=== PATIENT | female | born 1975 | race Caucasian/White ===

== ENCOUNTER 2023-05-29 11:28 | Outpatient (CLI) | payer OTHER, SELFPAY ==
--- NOTE | ~2023-05-29 | MMUS_ITS ---
EXAMINATION: MM diagnostic jany BI w ananya, US breast LT limited HISTORY: Pain and lower-outer quadrant of left breast TECHNIQUE: ML, MLO and CC 3-D tomosynthesis images of both breasts were performed and synthetic 2-D i mages were generated. CAD analysis was submitted and interpreted. High resolution lower outer quadran t left breast ultrasound was performed. COMPARISON: None BREAST PARENCHYMAL COMPOSITION: There are scattered areas of fibroglandular density. FINDINGS: MAMMOGRAPHIC FINDINGS: No suspicious mass or architectural distortion, malignant calcification, skin thickening or retractio n is detected. ULTRASOUND: No suspicious mass or shadowing, cyst or other significant sonographic abnormality is detected in the lower inner quadrant of left breast. IMPRESSION: 1. No mammographic or sonographic evidence of malignancy 2. Routine annual mammographic screening is recommended. BI-RADS Category 1: Negative Reviewed, dictated and finalized at location A. IMPRESSION: 1. No mammographic or sonographic evidence of malignancy 2. Routine annual mammographic screening is recommended. BI-RADS Category 1: Negative
== END 2023-05-29 11:29 | disposition home or self-care (01) ==
LOC: ANHIMG 11:31
PROVIDERS: PCP Nurse Practitioner; Visit Provider Nurse Practitioner
DX: N64.4 Mastodynia (principal)
CPT/HCPCS: 76642; 77062; 77066; G0279

== ENCOUNTER 2023-08-22 11:23 | Emergency (ER) | payer OTHER, SELFPAY ==
--- NOTE | ~2023-08-22 | XR_ITS ---
Clinical Indication: Cough PA and lateral views of the chest: Comparison: None Findings: The lungs are clear, without evidence of focal consolidation or pleural effusion. Cardiome diastinal silhouette is within normal limits. Bones and soft tissues are unremarkable, aside from cer vical fixation hardware. Impression: Clear lungs. Reviewed, dictated and finalized at location . Impression: Clear lungs.
[2023-08-22 11:30] VITALS: BP 117/72; PULSE 95; RESP 16; TEMP 36.3; O2SAT 97
--- NOTE | 2023-08-22 12:06 | ED.GENADULT ---
HPI - General Adult General Chief complaint: Dental/Oral Stated complaint: infection in gum Time Seen by Provider: 08/22/23 11:56 Source: patient and RN notes reviewed Mode of arrival: ambulatory Limitations: no limitations History of Present Illness HPI narrative: Patient presents today with a 2 week history of cough, nasal congestion, sinus pressure, rhinorrhea, postnasal drainage. She is also reporting a 4 week history of pain to the left upper gumline. She had several teeth removed approximately 1 month ago and has been having pain to this area ever since. She has been on 1 week of amoxicillin following her dental procedure as well as 2 weeks of Augmentin prescribed by an urgent care and then by her PCP for her cold symptoms. Her last dose of Augmentin was approximately 5 days ago. She has also been taking Robitussin and Tylenol without much relief. Denies shortness of breath or fever. History of asthma for which she uses an albuterol inhaler, which does occasionally help with her symptoms. Related Data Home Medications Medication Instructions Recorded Confirmed albuterol sulfate 90 mcg/actuation 2 puff inhalation PRN 08/22/23 08/22/23 aerosol inhaler dulaglutide 0.75 mg/0.5 mL 0.75 mg subcut WEEKLY 08/22/23 08/22/23 subcutaneous pen injector (Trulicity) famotidine 20 mg tablet 20 mg PO DAILY 08/22/23 08/22/23 linaclotide 145 mcg capsule 145 mcg PO DAILY 08/22/23 08/22/23 (Linzess) loratadine 10 mg tablet 10 mg PO DAILY 08/22/23 08/22/23 metformin 500 mg tablet,extended 1,000 mg PO BID 08/22/23 08/22/23 release 24 hr progesterone micronized 100 mg 100 mg PO DAILY 08/22/23 08/22/23 capsule rosuvastatin 5 mg tablet 5 mg PO DAILY 08/22/23 08/22/23 sumatriptan succinate 100 mg tablet 100 mg PO DAILY 08/22/23 08/22/23 Allergies Allergy/AdvReac Type Severity Reaction Status Date / Time azithromycin Allergy Severe Swelling Verified 08/22/23 12:09 adhesive Allergy Unknown Verified 08/22/23 11:48 ibuprofen Allergy Unknown Verified 08/22/23 11:48 latex Allergy Unknown Verified 08/22/23 11:48 silver sulfadiazine Allergy Unknown Verified 08/22/23 11:48 [From Emre] Review of Systems Review of Systems: CONSTITUTIONAL: Denies body aches, fever, chills, or sweats. EYES: Denies visual changes, redness, or discharge. ENT: Denies sore throat, or otalgia.+ rhinorrhea, congestion, postnasal drip, gum pain CARDIOVASCULAR: Denies chest pain, palpitations, or edema. RESPIRATORY: Denies dyspnea.+ cough, wheezing GASTROINTESTINAL: Denies abdominal pain, nausea, vomiting, or diarrhea. GENITOURINARY: Denies dysuria or hematuria. SKIN: Denies rash, itching, or wounds. MUSCULOSKELETAL: Denies back pain, joint pain, or myalgia. NEUROLOGIC: Denies headache, numbness, tingling, or weakness. PSYCH: Denies depression or anxiety. [facility] Past Medical History Medical History (Updated 08/22/23 @ 12:51 by Meghna Terrell, THOMAS, ) Asthma Family History Family History Father Hypertension Mother Asthma Heart disease Thyroid disorder Sibling Depression Thyroid disorder Grandparent Asthma Thyroid disorder Heart disease Other Depression Social History Social History Smoking status: Current every day smoker Tobacco type: cigarettes Alcohol intake: never Substance use: never Substance use type: marijuana Do You Feel Safe in your Home?: Yes Lack of Transportation: No Lack of Food: Never True Current Housing: I Have Housing Concerned About Future Housing: No Difficulty Paying for Meds: No Currently Unemployed: No Education: High School Diploma/GED Difficulty w/ Childcare or Family Care: No Comments At time of signature, I have reviewed and agree with nursing past medical, surgical, social and family history unless otherwise noted. Please
== END 2023-08-22 12:53 | disposition home or self-care (01) ==
PROVIDERS: Emergency Provider Nurse Practitioner
DX: J45.901 Unspecified asthma with (acute) exacerbation (principal); J06.9 Acute upper respiratory infection, unspecified; F17.210 Nicotine dependence, cigarettes, uncomplicated
CPT/HCPCS: 71046; 99213; G0463

== ENCOUNTER 2023-11-01 21:43 | Emergency (ER) | payer OTHER, SELFPAY ==
--- NOTE | ~2023-11-01 | XR_ITS ---
EXAM: XR foot RT min 3V DATE: 11/01/2023 22:14 HISTORY: right foot pain/swelling/redness . COMPARISON: None available. FINDINGS: Normal mineralization. No fracture or dislocation. No lytic or blastic lesion. Joint space s are maintained. Mild Achilles enthesopathy. Apparent fourth and fifth interphalangeal joint fusions . No erosion or periosteal change. Soft tissues within normal limits. IMPRESSION: No acute osseous finding in the right foot. Reviewed, dictated and finalized at location K.
[2023-11-01 22:00] VITALS: BP 136/69; PULSE 82; RESP 16; TEMP 36.5; O2SAT 100
--- NOTE | 2023-11-01 23:02 | ED.EXTPRO ---
HPI - Extremity Problem General Chief complaint: Extremity Problem,Nontraumatic Stated complaint: right foot is swollen, no injury Time Seen by Provider: 11/01/23 22:52 History of Present Illness HPI Narrative: 48-year-old female with a past medical history significant for diabetes, asthma. She presents to the emergency room today with sudden onset right foot pain and swelling. Pain is limited to the ankle joint and the hallux on the right foot. She states she woke up with a warm tender sensation in the right foot in these areas and limited mobility of the joint. No bug bites or injuries overlying it. Did not sustain any kind of injury or trauma to her knowledge. Denies any systemic features such as fever, chills, headache, nauseous, vomiting, chest pain or shortness of breath. No history of gout, no medication changes or recent injuries, illnesses. Related Data Home Medications Medication Instructions Recorded Confirmed albuterol sulfate 90 mcg/actuation 2 puff inhalation PRN 08/22/23 08/22/23 aerosol inhaler dulaglutide 0.75 mg/0.5 mL 0.75 mg subcut WEEKLY 08/22/23 08/22/23 subcutaneous pen injector (Trulicity) famotidine 20 mg tablet 20 mg PO DAILY 08/22/23 08/22/23 linaclotide 145 mcg capsule 145 mcg PO DAILY 08/22/23 08/22/23 (Linzess) loratadine 10 mg tablet 10 mg PO DAILY 08/22/23 08/22/23 metformin 500 mg tablet,extended 1,000 mg PO BID 08/22/23 08/22/23 release 24 hr progesterone micronized 100 mg 100 mg PO DAILY 08/22/23 08/22/23 capsule rosuvastatin 5 mg tablet 5 mg PO DAILY 08/22/23 08/22/23 sumatriptan succinate 100 mg tablet 100 mg PO DAILY 08/22/23 08/22/23 Allergies Allergy/AdvReac Type Severity Reaction Status Date / Time azithromycin Allergy Severe Swelling Verified 08/22/23 12:09 adhesive Allergy Unknown Verified 08/22/23 11:48 ibuprofen Allergy Unknown Verified 08/22/23 11:48 latex Allergy Unknown Verified 08/22/23 11:48 silver sulfadiazine Allergy Unknown Verified 08/22/23 11:48 [From Emre] Review of Systems Review of Systems: As [facility] Past Medical History Medical History Asthma Family History Family History Father Hypertension Mother Asthma Heart disease Thyroid disorder Sibling Depression Thyroid disorder Grandparent Asthma Thyroid disorder Heart disease Other Depression Social History Social History Smoking status: Current every day smoker Tobacco type: cigarettes Alcohol intake: never Substance use: never Substance use type: marijuana Do You Feel Safe in your Home?: Yes Lack of Transportation: No Lack of Food: Never True Current Housing: I Have Housing Concerned About Future Housing: No Difficulty Paying for Meds: No Currently Unemployed: No Education: High School Diploma/GED Difficulty w/ Childcare or Family Care: No Exam Narrative: GENERAL: [Well-appearing, well-nourished, and in no acute distress.] HEAD: [Normocephalic, atraumatic.] EYES: [PERRLA and EOMI.] ENT: Nares clear, no rhinorrhea or epistaxis. Mucous membranes moist. NECK: Supple. CHEST: [Clear to auscultation. No respiratory distress.] HEART: [Regular rate and rhythm]. No murmur heard. [Normal peripheral pulses.] ABDOMEN: [Soft, nondistended], [nontender], [No rigidity or guarding] EXTREMITIES: Around the right hallux there is a area of warmth and erythema with significant tenderness to palpation and tenderness will ability of the joint. No raised edges or rashawn a shins that would raise suspicion for cellulitis. No induration or fluctuance on palpation. No plantar surface involvement, no ankle space involvement. Able to plantar and dorsiflex. Contralateral foot without redness or warmth or any similar findings. No other florencio
[2023-11-01] MEDS: HYDROcodone/acetaminophen (*CRX) 5-325 MG TABLET 1 TAB PO (23:06)
[2023-11-01 23:30] LABS: Basophils Absolute Auto 0.1 K/mm3 (0.0-0.1); Basophils Percent Auto 0.5 % (0.2-1.2); Eosinophils Percent Auto 0.1 % (0-4.4); Hematocrit 38.4 % (37.0-47.0); Hemoglobin 12.8 g/dL (12.0-15.0); Immature Granulocyte Absolute 0.04 K/mm3 (0.00-0.031); Immature Granulocyte Percent A 0.4 % (0-0.5); Lymphocytes Absolute Auto 2.64 K/mm3 (0.9-3.2); Lymphocytes Percent Auto 25.4 % (18.3-44.2); Mean Corpuscular HGB Conc 33.3 g/dl (32-36); Mean Platelet Volume 11.5 fl (7.4-10.4); Monocytes Absolute Auto 0.7 K/mm3 (0.1-0.6); Monocytes Percent Auto 6.4 % (2.6-8.5); Neutrophils Percent Auto 67.2 % (45.5-73.1); Platelet Count Result 212 k/mm3 (150-375); Red Blood Count 3.88 M/mm3 (4.2-5.4); Red Cell Distribution Width 13.6 % (11.5-14.5); White Blood Count 10.4 K/mm3 (4.5-10.0)
[2023-11-01 23:55] LABS: Erythrocyte Sedimentation Rate 51 mm/hr (0-20)
[2023-11-02 00:40] LABS: Anion Gap 10 mmol/L (4-12); Blood Urea Nitrogen 8 mg/dL (7-17); CRP 0.8 mg/dL (<1.0); Calcium 9.4 mg/dL (8.4-10.2); Carbon Dioxide 20 mmol/L (22-30); Chloride 106 mmol/L (98-107); Estimated CRCL calculation 83 ml/min; Estimated Glomerular Filt Rate > 60; Glucose 100 mg/dL (65-110); Potassium 3.9 mmol/L (3.4-5.0); Sodium 136 mmol/L (137-145); Uric Acid 4.9 mg/dL (2.5-7.5)
[2023-11-02] MEDS: predniSONE 20 MG TABLET 60 MG PO (00:55)
[2023-11-02] MEDS: KETOROLAC 30 MG/ML VIAL (*BKC) IM (00:57)
== END 2023-11-02 01:04 | disposition home or self-care (01) ==
PROVIDERS: Emergency Provider Student in an Organized Health Care Education/Training Program
DX: M13.871 Other specified arthritis, right ankle and foot (principal); J45.909 Unspecified asthma, uncomplicated; E11.9 Type 2 diabetes mellitus without complications; F17.210 Nicotine dependence, cigarettes, uncomplicated; Z79.85 Long-term (current) use of injectable non-insulin antidiabetic drugs; Z79.84 Long term (current) use of oral hypoglycemic drugs; Z79.899 Other long term (current) drug therapy
CPT/HCPCS: 36415; 73630; 80048; 84550; 85025; 85652; 86140; 96372; 99283; A9270; J1885; J7512

== ENCOUNTER 2024-02-02 16:28 | Emergency (ER) | payer OTHER, SELFPAY ==
[2024-02-02 16:33] VITALS: BP 128/71; PULSE 96; RESP 16; TEMP 36.7; O2SAT 100
--- NOTE | 2024-02-02 17:10 | ED.RECABL ---
HPI - Recheck/Abnormal Lab/Rx General Chief Complaint: Recheck/Abnormal Lab/Rx Stated Complaint: facial swelling post surgery Time Seen by Provider: 02/02/24 17:00 Source: patient Mode of arrival: ambulatory Limitations: no limitations History of Present Illness HPI narrative: This is a 48-year-old female who presents to the ED for chief complaint of left-sided facial pain and swelling after oral surgery yesterday. Patient reports that they call the oral surgeon who told them to come to the ER for an antibiotic. Patient states that she did not receive any prescription for pain medications following surgery. She was previously on amoxicillin for some sort of upper respiratory infection. Denies fevers, chills, nausea, vomiting. Related Data Home Medications ?Medication ?Instructions ?Recorded ?Confirmed ?Last Taken ?Type albuterol sulfate 90 mcg/actuation 2 puff inhalation PRN 08/22/23 08/22/23 Unknown History aerosol inhaler dulaglutide 0.75 mg/0.5 mL 0.75 mg subcut WEEKLY 08/22/23 08/22/23 Unknown History subcutaneous pen injector (Trulicity) famotidine 20 mg tablet 20 mg PO DAILY 08/22/23 08/22/23 Unknown History linaclotide 145 mcg capsule 145 mcg PO DAILY 08/22/23 08/22/23 Unknown History (Linzess) loratadine 10 mg tablet 10 mg PO DAILY 08/22/23 08/22/23 Unknown History metformin 500 mg tablet,extended 1,000 mg PO BID 08/22/23 08/22/23 Unknown History release 24 hr progesterone micronized 100 mg 100 mg PO DAILY 08/22/23 08/22/23 Unknown History capsule rosuvastatin 5 mg tablet 5 mg PO DAILY 08/22/23 08/22/23 Unknown History sumatriptan succinate 100 mg tablet 100 mg PO DAILY 08/22/23 08/22/23 Unknown History Allergies Allergy/AdvReac Type Severity Reaction Status Date / Time azithromycin Allergy Severe Swelling Verified 02/02/24 16:37 adhesive Allergy Unknown Verified 02/02/24 16:37 ibuprofen Allergy Unknown Verified 02/02/24 16:37 latex Allergy Unknown Verified 02/02/24 16:37 silver sulfadiazine (From Allergy Unknown Verified 02/02/24 16:37 Silvadene) Review of Systems Review of Systems: All systems as dictated in HPI [facility] Past Medical History Medical History Asthma Family History Family History Father Hypertension Mother Asthma Heart disease Thyroid disorder Sibling Depression Thyroid disorder Grandparent Asthma Thyroid disorder Heart disease Other Depression Social History Social History Smoking status: Current every day smoker Tobacco type: cigarettes Alcohol intake: never Substance use: never Substance use type: marijuana Do You Feel Safe in your Home?: Yes Lack of Transportation: No Lack of Food: Never True Current Housing: I Have Housing Concerned About Future Housing: No Difficulty Paying for Meds: No Currently Unemployed: No Education: High School Diploma/GED Difficulty w/ Childcare or Family Care: No Exam Narrative: GENERAL: Well-appearing, well-nourished, and in no acute distress. HEAD: Normocephalic, atraumatic. EYES: PERRLA and EOMI. ENT: Sutures in place to the left upper gums. Minimal surrounding erythema or swelling. No discrete focal obvious fluctuance. Nares clear, no rhinorrhea or epistaxis. Mucous membranes moist. Oropharynx without tonsillar hypertrophy exudate or other lesions. NECK: Supple. No adenopathy or masses. CHEST: No respiratory distress. Clear to auscultation. No wheezes rales or rhonchi HEART: Regular rate and rhythm. No murmur heard. Normal peripheral pulses. ABDOMEN: Soft, nontender, nondistended, normal active bowel sounds. MSK: Normal range of motion. No edema. SKIN: Warm, dry, no rash. NEURO: Alert and oriented x4. No focal deficits. PSYCH: Normal mood and affect. Course Vital Signs Vital signs: Vital Signs Temperature 98.0 F 02/02/24 16:33 Pulse Rate 96 02/02/24 16:33 Respiratory Rate 16 02/02/24 16:33 Blood Pressure 128/71 02/02/24 16:33 Pulse Oximetry 100 02/02/24 16:33 Oxygen Delivery Room Air 02/02/24 16:33 Temperature 98.0 F 02/02/24 16:33 Pulse Rate 96 02/02/24 16:33 Respiratory Rate 16 02/02/24 16:33 Blood Pressure 128/71 02/02/24 16:33 Pulse Oximetry 100 02/02/24 16:33 Oxygen Delivery Room Air 02/02/24 16:33 MDM - Recheck/Abnormal Lab/Rx MDM Narrative Medical decision making narrative: 48-year-old female presenting to the ED for postoperative pain from oral surgery that occurred yesterday. Vitals are normal. Exam remarkable for the above. The sutures are in place and there does not appear to be any significant infection on exam. Lab work is unremarkable. Patient was given pain medications here with good relief. It appears that her surgery team did not prescribe any pain medications for her postop phase. Short course of [place] given for postoperative pain. Pt will be discharged in stable condition. Return precautions given and supportive measures discussed. Pt is understanding and agreeable with plan for discharge and follow-up with PCP. Patient called the ER later stating that the pharmacy was wrong. I double-checked with at initial pharmacy where the [place] was prescribed and she had not yet fill this prescription. Canceled the [place] prescription and recent to her new desired pharmacy. Lab Data 02/02/24 17:54 02/02/24 17:54 Labs: Lab Results 02/02/24 Range/Units 17:54 WBC 8.2 (4.5-10.0) K/mm3 RBC 4.28 (4.2-5.4) M/mm3 Hgb 13.9 (12.0-15.0) g/dL Hct 40.6 (37.0-47.0) % MCV 94.9 (80-100) fl MCH 32.5 (26-34) pg MCHC 34.2 (32-36) g/dl RDW 12.8 (11.5-14.5) % Plt Count 271 (150-375) k/mm3 MPV 10.9 H (7.4-10.4) fl Immature Gran % (Auto) 0.2 (0-0.5) % Neut % (Auto) 83.3 H (45.5-73.1) % Lymph % (Auto) 11.6 L (18.3-44.2) % [place] % (Auto) 4.3 (2.6-8.5) % Eos % (Auto) 0.0 (0-4.4) % Baso % (Auto) 0.6 (0.2-1.2) % Lymph # (Auto) 0.95 (0.9-3.2) K/mm3 [place] # (Auto) 0.4 (0.1-0.6) K/mm3 Eos # (Auto) 0.0 (0-0.3) K/mm3 Baso # (Auto) 0.1 (0.0-0.1) K/mm3 Abs Immat Gran (auto) 0.02 (0.00-0.031) K/mm3 Absolute Neuts (auto) 6.8 H (1.3-6.7) K/mm3 Absolute Nucleated RBC 0.000 (0.0-0.012) K/mm3 Nucleated RBC % 0.0 (0.0-0.2) % Sodium 135 L (137-145) mmol/L Potassium 3.6 (3.4-5.0) mmol/L Chloride 101 (98-107) mmol/L Carbon Dioxide 29 (22-30) mmol/L Anion Gap 5 (4-12) mmol/L BUN 4 L (7-17) mg/dL Creatinine 0.60 L (0.7-1.0) mg/dL Estim Creat Clear Calc 83 ml/min Estimated GFR > 60 (59 - ) Glucose 100 (65-110) mg/dL Calcium 9.2 (8.4-10.2) mg/dL Discharge Plan Discharge Clinical Impression: Post-op pain Patient Disposition: Home, Self-Care Condition: Stable Instructions: Antibiotic Form Additional Instructions: Your exam and workup today are reassuring. Do not feel that this is an infection. If your oral surgeon would like it to be on antibiotics, please take clindamycin as prescribed, otherwise keep following up as directed by oral surgeon. If you have any new or worsening symptoms please return to the ER for further evaluation. Patient Language: Hungarian Prescriptions: New hydrocodone-acetaminophen 5-325 mg tablet 1 tablet PO Q8H PRN (Reason: pain) Qty: 14 0RF clindamycin HCl 300 mg capsule 300 mg PO Q8H Qty: 15 0RF No Action sumatriptan succinate 100 mg tablet 100 mg PO DAILY famotidine 20 mg tablet 20 mg PO DAILY albuterol sulfate 90 mcg/actuation HFA aerosol inhaler 2 puff INHALATION PRN metformin 500 mg tablet extended release 24 hr 1,000 mg PO BID loratadine 10 mg tablet 10 mg PO DAILY progesterone micronized 100 mg capsule 100 mg PO DAILY rosuvastatin 5 mg tablet 5 mg PO DAILY Linzess 145 mcg capsule 145 mcg PO DAILY Trulicity 0.75 mg/0.5 mL pen injector 0.75 mg SUBCUT WEEKLY prednisone 50 mg tablet 50 mg PO DAILY 5 Days Qty: 5 0RF methylprednisolone [Medrol (Jason)] 4 mg tablets,dose pack See Rx Instructions .ROUTE .COMPLEX Qty: 21 0RF Rx Instructions: orally per package directions acetaminophen [Tylenol Extra Strength] 500 mg tablet 1,000 mg PO TID PRN (Reason: pain) Qty: 30 0RF Follow-up/Referrals: UNKNOWN,DOCTOR [Primary Care Provider] - Time of Disposition: 18:23
[2024-02-02] MEDS: KETOROLAC 15 MG/ML VIAL (*BKC) IV PUSH (17:49)
[2024-02-02] MEDS: MORPHINE SULFATE (*CRX) 4 MG/ML INJ IV PUSH (17:50)
[2024-02-02 18:02] LABS: Basophils Absolute Auto 0.1 K/mm3 (0.0-0.1); Basophils Percent Auto 0.6 % (0.2-1.2); Hematocrit 40.6 % (37.0-47.0); Hemoglobin 13.9 g/dL (12.0-15.0); Immature Granulocyte Absolute 0.02 K/mm3 (0.00-0.031); Immature Granulocyte Percent A 0.2 % (0-0.5); Lymphocytes Absolute Auto 0.95 K/mm3 (0.9-3.2); Lymphocytes Percent Auto 11.6 % (18.3-44.2); Mean Corpuscular HGB Conc 34.2 g/dl (32-36); Mean Corpuscular Hemoglobin 32.5 pg (26-34); Mean Corpuscular Volume 94.9 fl (80-100); Mean Platelet Volume 10.9 fl (7.4-10.4); Monocytes Absolute Auto 0.4 K/mm3 (0.1-0.6); Monocytes Percent Auto 4.3 % (2.6-8.5); Neutrophils Absolute Auto 6.8 K/mm3 (1.3-6.7); Neutrophils Percent Auto 83.3 % (45.5-73.1); Platelet Count Result 271 k/mm3 (150-375); Red Blood Count 4.28 M/mm3 (4.2-5.4); Red Cell Distribution Width 12.8 % (11.5-14.5); White Blood Count 8.2 K/mm3 (4.5-10.0)
[2024-02-02 18:10] LABS: Anion Gap 5 mmol/L (4-12); Blood Urea Nitrogen 4 mg/dL (7-17); Calcium 9.2 mg/dL (8.4-10.2); Carbon Dioxide 29 mmol/L (22-30); Chloride 101 mmol/L (98-107); Estimated CRCL calculation 83 ml/min; Estimated Glomerular Filt Rate > 60; Glucose 100 mg/dL (65-110); Potassium 3.6 mmol/L (3.4-5.0); Sodium 135 mmol/L (137-145)
== END 2024-02-02 18:31 | disposition home or self-care (01) ==
PROVIDERS: Emergency Provider Physician Assistant
DX: G89.18 Other acute postprocedural pain (principal); J45.909 Unspecified asthma, uncomplicated; F17.210 Nicotine dependence, cigarettes, uncomplicated; Z79.85 Long-term (current) use of injectable non-insulin antidiabetic drugs; Z79.899 Other long term (current) drug therapy; Z79.84 Long term (current) use of oral hypoglycemic drugs
CPT/HCPCS: 36415; 80048; 85025; 96374; 96375; 99284; J1885; J2270

== ENCOUNTER 2024-06-04 13:33 | Emergency (ER) | payer OTHER, SELFPAY ==
--- NOTE | 2024-06-04 13:34 | ED_ITS ---
HPI - URI/Sore Throat General Chief Complaint: Upper Respiratory Infection Stated Complaint: Cough/Chest Congestion/Mouth Pain Time Seen by Provider: 06/04/24 13:34 Source: patient Mode of arrival: ambulatory Limitations: no limitations History of Present Illness HPI Narrative: Tayler is a 49-year-old female patient presenting to the clinic today with complaints of nonproductive cough, losing her voice, nasal congestion, chest congestion, and upper gum pain/swelling x3 days. She reports no known fever, chills, body aches. Denies any chest pain but does report having some shortness of breath. She does take albuterol inhaler and Symbicort. Related Data Home Medications ?Medication ?Instructions ?Recorded ?Confirmed ?Last Taken ?Type albuterol sulfate 90 mcg/actuation 2 puff inhalation PRN 08/22/23 04/15/24 Unknown History aerosol inhaler famotidine 20 mg tablet 20 mg PO DAILY 08/22/23 04/15/24 Unknown History loratadine 10 mg tablet 10 mg PO DAILY 08/22/23 04/15/24 Unknown History metformin 500 mg tablet,extended 1,000 mg PO BID 08/22/23 04/15/24 Unknown History release 24 hr rosuvastatin 5 mg tablet 5 mg PO DAILY 08/22/23 04/15/24 Unknown History sumatriptan succinate 100 mg tablet 100 mg PO DAILY 08/22/23 04/15/24 Unknown History budesonide-formoterol HFA 160 inhalation 06/04/24 Unknown History mcg-4.5 mcg/actuation aerosol inhaler (Symbicort) Allergies Allergy/AdvReac Type Severity Reaction Status Date / Time azithromycin Allergy Severe Swelling Verified 06/04/24 13:45 adhesive Allergy Unknown Verified 06/04/24 13:45 ibuprofen Allergy Unknown Verified 06/04/24 13:45 latex Allergy Unknown Verified 06/04/24 13:45 silver sulfadiazine (From Allergy Unknown Verified 06/04/24 13:45 Silvadene) Review of Systems Review of Systems: Pertinent positives per HPI. Patient denies any fever, chills, rash, headache, visual changes, dizziness, shortness of breath, chest pain, palpitations, nausea, vomiting, diarrhea, constipation, abdominal pain, or any urinary issues. PMFSH Past Medical History Medical History Cholecystectomy planned Neuropathic arthritis High cholesterol Diabetes Asthma Surgical History Surgical History H/O tubal ligation History of hip surgery Previous back surgery H/O neck surgery Family History Family History Father Hypertension Mother Asthma Heart disease Thyroid disorder Sibling Depression Thyroid disorder Grandparent Asthma Thyroid disorder Heart disease Other Depression Social History Social History Smoking status: Current every day smoker Tobacco type: cigarettes Alcohol intake: never Substance use: current Substance use type: marijuana Do You Feel Safe in your Home?: Yes Lack of Transportation: No Lack of Food: Never True Current Housing: I Have Housing Concerned About Future Housing: No Difficulty Paying for Meds: No Currently Unemployed: No Education: High School Diploma/GED Difficulty w/ Childcare or Family Care: No Comments At the time of my signature, I reviewed and agree with the nursing past medical, surgical, social, and family history. There is no relevant family history pertinent to the patient complaint. Exam Narrative: General: Well-developed, well nourished, in no apparent distress Head: Normocephalic, atraumatic Eyes: Pupils equally round and reactive to light bilaterally, EOM intact, sclera and conjunctive clear, no discharge, lids normal Ears: TMs intact and congested, ear canals clear, no drainage, grossly hearing normal. Nose: Nares patent, clear nasal discharge, no inflammation, no sinus tenderness. Mouth: Oral pharynx without lesions or masses, good dentition, MMM. Postnasal drip Neck: Supple, trachea midline, no enlargement of anterior or posterior cervical nodes, no thyroid masses or goiter palpable. Cardio: Regular rate and rhythm, s1 and s2 normal, no murmur appreciated. Resp: Clear to auscultation bilaterally, no rhonchi, rales, wheezing or rubs Course Course Emergency Course: Portions of this record may have been created with voice recognition software. Level of Care: Express Care Visit Vital Signs Vital signs: Vital Signs Temperature 36.3 C L 06/04/24 13:45 Pulse Rate 93 06/04/24 13:45 Respiratory Rate 16 06/04/24 13:45 Blood Pressure 124/65 06/04/24 13:45 Pulse Oximetry 100 06/04/24 13:45 Oxygen Delivery Room Air 06/04/24 13:45 Temperature 36.3 C L 06/04/24 13:45 Pulse Rate 93 06/04/24 13:45 Respiratory Rate 16 06/04/24 13:45 Blood Pressure 124/65 06/04/24 13:45 Pulse Oximetry 100 06/04/24 13:45 Oxygen Delivery Room Air 06/04/24 13:45 Vital signs reviewed MDM - URI/Sore Throat MDM Narrative Medical decision making narrative: At the time of visit patient is resting comfortably on the exam table. Patient appears to be nontoxic. Plan: I suspect patient has URI. Prescription for prednisone was sent to the pharmacy. Patient adamant about getting antibiotic as she states that steroids make her more sick and that she will be back to get an antibiotic. Explained to the patient I do not see any sign of a bacterial infection as her lungs are clear his she has a nonproductive cough, she denies any fever, and no sign of bacterial infection on exam. She voiced understanding. Supportive measures were discussed with the patient and they voiced understanding discharge instructions and agrees to treatment plan. Return precautions reviewed Differential Diagnosis Differential diagnosis: Likely upper respiratory infection, otitis media, sinusitis, viral infection, bronchitis, influenza, pharyngitis and other (COVID) Discharge Plan Discharge Clinical Impression: Upper respiratory infection Qualifiers: URI type: unspecified URI Qualified Code(s): J06.9 - Acute upper respiratory infection, unspecified Patient Disposition: Home Condition: Stable Instructions: Antibiotic Form, Cold Symptoms (ED) Additional Instructions: Take prescription medications only as prescribed-prednisone No sign of bacterial infection in the clinic today. Increase fluids and stay well hydrated Tylenol/motrin for pain/fever Flonase and OTC antihistamines as directed Vicks vapor rub to open sinuses Sinus rinses for congestion Cepacol spray, cough drops, throat lozenges, warm tea with honey/lemon, gargle salt water to soothe throat BRAT diet for diarrhea Clear liquids x 24 hours then advance as tolerated for nausea/vomiting Go to the ED if you develop a worsening in your condition- high fever not controlled by Tylenol or Motrin, dehydration, weakness, lethargy, shortness of breath, or chest pain. Follow up with your PCP in 3-5 days if symptoms persist. Patient Language: [place] Prescriptions: New prednisone 20 mg tablet 40 mg PO DAILY 5 Days Qty: 10 0RF No Action sumatriptan succinate 100 mg tablet 100 mg PO DAILY famotidine 20 mg tablet 20 mg PO DAILY albuterol sulfate 90 mcg/actuation HFA aerosol inhaler 2 puff INHALATION PRN metformin 500 mg tablet extended release 24 hr 1,000 mg PO BID loratadine 10 mg tablet 10 mg PO DAILY rosuvastatin 5 mg tablet 5 mg PO DAILY budesonide-formoterol [Symbicort] 160-4.5 mcg/actuation HFA aerosol inhaler INHALATION Linzess 72 mcg capsule 72 mcg PO DAILY Qty: 30 3RF omeprazole 40 mg capsule,delayed release(DR/EC) 40 mg PO DAILY Qty: 30 3RF acetaminophen [Tylenol Extra Strength] 500 mg tablet 1,000 mg PO TID PRN (Reason: pain) Qty: 30 0RF Follow-up/Referrals: Harley,Marianne Kearney APRN [Primary Care Provider] - Time of Disposition: 13:52 Quality NIHSS Nursing Documentation ED NIHSS nursing documentation: reviewed/agree
[2024-06-04 13:45] VITALS: BP 124/65; PULSE 93; RESP 16; TEMP 36.3; O2SAT 100
--- OUTSIDE RECORDS SUMMARY | 2024-06-04 14:26 | XMS_ITS | Continuity of Care Document ---
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 [address] [place], [place], [id number] . tel:[phone] Referring Provider: Aishwarya Ortiz, [address], [place], [address]. tel:[phone] OFFICE/OUTPA TIENT VISIT NEW [facility], [address], [place], [address], [place] tel:[phone] [facility] Right shoulder pain, unspecified chronicityBursiti s of right shoulderRadiculop athy of arm Apr- 0 Destini Gaviria. [address], [place], [place], [id number] . tel: [phone] Referring Provider: Aishwarya Ortiz, [address], [place], [address]. tel:[phone] [facility], [address], [place], [address], [place] tel:[phone] [facility] O Kristina Injury of right shoulder, initial encounterFall in home, initial encounter ^Unspecified place in unspecified non-institutional (private) residence as the place of occurrence of the external causeContusion of right shoulder, initial encounter 9 Surendra Hernandez. [address], [place], [id number] . tel:[phone] Family History Family Member Type Diagnosis Age At Onset Mother Problem Heart disease Problem (finding) Family history of chronic obstructive lung disease Problem (finding) Family history of Liver disease Payers Payer name Insurance type Covered green party ID Livan torres(s) [facility] Medicaid [id number] Social History Type Description Quantity Date Captured [...]
--- OUTSIDE RECORDS SUMMARY | 2024-06-04 14:26 | XMS_ITS | Clinical Summary ---
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 the rectum. The polyp was sessile. The polyp was removed with a cold biopsy forceps. Resection and retrieval were complete. A 6 mm polyp was found in the sigmoid colon. The polyp was sessile. The polyp was removed with a cold snare. Resection and retrieval were complete. A 12 mm polyp was found in the recto-sigmoid colon. The polyp was pedunculated. The polyp was removed with a hot snare. Resection and retrieval were complete. External and internal hemorrhoids were found during retroflexion. The hemorrhoids were medium-sized. The exam was otherwise without abnormality on direct and retroflexion views. The terminal ileum appeared normal. _ Impression: - One 3 mm polyp in the rectum, removed with a cold biopsy forceps. Resected and retrieved. - One 6 mm polyp in the sigmoid colon, removed with a cold snare. Resected and retrieved. - One 12 mm polyp at the recto-sigmoid colon, removed with a hot snare. Resected and retrieved. - External and internal hemorrhoids. - The examination was otherwise normal on direct and retroflexion views. - The examined portion of the ileum was normal. Recommendation: - Await pathology results. - Repeat colonoscopy in 3 years for surveillance. Procedure Code(s): --- Professional --- 58202, Colonoscopy, flexible; with removal of tumor(s), polyp(s), or other lesion(s) by snare technique 36009, 59, Colonoscopy, flexible; with biopsy, single or multiple --- Technical --- 31779, Colonoscopy, flexible; with removal of tumor(s), polyp(s), or other lesion(s) by snare technique 43084, 59, Colonoscopy, flexible; with biopsy, single or multiple Diagnosis Code(s): --- Professional --- Z12.11, Encounter for screening for malignant neoplasm of colon K62.1, Rectal polyp K63.5, Polyp of colon K64.8, Other hemorrhoids --- Technical --- Z12.11, Encounter for screening for malignant neoplasm of colon K62.1, Rectal polyp K63.5, Polyp of colon K64.8, Other hemorrhoids CPT copyright 2019 [employer]. All rights reserved. The codes documented in this report are preliminary and upon certified coder review may be revised to meet current compliance requirements. __ Inez Izaguirre MD 12/16/2021 2:44:57 PM Number of Addenda: 0 Note Initiated On: 12/16/2021 1:18 PM [facility] 12/16/2021 1:18 PM ASSISTANT MERCHANDISER Inez Izaguirre MD GI PROCEDURE ORDERABLES Edite d Result - Final Performing Organization Address City/State/[facility] Co de Phone Number [facility] [place] [address] * MAMMO BILAT SCREENING (04/28/2020 12:18 PM CDT) Anatomical Region Laterality Modality Breast Bilateral Mammography 04/29/2020 12:3 6 PM CDT Impressions 04/29/2020 12:38 PM CDT 1. Stable bilateral benign changes. 2. No mammographic evidence of malignancy. BI-RADS Category (2): Benign finding(s). RECOMMENDATION: Return for mammograms in one year or sooner if clinically indicated. *Reading Radiologist: Frances Montes on 04/29/2020 at 12:38 PM Narrative 04/29/2020 12:38 PM CDT BILATERAL DIGITAL SCREENING MAMMOGRAPHY HISTORY: Screening mammogram. No personal or family history of breast cancer. TECHNIQUE: Bilateral digital mammography was obtained in the craniocaudal and mediolateral oblique projections. 3D tomosynthesis performed. Image interpretation was assisted with CAD analysis. COMPARISON: Mammography 02/25/2019 FINDINGS: Breast composition: Scattered fibroglandular densities Stable bilateral benign changes are present, with no suspicious interval change. No worrisome mass, suspicious microcalcifications, or other abnormality seen. Aishwarya Ortiz DO MAMMO ORDERABLES Final Result * PAP IG LB CT+GC+TV+ HPV HR DNA (12/04/2018 2:32 PM CDT) Diagnosis [facility] INSURANCE BILL Comment:NEGATIVE FOR INTRAEP ITHELIAL LESION OR MALIGNANCY. Specimen Adequacy [facility] INSURANCE BILL Comment:Satisfactory for oumou luation. No endocervical component is identified. Clinician Provided ICD10 [facility] INSURANCE BILL Comment: Z01.419 N92.1 Z12.39 Z11.3 N93.8 Performed by [facility] INSURANCE BILL Comment:Elle Harley, Cytot echnologist (ASCP) Comment . [facility] INSURANCE BILL Note [facility] INSURANCE BILL Comment: The Pap smear is a screening test designed to aid in the detection of premalignant and malignant conditions of the uterine cervix. It is not a diagnostic procedure and should not be used as the sole means of detecting cervical cancer. Both false-positive and false-negative reports do occur. . IGLBP CPT Code Automation [facility] INSURANCE BILL Comment: This liquid based ThinPrep(R) pap test was screened with the use of an image guided system. Human papillomavirus High Risk Negative Negative [facility] INSURANCE BILL Comment: This high-risk HPV test detects thirteen high-risk types (16/18/31/33/35/39/45/51/52/56/58/59/68) without differentiation. . Chlamydia trachomatis ALBERTO Negative Negative [facility] INSURANCE BILL GC ALBERTO Negative Negative [facility] INSURANCE BILL Trichomonas vaginalis by ALBERTO Negative Negative [facility] INSURANCE BILL Pathology/Cytolog y PART OF UTERINE CERVIX / Unknown 12/04/2018 2:32 PM CDT 12/04/2018 Narrative [facility] INSURANCE BILL - 12/10/2018 12:36 PM ASSISTANT MERCHANDISER Source.............Cervix LMP / Prev Treat...None No. of containers..01 ThinPrep Vial Resulting Agency Comment Lab Testing performed at: [facility] [place] [id number] Jeanine Rush MD LAB - PATHOLOGY/CYTOLOGY KATHLEEN REA Final Result [facility] INSURANCE BILL [address] [place] [address] from Last 3 Months or Most Recently Relevant to Health Maintenance Insurance [facility] MEDICAID - [id number] * Guarantor: TAYLER WASHINGTON Account Type Relation to Patient Date of Phone Billing Address Personal/Family 1975 [address] [place] [address] Advance Directives * Full Code (Latest Code Status on File) Date Activated Date Inactivated Comments 03/21/2019 11:06 PM 03/25/2019 3:20 PM * Full Code Date Activated Date Inactivated Comments 03/21/2019 10:14 PM 03/21/2019 11:05 PM * Full Code Date Activated Date Inactivated Comments 05/29/2018 7:31 PM 06/01/2018 1:48 PM * Full Code Date Activated Date Inactivated Comments 01/25/2016 8:45 PM 01/28/2016 4:27 PM * Full Code Date Activated Date Inactivated Comments 07/16/2013 9:34 PM 07/19/2013 2:21 PM Care Teams Recruiting Team Lead Relationship Specialty Start Date End Date Quita Lares MD [address] [place] [address] PCP - General Internal Medicine 02/07/23 Marianne Souza, WIRELINE OPERATOR-CLIENT CARE SPECIALIST [address] [place] [address]. [address] [place] [id number] PCP - Attributed-Agrawal Medicaid STL 01/05/23 Bharath Martinez DO Orthopedic Surgery 06/07/16 [place] [id number] [facility] [address] [place], [place] [id number] Physical Medicine and Rehabilitation 10/16/19
--- OUTSIDE RECORDS SUMMARY | 2024-06-04 14:26 | XMS_ITS ---
Author Organization [facility] Address [address] [place] [address] Care Team Providers Care Purchasing Supervisor Name Role Phone Rocío Ross Primary Care Provider Luis Armando Mclean [phone] Encounters Encounter Location Date Provider Diagnosis [facility] [address] [place] [address] 01/17/2023 Luis Armando Mclean Plan Of Treatment No Information Progress Notes * Tayler PETERSENDOB:1975 (49 yo F)Acc No.[id number]:01/17/2023 Dental Problem Focus Patient: Tayler LESTER Provider: Leydi MCLEAN DDS :1975 A ge:47 Y S ex:Female Date:01/17/2023 Address:[address] [place], [place] [id number] Pcp:Rocío Ross Subjective: * Chief Complaints: * * Medical History: Objective: Assessment: Plan: * Treatment: * * Electronic signature of Segundo Mclean DDS on 06/04/2024 at 02:25 PM CDT Sign off status: Pending Visit Status: N /S (No-Show) * Provider: Leydi MCLEAN DDS Date: 1 03/20/2022 Generated for Elissa hodges/Rossy/Calixtoitting on: 0 06/04/2024 02:25 PM CDT
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
--- OUTSIDE RECORDS SUMMARY | 2024-06-04 14:26 | XMS_ITS | Patient Health Record ---
Author Organization [facility] Address [address] [place] [address] Care Team Providers Care Weatherization Crew Leader Name Role Phone Altaf Rossl Primary Care Provider Reason For Referral No Information Plan Of Treatment No Information Insurance Providers Payer Name Payer Address Payer Phone Subscriber Number Group Number Insured Name Patient Relationship to Insured Coverage Start Date Coverage End Date [address] [id number] Tayler [place] Self - patient is the insured [facility] [address] [place] [address] [id number] Tayler [place] Self - patient is the insured
--- OUTSIDE RECORDS SUMMARY | 2024-06-04 14:26 | XMS_ITS | Clinical Summary ---
Author Organization [facility] Address [address] [place] [address] Phone Care Team Providers Care Channeler Outsole Name Role Phone Unavailable Primary Care Provider Unavailabl e Encounters Date Type Department Care Team Description 03/20/2024 [facility] [address] [place] [address] Provider, None Referral from Last 3 Months Social History Tobacco Use Types Packs/Day Years Used Date Smoking Tobacco: Never Assessed Comments Unknown Sex and Gender Information Value Date Recorded Sex Assigned at Not on file Legal Sex Female 10:34 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
--- OUTSIDE RECORDS SUMMARY | 2024-06-04 14:26 | XMS_ITS | Referral Summary ---
Author Organization [facility] [address] Address [address] [place] [address] Care Team Providers Care Bridge Ironworker Helper Name Role Phone Marianne Souza NP Primary Care Provider [phone]- [phone] Allergies Active Allergy Reactions Criticality Noted Date Comments Adhesive Itching,Rash Medium 07/02/2013 Patient states she cannot use Tegaderm either Patient states she cannot use Tegaderm either Patient states she cannot use Tegaderm either Adhesive Tape-Silicones Rash Medium 09/20/2015 Ibuprofen Other (See comments),Stomach upset High 07/19/2014 Bleeding ulcers. Ulcers Ulcers Ulcers Latex Itching,Rash Medium 07/02/2013 Methylprednisolone Anaphylaxis,Other (See comments) High 02/21/2019 Tongue swelled up Tongue swelled up with high doses. Can have low doses Tongue swelled up Tongue swelled up Tongue swelled up Silver Sulfadiazine Rash,Other (See comments) High 09/20/2015 Sulfa (Sulfonamide Antibiotics) Hives,Urticaria Medium 01/15/2018 Medications albuterol HFA (PROVENTIL HFA,VENTOLIN HFA) 90 mcg/actuation inhaler Inhale 2 puffs every 4 hours 7 Active fluticasone (FLONASE) 50 mcg/actuation nasal spray 2 sprays Active ipratropium-albut jacoby (COMBIVENT RESPIMAT) 20-100 mcg/actuation inhalerIndication s:Chronic Obstructive Pulmonary Disease with Bronchospasms Inhale 1 puff 7 Active loratadine (CLARITIN) 10 mg tablet Take 1 tablet (10 mg total) by mouth Active omeprazole (PriLOSEC) 20 mg capsule Take 1 capsule (20 mg total) by mouth Active SUMAtriptan (IMITREX) 50 mg tabletIndications :Migraine Take 1 tablet (50 mg total) by mouth every 2 hours as needed 7 Active lidocaine (LIDODERM) 5 % Place 1 patch on the skin daily Remove & discard patch within 12 hours or as directed by MD. 30 patch 3 Active blood glucose diagnostic (glucose blood) strip 1 each by Not Applicable route 2 (two) times a day 4 Active calcium pantothenate 200 mg tablet Take 200 mg by mouth daily Active lancets misc 1 each by Not Applicable route 2 (two) times a day 4 Active amitriptyline (ELAVIL) 25 mg tablet Take 1 tablet (25 mg total) by mouth 1 Active benzonatate (TESSALON) 100 mg capsule Take 1 capsule (100 mg total) by mouth 3 (three) times a day Active budesonide-formot Jacoby (SYMBICORT) 160-4.5 mcg/actuation inhaler Inhale 2 puffs 0 Active cholecalciferol (VITAMIN D-3) 50,000 unit capsule Take 1 capsule (50,000 Units total) by mouth once a week 0 Active cyclobenzaprine (FLEXERIL) 5 mg tablet Take 1 tablet (5 mg total) by mouth 3 (three) times a day as needed 4 Active famotidine (PEPCID) 20 mg tablet Take 1 tablet (20 mg total) by mouth nightly at bedtime. Active metFORMIN (GLUCOPHAGE) 500 mg tablet Take 1 tablet (500 mg total) by mouth 2 (two) times a day with meals Active Active Problems Problem Noted Date Diagnosed Date Chronic neck pain 01/07/2023 Chronic pain syndrome 01/07/2023 Hyperthyroidism 01/07/2023 Irritable bowel syndrome with constipation 01/07 Otalgia of left ear 01/07/2023 Bursitis of shoulder 07/13/2021 Cannabis dependence 07/13/2021 Nerve root disorder 07/13/2021 Hot flashes due to menopause 02/01/2021 Hyperlipidemia 02/01/2021 Type 2 diabetes mellitus without complication Pain in joint of right shoulder 01/24/2019 Migraine without aura and wi thout status migrainosus, not intractable 06/17/2018 Moderate episode of recurrent major depressive d isorder 06/17/2018 Moderate persistent asthma without complication 06/17/2018 Polyp of colon 06/17/2018 Primary osteoarthritis involving multiple joints 06/17/2018 Vitamin B12 deficiency 06/17/2018 Sprain of right ankle 06/22/2017 Acute right ankle pain 06/22/2017 Chronic obstructive lung disease 12/02/2016 H/O migraine 12/01/2016 Spinal stenosis of cervical region 12/01/2016 Allergic rhinitis 06/01/2016 Rupture of left biceps tendon 06/01/2016 Bipolar disorder, current episode mixed, moderat e 02/14/2016 Tobacco use 02/14/2016 Duodenal ulcer disease 01/27/2016 Overview (05/28/2023): Overview: Dr. Pemberton 01/2016 Overview: Overview: Dr. Pemberton 01/2016 Dr. Pemberton 01/2016 Overview: Dr. Pemberton 01/2016 Overview: Dr. Pemberton 01/2016 Overview: Overview: Dr. Pemberton 01/2016 Dr. Pemberton 01/2016 Overview: Dr. Pemberton 01/2016 Overview: Dr. Pemberton 01/2016 Overview: Overview: Dr. Raygoza/GARTH 01/2016 Dr. Raygoza/GARTH 01/2016 Overview: Dr. Raygoza/GARTH 01/2016 Anxiety state 11/29/2015 Abnormal brain MRI 09/20/2015 Bipolar 1 disorder, depressed 09/20/2015 Chronic erosive gastritis 09/20/2015 Major depressive disorder 09/20/2015 GERD (gastroesophageal reflux disease) 6 Lymphadenopathy 09/20/2015 Migraine 09/20/2015 NSAID induced gastritis 09/20/2015 Urinary hesitancy 09/20/2015 ASCUS with positive high risk HPV 07/23/2013 ASCUS with positive high risk HPV cervical 07/23 Ovarian cyst, complex 12/09/2012 Endometriosis of pelvis 09/06/2012 Arthralgia of hip 08/04/2008 Social History Tobacco Use Types Packs/Day Years Used Date Smoking Tobacco: Every Day Smokeless Tobacco: Never Alcohol Use Standard Drinks/Week Comments No 0 (1 standard drink = 0.6 oz pur e alcohol) Personal Safety Answer Date Recorded Have you ever been in or are you currently in a harmful physical or emotional relationship or is someone making you feel afraid or unsafe? 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 Gender Identity Not on file Sexual Orientation Not on file Last Filed Vital Signs Vital Sign Reading Time Taken Comments Blood Pressure 132/68 01/25/2024 7:27 PM PLASTER MIXER Pulse 77 01/25/2024 7:27 PM PLASTER MIXER Temperature 38 C (100.4 F) 01/25/2024 7:27 PM PLASTER MIXER Respiratory Rate 19 01/25/2024 7:27 PM PLASTER MIXER Oxygen Saturation 98% 01/25/2024 7:27 PM PLASTER MIXER Inhaled Oxygen Concentration - - Weight 66.2 kg (146 lb) 01/25/2024 7:27 PM PLASTER MIXER Height 162.6 cm (5' 4 ) 01/25/2024 7:27 PM PLASTER MIXER Body Mass Index 25.06 01/25/2024 7:27 PM PLASTER MIXER Plan of Treatment Not on file Medical Devices Implanted Type Area Professor Of Astronomy Device Identifier Shelf Expiration Date Model / Serial / Lot Rods Lumbar-Sacra l Spine Insurance [facility] Care Teams Bridge Ironworker Helper Relationship Specialty Start Date End Date Marianne Souza NP [address] [address] PCP - General Family Practice 05/28/23
--- OUTSIDE RECORDS SUMMARY | 2024-06-04 14:26 | XMS_ITS ---
Author Name Auto Generated, Auto Generated Organization [facility] Address [address] [place] [address] Phone [phone] Functional Status No Results Mental Status No Results Allergies and Intolerances No Known Allergies Problems Active Concerns * MDD (major depressive disorder)* Code: 596755808 * Start Date: SunMar 11 07:00:00 EST 2020 * End Date: * Text: * Moderate tetrahydrocannabinol (THC) dependence* Code: [id number] * Start Date: * End Date: * Text: Reason for Referral Past Medical History
--- OUTSIDE RECORDS SUMMARY | 2024-06-04 14:26 | XMS_ITS | Clinical Summary ---
Author Organization [facility] [address] Address [address] [place] [address] Care Team Providers Care Waiter/Waitress First Class Name Role Phone Marianne Souza NP Primary Care Provider +1- [phone] Allergies Active Allergy Reactions Criticality Noted Date [...] Overview: Dr. Pemberton 01/2016 Overview: Overview: Dr. Raygoza/GI 01/2016 Dr. Raygoza/GARTH 01/2016 Overview: Dr. Raygoza/GI 01/2016 Anxiety state 11/29/2015 Abnormal brain MRI [...] of pelvis 09/06/2012 Arthralgia of hip 08/04/2008 Surgical History Surgery Date Site/Laterality Comments OTHER SURGICAL HISTORY backsurgery NECK SURGERY neck surgery WRIST SURGERY wrist surgery CHOLECYSTECTOMY Medical History Medical History Date Comments Asthma Asthma Acid reflux Migraine COPD (chronic obstructive pulmonary disease) (HC C) Family History Medical History Relation Name Comments No Known Problems Brother No Known Problems Cousin No Known Problems Daughter No Known Problems Father No Known Problems Maternal Grandfather No Known Problems Maternal Grandmother No Known Problems Mother Allergies Other 1 Family history of Allergies; Diabetes type II Other 2 Family hist ory of Diabetes -Type II; Hypertension Other 3 Family history of Hypertension; Arthritis Other 4 Family history of arthritis; Asthma Other 5 Family history of Asthma; Blood Clot Other 6 Family history of blood clots; Depression Other 7 Family history of Depression; Heart attack Other 8 Family history of heart attack; Liver disease Other 9 Family history of Liver disease; No Known Problems Paternal Grandfather No Known Problems Paternal Grandmother No Known Problems Sister No Known Problems Son Diabetes Neg Hx Heart failure Neg Hx Hyperlipidemia Neg Hx Migraines Neg Hx Osteoarthritis Neg Hx Rashes / Skin problems Neg Hx Rheum arthritis Neg Hx Seizures Neg Hx Stroke Neg Hx Thyroid disease Neg Hx Relation Name Status Comments Brother Cousin Daughter Father Maternal Grandfather Maternal Grandmother Mother Other 1 Other 2 Other 3 Other 4 Other 5 Other 6 Other 7 Other 8 Other 9 Paternal Grandfather Paternal Grandmother Sister Son Social History Tobacco Use Types Packs/Day Years [...] on file Legal Sex Female 5:05 PM COAL HAULER OPERATOR Gender Identity Not on file Sexual Orientation Not on file Obstetrics History Last Filed Vital Signs Vital Sign Reading Time Taken Comments Blood Pressure 132/68 01/25/2024 7:27 PM COAL HAULER OPERATOR Pulse 77 01/25/2024 7:27 PM COAL HAULER OPERATOR Temperature 38 C (100.4 F) 01/25/2024 7:27 PM COAL HAULER OPERATOR Respiratory Rate 19 01/25/2024 7:27 PM COAL HAULER OPERATOR Oxygen Saturation 98% 01/25/2024 7:27 PM COAL HAULER OPERATOR Inhaled Oxygen Concentration - - Weight 66.2 kg (146 lb) 01/25/2024 7:27 PM COAL HAULER OPERATOR Height 162.6 cm (5' 4 ) 01/25/2024 7:27 PM COAL HAULER OPERATOR Body Mass Index 25.06 01/25/2024 7:27 PM COAL HAULER OPERATOR Plan of Treatment Health Maintenance Due Date Last Done Comments Albumin Creatinine Ratio, Urine 1974 Cervical Cancer Screening 1974 Colon Cancer Screening-Colonoscopy 1974 Depression Screening 1974 Hepatitis C Screening 1974 eGFR 1974 Dilated Eye Exam 1974 Foot Exam 1974 Hepatitis B Screening 02/28/1992 Regular Well Visit/Exam 18-64 02/28/1992 Pneumococcal vaccine <65 (2 of 2 - PCV) 11/08/2013 11/08/2012 Breast Cancer Screening-Mammogram 04/28/2021 021 Hemoglobin A1C 08/31/2023 03/02/2023, 08/03/2021, 02/01/2021, Additional history exists Zoster Vaccine (1 of 2) 02/28/2024 Lipid Panel 03/02/2024 03/02/2023 Influenza Vaccine (Season Ended) 2024 11/09/19 13 DTaP/Tdap/Td Vaccine (2 - Td or Tdap) 06/11/2026 06/11/2016 Medical Devices Implanted Type Area Foreman Shipping Department Device Identifier Shelf Expiration Date Model / Serial / Lot Rods Lumbar-Sacra l Spine [facility] Care Teams Waiter/Waitress First Class Relationship Specialty Start Date End Date Marianne Souza NP [address] [address] PCP - General Family Practice 05/28/23
--- OUTSIDE RECORDS SUMMARY | 2024-06-04 14:26 | XMS_ITS | Data Portability ---
[facility] Address [address] [place] [address] Care Team Providers Care Cfo Controller Name Role Phone BLANK CHATMAN Primary Care Provider [phone] Assessment No assessment recorded. Plan of Treatment Reminders Order Date Submit Date Provider Last Modified By Organization Details Last Modified Time Details Appointments None recorded. Lab None recorded. Referral audiologis t referral 2024 025 FABRICIOAnuel Dempsey Ma [facility], [address] [place] [address] Deangelo Kirk, [place], [address], 5 11:37:21 Procedures None recorded. Surgeries None recorded. Imaging None recorded. Medication Orders cefdinir 300 mg capsule 2024 025 [facility] #[id number], [address] [place], [address], 12:47:08 Patient TargetsNo targets recorded. Patient InstructionsNo instructions recorded. Reason for Referral Retrieval Specialist Referral for Sen sorineural hearing loss of bilateral ears Referring Physician: David Brooke, Otolaryngology, Encounter Date: 05/19/2024 Results Created Date Observation Date Name Description Value Unit Range Abnormal Flag Note LastModifiedBy Organization Detail LastModifiedTime 05/14/19 25 US, head + neck, soft tissu e No observ ation record ed. [email or web address] Not Available 10/2024 08:18:54 05/14/19 25 05/07/2024 US, head + neck, soft tissu e No observ ation record ed. [email or web address] [address], [place], [address], 05/14/2024 08:18:59 Result Notes None recorded. Procedures Surgical History Date Name Laterality Status Provider Name and Address Organization Details Recorded Time 02/05/19 20 procedure on back completed JANICE [place] [facility] 05/13/2024 12:26:19 02/05/19 19 procedure on wrist completed Elsa Clarke RMLeydi [place] - [facility] 05/13/2024 12:27:22 02/05/19 17 Cholecystectomy completed Elsa Clarke RMLeydi [place] [facility] 05/13/2024 12:26:33 procedure on knee completed Elsa Clarke RMA [place] [facility] 05/13/2024 12:25:51 Imaging Results Imaging Date Name Status LastModified by Organiz ation Details LastModified Time 05/13/2024 US, head + neck, soft tissue active Information not available 05/14/2024 08:18:54 05/07/2024 US, head + neck, soft tissue completed [email or web address] [facility] [address], [place], [address], 05/14/2024 08:18:59 Procedure Notes None recorded. Medical Equipment None Reported. Allergies Allergen ID Allergen Name Allergen Category Reaction Reaction Severity Criticality Documentation Date Start Date Code Code System Note Provider Name and Address Organization Details Recorded Time 218608 adhesive environme nt,medica tion rash Not available Not available 05/13/2024 05625 UNK JANICE Castro null, [place] [facility] 12:19:07 710680 Silvadene medicatio n rash Not available Not available 05/13/2024 65165 6 RxNorm JANICE [place] [facility] 12:19:37 536886 adhesive tape environme nt,medica tion Not available Not available Not available 05/13/2024 60750 UNK blist ers ROZ CastroA [place] [facility] 12:20:11 371403 ibuprofen medicatio n Not available Not available Not available 05/13/2024 5640 RxNorm stoma ch ulcer s JANICE [place] [facility] 12:20:22 578239 latex environme nt,medica tion hives Not available Not available 05/13/2024 43996 91 RxNorm JANICE Castro phyllis, [place] - [facility] 12:45:36 Medications Name Sig Start Date Stop Date Status Note LastModified by Organization Details LastModified Time cyclobenzap rine 10 mg tablet TAKE 1 TABLET BY MOUTH THREE TIMES A DAY NEEDED 05/13 completed Not Available Not Available Not Available nicotine 14 mg/24 hr daily transdermal patch APPLY 1 PATCH TO SKIN ONCE DAILY 05/13 completed Not Available Not Available Not Available clindamycin HCl 300 mg capsule TAKE 1 CAPSULE EVERY 8 HOURS 05/13 completed Not Available Not Available Not Available albuterol sulfate 2.5 mg/3 mL (0.083 %) solution for nebulizatio n PLEASE SEE ATTACHED FOR DETAILED DIRECTION S active Not Available Not Available No t Available cetirizine 10 mg tablet TAKE 1 TABLET BY MOUTH EVERY DAY active Not Available Not Available No t Available benzonatate 200 mg capsule TAKE 1 CAP BY MOUTH EVERY 8 HOURS NEEDED FOR COUGH 05/13 completed Not Available Not Available Not Available sumatriptan 100 mg tablet TAKE 1 (ONE) TABLET BY MOUTH ONCE DAILY NEEDED FOR MIGRAINE active Not Available Not Available No t Available hydrocodone 5 mg-acetamin ophen 325 mg tablet TAKE 1 TABLET BY MOUTH EVERY 8 HOURS NEEDED FOR PAIN 05/13 completed Not Available Not Available Not Available ondansetron HCl 4 mg tablet TAKE 1 TABLET BY MOUTH EVERY 6 HOURS NEEDED FOR NAUSEA OR VOMITING 05/13 completed Not Available Not Available Not Available prednisone 20 mg tablet TAKE 2 TABLETS BY MOUTH ONCE DAILY FOR 5 DAYS 05/13 completed Not Available Not Available Not Available omeprazole 40 mg capsule,del ayed release TAKE 1 CAPSULE BY MOUTH EVERY DAY active Not Available Not Available No t Available tramadol 50 mg tablet TAKE 1 TABLET (50 MG) BY MOUTH EVERY 6 (SIX) HOURS NEEDED. INDICATIO NS: ACUTE PAIN < 3 DAY SUPPLY 05/13 completed Not Available Not Available Not Available amoxicillin 500 mg tablet TAKE 1 TABLET BY MOUTH TWICE A DAY FOR 7 DAYS 05/13 completed Not Available Not Available Not Available amoxicillin 875 mg tablet TAKE 1 TABLET BY MOUTH TWICE DAILY 05/13 completed Not Available Not Available Not Available famotidine 20 mg tablet TAKE 1 TABLET BY MOUTH EVERYDAY AT BEDTIME 05/13 completed Not Available Not Available Not Available benzonatate 100 mg capsule TAKE 1 CAPSULE BY MOUTH THREE TIMES A DAY 2024 active Not Available Not Available Not Avai lable pantoprazol e 40 mg tablet,gemma yed release TAKE 1 TABLET BY MOUTH EVERY DAY active Not Available Not Available No t Available prednisone 50 mg tablet TAKE 1 TABLET BY MOUTH EVERY DAY FOR 5 DAYS 05/13 completed Not Available Not Available Not Available lidocaine 5 % topical patch APPLY 1 PATCH TO SKIN ONCE DAILY active Not Available Not Available No t Available methimazole 5 mg tablet TAKE 1 (ONE) TABLET BY MOUTH EVERY 2 DAYS active Not Available Not Available No t Available montelukast 10 mg tablet TAKE 1 TABLET BY MOUTH EVERY DAY active Not Available Not Available No t Available mometasone 0.1 % topical ointment APPLY TO AFFECTED AREA EVERY DAY 05/13 completed Not Available Not Available Not Available azelastine 137 mcg (0.1 %) nasal spray USE 1 SPRAY IN EACH NOSTRIL TWICE DAILY. REPLACES DYMISTA active Not Available Not Available No t Available methylpredn isolone 4 mg tablets in a dose pack TAKE BY MOUTH DIRECTED 05/13 completed Not Available Not Available Not Available albuterol sulfate HFA 90 mcg/actuati on aerosol inhaler INHALE 2 PUFFS BY MOUTH EVERY 4 HOURS NEEDED FOR SHORTNESS OF BREATH , FOR WHEEZE , OR FOR COUGH active Not Available Not Available No t Available hydrocortis one 2.5 % topical ointment APPLY TOPICALLY TO THE AFFECTED AREA TWICE DAILY 05/13 completed Not Available Not Available Not Available cefdinir 300 mg capsule TAKE 1 CAPSULE BY MOUTH EVERY 12 HOURS active Not Available Not Available No t Available fluticasone propionate 50 mcg/actuati on nasal spray,suspe nsion SPRAY 2 SPRAYS INTO EACH NOSTRIL ONCE DAILY active Not Available Not Available No t Available metformin ER 500 mg tablet,exte nded release 24 hr TAKE 2 TABLETS BY MOUTH TWICE DAILY BEFORE BREAKFAST AND SUPPER active Not Available Not Available No t Available doxycycline hyclate 100 mg tablet TAKE 1 TABLET BY MOUTH TWICE A DAY FOR 10 DAYS 05/13 completed Not Available Not Available Not Available loratadine 10 mg tablet TAKE 1 TABLET BY MOUTH EVERY DAY 05/13 completed Not Available Not Available Not Available progesteron e micronized 100 mg capsule TAKE 1 CAPSULE BY MOUTH EVERY DAY AT BEDTIME 05/13 completed Not Available Not Available Not Available amoxicillin 875 mg-potassiu m clavulanate 125 mg tablet TAKE 1 TABLET BY MOUTH TWICE A DAY 05/13 completed Not Available Not Available Not Available oxycodone 5 mg tablet TAKE 1 TABLET EVERY 6 HOURS NEEDED FOR PAIN 05/13 completed Not Available Not Available Not Available cyclobenzap rine 5 mg tablet TAKE 1 TABLET BY MOUTH THREE TIMES A DAY NEEDED OR 2 TABLETS BEFORE BED. DAILY MAX 3 TABLETS 05/13 completed Not Available Not Available Not Available rosuvastati n 5 mg tablet TAKE 1 TABLET BY MOUTH EVERY DAY active Not Available Not Available No t Available duloxetine 30 mg capsule,del ayed release TAKE 1 CAPSULE BY MOUTH EVERY DAY 05/13 completed Not Available Not Available Not Available chlorhexidi ne gluconate 0.12 % mouthwash PLEASE SEE ATTACHED FOR DETAILED DIRECTION S active Not Available Not Available No t Available calcium 600 mg (as carbonate)- vitamin D3 10 mcg (400 unit) tablet TAKE 1 TABLET BY MOUTH ONCE DAILY 05/13 completed Not Available Not Available Not Available Symbicort 160 mcg-4.5 mcg/actuati on HFA aerosol inhaler INHALE 2 PUFFS BY MOUTH TWICE A DAY active Not Available Not Available No t Available Linzess 145 mcg capsule TAKE 1 CAPSULE BY MOUTH DAILY ON EMPTY STOMACH AT LEAST 30 MINUTES PRIOR TO FIRST MEAL OF THE DAY 05/13 completed Not Available Not Available Not Available Victoza 2-Jason 0.6 mg/0.1 mL (18 mg/3 mL) subcutaneou s pen injector ADMINISTE R 0.6 MG UNDER THE SKIN DAILY FOR 7 DAYS. INCREASE TO 1.2 MG DAILY 05/13 completed Not Available Not Available Not Available Trulicity 0.75 mg/0.5 mL subcutaneou s pen injector INJECT 0.75 MG (ONE SYRINGE) SUBCUTANE OUSLY EVERY 7 DAYS active Not Available Not Available No t Available Vitals Date Recorded Body weight Respiratory rate Body temperature Body mass index (BMI) Body height Heart rate Systolic blood pressure Diastolic blood pressure Provider Name and Address Organization Details Last Updated DateTime 34095.3 g 16 /min 97.8 [degF] 24.5 kg/m2 163.2 cm 66 /min 110 mm[Hg] 72 mm[Hg] JANICE Castro [facility] 12:30:08 Date Recorded Body height Body mass index (BMI) Body weight Heart rate Respiratory rate Pain severity - 0-10 verbal numeric rating [Score] - Reported Body temperature Systolic blood pressure Diastolic blood pressure Provider Name and Address Organization Details Last Updated DateTime 163.2 cm 24.4 kg/m2 50351.7 1 g 80 /min 18 /min 5 97.2 [degF] 126 mm[Hg] 66 mm[Hg] Flor wright MA [facility] 10:42:13 Social History Question Answer Notes LastModified by Organizat ion Details LastModified Time Tobacco Smoking Status Current Every Day [facility] 05/13/2024 12:24:52 What Is Your Level Of Alcohol Consumption? None Quit 2014 Information not available 05/13/2024 Are You Blind Or Do You Have Difficulty Seeing? No Information not available 05/13/2024 What Is Your Level Of Caffeine Consumption? Moderate Information not available 05/13/2024 In The 14 Days Before Symptom Onset, Have You Had Close Contact With A Laboratory-con firmed COVID-19 While That Case Was Ill? No Information not available 05/13/2024 In The 14 Days Before Symptom Onset, Have You Had Close Contact With A Person Who Is Under Investigation For COVID-19 While That Person Was Ill? No Information not available 05/13/2024 Have You Been To An Area Known To Be High Risk For COVID-19? No Information not available 05/13/2024 Are You Currently Employed? No Information not available 05/13/2024 Are You Deaf Or Do You Have Serious Difficulty Hearing? No Information not available 05/13/2024 What Type Of Diet Are You Following? REGULAR Information not available 05/13/2024 What Was The Date Of Your Most Recent Tobacco Screening? 05/19/2024 Information not available 05/19/2024 Do You Have Any Pets? Yes Information not available 05/13/2024 At What Age Did You Start Smoking Tobacco? 12 Information not available 05/13/2024 How Much Tobacco Do You Smoke? 1 PPW Information not available 05/13/2024 Do You Use Any Illicit Or Recreational Drugs? Yes Marijuanna Information not available 05/13/2024 Has Tobacco Cessation Counseling Been Provided? Yes Information not available 05/13/2024 On What Date Was Tobacco Cessation Counseling Provided? 05/19/2024 Information not available 05/19/2024 What Type Of Noise Exposure Are You Exposed To? NoExposureToExcess iveNoise Information not available 05/13/2024 Do You Or Have You Ever Used Any Other Forms Of Tobacco Or Nicotine? No Information not available 05/13/2024 Sex: Female Functional Status Question Answer Note LastModified by Organization D etails LastModified Time What is your exercise level? None Information not available 05/13/2024 Mental Status None recorded. Family History Nothing Reported. Medical History Condition Response Allergies/Hayfever N Heart Problems Y Heart Conditions N Emphysema N Thyroid Problems Y Developmental Delay N Glaucoma N Anemia N Anesthesia Complications N Heart Attack (DE) N Anxiety Disorder Y Diabetes Y Bleeding Disorder N Hearing Loss N Tuberculosis N Acid Reflux (GERD) Y Cancer N Stroke N Asthma Y Allergies Y Sleep Disorder N GERD/Reflux Y Heart Disease N Fibromyalgia N Speech Delay N Kidney Disease N Gynecological HistoryNo gynecological history recorded. Obstetrics History GPAL:G 0 P 0 0 0 0 Past Encounters Encounter ID Performer Location Encounter Start Date Encounter Closed Date Diagnosis/Indication Diagnosis SNOMED-CT Code Diagnosis ICD10 Code Diagnosis Note [id number] MD Elenita Talamantes (Adult Med) [address] [place] [address] 05/13/2024 12:10:21 05/14/2024 10:34:33 Neck swelling 530214382 R22.1 return next week [id number] David Brooke MD [facility] [address] [place] [address] 05/19/2024 10:31:19 05/19/2024 12:23:20 Sensorineural hearing loss of bilateral ears 619404043 H90.3 follow-up after audiogram Health Concerns Section Related Observation LastModified by Organization Detai ls LastModified Time None Recorded Concern Status LastModified by Organization Details LastModified Time None Recorded Advance Directives Directive None Recorded Payers Encounter Date Sequence Insurance Name Policy Number Policy Dean Covered Member ID Dean Member ID Guarantor Name 05/13/2024 1 [facility] (MEDICAID HM) [id number] Tayler Washington [id number] Tayler Washington 05/19/2024 1 [facility] (MEDICAID HMO) [id number] Tayler Washington [id number] Tayler Washington Notes Date Note Type Note Provider Name and Address Organization Details Recorded Time 05/13/2024 text/html Pt complaining o f pain behind her right ear and into her neck for the last two weeks. She has not had any therapy. She is a smoker. She had a Ultrasound but the report is pending David Brooke MD Attn: Accounting,[address] [facility], [place], [address], [facility] 05/13/2024 12:47:34 05/19/2024 text/html patient was complaining of severe discomfort in her neck and a question of an abscess. I had a chance to review her ultrasounds and it was pretty insignificant. She had a small nodule but nothing that indicated a significant infection. She feels much better today. She does complain about recurrent ear infections as well as ringing in her ears. David Brooke MD [address] [place], [address], [place] [facility] 05/19/2024 10:56:14 OBGyn Episode No OBEpisode recorded.
--- OUTSIDE RECORDS SUMMARY | 2024-06-04 14:26 | XMS_ITS ---
Author Name Auto Generated, Auto Generated Organization [facility] Address [address] [place] [address] Phone [phone] Functional Status No Results Mental Status No Results Allergies and Intolerances No Known Allergies Problems Active Concerns * MDD (major depressive disorder)* Code: 429193848 * Start Date: SunMar 11 07:00:00 EST 2020 * End Date: * Text: * Moderate tetrahydrocannabinol (THC) dependence* Code: 03542196 * Start Date: * End Date: * Text: Reason for Referral Past Medical History
--- OUTSIDE RECORDS SUMMARY | 2024-06-04 14:27 | XMS_ITS ---
Author Name Auto Generated, Auto Generated Organization [facility] Address [address] [place] [address] Phone [phone] Functional Status No Results Mental Status No Results Allergies and Intolerances No Known Allergies Problems Active Concerns * MDD (major depressive disorder)* Code: 598028983 * Start Date: SunMar 11 07:00:00 EST 2020 * End Date: * Text: * Moderate tetrahydrocannabinol (THC) dependence* Code: 14732952 * Start Date: * End Date: * Text: Reason for Referral Past Medical History
--- OUTSIDE RECORDS SUMMARY | 2024-06-04 14:27 | XMS_ITS | Continuity of Care Document ---
Author Organization [facility] Address [address] [place] [address] Phone Care Team Providers Care Project Geophysicist Name Role Phone Saud Vasquez MD Unavailable [...] OFFICE/OUTPA TIENT VISIT [facility], [address] [facility] [address], [place], [address], [place] tel:[phone] [facility] Right shoulder blade and arm pain/swell ing/numbne ss (chief complaint) Body mass index (BMI) 27.0-27.9, adultRight arm painStatus post cervical spinal fusionDJD (degenerative joint disease), cervical Apr-2 0-202 0 Pedro Villavicencio. [address] [place], [place], [address] . tel:[phone] Referring Provider: Aishwarya Ortiz, [address], [place], [address]. tel:[phone] OFFICE/OUTPA TIENT VISIT NEW [facility], [address], [place], [address], [place] tel:[phone] [facility] Right shoulder pain, unspecified chronicityBursiti s of right shoulderRadiculop athy of arm Apr- 0 Destini Gaviria. [address], [place], [place], [address] . tel: [phone] Referring Provider: Aishwarya Ortiz, [address], [place], [address]. tel:[phone] [facility], [address], [place], [address], [place] tel:[phone] [facility] O Kristina Injury of right shoulder, initial encounterFall in home, initial encounter ^Unspecified place in unspecified non-institutional (private) residence as the place of occurrence of the external causeContusion of right shoulder, initial encounter 9 Surendra Hernandez. [address] [place], [place], [address] . tel:[phone] Family History Family Member Type Diagnosis Age At Onset Mother Problem Heart disease Problem (finding) Family history of chronic obstructive lung disease Problem (finding) Family history of Liver disease Payers Payer name Insurance type Covered constitution party ID Livan torres(s) Health system Medicaid [id number] Social History Type Description Quantity Date Captured [...]
--- OUTSIDE RECORDS SUMMARY | 2024-06-04 14:27 | XMS_ITS ---
Author Name Auto Generated, Auto Generated Organization [facility] Address [address] [place] [address] Phone [phone] Functional Status No Results Mental Status No Results Allergies and Intolerances No Known Allergies Problems Active Concerns * MDD (major depressive disorder)* Code: 856222345 * Start Date: SunMar 11 07:00:00 EST 2020 * End Date: * Text: * Moderate tetrahydrocannabinol (THC) dependence* Code: 98979398 * Start Date: * End Date: * Text: Reason for Referral Past Medical History
--- OUTSIDE RECORDS SUMMARY | 2024-06-04 14:27 | XMS_ITS | Encounter Summary ---
Author Organization [facility] Address [address] [place] [address] Care Team Providers Care Core Checker Name Role Phone Bharath Martinez DO Unavailable [phone] Jose Luis Ortiza Primary Care Provider [phone] Prasanth Perea MD Unavailable [phone] Quita Lares MD Primary Care Provider Marianne Souza PHLEBOTOMY SUPERVISOR-LARD REFINER Unavailable [phone] Encounter Details Date Type Department Care Team (Late st Contact Info) Description 01/31/2016 Transitional Care [facility] [address] [place] [address] Caroline Cagle RN Social History Tobacco Use Types Packs/Day Years Used Date Smoking Tobacco: Every Day Cigarettes 0.3 20 Started: 06/10/1991; Last attempted to quit: 06/10/2011 Comments:trying Alcohol Use Standard Drinks/Week Comments No 0 (1 standard drink = 0.6 oz pur e alcohol) Comments No Sex and Gender Information Value Date Recorded Sex Assigned at Not on file Legal Sex Female 9:43 AM CDT Gender Identity Not on file Sexual Orientation Not on file documented as of this encounter Functional Status * Is person deaf or have serious hearing difficulty? Answer Date of Assessment Author No 01/28/2016 1:16 PM Jenifer John RN * Is person blind or have serious difficulty seeing? Answer Date of Assessment Author No 01/28/2016 1:16 PM PUBLIC POLICY COORDINATOR Merchant, Jenifer M, RN * Does person have serious difficulty walking/climbing stairs? Answer Date of Assessment Author No 01/28/2016 1:16 PM PUBLIC POLICY COORDINATOR Jenifer Merchant RN * Does person have difficulty dressing/bathing? Answer Date of Assessment Author No 01/28/2016 1:16 PM PUBLIC POLICY COORDINATOR Jenifer Mrechant RN * Does person have difficulty doing errands alone? Answer Date of Assessment Author No 01/28/2016 1:16 PM PUBLIC POLICY COORDINATOR Jenifer Merchant, DELANEY documented as of this encounter Mental Status * Does person have difficulty concentrating/remembering/making decisions? Answer Entry Date Author No 01/28/2016 1:16 PM PUBLIC POLICY COORDINATOR Jenifer Merchant RN documented in this encounter Miscellaneous Notes * Telephone Encounter - Caroline Cagle RN - 02/01/2016 2:16 PM CST Spoke with Radha Scar from [facility] and gave High Risk handoff, she was unable to reachMs. Washington. Ms. Washington was in the ER today with rectal bleeding, Dr. Raygoza aware was discharge fromthe ER to home. Radha will see Ms. Washington tomorrow. Disease management tried calling Mr. Washington forfollow up but there was no answer, message left. [facility] will wait for medication reconciliation before signing off. IC POLICY COORDINATOR documented in this encounter Plan of Treatment Upcoming Encounters Date Type Department Care Team (Late st Contact Info) Description 07/08/2024 1:00 PM CDT Office Visit [facility] - Family Medicine [address] [place] [phone] Marianne Souza, PHLEBOTOMY SUPERVISOR-LARD REFINER [address] [place] [address] documented as of this encounter Visit Diagnoses Not on filedocumented in this encounter Additional Health Concerns Infection Onset Date Last Indicated Resolved Time COVID-19 Under Investigation 03/14/2022 03/14/2022 03/14/2022 3:34 PM PUBLIC POLICY COORDINATOR documented as of this encounter Care Teams Core Checker Relationship Specialty Start Date End Date Aishwarya Ortiz DO [address] [facility] [address] [place] [phone] PCP - General Family Medicine 06/17/18 02/06/23 Quita Lares MD [address] [place], [place] [id number] PCP - General Internal Medicine 02/07/23 Marianne Souza, PHLEBOTOMY SUPERVISOR-LARD REFINER [address] [place] [address] PCP - [facility] Medicaid ST 01/05/23 Bharath Martinez DO Orthopedic Surgery 06/07/16 [place] [address] [address] [place] [address] Physical Medicine and Rehabilitation 10/16/19 documented as of this encounter
--- OUTSIDE RECORDS SUMMARY | 2024-06-04 14:27 | XMS_ITS | Clinical Summary ---
Author Organization [facility] Address [address] [place] [address] Care Team Providers Care Financial Reserve Clerk Name Role Phone Blank Souza NP Primary Care Provider [phone] Allergies Active Allergy Reactions Criticality Noted Date Comments Ibuprofen GI Upset High 07/19/2014 Ulcers Latex Itching 07/02/2013 Methylprednisolone Other (see comment) 02/21/19 Tongue swelled up Silver Sulfadiazine Other (see comment),Rash High 09/20/2015 Sulfa Antibiotics Hives Medium 01/15/2018 Tape Itching 07/02/2013 Patient states she cannot use Tegaderm either Medications albuterol (PROVENTIL) (2.5 MG/3ML) 0.083% nebulizer solution Inhale 3 mLs (2.5 mg total) into the lungs every 6 (six) hours as needed. 4 Active albuterol sulfate HFA 108 (90 Base) MCG/ACT inhaler Inhale 2 puffs into the lungs every 4 (four) hours as needed. 3 Active Azelastine-Flut icasone 137-50 MCG/ACT Suspension 2 sprays by Nasal route daily. 3 Active cyclobenzaprine (FLEXERIL) 5 MG tablet Take 1 tablet (5 mg total) by mouth 3 (three) times daily as needed. 4 Active famotidine (PEPCID) 20 MG tablet Take 1 tablet (20 mg total) by mouth nightly at bedtime. at bedtime. Active linaCLOtide (LINZESS) 145 MCG capsule Take 1 capsule (145 mcg total) by mouth daily. 3 Active loratadine (CLARITIN) 10 MG tablet Take 1 tablet (10 mg total) by mouth daily. Active metFORMIN (GLUCOPHAGE) 500 MG tablet Take 1 tablet (500 mg total) by mouth 2 (two) times daily. 3 Active methIMAzole (TAPAZOLE) 5 MG tablet Take 1 tablet (5 mg total) by mouth daily. 4 Active montelukast (SINGULAIR) 10 MG tablet Take 1 tablet (10 mg total) by mouth daily. 3 Active rosuvastatin (CRESTOR) 5 MG tablet Take 1 tablet (5 mg total) by mouth daily. 3 Active SUMAtriptan (IMITREX) 100 MG tablet Take 1 tablet (100 mg total) by mouth daily as needed. 3 Active budesonide-form oterol (SYMBICORT) 160-4.5 MCG/ACT inhaler Inhale 2 puffs twice a day by inhalation route. Active lidocaine (LIDODERM) 5 % Place 1 patch onto the skin daily. 3 Active fluticasone propionate (FLONASE) 50 MCG/ACT nasal spray 2 sprays. Active witch marvin-glycerin Pads pad Apply to affected area as needed for Dry Skin 4 Active calcium carb-cholecalci ferol (CALTRATE+D) 600-10 MG-MCG Tab tablet Take 1 tablet by mouth daily. 4 Active azelastine (ASTELIN) 0.1 % nasal spray 1 spray by Nasal route 2 (two) times daily. 4 Active chlorhexidine (PERIDEX) 0.12 % solution SWISH WITH 15ML AND SPIT TWICE DAILY FOR 1 WEEK Active nicotine (NICODERM CQ) 14 MG/24HR APPLY 1 PATCH TO SKIN ONCE DAILY Active dulaglutide (TRULICITY) 0.75 MG/0.5ML injection Inject 0.75 mg into the skin once a week. 4 Active pantoprazole EC (PROTONIX) 40 MG tablet Take 1 tablet (40 mg total) by mouth daily. Active traMADol (ULTRAM) 50 MG tabletIndicatio ns:Acute Pain < 3 Day Supply Take 1 tablet (50 mg total) by mouth every 6 (six) hours as needed. Indications: Acute Pain < 3 Day Supply 10 tablet 5 Active Active Problems Problem Noted Date Diagnosed Date Pain in joint of right shoulder 01/31/2023 Chronic pain syndrome 01/07/2023 Hyperthyroidism 01/07/2023 Irritable bowel syndrome with constipation 01/07 Migraine 01/07/2023 Muscle strain of right scapular region 2 Bursitis of shoulder 07/13/2021 Cannabis dependence ([facility]) 07/13/2021 Status post cervical spinal fusion 07/13/2021 Hot flashes due to menopause 02/01/2021 Hyperlipidemia 02/01/2021 Type 2 diabetes mellitus wit hout complication ([facility]) 04/05/2020 Migraine without aura and wi thout status migrainosus, not intractable 06/17/2018 Moderate persistent asthma without complication ([facility]) 06/17/2018 Polyp of colon 06/17/2018 Primary osteoarthritis involving multiple joints 06/17/2018 Spinal stenosis of cervical region 12/22/2016 Chronic obstructive lung disease ([facility]/ [facility]) 12/02/2016 H/O migraine 12/01/2016 Allergic rhinitis 06/01/2016 Rupture of left biceps tendon 06/01/2016 Bipolar disorder, current ep isode mixed, moderate ([facility]) 02/14/2016 Smoker 02/14/2016 Tobacco use 02/14/2016 Duodenal ulcer disease 01/27/2016 Overview (04/17/2023): Overview: Dr. Raygoza/GARTH 01/2016 Overview: Overview: Dr. Raygoza/GARTH 01/2016 Dr. Raygoza/GARTH 01/2016 Overview: Dr. Raygoza/GARTH 01/2016 Anxiety state 11/29/2015 Abnormal brain MRI 09/20/2015 Chronic erosive gastritis 09/20/2015 Depression with anxiety 09/20/2015 GERD (gastroesophageal reflux disease) 6 Bipolar 1 disorder, depressed ([facility]) 09/20/2015 Abnormal Pap smear of cervix 07/23/2013 ASCUS with positive high risk HPV cervical 07/23 Arthralgia of hip 08/04/2008 Heart murmur Encounters Date Type Department Care Team Description 05/07/2024 3:09 PM CDT - 05/07/2024 11:59 PM CDT Hospital Encounter [facility] [address] [place] [address] Blank Souza NP Discharge Disposition: Home or Self Care (Routine Discharge) 05/07/2024 Travel from Last 3 Months Immunizations Immunization Administration Dates Next Due Influenza (Generic) 11/08/2012 Pneumococcal (Pneumovax 23) 11/08/2012 Tdap (Generic) 06/11/2016 Family History Medical History Relation Comments Asthma Father Diabetes Father Vision loss Father Arthritis Mother And her parents Asthma Mother Early Mother Open Heart Paternal Grandfather Stent Cardiac Paternal Grandfather Stroke Paternal Grandfather Asthma Sister Miscarriages / Stillbirths Sister Relation Status Comments Father Alive Mother (Age 58) Paternal Grandfather (Age 82) Paternal Grandmother Sister Social History Tobacco Use Types Packs/Day Years Used Date Smoking Tobacco: Some Days Cigarettes 0.3 15 Passive Smoke Exposure: Current Smokeless Tobacco: Never Tobacco Cessation:Ready to Q uit: Not Asked; Counseling Given: Not Answered Comments:Down from 3 ppd to 3-4 cigarettes daily 12/20/23 Alcohol Use Standard Drinks/Week Comments Not Currently 0 (1 standard drink = 0.6 oz pur e alcohol) PHQ-2 Answer Date Recorded Patient Health Questionnaire-2 Score 0 06/07/2023 Comments No Sex and Gender Information Value Date Recorded Sex Assigned at Female 05/02/2024 2:25 PM CDT Legal Sex Female 10:05 AM GREIGE GOODS MARKER Gender Identity Not on file Sexual Orientation Not on file Last Filed Vital Signs Vital Sign Reading Time Taken Comments Blood Pressure 109/81 02/06/2024 9:39 AM GREIGE GOODS MARKER Pulse 90 02/06/2024 9:39 AM GREIGE GOODS MARKER Temperature 36.3 C (97.4 F) 02/06/2024 9:39 AM GREIGE GOODS MARKER Respiratory Rate 18 02/06/2024 9:39 AM GREIGE GOODS MARKER Oxygen Saturation 100% 02/06/2024 9:39 AM GREIGE GOODS MARKER Inhaled Oxygen Concentration - - Weight 64.4 kg (141 lb 15.6 oz) 02/06/2024 9:39 AM GREIGE GOODS MARKER Height 162.6 cm (5' 4 ) 02/06/2024 9:39 AM GREIGE GOODS MARKER Body Mass Index 24.37 02/06/2024 9:39 AM GREIGE GOODS MARKER Plan of Treatment Upcoming Encounters Date Type Department Care Team (Late st Contact Info) Description 11/04/2024 7:40 AM CDT Office Visit [facility] [address] [place] [address] Rashaad Basurto DO [address] [place] [address] Health Maintenance Due Date Last Done Comments Colorectal Cancer Screening Colonoscopy (10 Years) 1974 Kidney Health Evaluation 1974 Annual Physical 1977 Hepatitis B Vaccines (1 of 3 - 19+ 3-dose series) 1993 Pneumococcal Vaccine: 50+ Years (2 of 2 - PCV) 11/08/2013 11/08/2012 Mammogram Screening 04/28/2022 04/28/2020, 0 COVID-19 Vaccine ( - season) 2023 Cervical Cancer Screening Pap with HPV Testing (Age 30 to 64) Every 5 Years 12/05/2023 12/04/2018 PHQ-2 (Physician Grulla) 02/06/2024 06/07/2023 Zoster Vaccines (1 of 2) 02/28/2024 Lipid Panel 03/02/2024 03/02/2023 Hemoglobin A1C 08/13/2024 02/14/2024, 02/06, 03/02/2023, Additional history exists Diabetes: Retinopathy Eye Exam 04/17/2025 04/18/2023 DTaP, Tdap and Td Vaccines (2 - Td or Tdap) 06/11/2026 06/11/2016 Cervical Cancer Screening Pap Smear (Age 30 to 64) Every 3 Years 06/20/2026 06/21/2023, 12/04/2018 Cervical Cancer Screening with HPV 06/20/2026 Hepatitis C Completed 03/02/2023 Meningococcal B Vaccine Aged Out No l onger eligible based on patient's age to complete this topic Meningococcal Vaccine Aged Out No felicita aaron eligible based on patient's age to complete this topic RSV Immunizations Under 20 Months Aged Out No longer eligible based on patient's age to complete this topic Procedures Procedure Name Priority Date/Time Associated Diagnosis Comments US SOFT TISS HEAD OR NECK Routine 05/07/2024 3:33 PM CDT Neck nodule HEMOGLOBIN, GLYCOSYLATED Routine 03/02/2023 from Last 3 Months or Most Recently Relevant to Health Maintenance Results * US SOFT TISS HEAD OR NECK (05/07/2024 3:33 PM CDT) Anatomical Region Laterality Modality Head, Neck Ultrasound 05/08/2024 7:38 AM CDT Impressions 05/08/2024 7:50 AM CDT IMPRESSION: Subtle 7 x 9.8 x 2.1 mm hypoechoic area corresponding to the patient's reported region of pain. Nonspecific ultrasound appearance but no aggressive features. Correlate with clinical exam. Palpable abnormality should be managed on a clinical basis including decision as to whether to biopsy, acquire additional imaging such as CT or MRI, or acquire surveillance follow-up imaging. Ordered By: BLANK SOUZA Interpreted By: Jesus Obrien, 05/08/2024 7:38 AM Narrative 05/08/2024 7:50 AM CDT [facility] [address], [place] [address] IMAGING STUDIES: US SOFT TISS HEAD OR NECK DATE: 05/07/2024 3:12 PM HISTORY: NECK NODULE 49-year-old female. Right posterior neck pain and lump. History of multiple tooth extraction in January 2024 with resulting mild, nose, and right posterior neck pain and swelling. Patient has just completed antibiotic therapy with improvement of symptoms but not fully feeling better. Neck lump is more of a painful to touch area at this time. Surgical history includes anterior fusion at C6-7 level. COMPARISON: CT cervical spine myelogram 07/17/2023. DISCUSSION: Targeted ultrasound performed in the patient's reported area of prior nodule/mass and current pain. Grayscale and color Doppler imaging performed. Subtle 7 mm transverse by 9.8 mm craniocaudal by 2.1 mm AP dimension hypoechoic area. Centrally, approximately 1.6 x 3 x 0.6 mm hypoechoic area. It is not hypervascular on color Doppler imaging. In does not have typical color Doppler signal of a lymph node. No sonographically apparent soft tissue distortion or superficial skin thickening. Could potentially be an area of mild edema with trace central fluid. Procedure Note Jesus Obrien MD - 05/08/[address] [address] IMAGING STUDIES: US SOFT TISS HEAD OR NECKDATE: 05/07/2024 3:12 PM HISTORY: NECK NODULE 49-year-old female. Right posterior neck painand lump. History of multiple tooth extraction in January 2024 withresulting mild, nose, and right posterior neck pain and swelling. Patienthas just completed antibiotic therapy with improvement of symptoms but notfully feeling better. Neck lump is more of a painful to touch area at thistime. Surgical history includes anterior fusion at C6-7 level. COMPARISON: CT cervical spine myelogram 07/17/2023. DISCUSSION: Targeted ultrasound performed in the patient's reported area of priornodule/mass and current pain. Grayscale and color Doppler imagingperformed. Subtle 7 mm transverse by 9.8 mm craniocaudal by 2.1 mm AP dimensionhypoechoic area. Centrally, approximately 1.6 x 3 x 0.6 mm hypoechoicarea. It is not hypervascular on color Doppler imaging. In does not havetypical color Doppler signal of a lymph node. No sonographically apparentsoft tissue distortion or superficial skin thickening. Could potentiallybe an area of mild edema with trace central fluid. IMPRESSION: Subtle 7 x 9.8 x 2.1 mm hypoechoic area corresponding to the patient'sreported region of pain. Nonspecific ultrasound appearance but noaggressive features. Correlate with clinical exam. Palpable abnormalityshould be managed on a clinical basis including decision as to whether tobiopsy, acquire additional imaging such as CT or MRI, or acquiresurveillance follow-up imaging. Ordered By: BLANK SOUZA Interpreted By: Jesus Obrien, 05/08/2024 7:38 AM us Blank Souza SCOW CAPTAIN ULTRASOUND Final Resu lt * HEMOGLOBIN, GLYCOSYLATED (03/02/2023) HGB A1C 6.8 % 03/02/2023 us Default History Genericprovider LABORATORY Final Result from Last 3 Months or Most Recently Relevant to Health Maintenance Insurance [employer] Care Teams Financial Reserve Clerk Relationship Specialty Start Date End Date Blank Souza NP PCP - General Nurse Practitioner Family 02/09/23
== END 2024-06-04 14:01 | disposition home or self-care (01) ==
PROVIDERS: Emergency Provider Nurse Practitioner Family; PCP Nurse Practitioner Family
DX: J06.9 Acute upper respiratory infection, unspecified (principal); F17.210 Nicotine dependence, cigarettes, uncomplicated; E11.610 Type 2 diabetes mellitus with diabetic neuropathic arthropathy; Z79.84 Long term (current) use of oral hypoglycemic drugs; E78.00 Pure hypercholesterolemia, unspecified; J45.909 Unspecified asthma, uncomplicated
CPT/HCPCS: 99213; G0463

== ENCOUNTER 2024-06-11 22:15 | Observation (INO) | payer OTHER, SELFPAY ==
--- NOTE | ~2024-06-11 | XR_ITS ---
CHEST RADIOGRAPH CLINICAL HISTORY: cough persistent . COMPARISON: 08/22/2023 TECHNIQUE: Single portable view of the chest. FINDINGS The cardiomediastinal silhouette is unremarkable. The lungs are clear. Fixation hardware within the cervical spine IMPRESSION: No focal infiltrate or effusion. Reviewed, dictated and finalized at location A.
--- OUTSIDE RECORDS SUMMARY | 2024-06-11 22:17 | XMS_ITS ---
Author Name Auto Generated, Auto Generated Organization [facility] Address [address] [place] [address] Phone [phone] Functional Status No Results Mental Status No Results Allergies and Intolerances No Known Allergies Problems Active Concerns * MDD (major depressive disorder)* Code: 892010362 * Start Date: SunMar 11 07:00:00 EST 2020 * End Date: * Text: * Moderate tetrahydrocannabinol (THC) dependence* Code: 27789905 * Start Date: * End Date: * Text: Reason for Referral Past Medical History
--- OUTSIDE RECORDS SUMMARY | 2024-06-11 22:17 | XMS_ITS | Clinical Summary ---
Author Organization [facility] Address [address] [place] [address] Phone Care Team Providers Care Weigh And Charge Worker Name Role Phone Unavailable Primary Care Provider Unavailabl e Encounters Date Type Department Care Team Description [facility] [address] [place] [address] Provider, None Referral from Last 3 Months Social History Tobacco Use Types Packs/Day Years Used Date Smoking Tobacco: Never Assessed Comments Unknown Sex and Gender Information Value Date Recorded Sex Assigned at Not on file Legal Sex Female 10:34 AM MEDICAL OFFICE MANAGER Gender Identity Not on file Sexual Orientation Not on file Plan of Treatment Not on file
--- OUTSIDE RECORDS SUMMARY | 2024-06-11 22:17 | XMS_ITS | Clinical Summary ---
Author Organization [facility] [place] [address] Address [address] [place] [address] Care Team Providers Care Mobile Battery Technician Name Role Phone Marianne Souza NP Primary Care Provider [phone]- [phone] Allergies Active Allergy Reactions Criticality Noted Date [...] on file Legal Sex Female 5:05 PM STEREOTYPE MOLDER Gender Identity Not on file Sexual Orientation Not on file Obstetrics History Last Filed Vital Signs Vital Sign Reading Time Taken Comments Blood Pressure 132/68 01/25/2024 7:27 PM STEREOTYPE MOLDER Pulse 77 01/25/2024 7:27 PM STEREOTYPE MOLDER Temperature 38 C (100.4 F) 01/25/2024 7:27 PM STEREOTYPE MOLDER Respiratory Rate 19 01/25/2024 7:27 PM STEREOTYPE MOLDER Oxygen Saturation 98% 01/25/2024 7:27 PM STEREOTYPE MOLDER Inhaled Oxygen Concentration - - Weight 66.2 kg (146 lb) 01/25/2024 7:27 PM STEREOTYPE MOLDER Height 162.6 cm (5' 4 ) 01/25/2024 7:27 PM STEREOTYPE MOLDER Body Mass Index 25.06 01/25/2024 7:27 PM STEREOTYPE MOLDER Plan of Treatment Health Maintenance Due Date [...] 06/11/2026 06/11/2016 Medical Devices Implanted Type Area Meat Dresser Device Identifier Shelf Expiration Date Model / Serial / Lot Rods Lumbar-Sacra l Spine Insurance [place] [facility] Care Teams Mobile Battery Technician Relationship Specialty Start Date End Date Marianne Souza NP [address] [address] PCP - General Family Practice 05/28/23
--- OUTSIDE RECORDS SUMMARY | 2024-06-11 22:17 | XMS_ITS | Data Portability ---
[facility] Address [address] [place] [address] Care Team Providers Care Rn Spine Name Role Phone BLANK CHATMAN Primary Care Provider [phone] Assessment No assessment recorded. Plan of Treatment Reminders Order Date Submit Date Provider Last Modified By Organization Details Last Modified Time Details Appointments None recorded. Lab None recorded. Referral audiologis t referral 2024 025 FABRICIOAnuel Dempsey [facility], [address] [place] [address] Deangelo Kirk, [place], [address], 5 11:37:21 Procedures None recorded. Surgeries None recorded. Imaging None recorded. Medication Orders cefdinir [address] [id number], [address] [place], [address], 12:47:08 Patient TargetsNo targets recorded. Patient InstructionsNo instructions recorded. Reason for Referral Acquisition Specialist Referral for Sen sorineural hearing loss [...] tissu e No observ ation record ed. [facility] [address], [place], [address], 05/14/2024 08:18:59 Result Notes None recorded. Procedures [...] head + neck, soft tissue completed jschulterma [facility] [address], [place], [address], 05/14/2024 08:18:59 Procedure Notes None recorded. Medical Equipment None Reported. Allergies Allergen ID Allergen Name Allergen Category Reaction Reaction Severity Criticality Documentation Date Start Date Code Code System Note Provider Name and Address Organization Details Recorded Time 337787 adhesive environme nt,medica tion rash Not available Not available 05/13/2024 95058 UNK JANCIE Castro null, [place] - [facility] 12:19:07 707601 Silvadene medicatio n rash Not available Not available 05/13/2024 14420 6 RxNorm JANICE [place], [place] [facility] 12:19:37 744494 adhesive tape environme nt,medica tion Not available Not available Not available 05/13/2024 01427 UNK blist ers ROZ CastroA null, [place] - [facility] 12:20:11 381127 ibuprofen medicatio n Not available Not available Not available 05/13/2024 5640 RxNorm stoma ch ulcer s JANICE [place], [place] [facility] 12:20:22 937676 latex environme nt,medica tion hives Not available Not available 05/13/2024 97363 91 RxNorm JANICE Castro phyll[place], [place] - [...] and Address Organization Details Last Updated DateTime 84170.3 g 16 /min 97.8 [degF] 24.5 kg/m2 163.2 cm 66 /min 110 mm[Hg] 72 mm[Hg] JANICE Castro [facility] 12:30:08 Date Recorded Body height Body mass index (BMI) Body weight Heart rate Respiratory rate Pain severity - 0-10 verbal numeric rating [Score] - Reported Body temperature Systolic blood pressure Diastolic blood pressure Provider Name and Address Organization Details Last Updated DateTime 163.2 cm 24.4 kg/m2 46570.7 1 g 80 /min 18 /min 5 97.2 [degF] 126 mm[Hg] 66 mm[Hg] Flor rwight MA [facility] 10:42:13 Social History Question Answer Notes LastModified by Organizat ion Details LastModified Time Tobacco Smoking Status Current Every Day [facility] 05/13/20[facility] 12:24:52 What Is Your Level Of [...] Conditions N Emphysema N Thyroid Problems Y Glaucoma N Developmental Delay N Anemia N Anesthesia Complications N Heart Attack (DE) N Diabetes Y Anxiety Disorder Y Bleeding Disorder N Hearing Loss N [...] SNOMED-CT Code Diagnosis ICD10 Code Diagnosis Note [id number] MD Elenita Talamantes (Adult Med) [address] [place] [address] 05/13/2024 12:10:21 05/14/2024 10:34:33 Neck swelling 055639076 R22.1 return next week [id number] David Brooke MD [facility] [address] [place] [address] 05/19/2024 10:31:19 05/19/2024 12:23:20 Sensorineural hearing loss of bilateral ears [id number] H90.3 follow-up after audiogram Health Concerns Section Related Observation LastModified by Organization Detai ls LastModified Time None Recorded Concern Status LastModified by Organization Details LastModified Time None Recorded Advance Directives Directive None Recorded Payers Encounter Date Sequence Insurance Name Policy Number Policy Dean Covered Member ID Dean Member ID Guarantor Name 05/13/2024 1 [facility] (MEDICAID HM) [id number] Tayler Washington [id number] Tayler [place] 05/19/2024 1 [facility] (MEDICAID HMO) [id number] Tayler Washington [id number] Tayler [place] Notes Date Note Type Note Provider Name and Address Organization Details Recorded Time 05/13/2024 text/html Pt complaining o f pain behind her right ear and into her neck for the last two weeks. She has not had any therapy. She is a smoker. She had a Ultrasound but the report is pending David Brooke MD Attn: Accounting,[address] [facility], [place], [address], [facility] 05/13/2024 12:47:34 05/19/2024 text/html patient was [...] ringing in her ears. David Brooke MD [address] [place], [address], [place] 05/19/2024 10:56:14 OBGyn Episode No OBEpisode recorded.
--- OUTSIDE RECORDS SUMMARY | 2024-06-11 22:17 | XMS_ITS | Continuity of Care Document ---
Author Organization [facility] Address [address] [place] [address] Phone Care Team Providers Care Cocoa Roaster Name Role Phone Saud Vasquez MD Unavailable [...] OFFICE/OUTPA TIENT VISIT [facility], [address] [facility] [address], [place], [address], [place] tel:[phone] [facility] Right shoulder blade and arm pain/swell ing/numbne ss (chief complaint) Body mass index (BMI) 27.0-27.9, adultRight arm painStatus post cervical spinal fusionDJD (degenerative joint disease), cervical Apr-2 0-202 0 Pedro Villavicencio. [address] [place], [place], [id number] . tel:[phone] Referring Provider: Aishwarya Ortiz, [address], [place], [address]. tel:[phone] OFFICE/OUTPA TIENT VISIT NEW [facility], [address], [place], [address], [place] tel:[phone] [facility] Right shoulder pain, unspecified chronicityBursiti s of right shoulderRadiculop athy of arm Apr- 0 Destini Gaviria. [address], [place], [place], [id number] . tel: [phone] Referring Provider: Aishwarya Ortiz, [address], [place], [address]. tel:[phone] [facility], [address], [place], [address], [place] tel:[phone] [facility] O Kristina Injury of right shoulder, initial encounterFall in home, initial encounter ^Unspecified place in unspecified non-institutional (private) residence as the place of occurrence of the external causeContusion of right shoulder, initial encounter 9 Surendra Hernandez. [address] [place], [place], [id number] . tel:[phone] Family History Family Member Type Diagnosis Age At Onset Mother Problem Heart disease Problem (finding) Family history of chronic obstructive lung disease Problem (finding) Family history of Liver disease Payers Payer name Insurance type Covered libertarian ID Livan torres(s) [facility] Medicaid [id number] Social History Type Description Quantity Date Captured [...]
--- OUTSIDE RECORDS SUMMARY | 2024-06-11 22:17 | XMS_ITS | Referral Summary ---
Author Organization [facility] [place] [address] Address [address] [place] [address] Care Team Providers Care Billing Supervisor Name Role Phone Marianne Souza NP Primary Care Provider [phone] Allergies Active Allergy Reactions Criticality Noted Date [...] on file Legal Sex Female 5:05 PM MANAGER CATEGORY Gender Identity Not on file Sexual Orientation Not on file Last Filed Vital Signs Vital Sign Reading Time Taken Comments Blood Pressure 132/68 01/25/2024 7:27 PM MANAGER CATEGORY Pulse 77 01/25/2024 7:27 PM MANAGER CATEGORY Temperature 38 C (100.4 F) 01/25/2024 7:27 PM MANAGER CATEGORY Respiratory Rate 19 01/25/2024 7:27 PM MANAGER CATEGORY Oxygen Saturation 98% 01/25/2024 7:27 PM MANAGER CATEGORY Inhaled Oxygen Concentration - - Weight 66.2 kg (146 lb) 01/25/2024 7:27 PM MANAGER CATEGORY Height 162.6 cm (5' 4 ) 01/25/2024 7:27 PM MANAGER CATEGORY Body Mass Index 25.06 01/25/2024 7:27 PM MANAGER CATEGORY Plan of Treatment Not on file Medical Devices Implanted Type Area Reformatory Attendant Device Identifier Shelf Expiration Date Model / Serial / Lot Rods Lumbar-Sacra l Spine Insurance [facility] Care Teams Billing Supervisor Relationship Specialty Start Date End Date Marianne Souza NP [address] [address] PCP - General Family Practice 05/28/23
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
--- OUTSIDE RECORDS SUMMARY | 2024-06-11 22:18 | XMS_ITS | Patient Health Record ---
Author Organization [facility] Address [address] [place] [address] Care Team Providers Care Milking System Installer Name Role Phone Altaf Rossl Primary Care Provider Reason For Referral No Information Plan Of Treatment No Information Insurance Providers Payer Name Payer Address Payer Phone Subscriber Number Group Number Insured Name Patient Relationship to Insured Coverage Start Date Coverage End Date [address] [id number] Tayler [place] Self - patient is the insured [facility] [address] [place] [address] [id number] Tayler [place] Self - patient is the insured
--- OUTSIDE RECORDS SUMMARY | 2024-06-11 22:18 | XMS_ITS ---
Author Organization [facility] Address [address] [place] [address] Care Team Providers Care Explosive Ordnance Handler Name Role Phone Rocío Ross Primary Care Provider [phone] Luis Armando Mclean [phone] Encounters Encounter Location Date Provider Diagnosis [facility] [address] [place] [address] 01/17/2023 Luis Armando Mclean Plan Of Treatment No Information Progress Notes * Tayler PETERSENDOB:1975 (49 yo F)Acc No.[id number]:01/17/2023 Dental Problem Focus Patient: Tayler LESTER Provider: Leydi MCLEAN DDS :1975 A ge:47 Y S ex:Female Date:01/17/2023 Address:[address] [place], [place] [id number] Pcp:Rocío Ross Subjective: * Chief Complaints: * * Medical History: Objective: Assessment: Plan: * Treatment: * * Electronic signature of Segundo Mclean DDS on 06/11/2024 at 10:18 PM CDT Sign off status: Pending Visit Status: N /S (No-Show) * Provider: Leydi MCLEAN DDS Date: 1 03/20/2022 Generated for Elissa hodges/Rossy/Jennifer on: 0 06/11/2024 10:18 PM CDT
--- OUTSIDE RECORDS SUMMARY | 2024-06-11 22:18 | XMS_ITS ---
Author Name Auto Generated, Auto Generated Organization [facility] Address [address] [place] [address] Phone [phone] Functional Status No Results Mental Status No Results Allergies and Intolerances No Known Allergies Problems Active Concerns * MDD (major depressive disorder)* Code: 868330492 * Start Date: SunMar 11 07:00:00 EST 2020 * End Date: * Text: * Moderate tetrahydrocannabinol (THC) dependence* Code: 31890989 * Start Date: * End Date: * Text: Reason for Referral Past Medical History
[2024-06-11 22:19] VITALS: BP 102/51; PULSE 87; RESP 20; TEMP 36.6; O2SAT 100
--- OUTSIDE RECORDS SUMMARY | 2024-06-11 22:19 | XMS_ITS | Encounter Summary ---
Author Organization [facility] Address [address] [place] [address] Care Team Providers Care Brand Marketing Manager Name Role Phone Bharath Martinez DO Unavailable Jose Luis Ortiza Primary Care Provider [phone] Prasanth Perea MD Unavailable [phone] Quita Lares MD Primary Care Provider Marianne Souza STUDIO OPERATIONS ENGINEER IN CHARGE-RADAR SIGNAL PROCESSING ENGINEER Unavailable [phone] Encounter Details Date Type Department Care Team (Late st Contact Info) Description 01/31/2016 Transitional Care [facility] DISEASE [facility]NAGEMENT [address] [place] [address] Caroline Cagle RN Social History Tobacco Use [...] of Assessment Author No 01/28/2016 1:16 PM FRUIT DISTRIBUTOR Merchant, Jenifer M, RN * Does person have serious difficulty walking/climbing stairs? Answer Date of Assessment Author No 01/28/2016 1:16 PM FRUIT DISTRIBUTOR Jenifer Merchant RN * Does person have difficulty dressing/bathing? Answer Date of Assessment Author No 01/28/2016 1:16 PM FRUIT DISTRIBUTOR Jenifer Merchant RN * Does person have difficulty doing errands alone? Answer Date of Assessment Author No 01/28/2016 1:16 PM FRUIT DISTRIBUTOR Jenifer Merchant, DELANEY documented as of this encounter Mental Status * Does person have difficulty concentrating/remembering/making decisions? Answer Entry Date Author No 01/28/2016 1:16 PM FRUIT DISTRIBUTOR Jenifer Merchant RN documented in this encounter [...] but there was no answer, message left. [facility] TCNN will wait for medication reconciliation before signing off. T DISTRIBUTOR documented in this encounter Plan of Treatment Upcoming Encounters Date Type Department Care Team (Late st Contact Info) Description 07/08/2024 1:00 PM CDT Office Visit [facility] - Family Medicine [address] [place] [phone] Marianne Souza, STUDIO OPERATIONS ENGINEER IN CHARGE-RADAR SIGNAL PROCESSING ENGINEER [address] [place] [address] documented as of this encounter Visit Diagnoses Not on filedocumented in this encounter Additional Health Concerns Infection Onset Date Last Indicated Resolved Time COVID-19 Under Investigation 03/14/2022 03/14/2022 03/14/2022 3:34 PM FRUIT DISTRIBUTOR documented as of this encounter Care Teams Brand Marketing Manager Relationship Specialty Start Date End Date Aishwarya Ortiz DO [address] [facility] [address] [place] [phone] PCP - General Family Medicine 06/17/18 02/06/23 Quita Lares MD [address] [place], [place] [phone] PCP - General Internal Medicine 02/07/23 Marianne Souza, STUDIO OPERATIONS ENGINEER IN CHARGE-RADAR SIGNAL PROCESSING ENGINEER [address] [facility] [place] [address] PCP - [facility] ST 01/05/23 Bharath Martinez DO Orthopedic Surgery 06/07/16 [place] [address] [facility] [address] [place] [address] Physical Medicine and Rehabilitation 10/16/19 documented as of this encounter
--- OUTSIDE RECORDS SUMMARY | 2024-06-11 22:19 | XMS_ITS | Clinical Summary ---
Author Organization [facility] Address [address] [place] [address] Care Team Providers Care Division Service Manager Name Role Phone Blank Souza NP Primary Care Provider [phone] Allergies Active Allergy Reactions Criticality Noted Date [...] 2 Bursitis of shoulder 07/13/2021 Cannabis dependence ([facility]) 07/13/2021 Status post cervical spinal fusion 07/13/2021 Hot flashes due to menopause 02/01/2021 Hyperlipidemia 02/01/2021 Type 2 diabetes mellitus wit hout complication ([facility]) 04/05/2020 Migraine without aura and wi thout status migrainosus, not intractable 06/17/2018 Moderate persistent asthma without complication ([facility]) 06/17/2018 Polyp of colon 06/17/2018 Primary osteoarthritis involving multiple joints 06/17/2018 Spinal stenosis of cervical region 12/22/2016 Chronic obstructive lung disease ([facility]) 12/02/2016 H/O migraine 12/01/2016 Allergic rhinitis 06/01/2016 Rupture of left biceps tendon 06/01/2016 Bipolar disorder, current ep isode mixed, moderate ([facility]) 02/14/2016 Smoker 02/14/2016 Tobacco use 02/14/2016 Duodenal ulcer disease 01/27/2016 Overview (04/17/2023): Overview: Dr. Raygoza/[facility] 01/2016 Overview: Overview: Dr. Raygoza/GARTH 01/2016 Dr. Raygoza/GARTH 01/2016 Overview: Dr. Raygoza/[facility] 01/2016 Anxiety state 11/29/2015 Abnormal brain MRI 09/20/2015 Chronic erosive gastritis 09/20/2015 Depression with anxiety 09/20/2015 GERD (gastroesophageal reflux disease) 6 Bipolar 1 disorder, depressed ([facility]) 09/20/2015 Abnormal Pap smear of cervix 07/23/2013 ASCUS with positive high risk HPV cervical 07/23 Arthralgia of hip 08/04/2008 Heart murmur Encounters Date Type Department Care Team Description 05/07/2024 3:09 PM CDT - 05/07/2024 11:59 PM CDT Hospital Encounter [facility] [address] [address] Blank Souza NP Discharge Disposition: Home or [...] PM CDT Legal Sex Female 10:05 AM SUPERVISOR TANK CLEANING Gender Identity Not on file Sexual Orientation Not on file Last Filed Vital Signs Vital Sign Reading Time Taken Comments Blood Pressure 109/81 02/06/2024 9:39 AM SUPERVISOR TANK CLEANING Pulse 90 02/06/2024 9:39 AM SUPERVISOR TANK CLEANING Temperature 36.3 C (97.4 F) 02/06/2024 9:39 AM SUPERVISOR TANK CLEANING Respiratory Rate 18 02/06/2024 9:39 AM SUPERVISOR TANK CLEANING Oxygen Saturation 100% 02/06/2024 9:39 AM SUPERVISOR TANK CLEANING Inhaled Oxygen Concentration - - Weight 64.4 kg (141 lb 15.6 oz) 02/06/2024 9:39 AM SUPERVISOR TANK CLEANING Height 162.6 cm (5' 4 ) 02/06/2024 9:39 AM SUPERVISOR TANK CLEANING Body Mass Index 24.37 02/06/2024 9:39 AM SUPERVISOR TANK CLEANING Plan of Treatment Upcoming Encounters Date Type Department Care Team (Late st Contact Info) Description 11/04/2024 7:40 AM CDT Office Visit [facility] Multispecialty Care - [facility] [address] [place] [address] Rashaad Basurto DO [address] [place] [address] Health Maintenance Due Date Last Done Comments [...] Every 5 Years 12/05/2023 12/04/2018 PHQ-2 (Physician [place]) 02/06/2024 06/07/2023 Zoster Vaccines (1 of 2) [...] 7:38 AM Narrative 05/08/2024 7:[address] [facility] [address] [place], [place] [address] IMAGING STUDIES: US SOFT TISS HEAD OR [...] Procedure Note Jesus Obrien MD - 05/08/[address] [address] IMAGING STUDIES: US SOFT TISS HEAD OR [...] Obrien, 05/08/2024 7:38 AM us Blank Souza STOCK UNLOADER ULTRASOUND Final Resu lt * HEMOGLOBIN, GLYCOSYLATED (03/02/2023) HGB A1C 6.8 % 03/02/2023 us Default History Genericprovider LABORATORY Final Result from Last 3 Months or Most Recently Relevant to Health Maintenance Insurance [employer] Care Teams Division Service Manager Relationship Specialty Start Date End Date Blank Souza NP PCP - General Nurse Practitioner Family 02/09/23
--- OUTSIDE RECORDS SUMMARY | 2024-06-11 22:19 | XMS_ITS | Clinical Summary ---
Author Organization [facility] Address [address] [place] [address] Care Team Providers Care Fur Dresser Name Role Phone Bharath Martinez DO Unavailable [phone] Prasanth Perea MD Unavailable Quita Lares MD Primary Care Provider Marianne Souza APRN-SENIOR RELIABILITY ENGINEER Unavailable [phone] Source Comments [facility],non-owned Affiliates and Associated Physician Practices is amultiple site organization consisting of ambulatory clinics and hospital sitesin [place], [place], [place] and [place]. This disclosure is being madepursuant to the Care Everywhere program and may not contain all information available regarding this patient. Last updated 17.[facility] Allergies Active Allergy Reactions Criticality Noted [...] (Astelin) 0.1 % nasal sprayIndication s:replaces Dymista [place] 1 (one) spray into each nostril 2 [...] as directed 21 tablet 05/03/19 25 Active doxycycline hyclate 100 MG tabletIndicatio ns:Neck nodule [...] disease 01/27/2016 Overview (03/22/2023): Overview: Overview: Dr. Raygoza/GARTH 01/2016 Dr. Raygoza/GARTH 01/2016 Overview: Dr. Raygoza/[facility] 01/2016 Anxiety state 11/29/2015 06/09/2022 GERD (gastroesophageal [...] Department Care Team Description 05/30/2024 Nurse Triage [facility] [address] [facility], [address] [address] Quita Lares MD Neuropathy 05/20/2024 Bulk Orders Only [facility] [address] [facility], [facility] [address] [place] [phone] Quita Lares MD Screening mammogram for breast cancer 05/08/2024 Nurse Triage [facility] [address] [facility], [address] [address] Quita Lares MD Results 05/02/2024 Orders Only [facility] [address] [facility], [address] [address] Umair Adame MD Neck nodule 05/02/2024 Nurse Triage [facility] [address] [address] Quita Lares MD Order (//) 05/02/2024 Refill [facility] [address], [address] [place] [address] Marianne Souza, FOAM CUTTING SUPERVISOR-SENIOR RELIABILITY ENGINEER Refill Request 05/01/2024 1:00 PM CDT Office Visit [facility] [address], [address] [place] [address] Marianne Souza, FOAM CUTTING SUPERVISOR-SENIOR RELIABILITY ENGINEER Neck nodule (Primary Dx); Seasonal allergic rhinitis due to pollen; Allergy to plant; Chronic cough; PND (post-nasal drip); Numbness and tingling 05/01/2024 Orders Only [facility] [address], [address] [place] [address] Marianne Souza, FOAM CUTTING SUPERVISOR-SENIOR RELIABILITY ENGINEER Seasonal allergic rhinitis due to pollen; Allergy to plant 05/01/2024 Travel 04/07/2024 Refill [facility] [address] [address] Quita Lares MD Refill Request 03/19/2024 Nurse Triage [facility] [address] [address] Quita Lares MD Order 03/18/2024 Nurse Triage [facility] [address] [address] Quita Lares MD Update (/) from Last 3 Months Immunizations Immunization Administration [...] Respiratory Rate 24 02/14/2024 12:2 5 PM FIELD SERVICE ENGINEER Oxygen Saturation 98% 05/01/2024 1:05 PM CDT Inhaled Oxygen Concentration - - Weight 64.8 kg (142 lb 12.8 oz) 05/01/2024 1:05 PM CDT Height 162.6 cm (5' 4 ) 05/01/2024 1:05 PM CDT Body Mass Index 24.51 05/01/2024 1:05 PM CDT Plan of Treatment Upcoming Encounters Date Type Department Care Team (Late st Contact Info) Description 07/08/2024 1:00 PM CDT Office Visit [facility] - [facility] [address], [address] [place] [address] Marianne Souza, FOAM CUTTING SUPERVISOR-SENIOR RELIABILITY ENGINEER [address] [place] [address] Health Maintenance Due Date Last Done [...] (1 of 2) 02/28/2024 COVID-19 VACCINE ( season) 2024 Postponed from 10/07/2023 (Patient Refused) [...] COMPREHENSIVE METABOLIC PANEL Routine 02/14/2024 2:11 PM FIELD SERVICE ENGINEER Type 2 diabetes mellitus with hyperglycemia, without long-term current use of insulin HEMOGLOBIN A1C Routine 02/14/2024 2:11 PM FIELD SERVICE ENGINEER Type 2 diabetes mellitus with hyperglycemia, without long-term current use of insulin MICROALB/CREAT RATIO URINE RANDOM PANEL Routine 10/10/2023 2:05 PM CDT Type 2 diabetes mellitus with hyperglycemia, without long-term current use of insulin EYE EXAM 04/18/2023 HEPATITIS C AB W/RFLX TO HCV RNA QN PCR 03/02/2023 11:53 AM FIELD SERVICE ENGINEER HIV-1 HIV-2 ANTIBODY + HIV P24 AG PANEL Routine 03/02/2023 11:53 AM FIELD SERVICE ENGINEER Screen for STD (sexually transmitted disease) ENDOSCOPY, COLON, SCREENING Routine 12/16/2021 1:18 PM FIELD SERVICE ENGINEER MAMMO BILAT SCREENING Routine 04/28/2020 12:18 PM [...] (ABNORMAL) HEMOGLOBIN A1C (HgbA1C) (02/14/2024 2:11 PM FIELD SERVICE ENGINEER) Hemoglobin A1c 6.2(H) <5.7 % of total [...] children. REPORT COMMENT: FASTING:YES Test Performed at: [facility] [address] BILL MOURA MD Blood BLOOD SPECIMEN / Unknown 02/14/2024 2:11 PM FIELD SERVICE ENGINEER 02/14/2024 2:13 PM FIELD SERVICE ENGINEER Marianne Souza APRN-SENIOR RELIABILITY ENGINEER LAB - CHEMISTRY ORDERABL ES Final Result [address] [address] * (ABNORMAL) COMPREHENSIVE METABOLIC PANEL (02/14/2024 2:11 PM FIELD SERVICE ENGINEER) Glucose 130(H) 65 - 99 mg/dL [facility] [...] 29 U/L [facility] Comment: Test Performed at: [facility] [id number] [place] [address] BILL MOURA MD Blood BLOOD SPECIMEN / Unknown 02/14/2024 2:11 PM FIELD SERVICE ENGINEER 02/14/2024 2:13 PM FIELD SERVICE ENGINEER Marianne Souza FOAM CUTTING SUPERVISOR-SENIOR RELIABILITY ENGINEER LAB - CHEMISTRY ORDERABL ES Final Result [facility] [address] [place] [address] * MICROALB/CREAT RATIO URINE RANDOM PANEL (10/10/2023 [...] within a diagnostic category. Test Performed at: [facility] [address] [facility] [place] [address] BILL MOURA MD Urine URINE SPECIMEN OBTAINED BY CLEAN CATCH PROCEDURE / Unknown 10/10/2023 2:05 PM CDT 10/10/2023 2:08 PM CDT Marianne Souza APRN-SENIOR RELIABILITY ENGINEER LAB - URINE CHEMISTRY OR DERABLES Final Result Performing Organization Address City/State/[facility] Co de Phone Number [phone] [address] [place] [address] * EYE EXAM (04/18/2023) Anatomical Region Laterality Modality Other 04/18/2023 Narrative 04/18/2023 Ordered by an unspecified provider. Scanned Document SCANNING ONLY Final Result * HEPATITIS C AB W/RFLX TO HCV RNA QN PCR (03/02/2023 11:53 AM FIELD SERVICE ENGINEER) Hepatitis C Antibody NON-REACTI VE NON-REACT [facility] Comment: HCV antibody was non-reactive. There is no laboratory evidence of HCV infection. In most cases, no further action is required. However, if recent HCV exposure is suspected, a test for HCV RNA (test code 00192) is suggested. For additional information please refer to http://education.Scoutzie.[employer]/faq/UKC68a5 (This link is being provided for informational/ educational purposes only.) Test Performed at: [facility] [place] [address] BILL MOURA MD 03/02/2023 11:5 3 AM FIELD SERVICE ENGINEER 03/02/2023 11:58 AM FIELD SERVICE ENGINEER Marianne Souza APRN-SENIOR RELIABILITY ENGINEER LAB - CHEMISTRY ORDERABL ES Final Result Performing Organization Address [facility] de Phone Number [facility] [address] [place] [phone] * HIV-1 HIV-2 ANTIBODY + HIV P24 AG PANEL (03/02/2023 11:53 AM FIELD SERVICE ENGINEER) HIV Screen 4th Generation w Reflex NON-REACT [...] purpose. For additional information please refer to http://education.PayNearMe/faq/DVM341 (This link is being provided for informational/ educational purposes only.) The performance of this assay has not been clinically validated in patients less than 2 years old. Test Performed at: [facility] [address] [place] [address] BILL MOURA MD Blood BLOOD SPECIMEN / Unknown 03/02/2023 11:53 AM FIELD SERVICE ENGINEER 03/02/2023 11:58 AM FIELD SERVICE ENGINEER Marianne Souza APRN-[facility] LAB - CHEMISTRY ORDERABL ES Final Result Performing Organization Address [facility] Co de Phone Number [facility] [address] [place] [address] * ENDOSCOPY, COLON, SCREENING (12/16/2021 1:18 PM FIELD SERVICE ENGINEER) Report Endoscopy POC _ Patient Name: Tayler [...] bowel preparation was evaluated using the BBPS ([place] Bowel Preparation Scale) with scores of: Right [...] for surveillance. Procedure Code(s): --- Professional --- 62082, Colonoscopy, flexible; with removal of tumor(s), polyp(s), or other lesion(s) by snare technique 28906, 59, Colonoscopy, flexible; with biopsy, single or multiple --- Technical --- 21161, Colonoscopy, flexible; with removal of tumor(s), polyp(s), or other lesion(s) by snare technique 92821, 59, Colonoscopy, flexible; with biopsy, single or multiple Diagnosis Code(s): --- Professional --- Z12.11, Encounter for screening for malignant neoplasm of colon K62.1, Rectal polyp K63.5, Polyp of colon K64.8, Other hemorrhoids --- Technical --- Z12.11, Encounter for screening for malignant neoplasm of colon K62.1, Rectal polyp K63.5, Polyp of colon K64.8, Other hemorrhoids CPT copyright 2019 [employer]. All rights reserved. The codes documented in this report are preliminary and upon rehabilitation counsellor review may be revised to meet current compliance requirements. __ Inez Izaguirre MD 12/16/2021 2:44:57 PM Number of Addenda: 0 Note Initiated On: 12/16/2021 1:18 PM [facility] ENDOSCOPY 12/16/2021 1:18 PM FIELD SERVICE ENGINEER Inez Izaguirre MD GI PROCEDURE ORDERABLES Edite d Result - Final [facility] [place] [address] * MAMMO BILAT SCREENING (04/28/2020 12:18 PM [...] mass, suspicious microcalcifications, or other abnormality seen. us Aishwarya Diana DO MAMMO ORDERABLES Final Result * PAP [...] [facility] INSURANCE BILL - 12/10/2018 12:36 PM FIELD SERVICE ENGINEER Source.............Cervix LMP / Prev Treat...None No. of containers..01 ThinPrep Vial Resulting Agency Comment Lab Testing performed at: [facility] [id number] Jeanine Rush MD LAB - PATHOLOGY/CYTOLOGY KATHLEEN REA Final Result [facility] INSURANCE BILL [address] [place] [address] from Last 3 Months or Most Recently Relevant to Health Maintenance Insurance [facility] MEDICAID [id number] Advance Directives * Full Code (Latest Code [...] 9:34 PM 07/19/2013 2:21 PM Care Teams Fur Dresser Relationship Specialty Start Date End Date Quita Lares MD [address] [place] [address] PCP - General Internal Medicine 02/07/23 Marianne Souza, FOAM CUTTING SUPERVISOR-SENIOR RELIABILITY ENGINEER [address] [facility] [place] [phone] PCP - Attributed-Agrawal Medicaid [place] 01/05/23 Bharath Martinez DO Orthopedic Surgery 06/07/16 [place] [address] [facility] [place] [address] Physical Medicine and Rehabilitation 10/16/19
--- OUTSIDE RECORDS SUMMARY | 2024-06-11 23:44 | XMS_ITS | Clinical Summary ---
Author Organization [facility] Address [address] [place] [address] Phone Care Team Providers Care Layout Worker Name Role Phone Unavailable Primary Care Provider Unavailabl e Encounters Date Type Department Care Team Description [facility] [address] [place] [address] Provider, None Referral from Last 3 Months Social History Tobacco Use Types Packs/Day Years Used Date Smoking Tobacco: Never Assessed Comments Unknown Sex and Gender Information Value Date Recorded Sex Assigned at Not on file Legal Sex Female 10:34 AM DIRECTOR OF HEALTHCARE SYSTEMS Gender Identity Not on file Sexual Orientation Not on file Plan of Treatment Not on file
--- OUTSIDE RECORDS SUMMARY | 2024-06-11 23:44 | XMS_ITS | Clinical Summary ---
Author Organization [facility] Address [address] [place] [address] Care Team Providers Care Communication Skills Instructor Name Role Phone Blank Souza NP Primary Care Provider [phone] Allergies Active Allergy Reactions Criticality Noted Date [...] 2 Bursitis of shoulder 07/13/2021 Cannabis dependence ([facility]) 07/13/2021 Status post cervical spinal fusion 07/13/2021 Hot flashes due to menopause 02/01/2021 Hyperlipidemia 02/01/2021 Type 2 diabetes mellitus wit hout complication ([facility]) 04/05/2020 Migraine without aura and wi thout status migrainosus, not intractable 06/17/2018 Moderate persistent asthma without complication ([facility]) 06/17/2018 Polyp of colon 06/17/2018 Primary osteoarthritis involving multiple joints 06/17/2018 Spinal stenosis of cervical region 12/22/2016 Chronic obstructive lung disease ([facility]) 12/02/2016 H/O migraine 12/01/2016 Allergic rhinitis 06/01/2016 Rupture of left biceps tendon 06/01/2016 Bipolar disorder, current ep isode mixed, moderate ([facility]) 02/14/2016 Smoker 02/14/2016 Tobacco use 02/14/2016 Duodenal ulcer disease 01/27/2016 Overview (04/17/2023): Overview: Dr. Raygoza/[facility] 01/2016 Overview: Overview: Dr. Raygoza/[facility]TH 01/2016 Dr. Raygoza/[facility]TH 01/2016 Overview: Dr. Raygoza/[facility] 01/2016 Anxiety state 11/29/2015 Abnormal brain MRI 09/20/2015 Chronic erosive gastritis 09/20/2015 Depression with anxiety 09/20/2015 GERD (gastroesophageal reflux disease) 6 Bipolar 1 disorder, depressed ([facility]) 09/20/2015 Abnormal Pap smear of cervix 07/23/2013 ASCUS with positive high risk HPV cervical 07/23 Arthralgia of hip 08/04/2008 Heart murmur Encounters Date Type Department Care Team Description 05/07/2024 3:09 PM CDT - 05/07/2024 11:59 PM CDT Hospital Encounter [place] [facility] [place] [address] [place] [address] Blank Souza NP Discharge Disposition: Home or [...] PM CDT Legal Sex Female 10:05 AM NECKTIES PAINTER Gender Identity Not on file Sexual Orientation Not on file Last Filed Vital Signs Vital Sign Reading Time Taken Comments Blood Pressure 109/81 02/06/2024 9:39 AM NECKTIES PAINTER Pulse 90 02/06/2024 9:39 AM NECKTIES PAINTER Temperature 36.3 C (97.4 F) 02/06/2024 9:39 AM NECKTIES PAINTER Respiratory Rate 18 02/06/2024 9:39 AM NECKTIES PAINTER Oxygen Saturation 100% 02/06/2024 9:39 AM NECKTIES PAINTER Inhaled Oxygen Concentration - - Weight 64.4 kg (141 lb 15.6 oz) 02/06/2024 9:39 AM NECKTIES PAINTER Height 162.6 cm (5' 4 ) 02/06/2024 9:39 AM NECKTIES PAINTER Body Mass Index 24.37 02/06/2024 9:39 AM NECKTIES PAINTER Plan of Treatment Upcoming Encounters Date Type Department Care Team (Late st Contact Info) Description 11/04/2024 7:40 AM CDT Office Visit [facility] - [facility] [address] [place] [address] Rashaad Basurto DO [address] [place] [address] Health Maintenance Due Date Last Done Comments [...] Every 5 Years 12/05/2023 12/04/2018 PHQ-2 (Physician [place]) 02/06/2024 06/07/2023 Zoster Vaccines (1 of 2) [...] AM Narrative 05/08/2024 7:[address] [facility] [address] [place], [place] [address] IMAGING STUDIES: US SOFT TISS HEAD OR [...] Procedure Note Jesus Obrien MD - 05/08/[address] [address] IMAGING STUDIES: US SOFT TISS HEAD OR [...] Obrien, 05/08/2024 7:38 AM us Blank Souza SPA MANAGER ULTRASOUND Final Resu lt * HEMOGLOBIN, GLYCOSYLATED (03/02/2023) HGB A1C 6.8 % 03/02/2023 us Default History Genericprovider LABORATORY Final Result from Last 3 Months or Most Recently Relevant to Health Maintenance Insurance [employer] Care Teams Communication Skills Instructor Relationship Specialty Start Date End Date Blank Souza NP PCP - General Nurse Practitioner Family 02/09/23
--- OUTSIDE RECORDS SUMMARY | 2024-06-11 23:44 | XMS_ITS | Clinical Summary ---
Author Organization [facility] Address [address] [place] [address] Care Team Providers Care Personnel Counselor Name Role Phone Bharath Martinez DO Unavailable [phone] Prasanth Perea MD Unavailable [phone] Quita Lares MD Primary Care Provider Marianne Souza APRN-STAFF NURSE MIDWIFE Unavailable [phone] Source Comments [facility],non-owned Affiliates and Associated Physician Practices is amultiple site organization consisting of ambulatory clinics and hospital sitesin [place], [place], [place] and [place]. This disclosure is being madepursuant to the Care Everywhere program and may not contain all information available regarding this patient. Last updated 17.[facility] Allergies Active Allergy Reactions Criticality Noted [...] (Astelin) 0.1 % nasal sprayIndication s:replaces Dymista [place] 1 (one) spray into each nostril 2 [...] Department Care Team Description 05/30/2024 Nurse Triage [facility] Family [facility] [address] [facility], [address] [address] Quita Lares MD Neuropathy 05/20/2024 Bulk Orders Only [facility] Family Medicine [address] [facility], [facility] [address] [place] [phone] Quita Lares MD Screening mammogram for breast cancer 05/08/2024 Nurse Triage [facility] [address] [facility], [address] [address] Quita Lares MD Results 05/02/2024 Orders Only [facility] [address] [facility], [address] [address] Umair Adame MD Neck nodule 05/02/2024 Nurse Triage [facility] [address] [address] Quita Lares MD Order (//) 05/02/2024 Refill [facility] [address], [address] [place] [address] Marianne Souza, READING COACH-STAFF NURSE MIDWIFE Refill Request 05/01/2024 1:00 PM CDT Office Visit [facility] [address], [address] [place] [address] Marianne Souza, READING COACH-STAFF NURSE MIDWIFE Neck nodule (Primary Dx); Seasonal allergic rhinitis due to pollen; Allergy to plant; Chronic cough; PND (post-nasal drip); Numbness and tingling 05/01/2024 Orders Only [facility] [address], [address] [place] [address] Marianne Souza, READING COACH-STAFF NURSE MIDWIFE Seasonal allergic rhinitis due to pollen; Allergy to plant 05/01/2024 Travel 04/07/2024 Refill [facility] [address] [address] Quita Lares MD Refill Request 03/19/2024 Nurse Triage [facility] [address] [address] Quita Lares MD Order 03/18/2024 Nurse Triage [facility] [address] [address] Quita Lares MD Update (/) from Last [...] Respiratory Rate 24 02/14/2024 12:2 5 PM STEEL PICKLER Oxygen Saturation 98% 05/01/2024 1:05 PM CDT [...] Medicine [address], [address] [place] [address] Marianne Suoza, READING COACH-STAFF NURSE MIDWIFE [address] [place] [address] Health Maintenance Due Date Last Done [...] COMPREHENSIVE METABOLIC PANEL Routine 02/14/2024 2:11 PM STEEL PICKLER Type 2 diabetes mellitus with hyperglycemia, without long-term current use of insulin HEMOGLOBIN A1C Routine 02/14/2024 2:11 PM STEEL PICKLER Type 2 diabetes mellitus with hyperglycemia, without long-term current use of insulin MICROALB/CREAT RATIO URINE RANDOM PANEL Routine 10/10/2023 2:05 PM CDT Type 2 diabetes mellitus with hyperglycemia, without long-term current use of insulin EYE EXAM 04/18/2023 HEPATITIS C AB W/RFLX TO HCV RNA QN PCR 03/02/2023 11:53 AM STE[employer] PICKLER HIV-1 HIV-2 ANTIBODY + HIV P24 AG PANEL Routine 03/02/2023 11:53 AM STEEL PICKLER Screen for STD (sexually transmitted disease) ENDOSCOPY, COLON, SCREENING Routine 12/16/2021 1:18 PM STE[employer] PICKLER MAMMO BILAT SCREENING Routine 04/28/2020 12:18 PM [...] (ABNORMAL) HEMOGLOBIN A1C (HgbA1C) (02/14/2024 2:11 PM STEEL PICKLER) Hemoglobin A1c 6.2(H) <5.7 % of total [...] children. REPORT COMMENT: FASTING:YES Test Performed at: [employer] [address] BILL MOURA MD Blood BLOOD SPECIMEN / Unknown 02/14/2024 2:11 PM STEEL PICKLER 02/14/2024 2:13 PM STE[employer] PICK[employer]ER Marianne Souza APRN-STAFF NURSE MIDWIFE LAB - CHEMISTRY ORDERABL ES Final Result [address] [address] * (ABNORMAL) COMPREHENSIVE METABOLIC PANEL (02/14/2024 2:11 PM STEEL PICKLER) Glucose 130(H) 65 - 99 mg/dL [facility] [...] 29 U/L [facility] Comment: Test Performed at: [facility] [id number] [place] [address] BILL MOURA MD Blood BLOOD SPECIMEN / Unknown 02/14/2024 2:11 PM STEEL PICKLER 02/14/2024 2:13 PM STE[employer] PICK[employer] Marianne Souza READING COACH-STAFF NURSE MIDWIFE LAB - CHEMISTRY ORDERABL ES Final Result [facility] [address] [place] [address] * MICROALB/CREAT RATIO URINE RANDOM PANEL (10/10/2023 [...] within a diagnostic category. Test Performed at: [employer] [address] [place] [address] BILL MOURA MD Urine URINE SPECIMEN OBTAINED BY CLEAN CATCH PROCEDURE / Unknown 10/10/2023 2:05 PM CDT 10/10/2023 2:08 PM CDT Marianne Souza APRN-STAFF NURSE MIDWIFE LAB - URINE CHEMISTRY OR DERABLES Final Result Performing Organization Address City/State/[facility] Co de Phone Number [employer] [address] [place] [address] * EYE EXAM (04/18/2023) Anatomical Region Laterality Modality Other 04/18/2023 Narrative 04/18/2023 Ordered by an unspecified provider. Scanned Document SCANNING ONLY Final Result * HEPATITIS C AB W/RFLX TO HCV RNA QN PCR (03/02/2023 11:53 AM STE[employer] PICKLER) Hepatitis C Antibody NON-REACTI VE NON-REACT Z[facility]IDA [facility] Comment: HCV antibody was non-reactive. There is no laboratory evidence of HCV infection. In most cases, no further action is required. However, if recent HCV exposure is suspected, a test for HCV RNA (test code 59689) is suggested. For additional information please refer to http://education.barter.li.[employer]/faq/DLY66r4 (This link is being provided for informational/ educational purposes only.) Test Performed at: [employer] [facility] [place] [address] BILL MOURA MD 03/02/2023 11:5 3 AM [employer] [facility] 03/02/2023 11:58 AM [employer] Marianne Souza APRN-STAFF NURSE MIDWIFE LAB - CHEMISTRY ORDERABL ES Final Result Performing Organization Address [facility] de Phone Number [facility] [address] [place] [phone] * HIV-1 HIV-2 ANTIBODY + HIV P24 AG PANEL (03/02/2023 11:53 AM STE[employer] P[employer]) HIV Screen 4th Generation w Reflex NON-REACT [...] purpose. For additional information please refer to http://education.[employer]/faq/DBG960 (This link is being provided for informational/ educational purposes only.) The performance of this assay has not been clinically validated in patients less than 2 years old. Test Performed at: [employer] [facility] [address] [place] [address] BILL MOURA MD Blood BLOOD SPECIMEN / Unknown 03/02/2023 11:53 AM [employer] 03/02/2023 11:58 AM [employer] Marianne Souza APRN-[facility] LAB - CHEMISTRY ORDERABL ES Final Result Performing Organization Address [facility] Co de Phone Number [facility] [address] [place] [address] * ENDOSCOPY, COLON, SCREENING (12/16/2021 1:18 PM STE[employer] P[employer]) Report Endoscopy POC _ Patient Name: Tayler [...] bowel preparation was evaluated using the BBPS ([place] Bowel Preparation Scale) with scores of: Right [...] for surveillance. Procedure Code(s): --- Professional --- 30664, Colonoscopy, flexible; with removal of tumor(s), polyp(s), or other lesion(s) by snare technique 76797, 59, Colonoscopy, flexible; with biopsy, single or multiple --- Technical --- 40494, Colonoscopy, flexible; with removal of tumor(s), polyp(s), or other lesion(s) by snare technique 91029, 59, Colonoscopy, flexible; with biopsy, single or multiple Diagnosis Code(s): --- Professional --- Z12.11, Encounter for screening for malignant neoplasm of colon K62.1, Rectal polyp K63.5, Polyp of colon K64.8, Other hemorrhoids --- Technical --- Z12.11, Encounter for screening for malignant neoplasm of colon K62.1, Rectal polyp K63.5, Polyp of colon K64.8, Other hemorrhoids CPT copyright 2019 [employer]. All rights reserved. The codes documented in this report are preliminary and upon flyer builder review may be revised to meet current compliance requirements. __ Inez Izaguirre MD 12/16/2021 2:44:57 PM Number of Addenda: 0 Note Initiated On: 12/16/2021 1:18 PM [facility] 12/16/2021 1:18 PM [employer] [facility] Inez Izaguirre MD GI PROCEDURE ORDERABLES Edite d Result - Final [facility] [place] [address] * MAMMO BILAT SCREENING (04/28/2020 12:18 PM [...] [facility] INSURANCE BILL - 12/10/2018 12:36 PM STE[employer] P[employer] Source.............Cervix LMP / Prev Treat...None No. of containers..01 ThinPrep Vial Resulting Agency Comment Lab Testing performed at: [employer] [id number] Jeanine Rush MD LAB - PATHOLOGY/CYTOLOGY KATHLEEN REA Final Result [facility] INSURANCE BILL [address] [place] [address] from Last 3 Months or Most Recently Relevant to Health Maintenance Insurance [facility] [place]ICA[place] Advance Directives * Full [...] 9:34 PM 07/19/2013 2:21 PM Care Teams Personnel Counselor Relationship Specialty Start Date End Date Quita Lares MD [address] [place] [address] PCP - General Internal Medicine 02/07/23 Marianne Souza, READING COACH-STAFF NURSE MIDWIFE [address] [facility] [place] [phone] PCP - Attributed-Agrawal Medicaid [place] 01/05/23 Bharath Martinez DO Orthopedic Surgery 06/07/16 [place] [address] [facility] [address] [place] [address] Physical Medicine and Rehabilitation 10/16/19
--- OUTSIDE RECORDS SUMMARY | 2024-06-11 23:44 | XMS_ITS ---
Author Name Auto Generated, Auto Generated Organization [facility] Address [address] [place] [address] Phone [phone] Functional Status No Results Mental Status No Results Allergies and Intolerances No Known Allergies Problems Active Concerns * MDD (major depressive disorder)* Code: 069862828 * Start Date: SunMar 11 07:00:00 EST 2020 * End Date: * Text: * Moderate tetrahydrocannabinol (THC) dependence* Code: [id number] * Start Date: * End Date: * Text: Reason for Referral Past Medical History
--- OUTSIDE RECORDS SUMMARY | 2024-06-11 23:44 | XMS_ITS | Referral Summary ---
Author Organization [facility] [address] Address [address] [place] [address] Care Team Providers Care Steam Hoist Operator Name Role Phone Marianne Souza NP Primary Care Provider [phone] Allergies Active Allergy Reactions Criticality Noted Date [...] on file Legal Sex Female 5:05 PM REWEAVER Gender Identity Not on file Sexual Orientation Not on file Last Filed Vital Signs Vital Sign Reading Time Taken Comments Blood Pressure 132/68 01/25/2024 7:27 PM REWEAVER Pulse 77 01/25/2024 7:27 PM REWEAVER Temperature 38 C (100.4 F) 01/25/2024 7:27 PM REWEAVER Respiratory Rate 19 01/25/2024 7:27 PM REWEAVER Oxygen Saturation 98% 01/25/2024 7:27 PM REWEAVER Inhaled Oxygen Concentration - - Weight 66.2 kg (146 lb) 01/25/2024 7:27 PM REWEAVER Height 162.6 cm (5' 4 ) 01/25/2024 7:27 PM REWEAVER Body Mass Index 25.06 01/25/2024 7:27 PM REWEAVER Plan of Treatment Not on file Medical Devices Implanted Type Area Sas Architect Device Identifier Shelf Expiration Date Model / Serial / Lot Rods Lumbar-Sacra l Spine Insurance [facility] Care Teams Steam Hoist Operator Relationship Specialty Start Date End Date Marianne Souza NP [address] [address] PCP - General Family Practice 05/28/23
--- OUTSIDE RECORDS SUMMARY | 2024-06-11 23:44 | XMS_ITS | Clinical Summary ---
Author Organization [facility] [address] Address [address] [place] [address] Care Team Providers Care Forest Technician Name Role Phone Marianne Souza NP Primary Care Provider [phone] Allergies Active Allergy Reactions Criticality Noted Date [...] on file Legal Sex Female 5:05 PM LITHOGRAPHIC PLATE MAKER Gender Identity Not on file Sexual Orientation Not on file Obstetrics History Last Filed Vital Signs Vital Sign Reading Time Taken Comments Blood Pressure 132/68 01/25/2024 7:27 PM LITHOGRAPHIC PLATE MAKER Pulse 77 01/25/2024 7:27 PM LITHOGRAPHIC PLATE MAKER Temperature 38 C (100.4 F) 01/25/2024 7:27 PM LITHOGRAPHIC PLATE MAKER Respiratory Rate 19 01/25/2024 7:27 PM LITHOGRAPHIC PLATE MAKER Oxygen Saturation 98% 01/25/2024 7:27 PM LITHOGRAPHIC PLATE MAKER Inhaled Oxygen Concentration - - Weight 66.2 kg (146 lb) 01/25/2024 7:27 PM LITHOGRAPHIC PLATE MAKER Height 162.6 cm (5' 4 ) 01/25/2024 7:27 PM LITHOGRAPHIC PLATE MAKER Body Mass Index 25.06 01/25/2024 7:27 PM LITHOGRAPHIC PLATE MAKER Plan of Treatment Health Maintenance Due Date [...] 06/11/2026 06/11/2016 Medical Devices Implanted Type Area Armed Security Guard Device Identifier Shelf Expiration Date Model / Serial / Lot Rods Lumbar-Sacra l Spine Insurance [facility] Care Teams Forest Technician Relationship Specialty Start Date End Date Marianne Souza NP [address] [address] PCP - General Family Practice 05/28/23
--- OUTSIDE RECORDS SUMMARY | 2024-06-11 23:44 | XMS_ITS ---
Author Name Auto Generated, Auto Generated Organization [facility] Address [address] [place] [address] Phone [phone] Functional Status No Results Mental Status No Results Allergies and Intolerances No Known Allergies Problems Active Concerns * MDD (major depressive disorder)* Code: 894962470 * Start Date: SunMar 11 07:00:00 EST 2020 * End Date: * Text: * Moderate tetrahydrocannabinol (THC) dependence* Code: 40887283 * Start Date: * End Date: * Text: Reason for Referral Past Medical History
--- OUTSIDE RECORDS SUMMARY | 2024-06-11 23:44 | XMS_ITS | Continuity of Care Document ---
Author Organization [facility] Address [address] [place] [address] Phone Care Team Providers Care Manufactured Buildings Repairer Name Role Phone Saud Vasquez MD Unavailable [...] OFFICE/OUTPA TIENT VISIT NEW [facility], [address] [facility] [address], [place], [address], [place] tel:[phone] [facility] Right shoulder blade and arm pain/swell ing/numbne ss (chief complaint) Body mass index (BMI) 27.0-27.9, adultRight arm painStatus post cervical spinal fusionDJD (degenerative joint disease), cervical Apr-2 0-202 0 Pedro Villavicencio. [address] [place], [id number] . tel:[phone] Referring Provider: Aishwarya Ortiz, [address], [place], [address]. tel:[phone] OFFICE/OUTPA TIENT VISIT NEW [facility], [address], [place], [address], [place] tel:[phone] [facility] Right shoulder pain, unspecified chronicityBursiti s of right shoulderRadiculop athy of arm Apr- 0 Destini Gaviria. [address], [place], [place], [id number] . tel: [phone] Referring Provider: Aishwarya Ortiz, [address], [place], [address]. tel:[phone] [facility], [address], [place], [address], [place] tel:[phone] [facility] O Kristina Injury of right shoulder, initial encounterFall in home, initial encounter ^Unspecified place in unspecified non-institutional (private) residence as the place of occurrence of the external causeContusion of right shoulder, initial encounter 9 Surendra Hernandez. [address] [place], [place], [address] . tel:[phone] Family History Family Member Type Diagnosis Age At Onset Mother Problem Heart disease Problem (finding) Family history of chronic obstructive lung disease Problem (finding) Family history of Liver disease Payers Payer name Insurance type Covered green party ID Livan torres(s) [facility] Medicaid [id number] Social History Type Description Quantity Date Captured [...]
--- OUTSIDE RECORDS SUMMARY | 2024-06-11 23:44 | XMS_ITS | Encounter Summary ---
Author Organization [facility] Address [address] [place] [address] Care Team Providers Care Retort Furnace Operator Name Role Phone Bharath Martinez DO Unavailable [phone] Luis Ortiza Primary Care Provider [phone] Prasanth Perea MD Unavailable [phone] Quita Lares MD Primary Care Provider Marianne Souza EXECUTIVE MEETING MANAGER-FREELANCE RECRUITER Unavailable [phone] Encounter Details Date Type Department Care Team (Late st Contact Info) Description 01/31/2016 Transitional Care [facility] DISEASE MANAGEMENT [address] [place] [address] Caroline Cagle RN Social History Tobacco Use [...] of Assessment Author No 01/28/2016 1:16 PM COMPUTER FORWARDING SYSTEM MARKUP CLERK Merchant, Jenifer M, RN * Does person have serious difficulty walking/climbing stairs? Answer Date of Assessment Author No 01/28/2016 1:16 PM COMPUTER FORWARDING SYSTEM MARKUP CLERK Jenifer Merchant RN * Does person have difficulty dressing/bathing? Answer Date of Assessment Author No 01/28/2016 1:16 PM COMPUTER FORWARDING SYSTEM MARKUP CLERK Jenifer Merchant RN * Does person have difficulty doing errands alone? Answer Date of Assessment Author No 01/28/2016 1:16 PM COMPUTER FORWARDING SYSTEM MARKUP CLERK Jenifer Merchant, DELANEY documented as of this encounter Mental Status * Does person have difficulty concentrating/remembering/making decisions? Answer Entry Date Author No 01/28/2016 1:16 PM COMPUTER FORWARDING SYSTEM MARKUP CLERK Jenifer Merchant RN documented in this encounter [...] but there was no answer, message left. [facility] TCNN will wait for medication reconciliation before signing off. UTER FORWARDING SYSTEM MARKUP CLERK documented in this encounter Plan of Treatment Upcoming Encounters Date Type Department Care Team (Late st Contact Info) Description 07/08/2024 1:00 PM CDT Office Visit [facility] - Family Medicine [address] [place] [phone] Marianne Souza, EXECUTIVE MEETING MANAGER-FREELANCE RECRUITER [address] [place] [address] documented as of this encounter Visit Diagnoses Not on filedocumented in this encounter Additional Health Concerns Infection Onset Date Last Indicated Resolved Time COVID-19 Under Investigation 03/14/2022 03/14/2022 03/14/2022 3:34 PM COMPUTER FORWARDING SYSTEM MARKUP CLERK documented as of this encounter Care Teams Retort Furnace Operator Relationship Specialty Start Date End Date Aishwarya Ortiz DO [address] [facility] [address] [place] [phone] PCP - General Family Medicine 06/17/18 02/06/23 Quita Lares MD [address] [place], [place] [id number] PCP - General Internal Medicine 02/07/23 Marianne Souza, EXECUTIVE MEETING MANAGER-FREELANCE RECRUITER [address] [facility]. [address] [place] [address] PCP - [facility]-Agrawal Medicaid ST 01/05/23 Bharath Martinez DO Orthopedic Surgery 06/07/16 [place] [address] [address] [place] [address] Physical Medicine and Rehabilitation 10/16/19 documented as of this encounter
[2024-06-11] MEDS: ALBUTEROL SULFATE NEB 2.5 MG/3 ML INH 10 MG INHALATION (23:46)
[2024-06-11 23:50] VITALS: PULSE 87; RESP 20
[2024-06-12] VITALS (18 sets, daily range): BP systolic 100–120; BP diastolic 60–76; PULSE 64–87; RESP 16–20; TEMP 35.9–36.4; O2SAT 97–100; BMI 24.4
--- NOTE | 2024-06-12 00:02 | ED_ITS ---
HPI - URI/Sore Throat General Chief Complaint: Upper Respiratory Infection Stated Complaint: Cough, chest tightness-poss black mold exposure Time Seen by Provider: 06/11/24 23:31 History of Present Illness HPI Narrative: Patient with history of asthma went to urgent care a week ago for her cough, asked for antibiotics every few steroids, and since then has been still having worsening cough and shortness of breath. Has been using her albuterol inhaler at home. She has had to be admitted in the past for this and is feeling like she may have to be today Related Data Home Medications ?Medication ?Instructions ?Recorded ?Confirmed ?Last Taken ?Type albuterol sulfate 90 mcg/actuation 2 puff inhalation PRN 08/22/23 04/15/24 Unknown History aerosol inhaler famotidine 20 mg tablet 20 mg PO DAILY 08/22/23 04/15/24 Unknown History loratadine 10 mg tablet 10 mg PO DAILY 08/22/23 04/15/24 Unknown History metformin 500 mg tablet,extended 1,000 mg PO BID 08/22/23 04/15/24 Unknown History release 24 hr rosuvastatin 5 mg tablet 5 mg PO DAILY 08/22/23 04/15/24 Unknown History sumatriptan succinate 100 mg tablet 100 mg PO DAILY 08/22/23 04/15/24 Unknown History budesonide-formoterol HFA 160 inhalation 06/04/24 Unknown History mcg-4.5 mcg/actuation aerosol inhaler (Symbicort) Allergies Allergy/AdvReac Type Severity Reaction Status Date / Time azithromycin Allergy Severe Swelling Verified 06/04/24 13:45 adhesive Allergy Unknown Verified 06/04/24 13:45 ibuprofen Allergy Unknown Verified 06/04/24 13:45 latex Allergy Unknown Verified 06/04/24 13:45 silver sulfadiazine (From Allergy Unknown Verified 06/04/24 13:45 Silvadene) Review of Systems 2 Review of Systems: All systems reviewed & are unremarkable except as noted in HPI and below PMFSH Past Medical History Medical History Cholecystectomy planned Neuropathic arthritis High cholesterol Diabetes Asthma Surgical History Surgical History H/O tubal ligation History of hip surgery Previous back surgery H/O neck surgery Family History Family History Father Hypertension Mother Asthma Heart disease Thyroid disorder Sibling Depression Thyroid disorder Grandparent Asthma Thyroid disorder Heart disease Other Depression Social History Social History Smoking status: Current every day smoker Tobacco type: cigarettes Alcohol intake: never Substance use: current Substance use type: marijuana Do You Feel Safe in your Home?: Yes Lack of Transportation: No Lack of Food: Never True Current Housing: I Have Housing Concerned About Future Housing: No Difficulty Paying for Meds: No Currently Unemployed: No Education: High School Diploma/GED Difficulty w/ Childcare or Family Care: No Exam 2 Narrative: EXAMINATION OF ORGAN SYSTEMS/BODY AREAS: Constitutional: Vital signs per nursing GENERAL: Labored respirations and audible wheezing HEAD: Normal with no signs of head trauma. EYES: EOMI, conjunctiva normal ENT: Hearing grossly intact LUNGS: Nonlabored breathing. HEART: Loud, audible wheezing ABD: [Soft], [nontender to palpation] EXT: Normal range of motion SKIN: [No rashes or lesions.] NEURO: [Alert and oriented x 3. No gross focal sensory or strength deficits.] PSYCH: Normal affect Course Vital Signs Vital signs: Vital Signs Temperature 97.9 F 06/11/24 22:19 Pulse Rate 87 06/11/24 22:19 Respiratory Rate 20 06/11/24 22:19 Blood Pressure 102/51 L 06/11/24 22:19 Pulse Oximetry 100 06/11/24 22:19 Oxygen Delivery Room Air 06/11/24 22:19 Temperature 97.9 F 06/11/24 22:19 Pulse Rate 84 06/12/24 00:18 Respiratory Rate 17 06/12/24 00:18 Blood Pressure 116/76 06/12/24 00:18 Pulse Oximetry 100 06/12/24 00:18 Oxygen Delivery Room Air 06/12/24 00:18 MDM - URI/Sore Throat MDM Narrative Medical decision making narrative: 1) Differential diagnosis: Asthma/COPD exacerbation, pneumonia 2) Comorbidities: Asthma, diabetes, GERD 3) External notes reviewed: prior notes including urgent care visit 1 week ago 4) History sources independently obtained from: Son at bedside 5) Discussion of management with: Hospitalist 6) Independent interpretation of: Chest x-ray on my independent interpretation lungs appear clear without obvious consolidation or pneumothorax 7) Diagnostic tests or therapies considered but not ordered: Do not feel CT indicated as patient very obviously wheezing on exam without DVT symptoms 8) Social determinants of health: 9) Shared decision making: Patient presenting with increasing difficulty breathing with wheezing over the last week, she does have some respiratory distress and wheezing quite loudly, breathing treatments started and Solu-Medrol given on re-evaluation she does feel slightly better but still wheezing and would like to be admitted and I feel this is quite reasonable. Labs obtained does show low potassium of 2.9 which is repleted. Case discussed with hospitalist for admission. Lab Data 06/12/24 00:04 06/12/24 00:04 Labs: Lab Results 06/11/24 06/12/24 Range/Units 23:47 00:04 WBC 8.5 (4.5-10.0) K/mm3 RBC 4.07 L (4.2-5.4) M/mm3 Hgb 13.0 (12.0-15.0) g/dL Hct 38.1 (37.0-47.0) % MCV 93.6 (80-100) fl MCH 31.9 (26-34) pg MCHC 34.1 (32-36) g/dl RDW 12.1 (11.5-14.5) % Plt Count 218 (150-375) k/mm3 MPV 10.7 H (7.4-10.4) fl Immature Gran % (Auto) 0.1 (0-0.5) % Neut % (Auto) 47.6 (45.5-73.1) % Lymph % (Auto) 45.5 H (18.3-44.2) % Williams % (Auto) 6.0 (2.6-8.5) % Eos % (Auto) 0.2 (0-4.4) % Baso % (Auto) 0.6 (0.2-1.2) % Lymph # (Auto) 3.86 H (0.9-3.2) K/mm3 Williams # (Auto) 0.5 (0.1-0.6) K/mm3 Eos # (Auto) 0.0 (0-0.3) K/mm3 Baso # (Auto) 0.1 (0.0-0.1) K/mm3 Abs Immat Gran (auto) 0.01 (0.00-0.031) K/mm3 Absolute Neuts (auto) 4.0 (1.3-6.7) K/mm3 Absolute Nucleated RBC 0.000 (0.0-0.012) K/mm3 Nucleated RBC % 0.0 (0.0-0.2) % Sodium 136 L (137-145) mmol/L Potassium 2.9 L (3.4-5.0) mmol/L Chloride 99 (98-107) mmol/L Carbon Dioxide 26 (22-30) mmol/L Anion Gap 11 (4-12) mmol/L BUN < 2 L (7-17) mg/dL Creatinine 0.65 L (0.7-1.0) mg/dL Estim Creat Clear Calc 77 ml/min Estimated GFR > 60 (59 - ) Glucose 107 (65-110) mg/dL Calcium 8.7 (8.4-10.2) mg/dL Influenza A (RT-PCR) Negative (Negative) Influenza B (RT-PCR) Negative (Negative) RSV (RT-PCR) Negative (Negative) SARS-CoV-2 RNA (RT-PCR) Negative (Negative) Discharge Plan Discharge Clinical Impression: Asthma exacerbation Patient Disposition: Still a Patient Condition: Stable Patient Language: Kosovan Prescriptions: No Action sumatriptan succinate 100 mg tablet 100 mg PO DAILY famotidine 20 mg tablet 20 mg PO DAILY albuterol sulfate 90 mcg/actuation HFA aerosol inhaler 2 puff INHALATION PRN metformin 500 mg tablet extended release 24 hr 1,000 mg PO BID loratadine 10 mg tablet 10 mg PO DAILY rosuvastatin 5 mg tablet 5 mg PO DAILY budesonide-formoterol [Symbicort] 160-4.5 mcg/actuation HFA aerosol inhaler INHALATION prednisone 20 mg tablet 40 mg PO DAILY 5 Days Qty: 10 0RF Linzess 72 mcg capsule 72 mcg PO DAILY Qty: 30 3RF omeprazole 40 mg capsule,delayed release(DR/EC) 40 mg PO DAILY Qty: 30 3RF acetaminophen [Tylenol Extra Strength] 500 mg tablet 1,000 mg PO TID PRN (Reason: pain) Qty: 30 0RF Follow-up/Referrals: Harley,Mariannerichmond Kearney APRN [Primary Care Provider] -
[2024-06-12] MEDS: MAGNESIUM SULF 2 GM/WATER 50ML 2 GM/50 ML BAG IVPB (00:03)
[2024-06-12] MEDS: methylPREDNISolone SOD SUCC 125 MG VIAL IV PUSH (00:03)
[2024-06-12 00:18] LABS: Anion Gap 11 mmol/L (4-12); Calcium 8.7 mg/dL (8.4-10.2); Carbon Dioxide 26 mmol/L (22-30); Chloride 99 mmol/L (98-107); Estimated CRCL calculation 77 ml/min; Estimated Glomerular Filt Rate > 60; Glucose 107 mg/dL (65-110); Potassium 2.9 mmol/L (3.4-5.0); Sodium 136 mmol/L (137-145)
[2024-06-12 00:20] LABS: Basophils Absolute Auto 0.1 K/mm3 (0.0-0.1); Basophils Percent Auto 0.6 % (0.2-1.2); Eosinophils Percent Auto 0.2 % (0-4.4); Hematocrit 38.1 % (37.0-47.0); Immature Granulocyte Absolute 0.01 K/mm3 (0.00-0.031); Immature Granulocyte Percent A 0.1 % (0-0.5); Lymphocytes Absolute Auto 3.86 K/mm3 (0.9-3.2); Lymphocytes Percent Auto 45.5 % (18.3-44.2); Mean Corpuscular HGB Conc 34.1 g/dl (32-36); Mean Corpuscular Hemoglobin 31.9 pg (26-34); Mean Corpuscular Volume 93.6 fl (80-100); Mean Platelet Volume 10.7 fl (7.4-10.4); Monocytes Absolute Auto 0.5 K/mm3 (0.1-0.6); Neutrophils Percent Auto 47.6 % (45.5-73.1); Platelet Count Result 218 k/mm3 (150-375); Red Blood Count 4.07 M/mm3 (4.2-5.4); Red Cell Distribution Width 12.1 % (11.5-14.5); White Blood Count 8.5 K/mm3 (4.5-10.0)
[2024-06-12 00:22] LABS: Blood Urea Nitrogen < 2 mg/dL (7-17)
[2024-06-12 00:29] LABS: Influenza A QL RT-PCR Negative (Negative); Influenza B QL RT-PCR Negative (Negative); RSV RNA, RT-PCR Negative (Negative); SARS-CoV-2 RNA PCR Negative (Negative)
[2024-06-12] MEDS: POTASSIUM CHLORIDE 20 MEQ PACKET (FOR LIQUID) 40 MEQ PO (00:36)
--- NOTE | 2024-06-12 00:38 | PC.NURSE ---
Mag Sulf infused at this time. Per EDP Dr. Hooker medication OK to infuse over 30 mins.
[2024-06-12] MEDS: POTASSIUM CHLORIDE INJ 40 MEQ in SODIUM CHLORIDE 0.9% IV 500 ML 130 MEQ IVPB (01:53)
[2024-06-12 03:15] LABS: Glucose Point of Care 173 mg/dl (65-105)
[2024-06-12] MEDS: POTASSIUM CHLORIDE 20 MEQ ER TABLET 40 MEQ PO ×2 (03:15→11:40)
[2024-06-12] MEDS: methylPREDNISolone SOD SUCC 125 MG VIAL 40 MG IV PUSH ×2 (05:41→11:29)
[2024-06-12 07:59] LABS: Glucose Point of Care 216 mg/dl (65-105)
--- NOTE | 2024-06-12 08:43 | P.HP_ITS ---
H&P: HPI History of Present Illness Date/Time: 06/12/24 08:43 Chief Complaint: Upper respiratory infection Narrative: 49-year-old female with past medical-surgical history of endometriosis, history of duodenal ulcer, bipolar disorder, cholecystectomy, tubal ligation, COPD, GERD, spinal stenosis, history of colon polyps, anxiety, migraines, depression, asthma, diabetes, HLD, cannabis dependence, IBS with constipation and hyperthyroidism visited ER due to cough and shortness of breath. Pertinent ED labs: WBC 8.5, hemoglobin 13, hematocrit 38.1, platelet 218, sodium 136, potassium 2.9, BUN less than 2, creatinine 0.6, GFR greater than 60 Influenza RSV COVID negative Chest x-ray shows no focal infiltrate or effusion Patient is admitted in the setting possible COPD/asthma exacerbation superimposed with bacterial infection. Patient is currently on room air. As per patient she quit smoking 6 months ago. She smokes 1 ppd. Review of Systems Review of Systems: All systems reviewed & are unremarkable except as noted in HPI and below PMFSH Past Medical History Medical History Cholecystectomy planned Neuropathic arthritis High cholesterol Diabetes Asthma Surgical History Surgical History H/O tubal ligation History of hip surgery Previous back surgery H/O neck surgery Family History Family History Father Hypertension Mother Asthma Heart disease Thyroid disorder Sibling Depression Thyroid disorder Grandparent Asthma Thyroid disorder Heart disease Other Depression Social History Social History Smoking packs per day: 2 Smoking cigarettes per day: 40.0 Smoking status: Former smoker Tobacco type: cigarettes Second hand tobacco smoke exposure: Yes Smoking end date: 01/06/24 Alcohol intake: never Substance use: current Substance use type: marijuana Do You Feel Safe in your Home?: Yes Lack of Transportation: No Lack of Food: Never True Current Housing: I Have Housing Concerned About Future Housing: No Difficulty Paying Gas/Electric Bills: No Difficulty Paying for Meds: No Currently Unemployed: No Education: High School Diploma/GED Difficulty w/ Childcare or Family Care: No Spiritual care concerns: No Meds Home Medications and Allergies Home Medications ?Medication ?Instructions ?Recorded ?Confirmed ?Type albuterol sulfate 90 mcg/actuation 2 puff inhalation PRN 08/22/23 06/12/24 History aerosol inhaler metformin 500 mg tablet,extended 1,000 mg PO BID 08/22/23 06/12/24 History release 24 hr rosuvastatin 5 mg tablet 5 mg PO DAILY 08/22/23 06/12/24 History sumatriptan succinate 100 mg tablet 100 mg PO DAILY PRN migraine 08/22/23 06/12/24 History headache acetaminophen 500 mg tablet 1,000 mg (2 x 500 mg) PO TID PRN 11/02/23 06/12/24 Rx (Tylenol Extra Strength) pain #30 tabs omeprazole 40 mg capsule,delayed 40 mg PO DAILY #30 caps 04/15/24 06/12/24 Rx release budesonide-formoterol HFA 160 1 puff inhalation DAILY 06/04/24 06/12/24 History mcg-4.5 mcg/actuation aerosol inhaler (Symbicort) calcium 600 mg (as 1 tablet PO DAILY 06/12/24 06/12/24 History carbonate)-vitamin D3 10 mcg (400 unit) tablet cetirizine 10 mg tablet 10 mg PO DAILY 06/12/24 06/12/24 History cyclobenzaprine 10 mg tablet 10 mg PO Q8H PRN muscle spasm 06/12/24 06/12/24 History fluticasone propionate 50 2 spray intranasal DAILY 06/12/24 06/12/24 History mcg/actuation nasal spray,suspension Allergies Allergy/AdvReac Type Severity Reaction Status Date / Time azithromycin Allergy Severe Swelling Verified 06/04/24 13:45 adhesive Allergy Unknown Verified 06/04/24 13:45 ibuprofen Allergy Unknown Verified 06/04/24 13:45 latex Allergy Unknown Verified 06/04/24 13:45 silver sulfadiazine (From Allergy Unknown Verified 06/04/24 13:45 Silvadene) Vital Signs Vital Signs - 24 hr 06/11/24 22:19 06/11/24 23:50 06/12/24 00:18 Temperature 97.9 F Pulse Rate 87 87 Respiratory Rate 20 20 Blood Pressure 102/51 L Pulse Oximetry 100 100 Oxygen Delivery Room Air Room Air 06/12/24 00:18 06/12/24 02:22 06/12/24 02:51 Temperature Pulse Rate 84 87 74 Respiratory Rate 17 20 16 Blood Pressure 116/76 110/76 Pulse Oximetry 100 97 Oxygen Delivery 06/12/24 03:14 06/12/24 04:00 06/12/24 04:00 Temperature 97.5 F L Pulse Rate 76 65 Respiratory Rate 20 Blood Pressure 107/69 Pulse Oximetry 97 Oxygen Delivery Room Air 06/12/24 05:46 Temperature 97.3 F L Pulse Rate 78 Respiratory Rate 20 Blood Pressure 100/61 Pulse Oximetry 98 Oxygen Delivery Exam Narrative: EXAMINATION OF ORGAN SYSTEMS/BODY AREAS: Constitutional: Vital signs per nursing GENERAL: Labored respirations and audible wheezing HEAD: Normal with no signs of head trauma. EYES: EOMI, conjunctiva normal ENT: Hearing grossly intact LUNGS: Nonlabored breathing. HEART: Loud, audible wheezing ABD: [Soft], [nontender to palpation] EXT: Normal range of motion SKIN: [No rashes or lesions.] NEURO: [Alert and oriented x 3. No gross focal sensory or strength deficits.] PSYCH: Normal affect H&P: Results Labs Labs: Short CBC 06/12/24 Range/Units 00:04 WBC 8.5 (4.5-10.0) K/mm3 Hgb 13.0 (12.0-15.0) g/dL Hct 38.1 (37.0-47.0) % Plt Count 218 (150-375) k/mm3 [facility] 06/12/24 00:04 Sodium 136 L Potassium 2.9 L Chloride 99 Carbon Dioxide 26 BUN < 2 L Creatinine 0.65 L Glucose 107 Calcium 8.7 Assessment and Plan Assessment and plan (1) GERD (gastroesophageal reflux disease): Qualifiers: Esophagitis presence: esophagitis presence not specified Qualified Code(s): K21.9 - Gastro-esophageal reflux disease without esophagitis Code(s): K21.9 - Gastro-esophageal reflux disease without esophagitis Status: Acute Assessment and Plan: Continue home med (2) Nausea: Code(s): R11.0 - Nausea Status: Acute Assessment and Plan: Zofran Cannabis dependence (3) Colon polyps: Qualifiers: Colon location: unspecified part of colon Inflammatory colon polyp complication status: unspecified Code(s): K63.5 - Polyp of colon Status: Acute Assessment and Plan: Chronic Follows with Dr. Negron (4) PNA (pneumonia): Code(s): J18.9 - Pneumonia, unspecified organism Status: Acute Assessment and Plan: Started on levofloxacin Edgar Steven COVID RSV negative Monitor vitals Blood culture pending Quality VTE Prophylaxis VTE prophylaxis: pharmacologic ordered Hospitalist [facility] Advance Care Plan I have confirmed that the patient's Advanced Care Plan is present, code status is documented, or surrogate decision maker is listed in patient medical record.: Yes Medication Reconciliation I have utilized all available resources to obtain, update and review the patients current medications (includes all prescriptions, OTC, herbals, cannabis, and nutritional supplements).: Yes
--- NOTE | 2024-06-12 09:44 | ECG_ITS ---
Test Date: 2024-06-12 10:03:47 Measurements Intervals [place] Rate: 68 P: 53 NM: 159 QRS: 44 QRSD: 92 T: 45 QT: 406 QTc: 433 Interpretive Statements SINUS RHYTHM NONSPECIFIC ST & T-WAVE ABNORMALITY No previous ECG available for comparison Electronically Signed On 06-12-2024 10:13:43 CDT by Edwardo Carl M.D.
[2024-06-12] MEDS: IPRATROPIUM 0.5 MG/ALBUTEROL SULFATE 2.5 MG AMPUL.NEB 3 ML INHALATION ×3 (10:18→22:42)
[2024-06-12] MEDS: FLUTICASONE/SALMETEROL 115-21 MCG INHALER 1 PUFF 2 PUFF INHALATION ×2 (10:19→22:42)
[2024-06-12] MEDS: CALCIUM/VITAMIN D 500 MG/5 MCG (200 I.U.) TABLET PO (11:28)
[2024-06-12] MEDS: LORATADINE 10 MG TABLET PO (11:28)
[2024-06-12] MEDS: ROSUVASTATIN 5 MG TABLET PO (11:28)
[2024-06-12] MEDS: levoFLOXacin 750 MG TABLET PO (11:29)
[2024-06-12] MEDS: PANTOPRAZOLE 40 MG TABLET PO ×2 (11:29→16:44)
[2024-06-12] MEDS: SUMAtriptan SUCCINATE 25 MG TABLET 100 MG PO (11:40)
[2024-06-12 11:46] LABS: Glucose Point of Care 220 mg/dl (65-105)
[2024-06-12] MEDS: BENZONATATE 100 MG CAPSULE 200 MG PO ×2 (13:00→16:44)
[2024-06-12 13:51] LABS: Potassium 3.9 mmol/L (3.4-5.0)
[2024-06-12 16:31] LABS: Glucose Point of Care 380 mg/dl (65-105)
[2024-06-12] MEDS: INSULIN ASPART (*BKC) 100 UNITS/ML 10 UNITS SUB-Q (16:42)
[2024-06-12] MEDS: SODIUM CHLORIDE 0.9% IV 1,000 ML 75 ML IV CONT (16:52)
[2024-06-12 18:37] LABS: Glucose Point of Care 407 mg/dl (65-105)
[2024-06-12 20:13] LABS: Glucose Point of Care 348 mg/dl (65-105)
--- NOTE | 2024-06-12 20:40 | PC.NURSE ---
Discussed with Pt. the use of Lantus and NovoLog instead of Metformin while in the hospital. Also discussed with Pt. diabetic diet, drinking water instead of sugary drinks (like soda & juice). We did discuss that dietary had sent up apple juice with her supper & that she is saving that for later. Discussed that apple juice sent from dietary would be included in her carb/calorie count for diabetic diet. Pt. voiced understanding of teaching.
[2024-06-12] MEDS: INSULIN GLARGINE (*BKC) 100 UNITS/ML 10 UNITS SUB-Q (20:46)
[2024-06-13] VITALS (7 sets, daily range): BP systolic 100; BP diastolic 55; PULSE 56–88; RESP 14–20; TEMP 36.2; O2SAT 98–99
--- NOTE | 2024-06-13 04:19 | PCRCNOTE ---
Window of time for administration has passed. See next scheduled administration.
[2024-06-13 06:15] LABS: Hematocrit 33.3 % (37.0-47.0); Hemoglobin 10.8 g/dL (12.0-15.0); Mean Corpuscular HGB Conc 32.4 g/dl (32-36); Mean Corpuscular Volume 98.8 fl (80-100); Mean Platelet Volume 10.7 fl (7.4-10.4); Platelet Count Result 197 k/mm3 (150-375); Red Blood Count 3.37 M/mm3 (4.2-5.4); Red Cell Distribution Width 12.9 % (11.5-14.5); White Blood Count 12.6 K/mm3 (4.5-10.0)
[2024-06-13 06:29] LABS: Alanine Aminotransferase 14 U/L (6-35); Albumin Level 3.2 g/dL (3.5-5.1); Alkaline Phosphatase 88 U/L (38-126); Anion Gap 4 mmol/L (4-12); Aspartate Amino Transferase 15 U/L (14-36); Bilirubin,Total 0.3 mg/dL (0.2-1.3); Blood Urea Nitrogen 5 mg/dL (7-17); Calcium 8.6 mg/dL (8.4-10.2); Carbon Dioxide 28 mmol/L (22-30); Chloride 108 mmol/L (98-107); Estimated CRCL calculation 91 ml/min; Estimated Glomerular Filt Rate > 60; Glucose 152 mg/dL (65-110); Potassium 4.2 mmol/L (3.4-5.0); Sodium 140 mmol/L (137-145)
[2024-06-13] MEDS: SODIUM CHLORIDE 0.9% IV 1,000 ML 75 ML IV CONT (06:52)
[2024-06-13 07:58] LABS: Glucose Point of Care 149 mg/dl (65-105)
[2024-06-13 08:08] LABS: Hemoglobin A1C 6.2 % (<5.7)
[2024-06-13] MEDS: ROSUVASTATIN 5 MG TABLET PO (09:08)
[2024-06-13] MEDS: PANTOPRAZOLE 40 MG TABLET PO (09:08)
[2024-06-13] MEDS: levoFLOXacin 750 MG TABLET PO (09:09)
[2024-06-13] MEDS: FLUTICASONE PROPIONATE 0.05% NA SPR 16 GM BTL (*BKC) 2 SPRAY NASAL (09:09)
[2024-06-13] MEDS: LORATADINE 10 MG TABLET PO (09:09)
[2024-06-13] MEDS: BENZONATATE 100 MG CAPSULE 200 MG PO (09:09)
[2024-06-13] MEDS: ENOXAPARIN 40 MG/0.4 ML SYRINGE SUB-Q (09:10)
[2024-06-13] MEDS: IPRATROPIUM 0.5 MG/ALBUTEROL SULFATE 2.5 MG AMPUL.NEB 3 ML INHALATION (09:15)
[2024-06-13] MEDS: FLUTICASONE/SALMETEROL 115-21 MCG INHALER 1 PUFF 2 PUFF INHALATION (09:19)
[2024-06-13 11:27] LABS: Glucose Point of Care 309 mg/dl (65-105)
[2024-06-13] MEDS: CALCIUM/VITAMIN D 500 MG/5 MCG (200 I.U.) TABLET PO (12:50)
[2024-06-13] MEDS: INSULIN ASPART (*BKC) 100 UNITS/ML SUB-Q (12:50)
--- NOTE | 2024-06-13 12:53 | P.DS_ITS ---
DS: Admitting Diagnosis Discharge Date 06/13/2024 Admitting Diagnosis SOB DS: Discharge Diagnosis Discharge Diagnosis (1) GERD (gastroesophageal reflux disease): Qualifiers: Esophagitis presence: esophagitis presence not specified Qualified Code(s): K21.9 - Gastro-esophageal reflux disease without esophagitis Code(s): K21.9 - Gastro-esophageal reflux disease without esophagitis Status: Acute Assessment and Plan: Continue home med (2) Nausea: Code(s): R11.0 - Nausea Status: Acute Assessment and Plan: Zofran Cannabis dependence (3) Colon polyps: Qualifiers: Colon location: unspecified part of colon Inflammatory colon polyp complication status: unspecified Code(s): K63.5 - Polyp of colon Status: Acute Assessment and Plan: Chronic Follows with Dr. Negron (4) PNA (pneumonia): Code(s): J18.9 - Pneumonia, unspecified organism Status: Acute Assessment and Plan: Started on levofloxacin Tessalon Perles COVID RSV negative Monitor vitals Blood culture pending DS: Summary Hospital Course Hospital Course: 49-year-old female with past medical-surgical history of endometriosis, history of duodenal ulcer, bipolar disorder, cholecystectomy, tubal ligation, COPD, GERD, spinal stenosis, history of colon polyps, anxiety, migraines, depression, asthma, diabetes, HLD, cannabis dependence, IBS with constipation and hyperthyroidism visited ER due to cough and shortness of breath. Pertinent ED labs: WBC 8.5, hemoglobin 13, hematocrit 38.1, platelet 218, sodium 136, potassium 2.9, BUN less than 2, creatinine 0.6, GFR greater than 60 Influenza RSV COVID negative Chest x-ray shows no focal infiltrate or effusion Patient is admitted in the setting possible COPD/asthma exacerbation superimposed with bacterial infection. Patient is currently on room air. As per patient she quit smoking 6 months ago. She smokes 1 ppd. Patient constantly drinks a sugary snacks and food. Discontinued steroid due to high blood sugar. Patient will be discharged with levofloxacin 750 mg p.o. q.d. for 7 days. Unable to discharge with the prednisone due to high blood sugar. Patient is saturating well on room air. On the day of discharge, the patient was seen and examined. Vital signs were stable. Advised on smoking cessation. Physical exam were stable and labs were reviewed at length. Discharge instructions, medications, and follow-up appointments were discussed with the patient at length and all day questions were answered. ER warnings were given. Status at Discharge Cognitive/behavioral status at discharge: Stable Time Spent with Patient Time attestation: Total time spent providing and/or coordinating discharge services: 45 minutes Exam Narrative: EXAMINATION OF ORGAN SYSTEMS/BODY AREAS: Constitutional: Vital signs per nursing GENERAL: Labored respirations and audible wheezing HEAD: Normal with no signs of head trauma. EYES: EOMI, conjunctiva normal ENT: Hearing grossly intact LUNGS: Nonlabored breathing. HEART: Loud, audible wheezing ABD: [Soft], [nontender to palpation] EXT: Normal range of motion SKIN: [No rashes or lesions.] NEURO: [Alert and oriented x 3. No gross focal sensory or strength deficits.] PSYCH: Normal affect DS: Data Data Completed and Pending Labs on day of discharge: Labs from last 24 hours 06/13/24 06/13/24 06/13/24 11:19 07:46 05:53 WBC 12.6 H RBC 3.37 L Hgb 10.8 L Hct 33.3 L MCV 98.8 D MCH 32.0 MCHC 32.4 RDW 12.9 Plt Count 197 MPV 10.7 H Sodium 140 Potassium 4.2 Chloride 108 H Carbon Dioxide 28 Anion Gap 4 BUN 5 L Creatinine 0.54 L Estim Creat Clear Calc 91 Estimated GFR > 60 Glucose 152 H POC Capillary Glucose 309 H 149 H Hemoglobin A1c Calcium 8.6 Total Bilirubin 0.3 AST 15 ALT 14 Alkaline Phosphatase 88 Total Protein 6.0 L Albumin 3.2 L 06/13/24 06/12/24 06/12/24 05:51 19:52 18:34 WBC RBC Hgb Hct MCV MCH MCHC RDW Plt Count MPV Sodium Potassium Chloride Carbon Dioxide Anion Gap BUN Creatinine Estim Creat Clear Calc Estimated GFR Glucose POC Capillary Glucose 348 H 407 H Hemoglobin A1c 6.2 H Calcium Total Bilirubin AST ALT Alkaline Phosphatase Total Protein Albumin 06/12/24 06/12/24 16:27 13:39 WBC RBC Hgb Hct MCV MCH MCHC RDW Plt Count MPV Sodium Potassium 3.9 Chloride Carbon Dioxide Anion Gap BUN Creatinine Estim Creat Clear Calc Estimated GFR Glucose POC Capillary Glucose 380 H Hemoglobin A1c Calcium Total Bilirubin AST ALT Alkaline Phosphatase Total Protein Albumin Imaging Radiologist's impression: ITS Impressions Chest X-Ray 06/11/24 23:45 IMPRESSION: No focal infiltrate or effusion. Discharge Plan Discharge Attending physician on discharge: Dirk Arguello Discharging Clinician: Dirk Arguello Anticipated Discharge Date/Time: 06/13/24 13:01 Patient Disposition: Home Activity: as tolerated Diet: diabetic Discharge Instructions: Please complete your antibiotic. Need to follow strict diabetic diet Needs smoking cessation. Check blood pressure 1 to 2 times a day. Record and bring into your doctor for review. Call your doctor if your blood pressure is greater than 180/110 or less than 90/45. Walk with cane or other assist device. Take precautions to avoid falls. Rise slowly from a lying or sitting position. Pause before standing or walking. Contact your doctor or call 911 and come to the Emergency Room if you have any type of trauma, lightheadedness with standing or other worrisome symptoms. Avoid NSAIDs (ibuprofen, naproxen, Aleve). Tylenol is safe to take. 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 Please call for appointment. Thank you for using [facility] for your health care needs. Patient Instructions: Antibiotic Form Patient Language: Lithuanian Stand Alone Forms: General Discharge Information Follow-up/Referrals: Harley,Marianne Kearney APRN [Primary Care Provider] - Discharge Medications: New benzonatate 100 mg Capsule 200 mg PO TID Qty: 30 0RF levofloxacin 750 mg tablet 750 mg PO DAILY Qty: 7 0RF Rx Instructions: Please complete the course for 7 days Continued sumatriptan succinate 100 mg tablet 100 mg PO DAILY PRN (Reason: migraine headache) albuterol sulfate 90 mcg/actuation HFA aerosol inhaler 2 puff INHALATION PRN metformin 500 mg tablet extended release 24 hr 1,000 mg PO BID rosuvastatin 5 mg tablet 5 mg PO DAILY budesonide-formoterol [Symbicort] 160-4.5 mcg/actuation HFA aerosol inhaler 1 puff INHALATION DAILY omeprazole 40 mg capsule,delayed release(DR/EC) 40 mg PO DAILY Qty: 30 3RF cetirizine 10 mg tablet 10 mg PO DAILY cyclobenzaprine 10 mg tablet 10 mg PO Q8H PRN (Reason: muscle spasm) fluticasone propionate 50 mcg/actuation spray,suspension 2 spray INTRANASAL DAILY calcium carbonate-vitamin D3 600 mg-10 mcg (400 unit) tablet 1 tablet PO DAILY acetaminophen [Tylenol Extra Strength] 500 mg tablet 1,000 mg PO TID PRN (Reason: pain) Qty: 30 0RF Date of admission: 06/12/24 01:29 Primary Care Provider: HarleyMarianne Admitting Provider: Radha Molina Attending physician on admission: Radha Molina Condition: Stable
== END 2024-06-13 14:10 | disposition home or self-care (01) ==
LOC: ANHED 06-12 01:37 → ANH3MEDSUR 06-12 16:14
PROVIDERS: Admitting Provider Internal Medicine; Emergency Provider Emergency Medicine; PCP Nurse Practitioner Family; Visit Provider General Practice
DX: J18.9 Pneumonia, unspecified organism (principal); J44.0 Chronic obstructive pulmonary disease with (acute) lower respiratory infection; K21.9 Gastro-esophageal reflux disease without esophagitis; R11.0 Nausea; F12.20 Cannabis dependence, uncomplicated; F17.210 Nicotine dependence, cigarettes, uncomplicated; E11.610 Type 2 diabetes mellitus with diabetic neuropathic arthropathy; E78.00 Pure hypercholesterolemia, unspecified; K58.1 Irritable bowel syndrome with constipation; K63.5 Polyp of colon; E05.90 Thyrotoxicosis, unspecified without thyrotoxic crisis or storm; F31.9 Bipolar disorder, unspecified; Z20.822 Contact with and (suspected) exposure to COVID-19; Z79.51 Long term (current) use of inhaled steroids; Z79.84 Long term (current) use of oral hypoglycemic drugs; Z79.899 Other long term (current) drug therapy
CPT/HCPCS: 36415; 71045; 80048; 80053; 82948; 83036; 84132; 85025; 85027; 87040; 87637; 93005; 94640; 96360; 96361; 96365; 96366; 96375; 96376; 99285; A9270; G0378; G0379; J1650; J1815; J2919; J3475; J3480; J7030; J7040

== ENCOUNTER 2024-07-10 18:51 | Emergency (ER) | payer OTHER, SELFPAY ==
--- OUTSIDE RECORDS SUMMARY | 2024-07-10 18:54 | XMS_ITS | Clinical Summary ---
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 Active SUMAtriptan (IMITREX) 100 MG Tablet Take 100 mg by mouth daily as needed for Migraine. 020 Active rosuvastatin (CRESTOR) 5 MG Tablet Take 5 mg by mouth daily. 022 Active omeprazole (PriLOSEC) 40 MG CAPSULE DELAYED RELEASE Take 40 mg by mouth daily. 025 Active methIMAzole (TAPAZOLE) 5 MG Tablet Take 5 mg by mouth daily. 024 Active cyclobenzaprine (FLEXERIL) 5 MG Tablet Take 5 mg by mouth 3 times daily as needed for Muscle spasms. 024 Active benzonatate (TESSALON) 100 MG Capsule Take 100 mg by mouth 3 times daily. 025 Active cetirizine (ZyrTEC) 10 MG Tablet Take 10 mg by mouth daily. 025 Active linaclotide (Linzess) 145 MCG Capsule Take 145 mcg by mouth every morning (before breakfast). 023 Active montelukast (SINGULAIR) 10 MG Tablet Take 10 mg by mouth daily. 022 Active amitriptyline (ELAVIL) 25 MG Tablet Take 25 mg by mouth. Active albuterol 108 (90 Base) MCG/ACT Aerosol SolutionIndicat ions:Asthma,Chr onic Obstructive Pulmonary Disease take 1-2 Puffs by inhalation every 4 hours as needed for Wheezing. Indications: Asthma, Chronic Obstructive Lung Disease Active famotidine (Zantac [address]) 20 MG Tablet Take 20 mg by mouth 2 times daily. Active albuterol (PROVENTIL, VENTOLIN) (2.5 MG/3ML) 0.083% Nebulizer SolnIndications :COPD exacerbation (HCC) 3 mL by Nebulization route every 6 hours as needed for Wheezing or Shortness of Breath. 360 mL Active nicotine (NICODERM CQ) 7 MG/24HR PATCH 24 HR 1 Patch by Transdermal route daily. 30 Patch Active roflumilast (DALIRESP) 500 MCG Tablet Take 1 Tablet by mouth daily. 30 Tablet 3 Active tiotropium (SPIRIVA RESPIMAT) 2.5 MCG/ACT Aerosol Solution take 2 Puffs by inhalation daily for 30 days. 5 g 3 2024 Active azithromycin (ZITHROMAX) 500 MG TabletIndicatio ns:Respiratory Tract Infection Take 1 Tablet by mouth Every Sunday, Sunday, Sunday for 90 days. Indications: Infection of the Respiratory Tract 36 Tablet 025 2024 Active budesonide-form oterol fumarate (Symbicort) 160-4.5 MCG/ACT AerosolIndicati ons:Asthma,Heart Doctor jamee Obstructive Pulmonary Disease take 2 Puffs by inhalation 2 times daily. Indications: Asthma, Chronic Obstructive Lung Disease 11 g 3 Active albuterol (PROVENTIL, VENTOLIN) (2.5 MG/3ML) 0.083% Nebulizer Soln 3 mL by Nebulization route every 6 hours as needed for Wheezing or Shortness of Breath for up to 30 days. 60 mL 025 2024 Active predniSONE (DELTASONE) 50 MG Tablet Take 1 Tablet by mouth daily. 5 Tablet Active ondansetron (ZOFRAN-ODT) 4 MG TABLET DISPERSIBLE Take 1 Tablet by mouth every 8 hours as needed for Nausea - 1st line. 20 Tablet 025 Active levoFLOXacin (LEVAQUIN) 750 MG Tablet Take 750 mg by mouth daily. 2024 Discontinued(M ed List Clean Up) budesonide-form oterol fumarate (Symbicort) 160-4.5 MCG/ACT AerosolIndicati ons:Asthma,Heart Doctor jamee Obstructive Pulmonary Disease take 2 Puffs by inhalation 2 times daily. Indications: Asthma, Chronic Obstructive Lung Disease 2024 Discontinued predniSONE (DELTASONE) 20 MG Tablet Take 20 mg by mouth daily. 2024 Discontinued(D ose adjustment) predniSONE (DELTASONE) 10 MG Tablet Take 3 Tablets by mouth daily for 2 days, THEN 2 Tablets daily for 2 days, THEN 1 Tablet daily for 2 days. 12 Tablet 025 2024 Active Problems Problem Noted Date Diagnosed Date Sepsis 06/21/2024 Hypokalemia 06/21/2024 Type 2 diabetes mellitus 06/21/2024 COPD (chronic obstructive pulmonary disease) Asthma 06/21/2024 GERD (gastroesophageal reflux disease) Anxiety 06/21/2024 Bipolar disorder 06/21/2024 COPD exacerbation 06/20/2024 Encounters Date Type Department Care Team Description 06/26/2024 3:46 PM CDT - 06/26/2024 6:25 PM CDT Emergency [facility] Emergency [address] [place] [address] Yordan Jackson, Cough Discharge Disposition: Discharged to home or Selfcare 06/26/2024 Travel 06/20/2024 4:54 PM CDT - 06/23/2024 2:23 PM CDT Hospital Encounter [facility] Med Surg [address] [place] [address] Esteban Rivera MD Dianati, Behfar, MD Sepsis ([facility]) Discharge Disposition: Discharged to home or Selfcare 06/20/2024 Travel from Last 3 Months Social History Tobacco Use Types Packs/Day Years Used Date Smoking Tobacco: Former Cigarettes Q uit: 12/23/2023 Smokeless Tobacco: Never Tobacco Cessation:Counseling Given: Not Answered Alcohol Use Standard Drinks/Week Comments Never 0 (1 standard drink = 0.6 oz pur e alcohol) [facility] Utilities Answer Date Recorded In the past 12 months has th e electric, gas, oil, or water company threatened to shut off services in your home? No 06/21/2024 Hunger Vital Sign Answer Date Recorded Within the past 12 months, y ou worried that your food would run out before you got the money to buy more. Never true 06/22/19 25 Within the past 12 months, t he food you bought just didn't last and you didn't have money to get more. Never true 06/21/2024 PRAPARE - Transportation Answer Date Re corded In the past 12 months, has l ack of transportation kept you from medical appointments or from getting medications? No 06/05 In the past 12 months, has l ack of transportation kept you from meetings, work, or from getting things needed for daily living? No 06/21/2024 Housing Stability Vital Sign Answer Daljit e Recorded In the last 12 months, was t here a time when you were not able to pay the mortgage or rent on time? No 06/21/2024 In the past 12 months, how m any times have you moved where you were living? 0 06/21/2024 At any time in the past 12 m [facility], were you homeless or living in a detention (including now)? 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 Gender Identity Not on file Sexual Orientation Not on file Last Filed Vital Signs Vital Sign Reading Time Taken Comments Blood Pressure 139/72 06/26/2024 6:00 PM CDT Pulse 74 06/26/2024 6:00 PM CDT Temperature 36.6 C (97.8 F) 06/26/2024 3:51 PM CDT Respiratory Rate 18 06/26/2024 5:30 PM CDT Oxygen Saturation 98% 06/26/2024 6:00 PM CDT Inhaled Oxygen Concentration - - Weight 60.3 kg (133 lb) 06/26/2024 3:51 PM CDT Height 160 cm (5' 3) 06/26/2024 3:51 PM CDT Body Mass Index 23.56 06/26/2024 3:51 PM CDT Plan of Treatment Upcoming Encounters Date Type Department Care Team (Late st Contact Info) Description 07/21/2024 1:45 PM CDT Office Visit [facility] - Pulmonology & [facility] Medicine [facility] [address] [place] [id number] Dustin Jaramillo MD [address] [place] [address] Health Maintenance Due Date Last Done Comments Diabetes: Eye Exam 1974 Diabetes: Foot Exam 1974 Hepatitis C Virus (HCV) Screening 1974 Hepatitis B Immunization (1 of 3 - 19+ 3-dose series) 1993 Pap Smear 1995 Cervical Cancer Screening (CCS) 02/28/2004 HPV/Cotest 02/28/2004 Pneumococcal Immunization (5 0+ years) (2 of 2 - PCV) 11/08/2013 11/08/2012 Colonoscopy 2019 Colorectal Cancer Screening 2019 Mammogram 04/28/2021 04/28/2020, 02/25/2019 SARS-COV-2 Immunization ( - 2023- season) 2023 Cologuard 02/28/2024 Immunochemical Fecal Occult Blood 02/28/2024 Zoster Immunization (1 of 2) 02/28/2024 Influenza Immunization (Seas on Ended) 2024 11/08/2012 Diabetes: Hemoglobin A1c 12/22/2024 025, 02/14/2024, 03/02/2023 Diabetes: Nephropathy Screening 06/20/2025 06/20/2024 Respiratory Syncytial Virus (RSV) Immunization (Adult) (1 - 1-dose 75+ series) 2049 TdaP Immunization Completed 06/11/2016 Human Papillomavirus (HPV) Immunization Aged Out No longer eligible b ased on patient's age to complete this topic Meningococcal Immunization (ACWY) Aged Out No longer eligible b ased on patient's age to complete this topic Rotavirus Immunization Aged Out No lo nger eligible based on patient's age to complete this topic Procedures Procedure Name Priority Date/Time Associated Diagnosis Comments POCT GLUCOSE STAT 06/26/2024 5:34 PM CDT XR CHEST 2 VIEWS STAT 06/26/2024 5:13 PM CDT AEROSOL NEBULIZER-INITIAL STAT 06/26/2024 4:46 PM CDT GROUP A STREP BY PCR STAT 06/26/2024 4:41 PM CDT RSV,SARS-COV-2,INFLUEN ZA A&B BY PCR STAT 06/26/2024 4:40 PM CDT POCT GLUCOSE Routine 06/23/2024 11:30 AM CDT POCT GLUCOSE Routine 06/23/2024 8:09 AM CDT CBC WITH AUTO DIFFERENTIAL Routine 06/23/2024 5:05 AM CDT MAGNESIUM (MG) Routine 06/23/2024 5:05 AM CDT COMPLETE BLOOD COUNT (CBC) WITH DIFF Routine 06/23/2024 5:05 AM CDT BASIC METABOLIC PANEL W/ CALCIUM TOTAL Routine 06/23/2024 5:05 AM CDT RHYTHM STRIP 06/23/2024 12:00 AM CDT RHYTHM STRIP 06/23/2024 12:00 AM CDT POCT GLUCOSE Routine 06/22/2024 7:42 PM CDT POCT GLUCOSE Routine 06/22/2024 4:16 PM CDT POCT GLUCOSE Routine 06/22/2024 11:17 AM CDT POCT GLUCOSE Routine 06/22/2024 7:17 AM CDT CBC WITH AUTO DIFFERENTIAL Routine 06/22/2024 4:38 AM CDT COMPLETE BLOOD COUNT (CBC) WITH DIFF Routine 06/22/2024 4:38 AM CDT BASIC METABOLIC PANEL W/ CALCIUM TOTAL Routine 06/22/2024 4:38 AM CDT RHYTHM STRIP 06/22/2024 12:00 AM CDT RHYTHM STRIP 06/22/2024 12:00 AM CDT RHYTHM STRIP 06/22/2024 12:00 AM CDT STREPTOCOCCUS PNEUMONIAE ANTIGEN, URINE STAT 06/21/2024 10:15 PM CDT UR LEGIONELLA ANTIGEN STAT 06/21/2024 10:15 PM CDT CULTURE, RESPIRATORY, LOWER STAT 06/21/2024 10:15 PM CDT SMEAR, GRAM STAIN STAT 06/21/2024 10: 15 PM CDT POCT GLUCOSE Routine 06/21/2024 7:21 PM CDT POCT GLUCOSE Routine 06/21/2024 4:14 PM CDT INCENTIVE SPIROMETRY RT-INITIAL Routine 06/21/2024 3:07 PM CDT POCT GLUCOSE Routine 06/21/2024 11:02 AM CDT POCT GLUCOSE Routine 06/21/2024 8:06 AM CDT BASIC METABOLIC PANEL W/ CALCIUM TOTAL STAT 06/21/2024 6:50 AM CDT PROCALCITONIN STAT 06/21/2024 6:48 AM CDT HEMOGLOBIN A1C W/ ESTIMATED GLUCOSE STAT 06/21/2024 6:48 AM CDT MANUAL DIFFERENTIAL STAT 06/21/2024 6 :47 AM CDT CBC WITH AUTO DIFFERENTIAL STAT 06/21/2024 6:47 AM CDT COMPLETE BLOOD COUNT (CBC) WITH DIFF STAT 06/21/2024 6:47 AM CDT MDI TREATMENT RT-INITIAL Routine 06/21/2024 4:18 AM CDT MRSA NASAL PCR STAT 06/21/2024 1:05 AM CDT MRSA NASAL BY PCR STAT 06/21/2024 1:0 5 AM CDT AEROSOL NEBULIZER-INITIAL Routine 06/21/2024 12:55 AM CDT RHYTHM STRIP 06/21/2024 12:00 AM CDT RHYTHM STRIP 06/21/2024 12:00 AM CDT POCT GLUCOSE Routine 06/20/2024 11:[address] ANGIO CHEST W/WO CONTRAST WITH PP (POST PROCESSING) STAT 06/20/2024 11:25 PM CDT POCT GLUCOSE STAT 06/20/2024 10:12 PM CDT URINALYSIS REFLEX IF INDICATED BY ABNORMAL RESULTS STAT 06/20/2024 9:39 PM CDT CONTINUOUS AEROSOL TREATMENT-INITIAL STAT 06/20/2024 7:39 PM CDT CRITICAL CARE Routine 06/20/2024 6:06 PM CDT CBC WITH AUTO DIFFERENTIAL STAT 06/20/2024 5:46 PM CDT LACTIC ACID (LACTATE) STAT 06/20/2024 5:46 PM CDT CMP (COMPREHENSIVE METABOLIC PANEL) STAT 06/20/2024 5:46 PM CDT COMPLETE BLOOD COUNT (CBC) WITH DIFF STAT 06/20/2024 5:46 PM CDT SARS-COV-2 BY MOLECULAR STAT 06/20/2024 5:46 PM CDT CULTURE, BLOOD STAT 06/20/2024 5:46 PM CDT CULTURE, BLOOD STAT 06/20/2024 5:46 PM CDT XR CHEST SINGLE VIEW PORTABLE STAT 06/20/2024 5:25 PM CDT EKG 12 LEAD STAT 06/20/2024 5:17 PM CDT EKG SCAN 06/20/2024 12:00 AM CDT from Last 3 Months Results * (ABNORMAL) POCT Glucose (06/26/2024 5:34 PM CDT) Only the most recent of13 resultswithin the time period is included. [facility] GLUCOSE,BEDSID E POCT 167(H) 70 - 99 mg/dL 06/26/2024 5:42 PM CDT [facility] Comment:Patient RN Performed Blood 06/26/2024 5:34 PM CDT 06/26/2024 5:42 PM CDT us None Provider POINT OF CARE TESTING Final Resu lt [facility] [address] [place] [address] * XR CHEST 2 VIEWS (06/26/2024 5:13 PM CDT) Anatomical Region Laterality Modality Chest N/A Digital Radiogra phy 06/26/2024 6:30 PM CDT Impressions 06/26/2024 6:32 PM CDT IMPRESSION: No acute cardiopulmonary abnormality. Narrative 06/26/2024 6:32 PM CDT EXAM DESCRIPTION: XR CHEST 2 VIEWS REASON FOR STUDY: difficulty swallowing, cough, sore throat x 2 days. pt states exposure to mold in her apartment TECHNIQUE: 2 radiographic view(s) of the chest. COMPARISON: Chest radiograph 06/20/2024 FINDINGS: LUNGS: Small left basilar atelectasis. No focal opacity, pleural effusion, or pneumothorax. HEART/MEDIASTINUM: Cardiac silhouette normal in size. Mediastinal and hilar contours appear normal. LINES/TUBES: None. BONES: No acute osseous abnormality. THIS IS AN ELECTRONICALLY VERIFIED FINAL REPORT 06/26/2024 6:30 PM - Electronically signed by Leeanne Maddox M.D. FT: FT Report ID: [id number] Reading Location: [id number] Procedure Note Leeanne Moran MD - 06/26/2024 EXAM DESCRIPTION: XR CHEST 2 VIEWS REASON FOR STUDY: difficulty swallowing, cough, sore throat x 2 days. pt states exposure to mold in her apartment TECHNIQUE: 2 radiographic view(s) of the chest. COMPARISON: Chest radiograph 06/20/2024 FINDINGS: LUNGS: Small left basilar atelectasis. No focal opacity, pleural effusion, or pneumothorax. HEART/MEDIASTINUM: Cardiac silhouette normal in size. Mediastinal and hilar contours appear normal. LINES/TUBES: None. BONES: No acute osseous abnormality. THIS IS AN ELECTRONICALLY VERIFIED FINAL REPORT 06/26/2024 6:30 PM - Electronically signed by Leeanne Maddox M.D. FT: FT Report ID: [id number] Reading Location: [id number] IMPRESSION: No acute cardiopulmonary abnormality. us Yordan Jackson DO IMG DIAGNOSTIC ORDERABL ES Final Result * GROUP A STREP BY PCR (06/26/2024 4:41 PM CDT) GROUP A STREP BY PCR NOT DETECTED NOT DETECTED 06/26/2024 5:40 PM CDT [facility] Swab STRUCTURE OF ANTERIOR PORTION OF NECK / Unknown Non-Phlebotomy Collection / Unknown 06/26/2024 4:41 PM CDT 06/26/2024 5:03 PM CDT Yordan Jackson DO MICROBIOLOGY - GENERAL ORDERABLES Final Result Performing Organization Address City/[facility]/ZIP Co de Phone Number [facility] [address] [place] [address] * RSV,SARS-COV-2,INFLUENZA A&B BY PCR (06/26/2024 4:40 PM CDT) FLU A Negative Negative, Error 06/26/2024 5:51 PM CDT [facility] FLU B Negative Negative 06/26/2024 5:51 PM CDT [facility] RESP SYNC VIRUS Negative Negative 5:51 PM CDT [facility] SARSCOV2 NOT DETECTED (Reference Range for this test is Not Detected) 06/26/2024 5:51 PM CDT [facility] Comment:This test was perfor med by a Reverse Promotions Officer PCR Method. Swab NASOPHARYNGEAL STRUCTURE / Unknown Non-Phlebotomy Collection / Unknown 06/26/2024 4:40 PM CDT 06/26/2024 5:03 PM CDT Yordan Jackson DO MICROBIOLOGY - GENERAL ORDERABLES Final Result Performing Organization Address [facility] Co de Phone Number [facility] [address] [place] [address] * (ABNORMAL) CBC with Auto Differential (06/23/2024 5:05 AM CDT) Only the most recent of4 resultswithin the time period is included. WBC 9.69 4.00 - 12.00 10(3)/mcL 06/23/2024 5:43 AM CDT [facility] RBC 3.19(L) 3.80 - 5.30 10(6)/mcL 06/23/2024 5:43 AM CDT [facility] HEMOGLOBIN (HGB) 10.4(L) 12.0 - 15.8 g/dL 06/23/2024 5:43 AM CDT [facility] HEMATOCRIT (HCT) 31.5(L) 36.0 - 47.0 % 06/23/2024 5:43 AM CDT [facility] MCV 98.7(H) 82.0 - 96.0 fL 06/23/2024 5:43 AM CDT [facility] MCH 32.6 26.0 - 34.0 pg 06/23/2024 5:43 AM CDT [facility] MCHC 33.0 31.0 - 36.0 g/dL 06/23/2024 5:43 AM CDT [facility] PLATELET COUNT 175 140 - 440 10(3)/mcL 06/23/2024 5:43 AM CDT [facility] RDW 13.2 11.8 - 15.5 % 06/23/2024 5:43 AM CDT [facility] MPV 11.5 9.7 - 12.4 fL 06/23/2024 5:43 AM CDT [facility] NEUTROPHILS 66.8 47.0 - 73.0 % 06/23/2024 5:43 AM CDT [facility] LYMPHOCYTES 27.1 18.0 - 42.0 % 06/23/2024 5:43 AM CDT [facility] MONOCYTES 5.9 4.0 - 12.0 % 06/23/2024 5:43 AM CDT [facility] EOSINOPHILS 0.1 0.0 - 5.0 % 06/23/2024 5:43 AM CDT [facility] BASOPHILS 0.1 0.0 - 1.0 % 06/23/2024 5:43 AM CDT [facility] ABSOLUTE NEUTROPHILS 6.47 1.60 - 7.70 10(3)/mcL 06/23/2024 5:43 AM CDT [facility] ABSOLUTE LYMPHOCYTES 2.63 1.30 - 3.20 10(3)/mcL 06/23/2024 5:43 AM CDT [facility] ABSOLUTE MONOCYTES 0.57 0.20 - 1.00 10(3)/mcL 06/23/2024 5:43 AM CDT [facility] ABSOLUTE EOSINOPHIL 0.01 0.00 - 0.40 10(3)/mcL 06/23/2024 5:43 AM CDT [facility] ABSOLUTE BASOPHILS 0.01 0.00 - 0.10 10(3)/mcL 06/23/2024 5:43 AM CDT [facility] NRBC PER 100 WBC 0 06/24/19 5:43 AM CDT [facility] Blood Venipuncture / Unknown 06/23/2024 5:05 AM CDT 06/23/2024 5:35 AM CDT Evy Du FACILITIES MAINTENANCE SUPERVISOR, RETAIL STORE MANAGER HEMATOLOGY ORDERABLES Fin al Result Performing Organization Address [facility]/ZIP Co de Phone Number [facility] [address] [place] [address] * MAGNESIUM (MG) (06/23/2024 5:05 AM CDT) MAGNESIUM 2.4 1.6 - 2.6 mg/dL 06/23/2024 10:12 AM CDT [facility] Blood Venipuncture / Unknown 06/23/2024 5:05 AM CDT 06/23/2024 5:37 AM CDT Michael Rahman MD CHEMISTRY ORDERABLES Final Res ult Performing Organization Address City/[facility]/ZIP Co de Phone Number [facility] [address] [place] [address] * (ABNORMAL) BMP with Ca, Total (06/23/2024 5:05 AM CDT) Only the most recent of3 resultswithin the time period is included. SODIUM 142 136 - 145 mmol/L 06/23/2024 6:18 AM CDT [facility] POTASSIUM 3.2(L) 3.5 - 5.1 mmol/L 06/23/2024 6:18 AM CDT [facility] CHLORIDE 110(H) 98 - 107 mmol/L 06/23/2024 6:18 AM CDT [facility] CO2, VENOUS 26 22 - 30 mmol/L 06/23/2024 6:18 AM CDT [facility] ANION GAP 9.2 <18.0 mmol/L 06/23/2024 6:18 AM CDT [facility] GLUCOSE 74 70 - 99 mg/dL 06/23/2024 6:18 AM CDT [facility] BUN 5(L) 10 - 20 mg/dL 06/23/2024 6:18 AM CDT [facility] CREATININE, BLOOD 0.58(L) 0.60 - 1.00 mg/dL 06/23/2024 6:18 AM CDT [facility] BUN/CREATININE RATIO 9(L) 12 - 20 ratio 06/23/2024 6:18 AM CDT [facility] CALCIUM 8.0(L) 8.7 - 10.5 mg/dL 06/23/2024 6:18 AM CDT [facility] GFR, ESTIMATED >60 >=60 06/23/2024 6:18 AM CDT [facility] Comment: Creatinine Clearance is the preferred criteria for selecting drug dose adjustments in renally impaired patients. The GFR is provided as additional pertinent clinical information. GFR is reported in mL/min/1.73 sq m. Calculation based on the Chronic Kidney Disease Epidemiology Collaboration (CKD- EPI) equation refit without adjustment for race. GFR, EST. >60 >=60 025 6:18 AM CDT [facility] GFR, EST. NONAFRICAN >60 >=60 06/23/2024 6:18 AM CDT [facility] Blood Venipuncture / Unknown 06/23/2024 5:05 AM CDT 06/23/2024 5:37 AM CDT us Evy Du FACILITIES MAINTENANCE SUPERVISOR, RETAIL STORE MANAGER CHEMISTRY ORDERABLES Jillian l Result [facility] [address] [place] [address] * RHYTHM STRIP (06/23/2024 12:00 AM CDT) Only the most recent of7 resultswithin the time period is included. 06/23/2024 us Provider Scan IMG ECG ORDERABLES Final Result RESULTING AGENCY * Streptococcus Pneumoniae Antigen, Urine (06/21/2024 10:15 PM CDT) STREP PNEUMO ANTIGEN Negative Negative 06/22/2024 2:51 PM CDT [facility] Comment:Negative result sugg ests no current or recent pneumococcal infection. Infection due to S. pneumoniae cannot be ruled out since the antigen present in the sample may be below the detection limit of the test. Other URINE SPECIMEN / Unknown Non-Phlebotomy Collection / Unknown 06/21/2024 10:15 PM CDT 06/21/2024 10:39 PM CDT Candice Vazquez FACILITIES MAINTENANCE SUPERVISOR, RETAIL STORE MANAGER URINE ORDERABLES Jillian l Result Performing Organization Address City/[facility] Co de Phone Number [facility] [address] [place] [address], * Ur Legionella Antigen (06/21/2024 10:15 PM CDT) LEGIONELLA URINE AG Negative Negative 06/22/2024 2:51 PM CDT [facility] Comment:Presumptive Negative for Legionella Pneumophila Serogroup 1 Antigen in urine, suggesting no recent or current infection. Infection due to Legionella cannot be ruled out since other serogroups and species may cause disease. Antigen may not be present in urine in early infection, and the level of antigen present in the urine may be below the detection limit of the test. Other Non-Phlebotomy Collection / Unknown 06/21/2024 10:15 PM CDT 06/21/2024 10:39 PM CDT Candice Vazquez APRN, CNP URINE ORDERABLES Jillian l Result Performing Organization Address City/[facility]/ZIP Co de Phone Number [facility] [address] [place] [address], [place] * Gram Stain-Sputum (06/21/2024 10:15 PM CDT) GRAM STAIN Few Squamous Epithelial cells per low power field 06/22/2024 3:26 PM CDT [facility] GRAM STAIN No Segmented Neutrophils seen 06/22/2024 3:26 PM CDT [facility] GRAM STAIN Rare Gram Positive Cocci in pairs and clusters 06/22/2024 3:26 PM CDT [facility] GRAM STAIN Rare Gram Negative Bacilli 06/22/2024 3:26 PM CDT [facility] GRAM STAIN Rare Gram Positive Bacilli 06/22/2024 3:26 PM CDT [facility] Other SPUTUM SPECIMEN / Unknown Non-Phlebotomy Collection / Unknown 06/21/2024 10:15 PM CDT 06/21/2024 10:58 PM CDT Candice Vazquez APRN, CNP MICROBIOLOGY - GENERA L ORDERABLES Final Result Performing Organization Address [facility] Co de Phone Number [facility] [address] [place] [address], [place] * Culture, Respiratory, Lower-Sputum (06/21/2024 10:15 PM CDT) CULTURE RESULTS Few Probable Usual Jenna 06/23/2024 6:28 PM CDT [facility] Culture SPUTUM SPECIMEN / Unknown Non-Phlebotomy Collection / Unknown 06/21/2024 10:15 PM CDT 06/21/2024 10:39 PM CDT Candice Vazquez APRN, CNP MICROBIOLOGY - GENERA L ORDERABLES Final Result [facility] [address] [place] [address], * Procalcitonin (06/21/2024 6:48 AM CDT) PROCALCITONIN 0.14 <=0.25 ng/mL 06/21/2024 8:01 AM CDT [facility] Blood Venipuncture / Unknown 06/21/2024 6:48 AM CDT 06/21/2024 6:48 AM CDT Narrative [facility] - 06/21/2024 8:01 AM CDT If the differential diagnosis is systemic bacterial infection, sepsis, or septic shock use these guidelines: <=0.25 ng/mL: Low risk for systemic bacterial infection, sepsis, or septic shock. Localized bacterial infection possible: Suggest re-testing in 24 hours >=0.50 ng/mL: Systemic bacterial infection, sepsis, or septic shock are possible: suggest re-testing in approximately 24 hours. If the differential diagnosis is suspected lower respiratory tract infection (LRTI) or there is confirmed LRTI: < 0.1 ng/mL: Suggests absence of bacterial infection. Antibiotic therapy strongly discouraged. 0.1-0.25 ng/mL: Suggests bacterial infection is unlikely. Antibiotic therapy discouraged. 0.26-0.5 ng/mL: Suggests possible bacterial infection. Antibiotic therapy encouraged. > 0.5 ng/mL: Suggests bacterial infection. Antibiotic therapy strongly encouraged Candice Vazquez FACILITIES MAINTENANCE SUPERVISOR, RETAIL STORE MANAGER IMMUNOLOGY ORDERABLES Final Result [facility] [place] [address] * (ABNORMAL) Hemoglobin A1C (if indicated) (06/21/2024 6:48 AM CDT) HGB-A1C 6.4(H) 4.0 - 6.0 % 06/21/2024 7:16 AM CDT [facility] Est Average Glucose 137.0 mg/dL 06/21/2024 7:16 AM CDT [facility] Blood Venipuncture / Unknown 06/21/2024 6:48 AM CDT 06/21/2024 6:48 AM CDT Narrative [facility] - 06/21/2024 7:16 AM CDT HEMOGLOBIN A1C: DIABETIC PATIENTS: WELL-CONTROLLED: 6.2 - 7.0 INTERMEDIATE WELL-CONTROLLED: 7.0 - 9.0 POORLY-CONTROLLED: >9.0 Specimens containing greater than 5% of Hemoglobin F may result in lower than expected % HbA1C results. us Candice Vazquez FACILITIES MAINTENANCE SUPERVISOR, MELANI CHEMISTRY ORDERABLES Final Result [facility] [place] [address] * (ABNORMAL) Manual Differential (06/21/2024 6:47 AM CDT) NEUTROPHILS % 89.0(H) 47.0 - 73.0 % 06/21/2024 7:31 AM CDT [facility] LYMPHOCYTES % 10.0(L) 18.0 - 42.0 % 06/21/2024 7:31 AM CDT [facility] MONOCYTES % 1.0(L) 4.0 - 12.0 % 06/21/2024 7:31 AM CDT [facility] NEUTROPHILS ABSOLUTE 4.28 1.60 - 7.70 10(3)/mcL 06/21/2024 7:31 AM CDT [facility] LYMPHOCYTES ABSOLUTE 0.48(L) 1.30 - 3.20 10(3)/mcL 06/21/2024 7:31 AM CDT [facility] MONOCYTES ABSOLUTE 0.05(L) 0.20 - 1.00 10(3)/mcL 06/21/2024 7:31 AM CDT [facility] WBC MORPH STATUS Normal 06/22/19 7:31 AM CDT [facility] RBC MORPH STATUS Normal 06/22/19 7:31 AM CDT [facility] PLATELET STATUS Normal 7:31 AM CDT [facility] Blood Venipuncture / Unknown 06/21/2024 6:47 AM CDT 06/21/2024 6:47 AM CDT Candice Vazquez APRN, MELANI HEMATOLOGY ORDERABLES Final Result Performing Organization Address City/[facility]/ZIP Co de Phone Number [facility] [address] [place] [address] * MRSA NASAL PCR (06/21/2024 1:05 AM CDT) MRSA PCR RESULT Negative Negative, Invalid 06/21/2024 2:21 AM CDT [facility] Other NASOPHARYNGEAL SWAB / Unknown Non-Phlebotomy Collection / Unknown 06/21/2024 1:05 AM CDT 06/21/2024 1:10 AM CDT Candice Vazquez APRN, MELANI MICROBIOLOGY - GENERA L ORDERABLES Final Result Performing Organization Address City/[facility] Co de Phone Number [facility] [address] [place] [address] * CT ANGIO CHEST W/WO CONTRAST WITH PP (POST PROCESSING) (06/20/2024 11:25 PM CDT) Anatomical Region Laterality Modality vascular N/A Computed Tomogra phy 06/21/2024 12:5 3 AM CDT Impressions 06/21/2024 12:56 AM CDT IMPRESSION: No evidence of pulmonary embolism. Mild biapical pulmonary parenchymal scarring and tiny subpleural blebs. Minimal dependent atelectasis in the left lower lobe and right middle lobe. Diffuse hepatic steatosis. Sequelae of cholecystectomy. Preliminary interpretation was provided to the emergency department 00:39 hours on June 21, 2024. Narrative 06/21/2024 12:56 AM CDT EXAM DESCRIPTION: CT ANGIO CHEST W/WO CONTRAST WITH PP (POST PROCESSING) REASON FOR STUDY: c/o SOB, wheezing and fever x 1 week. Vomiting and diarrhea x 2 days. HX: Former smoker, Asthma TECHNIQUE: CT angiogram of the chest performed with intravenous contrast using helical scanning technique with dynamic intravenous contrast injection. Reconstructed coronal and sagittal MPR images reviewed. All images stored on PACS. 3D MIP images rendered on scanning unit and reviewed at time of interpretation. Automated exposure control was used as a dose optimization technique for this examination. CONTRAST TYPE/DOSE: 100mL of IOPAMIDOL 76 % IV SOLN injected via Intravenous COMPARISON: Chest x-ray of June 20, 2024. REFERENCE: Per ACR white paper recommendations, unless otherwise specified no follow-up imaging is recommended for incidental renal and adrenal lesions per consensus recommendations based on imaging criteria. Further lab evaluation could be pursued based on clinical findings. FINDINGS: NECK BASE: Unremarkable. HARDWARE/LINES/TUBES: None. LYMPH NODES: No axillary, mediastinal or hilar lymphadenopathy is seen by CT size criteria. MEDIASTINUM/DUSTIN: No masses seen. The aorta and great vessels appear normal. There is no significant coronary artery calcification. The contrast bolus is adequate . There are no significant factors limiting evaluation. The pulmonary arteries are well evaluated to the subsegmental level. There are no filling defects seen in the pulmonary arteries on the axial or coronal images to suggest pulmonary embolism. There is no evidence of left intraventricular septal bowing. There is no significant reflux of contrast into the IVC. Heart size is normal. There is no significant pericardial effusion. PLEURA: No effusion. No pneumothorax. LUNGS: There is mild biapical pulmonary parenchymal scarring and tiny subpleural blebs. There is minimal dependent atelectasis in the left lower lobe and right middle lobe. The central airways are normal. CHEST WALL/BREAST: Unremarkable. MUSCULOSKELETAL: There is diffuse degenerative change of the thoracic spine. There is no acute abnormality. UPPER ABDOMEN: There is diffuse hepatic steatosis. There are sequelae of cholecystectomy. The remaining visualized upper abdominal structures are unremarkable. OTHER: No other significant abnormality. THIS IS AN ELECTRONICALLY VERIFIED FINAL REPORT 06/21/2024 12:53 AM - Electronically signed by Radah Tavares M.D. SN: Report ID: [id number] Reading Location: [id number] Procedure Note Radha Tavares MD - 06/21/2024 EXAM DESCRIPTION: CT ANGIO CHEST W/WO CONTRAST WITH PP (POST PROCESSING) REASON FOR STUDY: c/o SOB, wheezing and fever x 1 week. Vomiting and diarrhea x 2 days. HX: Former smoker, Asthma TECHNIQUE: CT angiogram of the chest performed with intravenous contrast using helical scanning technique with dynamic intravenous contrast injection. Reconstructed coronal and sagittal MPR images reviewed. All images stored on PACS. 3D MIP images rendered on scanning unit and reviewed at time of interpretation. Automated exposure control was used as a dose optimization technique for this examination. CONTRAST TYPE/DOSE: 100mL of IOPAMIDOL 76 % IV SOLN injected via Intravenous COMPARISON: Chest x-ray of June 20, 2024. REFERENCE: Per ACR white paper recommendations, unless otherwise specified no follow-up imaging is recommended for incidental renal and adrenal lesions per consensus recommendations based on imaging criteria. Further lab evaluation could be pursued based on clinical findings. FINDINGS: NECK BASE: Unremarkable. HARDWARE/LINES/TUBES: None. LYMPH NODES: No axillary, mediastinal or hilar lymphadenopathy is seen by CT size criteria. MEDIASTINUM/DUSTIN: No masses seen. The aorta and great vessels appear normal. There is no significant coronary artery calcification. The contrast bolus is adequate . There are no significant factors limiting evaluation. The pulmonary arteries are well evaluated to the subsegmental level. There are no filling defects seen in the pulmonary arteries on the axial or coronal images to suggest pulmonary embolism. There is no evidence of left intraventricular septal bowing. There is no significant reflux of contrast into the IVC. Heart size is normal. There is no significant pericardial effusion. PLEURA: No effusion. No pneumothorax. LUNGS: There is mild biapical pulmonary parenchymal scarring and tiny subpleural blebs. There is minimal dependent atelectasis in the left lower lobe and right middle lobe. The central airways are normal. CHEST WALL/BREAST: Unremarkable. MUSCULOSKELETAL: There is diffuse degenerative change of the thoracic spine. There is no acute abnormality. UPPER ABDOMEN: There is diffuse hepatic steatosis. There are sequelae of cholecystectomy. The remaining visualized upper abdominal structures are unremarkable. OTHER: No other significant abnormality. THIS IS AN ELECTRONICALLY VERIFIED FINAL REPORT 06/21/2024 12:53 AM - Electronically signed by Radha Tavares M.D. SN: Report ID: [id number] Reading Location: [id number] IMPRESSION: No evidence of pulmonary embolism. Mild biapical pulmonary parenchymal scarring and tiny subpleural blebs. Minimal dependent atelectasis in the left lower lobe and right middle lobe. Diffuse hepatic steatosis. Sequelae of cholecystectomy. Preliminary interpretation was provided to the emergency department 00:39 hours on June 21, 2024. Candice Wali Vazquez FACILITIES MAINTENANCE SUPERVISOR, RETAIL STORE MANAGER IMG CT ORDERABLES Fin al Result * (ABNORMAL) Urinalysis with Reflex (06/20/2024 9:39 PM CDT) Pathologist [facility] SPECIFIC GRAVITY 1.010 1.003 - 1.030 06/20/2024 9:54 PM CDT [facility] URINE PH 6.0 5.0 - 9.0 06/20/2024 9:54 PM CDT [facility] WBC ESTERASE Negative Negative 06/20/2024 9:54 PM CDT [facility] NITRITE Negative Negative 06/20/2024 9:54 PM CDT [facility] PROTEIN, RANDOM URINE 15 mg/dL(A) Negative 06/20/2024 9:54 PM CDT [facility] URINE GLUCOSE, QUAL Negative Negative 06/20/2024 9:54 PM CDT [facility] URINE KETONES 15 mg/dL(A) Negative 06/20/2024 9:54 PM CDT [facility] UROBILINOGEN Normal Normal mg/dL 06/20/2024 9:54 PM CDT [facility] URINE BLOOD Negative Negative lois/ul 06/20/2024 9:54 PM CDT [facility] URINALYSIS COLOR Yellow 06/21/19 25 9:54 PM CDT [facility] URINALYSIS CLARITY Clear 06/20/2024 9:54 PM CDT [facility] Urine URINE SPECIMEN OBTAINED BY CLEAN CATCH PROCEDURE / Unknown Non-Phlebotomy Collection / Unknown 06/20/2024 9:39 PM CDT 06/20/2024 9:47 PM CDT us Ankur Salas MD URINE ORDERABLES Final R esult [facility] [place] [address] * Critical Care (06/20/2024 6:06 PM CDT) Narrative Esteban Rivera MD - 06/20/2024 6:06 PM CDT Esteban Rivera MD 06/20/2024 9:10 PM Critical Care Performed by: Esteban Rivera MD Authorized by: Esteban Rivera MD Critical care provider statement: Critical care time (minutes): 35 Critical care time was exclusive of: Separately billable procedures and treating other patients Critical care was necessary to treat or prevent imminent or life-threatening deterioration of the following conditions: Sepsis (COPD exacerbation) Critical care was time spent personally by me on the following activities: Development of treatment plan with patient or surrogate, evaluation of patient's response to treatment, examination of patient, obtaining history from patient or surrogate, ordering and performing treatments and interventions, ordering and review of laboratory studies, ordering and review of radiographic studies, pulse oximetry, re-evaluation of patient's condition and review of old charts I assumed direction of critical care for this patient from another provider in my specialty: no Care discussed with: admitting provider Esteban Rivera MD PROCEDURE/MINOR SURGICAL ORDERABLES Final Result * SARS-COV-2 BY MOLECULAR (06/20/2024 5:46 PM CDT) SARSCOV2 NOT DETECTED (Referenc e Range for this test is Not Detected) 06/20/2024 6:44 PM CDT [facility] Comment:This test was perfor med by a Reverse Promotions Officer PCR Method. Other NASOPHARYNGEAL STRUCTURE / Unknown Non-Phlebotomy Collection / Unknown 06/20/2024 5:46 PM CDT 06/20/2024 6:04 PM CDT Ankur Salas MD MICROBIOLOGY - GENERAL O RDERABLES Final Result Performing Organization Address City/[facility] Co de Phone Number [facility] [address] [place] [address] * Lactic Acid (Lactate) (06/20/2024 5:46 PM CDT) LACTIC ACID 1.1 0.7 - 2.0 mmol/L 06/20/2024 6:27 PM CDT [facility] Comment: Specimen is hemolyzed. In vitro hemolysis could affect results. Clinical correlation advised. Blood Venipuncture / Unknown 06/20/2024 5:46 PM CDT 06/20/2024 6:04 PM CDT Ankur Salas MD CHEMISTRY ORDERABLES Fin al Result Performing Organization Address [facility] Co de Phone Number [facility] [address] [place] [address] * Blood Culture #2 (06/20/2024 5:46 PM CDT) Only the most recent of2 resultswithin the time period is included. CULTURE RESULTS NO GROWTH WITHIN 5 DAYS, FINAL RESULT 06/25/2024 7:00 PM CDT [facility] Culture BLOOD SPECIMEN / Unknown Venipuncture / Unknown 06/20/2024 5:46 PM CDT 06/20/2024 6:03 PM CDT Ankur Salas MD MICROBIOLOGY - GENERAL O RDERABLES Final Result Performing Organization Address [facility] Co de Phone Number [facility] [address] [place] [address], * (ABNORMAL) CMP (Comprehensive Metabolic Panel) (06/20/2024 5:46 PM CDT) SODIUM 137 136 - 145 mmol/L 06/20/2024 6:24 PM CDT [facility] POTASSIUM 3.4(L) 3.5 - 5.1 mmol/L 06/20/2024 6:24 PM CDT [facility] CHLORIDE 102 98 - 107 mmol/L 06/20/2024 6:24 PM CDT [facility] CO2, VENOUS 23 22 - 30 mmol/L 06/20/2024 6:24 PM CDT [facility] ANION GAP 15.4 <18.0 mmol/L 06/20/2024 6:24 PM CDT [facility] GLUCOSE 129(H) 70 - 99 mg/dL 06/20/2024 6:24 PM CDT [facility] BUN 6(L) 10 - 20 mg/dL 06/20/2024 6:24 PM CDT [facility] CREATININE, BLOOD 0.75 0.60 - 1.00 mg/dL 06/20/2024 6:24 PM CDT [facility] BUN/CREATININE RATIO 8(L) 12 - 20 ratio 06/20/2024 6:24 PM CDT [facility] TOTAL PROTEIN 7.0 6.0 - 8.0 g/dL 06/20/2024 6:24 PM CDT [facility] ALBUMIN 3.8 3.5 - 5.0 g/dL 06/20/2024 6:24 PM CDT [facility] A/G RATIO 1.2 1.0 - 2.2 06/20/2024 6:24 PM CDT [facility] CALCIUM 9.0 8.7 - 10.5 mg/dL 06/20/2024 6:24 PM CDT [facility] T BILI 0.5 0.2 - 1.2 mg/dL 06/20/2024 6:24 PM CDT [facility] SGOT (AST) 25 <43 U/L 06/20/2024 6:24 PM CDT [facility] SGPT (ALT) 12 <56 U/L 06/20/2024 6:24 PM CDT [facility] ALKALINE PHOSPHATASE 105 40 - 150 U/L 06/20/2024 6:24 PM CDT [facility] GFR, ESTIMATED >60 >=60 06/20/2024 6:24 PM CDT [facility] Comment: Creatinine Clearance is the preferred criteria for selecting drug dose adjustments in renally impaired patients. The GFR is provided as additional pertinent clinical information. GFR is reported in mL/min/1.73 sq m. Calculation based on the Chronic Kidney Disease Epidemiology Collaboration (CKD- EPI) equation refit without adjustment for race. GFR, EST. >60 >=60 025 6:24 PM CDT [facility] GFR, EST. NONAFRICAN >60 >=60 06/20/2024 6:24 PM CDT [facility] Blood Venipuncture / Unknown 06/20/2024 5:46 PM CDT 06/20/2024 6:04 PM CDT Ankur Salas MD CHEMISTRY ORDERABLES Fin al Result [facility] [place] [address] * XR CHEST SINGLE VIEW PORTABLE (06/20/2024 5:25 PM CDT) Anatomical Region Laterality Modality Chest N/A Digital Radiogra phy 06/20/2024 6:07 PM CDT Impressions 06/20/2024 6:09 PM CDT IMPRESSION: No acute cardiopulmonary abnormality. Narrative 06/20/2024 6:09 PM CDT EXAM DESCRIPTION: XR CHEST SINGLE VIEW PORTABLE REASON FOR STUDY: sob/wheezing. n/v/d x 3 days TECHNIQUE: 1 radiographic view(s) of the chest. COMPARISON: None FINDINGS: LUNGS: No focal opacity, pleural effusion, or pneumothorax. HEART/MEDIASTINUM: Cardiac silhouette normal in size. Mediastinal and hilar contours appear normal. LINES/TUBES: None. BONES: No acute osseous abnormality. Postoperative changes of prior fusion at the lower cervical spine. THIS IS AN ELECTRONICALLY VERIFIED FINAL REPORT 06/20/2024 6:07 PM - Electronically signed by Donavon Terrell M.D. KT: KT Report ID: [id number] Reading Location: [id number] Procedure Note Donavon Terrell MD - 06/20/2024 EXAM DESCRIPTION: XR CHEST SINGLE VIEW PORTABLE REASON FOR STUDY: sob/wheezing. n/v/d x 3 days TECHNIQUE: 1 radiographic view(s) of the chest. COMPARISON: None FINDINGS: LUNGS: No focal opacity, pleural effusion, or pneumothorax. HEART/MEDIASTINUM: Cardiac silhouette normal in size. Mediastinal and hilar contours appear normal. LINES/TUBES: None. BONES: No acute osseous abnormality. Postoperative changes of prior fusion at the lower cervical spine. THIS IS AN ELECTRONICALLY VERIFIED FINAL REPORT 06/20/2024 6:07 PM - Electronically signed by Donavon Terrell M.D. KT: KT Report ID: [id number] Reading Location: [id number] IMPRESSION: No acute cardiopulmonary abnormality. Ankur Salas MD IMG DIAGNOSTIC ORDERABLE S Final Result * EKG 12 LEAD (06/20/2024 5:17 PM CDT) Ventricular Rate 94 BPM EXTERNAL EKG Atrial Rate 94 BPM EXTERNAL EKG P-R Interval 160 ms EXTERNAL EKG QRS Duration 84 ms EXTERNAL EKG Q-T Duration 362 ms EXTERNAL EKG QTC CALCULATION 452 ms EXTERNAL EKG P [place] 49 degrees EXTERNAL EKG R [place] 28 degrees EXTERNAL EKG T [place] 23 degrees EXTERNAL EKG 06/20/2024 5:17 PM CDT Impressions EXTERNAL EKG - 06/24/2024 10:19 AM CDT Normal sinus rhythm ST & T wave abnormality, consider inferior ischemia Abnormal ECG No previous ECGs available Confirmed by Grace Mir ([id number]) on 06/24/2024 10:19:27 AM Narrative Procedure Note Grace Mir DO - 06/24/2024 IMPRESSION: Normal sinus rhythm ST & T wave abnormality, consider inferior ischemia Abnormal ECG No previous ECGs available Confirmed by Grace Mir ([id number]) on 06/24/2024 10:19:27 AM us Ankur Salas MD IMG ECG ORDERABLES Final Result EXTERNAL EKG * EKG SCAN (06/20/2024 12:00 AM CDT) 06/20/2024 us Provider Scan IMG ECG ORDERABLES Final Result RESULTING AGENCY from Last 3 Months Insurance MEDICAID [place] Advance Directives * Full Code (Latest Code Status on File) Date Activated Date Inactivated Comments 06/20/2024 9:43 PM CPR-Full Treat ment: FULL ARREST: Attempt Resuscitation/CPR wit intubation and mechanical ventilation. PRE-ARREST: Use entire range of life support measures to stabilize the patient. Care Teams Brake Operator Heavy Duty Relationship Specialty Start Date End Date Quita Lares MD [address] [place], [place] [address] PCP - General Internal Medicine 06/22/24
--- OUTSIDE RECORDS SUMMARY | 2024-07-10 18:54 | XMS_ITS | Referral Summary ---
Author Organization [facility] [address] Address [address] [place] [address] Care Team Providers Care Fountain Clerk Name Role Phone Marianne Souza NP Primary Care Provider [phone] Encounters Date Type Department Care Team Description 06/18/2024 2:12 PM CDT - 06/18/2024 3:16 PM CDT Emergency [facility] Emergency Department [address] [place] [address] Discharge Disposition: Left without being seen from Last 3 Months Allergies Active Allergy Reactions Criticality Noted Date [...] within 12 hours or as directed by . 30 patch 3 Active blood glucose diagnostic [...] ulcer disease 01/27/2016 Overview (05/28/2023): Overview: Dr. Raygoza/GARTH 01/2016 Overview: Overview: Dr. Raygoza/GARTH 01/2016 Dr. Pemberton 01/2016 Overview: Dr. Raygoza/GARTH 01/2016 Overview: Dr. Raygoza/GARTH 01/2016 Overview: Overview: Dr. Raygoza/GARTH 01/2016 Dr. Pemberton 01/2016 Overview: Dr. Raygoza/GI 01/2016 Overview: Dr. Raygoza/GI 01/2016 Overview: Overview: Dr. Raygoza/GI 01/2016 Dr. Raygoza/GI 01/2016 Overview: Dr. Raygoza/GARTH 01/2016 Anxiety state [...] making you feel afraid or unsafe? 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 Gender Identity Not on file Sexual Orientation Not on file Last Filed Vital Signs Vital Sign Reading Time Taken Comments Blood Pressure 144/83 06/18/2024 11:49 AM CDT Pulse 79 06/18/2024 11:49 AM CDT Temperature 36.8 C (98.2 F) 06/18/2024 11:49 AM CDT Respiratory Rate 18 06/18/2024 11:49 AM CDT Oxygen Saturation 100% 06/18/2024 11:49 AM CDT Inhaled Oxygen Concentration - - Weight 62.1 kg (137 lb) 06/18/2024 11:49 AM CDT Height 162.6 cm (5' 4) 06/18/2024 11:49 AM CDT Body Mass Index 23.52 06/18/2024 11:49 AM CDT Plan of Treatment Not on file Medical Devices Implanted Type Area Ip Technology Transactions Attorney Device Identifier Shelf Expiration Date Model / Serial / Lot Rods Lumbar-Sacra l Spine Procedures Procedure Name Priority Date/Time Associated Diagnosis Comments INFLUENZA A/B, RSV, AND COVID-19 PCR STAT 06/18/2024 11:50 AM CDT STREPTOCOCCUS GROUP A PCR STAT 06/18/2024 11:50 AM CDT from Last 3 Months Results * Influenza A/B, RSV, and COVID-19 PCR Nasopharyngeal (06/18/2024 11:50 AM CDT) COVID-19 RNA Negative Negative Influenza A RNA Negative Negative [facility] ([place]) Influenza B RNA Negative Negative [facility] ([place]) RSV RNA Negative Negative [facility] ([place]) Comment: Interpretive data: Testing performed by [facility]. This test is performed using the Cvgram.me Xpert Xpress CoV-2/Flu/RSV plus assay. This is a multiplex, real- time reverse transcriptase PCR assay intended for the qualitative detection of nucleic acid from SARS-CoV-2, influenza A, influenza B, and respiratory syncytial virus. This assay has been cleared by the [place] Food and Drug administration. The performance characteristics have been verified by the [facility]. Results must be considered in the clinical context, and a negative result does not rule out infection. Interpretive Data last revised 2023 Nasopharyngeal 06/18/2024 11 :50 AM CDT 06/18/2024 12:04 PM CDT Narrative [facility] ([place]) - 06/18/2024 12:48 PM CDT Is the Patient experiencing symptoms consistent with COVID?->Yes [facility] MICROBIOLOGY - GENERAL ORDE RABLES Final Result [facility] ([place]) 1 [facility] Department [place] [address] * Streptococcus Group A PCR Throat (06/18/2024 11:50 AM CDT) Strep A DNA Not Detected Not Detected Comment: This test is performed using the Cvgram.me Xpert Group A Streptococcal Assay. This is a qualitative, real-time PCR assay that detects Group A Strep using throat specimens from patients suspected of having streptococcal pharyngitis. This assay does not detect other beta-hemolytic streptococci including Group C or Group G. Group C and G have been associated with pharyngitis and, occasionally, acute nephritis but do not cause rheumatic fever. If suspected, order Throat Culture, Routine. This assay has been cleared by the [place] Food and Drug Administration, and its performance characteristics have been verified by the performing laboratory. Throat 06/18/2024 11:5 0 AM CDT 06/18/2024 12:04 PM CDT us [facility] MICROBIOLOGY - GENERAL ORDE RABMEENAKSHI Final Result Performing Organization Address City/State/[facility] Co de Phone Number [facility] ([place]) 1 [facility] Department [place] [address] from Last 3 Months Insurance [place] [employer] [facility] Care Teams Fountain Clerk Relationship Specialty Start Date End Date Marianne Souza NP [address] [place] [phone] PCP - General Family Practice 05/28/23
--- OUTSIDE RECORDS SUMMARY | 2024-07-10 18:54 | XMS_ITS | Encounter Summary ---
Author Organization [facility] Address [address] [place] [address] Care Team Providers Care Airflight Attendants Supervisor Name Role Phone Bharath Martinez DO Unavailable [phone] Prasanth Perae MD Unavailable [phone] Quita Lares MD Primary Care Provider Marianne Souza AUTOMOTIVE TIRE TESTING SUPERVISOR-LICENSED PRACTICAL NURSE Unavailable [phone] Reason for Visit * Reason Onset Date Comments Robot Designer Initial 07/10/2024 Encounter Details Date Type Department Care Team (Late st Contact Info) Description 07/10/2024 Patient Outreach [facility] - Care Coordination [facility] [place] [address] Gisela Bustos, CATARINO Robot Designer Initial Social History Tobacco Use Types Packs/Day Years Used Date Smoking Tobacco: Every Day Cigarettes 0.5 10 Started: 03/09/2010; Last attempted to quit: 03/09/2020 Cigars Smokeless Tobacco: Never Alcohol Use Standard Drinks/Week Comments Not Currently [...] Answer Date Recorded Patient Health Questionnaire-2 Score 3 07/07/2024 Comments No Sex and Gender Information Value Date Recorded Sex Assigned at Not on file Legal Sex Female 9:43 AM CDT Gender Identity Not on file Sexual Orientation Not on file Occupation Industry Job Start Date Job End Date Not on file Not on file Not on file Not on file documented as of this encounter Functional Status * Is person deaf or have serious hearing difficulty? Answer Date of Assessment Author No 04/03/2019 4:08 PM SENIOR SECURITY ENGINEER Waqas Lucas RN * Is person blind or have serious difficulty seeing? Answer Date of Assessment Author No 03/24/2019 7:58 PM SENIOR SECURITY ENGINEER Funmi Thorpe RN * Does person have serious difficulty walking/climbing stairs? Answer Date of Assessment Author No 03/24/2019 7:58 PM Funmi Rebolledo RN * Does person have difficulty dressing/bathing? Answer Date of Assessment Author No 03/24/2019 7:58 PM Funmi Rebolledo RN * Does person have difficulty doing errands alone? Answer Date of Assessment Author No 03/24/2019 7:58 PM Funmi Rebolledo RN documented as of this encounter Mental Status * Does person have difficulty concentrating/remembering/making decisions? Answer Entry Date Author Yes 03/24/2019 7:58 PM Funmi Rebolledo RN documented in this encounter Miscellaneous Notes * Telephone Encounter - Gisela Bustos MSW - 07/10/2024 10:06 AM CDT Outreach /3: SW attempted patient outreach regarding care coordination referral. Left message regarding purpose of contact and request for return call. Gisela Bustos [facility] [phone] documented in this encounter Plan of Treatment Upcoming Encounters Date Type Department Care Team (Late st Contact Info) Description 08/14/2024 1:20 PM CDT Office Visit [facility] - Family Medicine [address] [place] [id number] Marianne Souza, AUTOMOTIVE TIRE TESTING SUPERVISOR-LICENSED PRACTICAL NURSE [address] [place] [address] documented as of this encounter Visit Diagnoses Not on filedocumented in this encounter Care Teams Airflight Attendants Supervisor Relationship Specialty Start Date End Date Quita Lares MD [address] [place] [address] PCP - General Internal Medicine 02/07/23 Marianne Souza, AUTOMOTIVE TIRE TESTING SUPERVISOR-LICENSED PRACTICAL NURSE [address] [place] [address] PCP - Attributed-Agrawal Medicaid STL 01/05/23 Bharath Martinez DO Orthopedic Surgery 06/07/16 [place] [address] [place], [place] [id number] Physical Medicine and Rehabilitation 10/16/19 documented as of this encounter
--- OUTSIDE RECORDS SUMMARY | 2024-07-10 18:54 | XMS_ITS | Encounter Summary ---
Author Organization [facility] Address [address] [place] [address] Care Team Providers Care Bucket Pusher Name Role Phone Bharath Martinez Unavailable [phone] Prasanth Perea MD Unavailable [phone] Quita Lares MD Primary Care Provider Marianne Souza DEBURRER MACHINE-SET AND EXHIBIT DESIGNER Unavailable [phone] Encounter Details Date Type Department Care Team (Late st Contact Info) Description 07/08/2024 Orders Only [facility] Group - Family Medicine [address] [facility] [address] [place] [address] Brenna Boo MD [address] [address] Social History Tobacco Use Types Packs/Day Years [...] of Assessment Author No 04/03/2019 4:08 PM Waqas Paredes RN * Is person blind or have serious difficulty seeing? Answer Date of Assessment Author No 03/24/2019 7:58 PM Funmi Rebolledo RN * Does person have serious difficulty [...] Funmi Rebolledo RN documented in this encounter Plan of Treatment Upcoming Encounters Date Type Department Care Team (Late st Contact Info) Description 08/14/2024 1:20 PM CDT Office Visit [facility] Medical [facility] - Family Medicine [address] [place] [address] Marianne Souza, DEBURRER MACHINE-SET AND EXHIBIT DESIGNER [address] [place] [address] documented as of this encounter Visit Diagnoses Not on filedocumented in this encounter Care Teams Bucket Pusher Relationship Specialty Start Date End Date Quita Lares MD [address] [place], [place] [id number] PCP - General Internal Medicine 02/07/23 Marianne Souza, DEBURRER MACHINE-SET AND EXHIBIT DESIGNER [address] [place] [address]. [address] [place] [address] PCP - Attributed-Agrawal Medicaid STL 01/05/23 Bharath Martinez DO Orthopedic Surgery 06/07/16 [place] [address] [place] [address] Physical Medicine and Rehabilitation 10/16/19 documented as of this encounter
--- OUTSIDE RECORDS SUMMARY | 2024-07-10 18:54 | XMS_ITS | Encounter Summary ---
Author Organization [facility] Address [address] [facility] [address] Care Team Providers Care Literacy Coordinator Name Role Phone Bharath Martinez Unavailable [phone] Praasnth Perea MD Unavailable [phone] Quita Lares MD Primary Care Provider Marianne Souza APRN-[facility] Unavailable [phone] Encounter Details Date Type Department Care Team (Late st Contact Info) Description 06/17/2024 Results Follow-Up [facility] - Family Medicine [address] [address] Quita Lares MD [address] [place] [address] Social History Tobacco Use Types Packs/Day Years [...] Date Recorded Patient Health Questionnaire-2 Score 0 06/16/2024 Comments No Sex and Gender Information Value [...] of Assessment Author No 04/03/2019 4:08 PM MANAGER TRANSITION Waqas Lucas RN * Is person blind or have serious difficulty seeing? Answer Date of Assessment Author No 03/24/2019 7:58 PM MANAGER TRANSITION Funmi Thorpe RN * Does person have [...] Funmi Rebolledo RN documented in this encounter Progress Notes * Quita Lares MD - 06/17/2024 12:18 PM CDT Please review results of laboratory tests in [facility] potassium level 4.0 within normal limits documented in this encounter Plan of Treatment Upcoming Encounters Date Type Department Care Team (Late st Contact Info) Description 08/14/2024 1:20 PM CDT Office Visit [facility] Medical [facility] - Family Medicine [address] [place] [address] Marianne Souza, COOK'S ASSISTANT-MANAGER UNIVERSAL [address] [place] [address] documented as of this encounter Visit Diagnoses Not on filedocumented in this encounter Care Teams Literacy Coordinator Relationship Specialty Start Date End Date Quita Lares MD [address] [facility] [place] [address] PCP - General Internal Medicine 02/07/23 Marianne Souza, COOK'S ASSISTANT-MANAGER UNIVERSAL [address] [facility] [place] [address] PCP - Attributed-Agrawal Medicaid STL 01/05/23 Bharath Martinez DO Orthopedic Surgery 06/07/16 [place] [address] [place] [address] Physical Medicine and Rehabilitation 10/16/19 documented as of this encounter
--- OUTSIDE RECORDS SUMMARY | 2024-07-10 18:54 | XMS_ITS | Encounter Summary ---
Author Organization [facility] Address [address] [facility] [facility] [place] [address] Care Team Providers Care Fund Accounting Manager Name Role Phone Bharath Martinez Unavailable [phone] Prasanth Perea MD Unavailable [phone] Quita Lares MD Primary Care Provider Marianne Souza APRN-[facility] Unavailable [phone] Encounter Details Date Type Department Care Team (Late st Contact Info) Description 07/09/2024 Results Follow-Up 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 Answer Date of Assessment Author No 03/24/2019 7:58 PM DIVERSIFIED CROPS FARMER Funmi Thorpe RN * Does person have [...] documented in this encounter Progress Notes * Elvi Sweeney RN - 07/10/2024 10:48 AM CDT Patient notified. * Quita Lares MD - 07/09/2024 1:21 PM CDT Please notify patient of results of laboratory tests. Please review results of laboratory tests in MyChart(sodium-normal, potassium-normal) documented in this encounter Plan of Treatment Upcoming Encounters Date Type Department Care Team (Late st Contact Info) Description 08/14/2024 1:20 PM CDT Office Visit [facility] - Family Medicine [address] [place] [address] Marianne Souza, AERONAUTICAL DESIGN ENGINEER-EDUCATION ADVISER [address] [facility] [place] [address] documented as of this encounter Visit Diagnoses Not on filedocumented in this encounter Care Teams Fund Accounting Manager Relationship Specialty Start Date End Date Quita Lares MD [address] [facility] [place] [address] PCP - General Internal Medicine 02/07/23 Marianne Souza, AERONAUTICAL DESIGN ENGINEER-EDUCATION ADVISER [address] [facility] [place] [address] PCP - Attributed-Agrawal Medicaid STL 01/05/23 Bharath Martinez DO Orthopedic Surgery 06/07/16 [place] [address] [address] [place] [address] Physical Medicine and Rehabilitation 10/16/19 documented as of this encounter
--- OUTSIDE RECORDS SUMMARY | 2024-07-10 18:54 | XMS_ITS ---
Author Organization [facility] Address [address] [facility] [place] [address] Care Team Providers Care Legal Support Analyst Name Role Phone Bharath Martinez DO Unavailable [phone] Prasanth Perea MD Unavailable [phone] Quita Lares MD Primary Care Provider Marianne Souza APRN-OFFICE SYSTEMS TECHNOLOGY INSTRUCTOR Unavailable [phone] Referral (Social Work) - Vibrance Status:Identified (Enrolling) Start date:07/08/2024 Enrollment reason:Referred by provider Case Team Name Relationship Phone Gisela Bustos JOINERY FACTORY WORKER(Responsible Staff) Social Wo rker [phone] Continued Care and Services Coordination
--- OUTSIDE RECORDS SUMMARY | 2024-07-10 18:54 | XMS_ITS | Clinical Summary ---
Author Organization [facility] [address] Address [address] [place] [address] Care Team Providers Care Real Property Evaluator Name Role Phone Marianne Souza NP Primary Care Provider [phone] Allergies Active Allergy Reactions Criticality Noted Date [...] of pelvis 09/06/2012 Arthralgia of hip 08/04/2008 Encounters Date Type Department Care Team Description 06/18/2024 2:12 PM CDT - 06/18/2024 3:16 PM CDT Emergency [facility] Emergency Department [address] [id number] Discharge Disposition: Left without being seen from Last 3 Months Surgical History Surgery Date Site/Laterality Comments OTHER [...] on file 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 Gender Identity Not on file Sexual Orientation [...] 06/18/2024 11:49 AM CDT Plan of Treatment Health Maintenance Due Date Last Done Comments Albumin Creatinine Ratio, Urine 1974 Cervical Cancer Screening 1974 Colon Cancer Screening-Colonoscopy 1974 Depression Screening 1974 Hepatitis C Screening 1974 eGFR 1974 Dilated Eye Exam 1974 Foot Exam 1974 Hepatitis B Screening 02/28/1992 Regular Well Visit/Exam 18-64 02/28/1992 Pneumococcal vaccine <65 (2 of 2 - PCV) 11/08/2013 11/08/2012 Breast Cancer Screening-Mammogram 04/28/2021 021 Zoster Vaccine (1 of 2) 02/28/2024 Lipid Panel 03/02/2024 03/02/2023 Hemoglobin A1C 08/13/2024 02/14/2024, 02/06, 09/06/2021, Additional history exists Influenza Vaccine (Season Ended) 2024 11/09/19 13 DTaP/Tdap/Td Vaccine (2 - Td or Tdap) 06/11/2026 06/11/2016 Medical Devices Implanted Type Area Supervisor Engine Repair Device Identifier Shelf Expiration Date Model / [...] Influenza A RNA Negative Negative [facility] ([place]) Influenza B RNA Negative Negative [facility] ([place]) RSV RNA Negative Negative [facility] ([facility] Comment: Interpretive data: Testing performed by [facility]. This test is performed using the Axis Three Xpert Xpress CoV-2/Flu/RSV plus assay. This is a multiplex, real- time reverse transcriptase PCR assay intended for the qualitative detection of nucleic acid from SARS-CoV-2, influenza A, influenza B, and respiratory syncytial virus. This assay has been cleared by the [place] Food and Drug administration. The performance characteristics have been verified by the [facility]. Results must be considered in the clinical context, and a negative result does not rule out infection. Interpretive Data last revised 2023 Nasopharyngeal 06/18/2024 11 :50 AM CDT 06/18/2024 12:04 PM CDT Narrative [facility] ([place] - 06/18/2024 12:48 PM CDT Is the Patient experiencing symptoms consistent with COVID?->Yes us [facility]le [facility] MICROBIOLOGY - GENERAL ORDE RABLES Final Result [facility] ([place]) 1 [facility] [place] [address] * Streptococcus Group A PCR Throat (06/18/2024 11:50 AM CDT) Strep A DNA Not Detected Not Detected Comment: This test is performed using the Axis Three Xpert Group A Streptococcal Assay. This is [...] 0 AM CDT 06/18/2024 12:04 PM CDT [facility] MICROBIOLOGY - GENERAL ORDE RABLES Final Result [facility] ([place] 1 [facility] [place] [address] from Last [address] [place] [employer] [facility] Care Teams Real Property Evaluator Relationship Specialty Start Date End Date Marianne Souza NP [address] [place] [phone] PCP - General Family Practice 05/28/23
--- OUTSIDE RECORDS SUMMARY | 2024-07-10 18:54 | XMS_ITS | Continuity of Care Document ---
Author Organization [facility] Address [address] [place] [address] Phone Care Team Providers Care Nurse Researcher Name Role Phone Saud Vasquez MD Unavailable Unavailable Allergies, Adverse Reactions, Alerts Substance Reaction Status Criticality No Known Allergies Active No Inform ation No Known Allergies Active No Inform ation Medications Medication Instructions Dosage Effective Dates (start - stop) Status Comments Medrol (Jason) 4 mg tablets in a dose pack take as directed - Active Neurontin 300 mg capsule take 1 capsule (300MG) po qhs for 3 days then BID from 4th day - Active PROAIR RESPICLICK (unknown strength) Not [...] OFFICE/OUTPA TIENT VISIT [facility], [address] [facility] [address] [address], [place], [address], [place] tel:[phone] [facility] Right shoulder blade and arm pain/swell ing/numbne ss (chief complaint) Body mass index (BMI) 27.0-27.9, adultRight arm painStatus post cervical spinal fusionDJD (degenerative joint disease), cervical Apr-2 0-202 0 Pedro Villavicencio. [address] [place], [place], [id number] . tel:[phone] Referring Provider: Aishwarya Ortiz, [address], [place], [address]. tel:[phone] OFFICE/OUTPA TIENT VISIT NEW [facility], [address], [place], [address], [place] tel:[phone] [facility] Right shoulder pain, unspecified chronicityBursiti s of right shoulderRadiculop athy of arm Apr- 0 Destini Gaviria. [address], [place], [place], [id number] . tel: [phone] Referring Provider: Aishwarya Ortiz, [address], [place], [address]. tel:[phone] [facility], [address], [place], [address], [place] tel:[phone] [facility] O Kristina Injury of right shoulder, initial encounterFall in home, initial encounter ^Unspecified place in unspecified non-institutional (private) residence as the place of occurrence of the external causeContusion of right shoulder, initial encounter 9 Surendra Hernandez. [address] [place], [place], [id number] . tel:[phone] Family History Family Member Type Diagnosis Age At Onset Mother Problem Heart disease Problem (finding) Family history of chronic obstructive lung disease Problem (finding) Family history of Liver disease Payers Payer name Insurance type Covered alliance party ID Livan torres(s) [facility] Medicaid [id number] Social History Type Description Quantity Date Captured [...]
--- OUTSIDE RECORDS SUMMARY | 2024-07-10 18:54 | XMS_ITS | Encounter Summary ---
Author Organization [facility] Address [address] [facility] [place] [address] Care Team Providers Care Automatic Lump Making Machine Tender Name Role Phone Bharath Martinez DO Unavailable [phone] Prasanth Perea MD Unavailable [phone] Quita Lares MD Primary Care Provider Marianne Souza PURIFICATION SUPERVISOR-INTERNET SALES MANAGER Unavailable [phone] Reason for Visit * Reason Onset Date Comments Hives 07/08/2024 Cough 07/08/2024 Encounter Details Date Type Department Care Team (Late st Contact Info) Description 07/08/2024 Telephone [facility] - Family Medicine [address] [place] [phone] Brenna Boo MD [address] [place] [phone] Hives; Cough Social History Tobacco Use Types Packs/Day Years [...] of Assessment Author No 04/03/2019 4:08 PM CASTING ASSISTANT Verónica loera, Waqas Marlow RN * Is person blind or have [...] encounter Miscellaneous Notes * Telephone Encounter - Quita Lares MD - 07/10/2024 5:10 PM CDT Patient needs to be seen by any provider for evaluation and treatment * Telephone Encounter - Elvi Sweeney RN - 07/10/2024 10:47 AM CDT Patient returning call. She states she did not present to UC or ER as she refuses to present to an UC or ER. She states sheis currently out camping and was exposed to poison swapna, stating she is allergic to poison swapna, oak,and sumac. She states she has a rash present at [employer]. Patient states, I feel that my doctor should prescribe my meds for me, versus presenting to UC/ER. * Telephone Encounter - Juan C Queen RN - 07/09/2024 1:23 PM CDT LVM for pt to call office back to provide an update and see which ER/UC she went to last night. * Telephone Encounter - Quita Lares MD - 07/09/2024 1:11 PM CDT Patient to present to emergency room as recommended by physician database administration manager yesterday. 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 Notes the rash is even on face. Also notes increased cough and some SOB. Advised she will need to seek care in the ER or an urgent care. documented in this encounter Plan of Treatment Upcoming Encounters Date Type Department Care Team (Late st Contact Info) Description 08/14/2024 1:20 PM CDT Office Visit [facility] - Family Medicine [address] [place] [address] Marianne Souza, PURIFICATION SUPERVISOR-INTERNET SALES MANAGER [address] [place] [address] documented as of this encounter Visit Diagnoses Not on filedocumented in this encounter Care Teams Automatic Lump Making Machine Tender Relationship Specialty Start Date End Date Quita Lares MD [address] [place] [address] PCP - General Internal Medicine 02/07/23 Marianne Souza, PURIFICATION SUPERVISOR-INTERNET SALES MANAGER [address] [facility] [place] [id number] PCP - Attributed-Agrawal Medicaid [place] 01/05/23 Bharath Martinez DO Orthopedic Surgery 06/07/16 [place] [address] [facility] [address] [place] [address] Physical Medicine and Rehabilitation 10/16/19 documented as of this encounter
--- OUTSIDE RECORDS SUMMARY | 2024-07-10 18:55 | XMS_ITS | Data Portability ---
[facility] Address [address] [place] [address] Care Team Providers Care Raise Miner Name Role Phone BLANK CHATMAN Primary Care Provider [phone] Assessment No assessment recorded. Plan of Treatment Reminders Order Date Submit Date Provider Last Modified By Organization Details Last Modified Time Details Appointments None recorded. Lab None recorded. Referral audiologis t referral 2024 025 [facility]ABRICIOAnuel Dempsey [facility], [address] [place] [address] [address], [place], [address], 11:37:21 Procedures None recorded. Surgeries None recorded. Imaging None recorded. Medication Orders cefdinir 300 mg capsule 2024 025 [id number], [address] [place], [address], 12:47:08 Patient TargetsNo targets recorded. Patient InstructionsNo instructions recorded. 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 [email or web address] Not Available 09:57:45 05/14/19 25 05/07/2024 US, head + neck, soft tissu e No observ ation record ed. [facility] [address], [place], [address], 05/14/2024 08:18:59 Result Notes None recorded. Procedures Surgical History Date Name Laterality Status Provider Name and Address Organization Details Recorded Time 02/05/19 20 procedure on back completed Elsa Clarke, RMA [place] [facility] 05/13/2024 12:26:19 02/05/19 19 procedure on wrist completed Elsa Tricia, RMA [place] [facility] 05/13/2024 12:27:22 02/05/19 17 Cholecystectomy completed Elsa Tricia, RMA [place] [facility] 05/13/2024 12:26:33 procedure on knee completed Elsa Tricia, RMA [place] [facility] 05/13/2024 12:25:51 Imaging Results None recorded. Procedure Notes None recorded. Medical Equipment None Reported. Allergies Allergen ID Allergen Name Allergen Category Reaction Reaction Severity Criticality Documentation Date Start Date Code Code System Note Provider Name and Address Organization Details Recorded Time 781399 adhesive environme nt,medica tion rash Not available Not available 05/13/2024 03761 UNK Elsa Clarke R[place], [place] [facility] 12:19:07 781362 Silvadene medicatio n rash Not available Not available 05/13/2024 87608 6 RxNorm Elsa Clarke, R[place] [facility] 12:19:37 375243 adhesive tape environme nt,medica tion Not available Not available Not available 05/13/2024 92028 UNK blist ers Elsa Clarke, R[place] [facility] 12:20:11 289797 ibuprofen medicatio n Not available Not available Not available 05/13/2024 5640 RxNorm stoma ch ulcer s Elsa Clarke R[place] [facility] 12:20:22 643869 latex environme nt,medica tion hives Not available Not available 05/13/2024 95388 91 RxNorm Elsa Clarke R[place] [facility] 12:45:36 Medications Name Sig Start Date Stop [...] and Address Organization Details Last Updated DateTime 5 54974.3 g 16 /min 97.8 [degF] 24.5 kg/m2 163.2 cm 66 /min 110 mm[Hg] 72 mm[Hg] JANICE Castro [place] [facility] 12:30:08 Date Recorded Body height Body mass index (BMI) Body weight Heart rate Respiratory rate Body temperature Systolic blood pressure Diastolic blood pressure Provider Name and Address Organization Details Last Updated DateTime 163.2 cm 24.4 kg/m2 34848.7 1 g 80 /min 18 /min 97.2 [degF] 126 mm[Hg] 66 mm[Hg] Flor wright [place] [facility] 10:42:13 Social History Question Answer Notes LastModified by Organizat ion Details LastModified Time Tobacco Smoking Status Current Every Day Smoker JANICE Castro, [place] [facility] 05/13/2024 12:24:52 Are You Blind Or Do You Have Difficulty Seeing? No Information not available 05/13/2024 What Is Your Level Of Caffeine Consumption? Moderate Information not available 05/13/2024 In The 14 Days Before Symptom Onset, Have You Had Close Contact With A Laboratory-confir med COVID-19 While That Case Was Ill? No [...] Smoke? 1 PPW Information not available 05/13/2024 Has Tobacco Cessation Counseling Been Provided? Yes Information not available 05/13/2024 On What Date Was Tobacco Cessation Counseling Provided? 05/19/2024 Information not available 05/19/2024 Sex: Female Functional Status Question Answer Note LastModified by Organization Details LastModified Time Do you use any illicit or recreational drugs? Yes carmen Information not available 05/13/2024 Do you or have you ever used any other forms of tobacco or nicotine? No Information not available 05/13/2024 What is your level of alcohol consumption? None quit 2014 Information not available 05/13/2024 Are you currently employed? No Information not available 05/13/2024 What is your exercise level? None Information not available 05/13/2024 What type of noise exposure are you exposed to? noExposureToExcessiveN oise Information not available 05/13/2024 Mental Status None recorded. Family History Nothing Reported. Medical History Condition Response Allergies/Hayfever N Heart Problems Y Heart Conditions N Emphysema N Thyroid Problems Y Developmental Delay N Glaucoma N Anemia N Anesthesia Complications N Heart Attack (MD) N Anxiety Disorder Y Diabetes Y Bleeding [...] SNOMED-CT Code Diagnosis ICD10 Code Diagnosis Note [id number] David Brooke MD [facility] (Adult Med) [address] [place] [address] 05/13/2024 12:10:21 05/14/2024 10:34:33 Neck swelling 848546403 R22.1 return next week [id number] David Brooke MD [facility] [address] [place] [address] 05/19/2024 10:31:19 05/19/2024 12:23:20 Sensorineural hearing loss of bilateral ears 875593231 H90.3 follow-up after audiogram Health Concerns Section Related Observation LastModified by Organization Detai ls LastModified Time None Recorded Concern Status LastModified by Organization Details LastModified Time None Recorded Advance Directives Directive None Recorded Payers Encounter Date Sequence Insurance Name Policy Number Policy Dean Covered Member ID Dean Member ID Guarantor Name 05/13/2024 1 [facility] (MEDICAID HMO) [id number] Tayler Washington [id number] Tayler Washington 05/19/2024 1 [facility] (MEDICAID HMO) [id number] Tayler Washington [id number] Tayler [place] Notes Date Note Type Note Provider Name and Address Organization Details Recorded Time 05/13/2024 text/html Pt complaining o f pain behind her right ear and into her neck for the last two weeks. She has not had any therapy. She is a smoker. She had a Ultrasound but the report is pending David Brooke MD Attn: Accounting[address] [place], [address] 05/13/2024 12:47:34 05/19/2024 text/html patient was [...] ringing in her ears. David Brooke MD [address] [place], [address], [facility] 05/19/2024 10:56:14 OBGyn Episode No OBEpisode recorded.
--- OUTSIDE RECORDS SUMMARY | 2024-07-10 18:55 | XMS_ITS ---
Author Organization [facility] Address [address] [place] [address] Care Team Providers Care Computer Engineering Professor Name Role Phone Rocío Ross Primary Care Provider [phone] Luis Armando Mclean [phone] Encounters Encounter Location Date Provider Diagnosis [facility] [address] [place] [address] 01/17/2023 Luis Armando Mclean Plan Of Treatment No Information Progress Notes * Tayler PETERSENDOB:1975 (49 yo F)Acc No.[id number]:01/17/2023 Dental Problem Focus Patient: Tayler LESTER Provider: Leydi MCLEAN DDS :1975 A ge:47 Y S ex:Female Date:01/17/2023 Address:[address] [place], [place] [address] Pcp:Rocío Ross Subjective: * Chief Complaints: * * Medical History: Objective: Assessment: Plan: * Treatment: * * Electronic signature of Segundo Mclean DDS on 07/10/2024 at 06:54 PM CDT Sign off status: Pending Visit Status: N /S (No-Show) * Provider: Leydi MCLEAN DDS Date: 1 03/20/2022 Generated for Elissa hodges/Rossy/Jennifer on: 0 07/10/2024 06:54 PM CDT
--- OUTSIDE RECORDS SUMMARY | 2024-07-10 18:55 | XMS_ITS | Encounter Summary ---
Author Organization [facility] Address [address] [place] [address] Care Team Providers Care Reinforcing Iron And Rebar Workers Name Role Phone Bharath Martinez DO Unavailable [phone] Jose Luis Ortiza Primary Care Provider [phone] Prasanth Perea MD Unavailable [phone] Quita Lares MD Primary Care Provider Marianne Souza MANIFEST CLERK-PHOTOGRAPHERS' MODEL Unavailable [phone] Encounter Details Date Type Department Care Team (Late st Contact Info) Description 01/31/2016 Transitional Care [facility] [address] [place] [address] Caroline Cagle RN Social History Tobacco Use [...] of Assessment Author No 01/28/2016 1:16 PM GREEN MEAT PACKER Merchant, Jenifer M, RN * Does person have serious difficulty walking/climbing stairs? Answer Date of Assessment Author No 01/28/2016 1:16 PM GREEN MEAT PACKER Jenifer Merchant RN * Does person have difficulty dressing/bathing? Answer Date of Assessment Author No 01/28/2016 1:16 PM GREEN MEAT PACKER Jenifer Merchant RN * Does person have difficulty doing errands alone? Answer Date of Assessment Author No 01/28/2016 1:16 PM GREEN MEAT PACKER Jenifer Merchant, DELANEY documented as of this encounter Mental Status * Does person have difficulty concentrating/remembering/making decisions? Answer Entry Date Author No 01/28/2016 1:16 PM GREEN MEAT PACKER Jenifer Merchant RN documented in this encounter [...] but there was no answer, message left. [facility] will wait for medication reconciliation before signing off. N MEAT PACKER documented in this encounter Plan of Treatment Upcoming Encounters Date Type Department Care Team (Late st Contact Info) Description 08/14/2024 1:20 PM CDT Office Visit [facility] - Family Medicine [address] [place] [address] Marianne Souza, MANIFEST CLERK-PHOTOGRAPHERS' MODEL [address] [place] [address] documented as of this encounter Visit Diagnoses Not on filedocumented in this encounter Additional Health Concerns Infection Onset Date Last Indicated Resolved Time COVID-19 Under Investigation 03/14/2022 03/14/2022 03/14/2022 3:34 PM GREEN MEAT PACKER documented as of this encounter Care Teams Reinforcing Iron And Rebar Workers Relationship Specialty Start Date End Date Aishwarya Ortiz DO [address] [facility] [address] [place] [phone] PCP - General Family Medicine 06/17/18 02/06/23 Quita Lares MD [address] [place], [place] [phone] PCP - General Internal Medicine 02/07/23 Marianne Souza, MANIFEST CLERK-PHOTOGRAPHERS' MODEL [address] [facility] [place] [address] PCP - [facility]-Agrawal Medicaid ST 01/05/23 Bharath Martinez DO Orthopedic Surgery 06/07/16 [place] [address] [facility] [address] [place] [address] Physical Medicine and Rehabilitation 10/16/19 documented as of this encounter
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
--- OUTSIDE RECORDS SUMMARY | 2024-07-10 18:55 | XMS_ITS | Continuity of Care Document ---
Author Organization [facility] Address [address] [place] [address] Phone Care Team Providers Care Metals Analyst Name Role Phone Saud Vasquez MD Unavailable [...] OFFICE/OUTPA TIENT VISIT [facility], [address] [facility] [address], [place], [address], [place] tel:[phone] [facility] Right shoulder blade and arm pain/swell ing/numbne ss (chief complaint) Body mass index (BMI) 27.0-27.9, adultRight arm painStatus post cervical spinal fusionDJD (degenerative joint disease), cervical Apr-2 0-202 0 Pedro Villavicencio. [address] [place], [place], [id number] . tel:[phone] Referring Provider: Aishwarya Ortiz, [address], [place], [address]. tel:[phone] OFFICE/OUTPA TIENT VISIT NEW [facility], [address], [place], [address], [place] tel:[phone] [facility] Right shoulder pain, unspecified chronicityBursiti s of right shoulderRadiculop athy of arm Apr- 0 Destini Gaviria. [address], [place], [place], [id number] . tel: [phone] Referring Provider: Aishwarya Ortiz, [address], [place], [address]. tel:[phone] [facility], [address], [place], [address], [place] tel:[phone] [facility] O Kristina Injury of right shoulder, initial encounterFall in home, initial encounter ^Unspecified place in unspecified non-institutional (private) residence as the place of occurrence of the external causeContusion of right shoulder, initial encounter 9 Surendra Hernandez. [address] [place], [place], [address] . tel:[phone] Family History Family Member Type Diagnosis Age At Onset Mother Problem Heart disease Problem (finding) Family history of chronic obstructive lung disease Problem (finding) Family history of Liver disease Payers Payer name Insurance type Covered green party ID Livan torres(s) [facility] Medicaid [id number] Social History Type Description Quantity Date Captured [...]
--- OUTSIDE RECORDS SUMMARY | 2024-07-10 18:55 | XMS_ITS ---
Author Name Auto Generated, Auto Generated Organization [facility] Address [address] [place] [address] Phone [phone] Functional Status No Results Mental Status No Results Allergies and Intolerances No Known Allergies Problems Active Concerns * MDD (major depressive disorder)* Code: 348030521 * Start Date: SunMar 11 07:00:00 EST 2020 * End Date: * Text: * Moderate tetrahydrocannabinol (THC) dependence* Code: 77753630 * Start Date: * End Date: * Text: Reason for Referral Past Medical History
--- OUTSIDE RECORDS SUMMARY | 2024-07-10 18:55 | XMS_ITS ---
Author Name Auto Generated, Auto Generated Organization [facility] Address [address] [place] [address] Phone [phone] Functional Status No Results Mental Status No Results Allergies and Intolerances No Known Allergies Problems Active Concerns * MDD (major depressive disorder)* Code: 746775878 * Start Date: SunMar 11 07:00:00 EST 2020 * End Date: * Text: * Moderate tetrahydrocannabinol (THC) dependence* Code: 38648317 * Start Date: * End Date: * Text: Reason for Referral Past Medical History
--- OUTSIDE RECORDS SUMMARY | 2024-07-10 18:55 | XMS_ITS | Patient Health Record ---
Author Organization [facility] Address [address] [place] [address] Care Team Providers Care Code Machine Operator Name Role Phone Altaf Rossl Primary Care Provider [phone] Reason For Referral No Information Plan Of Treatment No Information Insurance Providers Payer Name Payer Address Payer Phone Subscriber Number Group Number Insured Name Patient Relationship to Insured Coverage Start Date Coverage End Date [address] [id number] Tayler Washington Self - patient is the insured [facility] [address] [place] [address] [id number] Tayler [place] Self - patient is the insured
--- OUTSIDE RECORDS SUMMARY | 2024-07-10 18:55 | XMS_ITS | Clinical Summary ---
Author Organization [facility] Address [address] [place] [address] Care Team Providers Care Telephone Solicitor Name Role Phone Bharath Martinez DO Unavailable [phone] Prasanth Perea MD Unavailable [phone] Quita Lares MD Primary Care Provider Marianne Souza APRN-CRIME SCENE ANALYST Unavailable [phone] Source Comments [facility],non-owned Affiliates and Associated Physician Practices is amultiple site organization consisting of ambulatory clinics and hospital sitesin [place], [place], [place] and [place]. This disclosure is being madepursuant to the Care Everywhere program and may not contain all information available regarding this patient. Last updated 17.[facility] Allergies Active Allergy Reactions Criticality Noted Date [...] document. Alwaysverify current medications with the patient. nicotine (Nicoderm CQ) 14 MG/24HR patchIndication s:Tobacco use Apply 1 (one) patch to skin once daily 30 patch 1 09/26/19 24 Active dulaglutide (Trulicity) 0.75 MG/0.5ML injectionIndica tions:Hyperglyc emia Inject 0.75 (three-quarters) mg subcutaneously every 7 days 0.5 mL 4 12/03/19 24 Active Additional Information Patient not taking.Reason: Patient adjusted, Reported on 07/07/2024 fluticasone propionate (Flonase) 50 MCG/ACT nasal spray SPRAY 2 SPRAYS INTO EACH NOSTRIL ONCE DAILY REASONS: REPLACES DYMISTA 9.9 g 5 04/09/19 25 Active lidocaine (Lidoderm) 5 % patch Apply 1 (one) patch to skin once daily 30 patch 1 05/02/19 25 Active SUMAtriptan (Imitrex) 100 MG tabletIndicatio ns:Migraine without aura and without status migrainosus, not intractable TAKE 1 (ONE) TABLET BY MOUTH ONCE DAILY NEEDED FOR MIGRAINE 9 tablet 1 05/03/19 25 Active predniSONE (Deltasone) 20 MG tablet Take 2 (two) tablets by mouth once daily 10 tablet 06/17/19 25 Active insulin aspart (NovoLOG FLEXPEN) penIndications: Type 2 diabetes mellitus without complication, 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 (HCC) Inject 4 (four) Units subcutaneously 3 times daily before meals 3 mL 1 06/17/19 25 Active albuterol (Proventil;Vent jacob) (2.5 MG/3ML) 0.083% nebulizer solution Inhale 2.5 (two and one-half) mg by mouth every 4 hours as needed for Shortness of Breath 150 mL 06/17/19 25 Active insulin pen needle (Novofine 31) 31G X 5 MM needleIndicatio ns:Type 2 diabetes mellitus without complication, unspecified whether fci insulin use (HCC) 1 (one) Each by Injection route 3 times daily 100 Each 06/17/19 25 Active amoxicillin-cla vulanate (Augmentin) 875-125 MG tablet Take 1 (one) tablet by mouth once daily 06/20/19 25 Active azithromycin (Zithromax) 500 MG tablet Take 1 (one) tablet by mouth Take 1 Tablet by mouth Every Sunday, Sunday, Sunday for 90 days. Indications: Infection of the Respiratory Tract Instructions: Take 1 Tablet by mouth Every Sunday, Sunday, Sunday for 90 days. Indications: Infection of the Respiratory Tract 06/24/19 25 025 Active nystatin (Mycostatin) 314793 UNIT/ML suspension 06/20/19 25 Active albuterol HFA (ProAir HFA) 108 (90 Base) MCG/ACT inhalerIndicati ons:Chronic bronchitis with wheezing (HCC) Inhale 2 (two) puffs by mouth every 4 hours as needed 8.5 g 2 07/08/19 25 Active tiotropium (Spiriva Respimat) 2.5 MCG/ACT inhalerIndicati ons:Chronic bronchitis with wheezing (HCC) Inhale 2 (two) puffs by mouth once daily 12 g 07/08/19 25 Active Symbicort 160-4.5 MCG/ACT inhalerIndicati ons:Chronic bronchitis with wheezing (HCC) Inhale 2 (two) puffs by mouth 2 times daily 30.6 g 1 07/08/19 25 Active metFORMIN ER 24hr (Glucophage XR) 500 MG tabletIndicatio ns:Type 2 diabetes mellitus with hyperglycemia, without long-term current use of insulin ([facility]) TAKE 2 TABLETS BY MOUTH TWICE DAILY BEFORE BREAKFAST AND SUPPER 360 tablet 07/08/19 25 Active montelukast (Singulair) 10 MG tabletIndicatio ns:PND (post-nasal drip) Take 1 (one) tablet by mouth once daily 90 tablet 07/08/19 25 Active omeprazole (PriLOSEC) 40 MG capsule Take 1 (one) capsule by mouth once daily 90 capsule 1 07/08/19 25 Active benzonatate (Tessalon) 100 MG capsuleIndicati ons:Chronic bronchitis with wheezing (HCC) Take 1 (one) capsule by mouth 3 times daily 180 capsule 07/08/19 25 Active lancetsIndicati ons:Type 2 diabetes mellitus without complication, 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 ([facility]) Use 1 (one) Each 2 times daily 180 Each 07/08/19 25 Active blood glucose test stripIndication s:Type 2 diabetes mellitus without complication, 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 ([facility]) Use 1 (one) strip 2 times daily 180 strip 07/08/19 25 Active cetirizine (ZyrTEC) 10 MG tabletIndicatio ns:PND (post-nasal drip) Take 1 (one) tablet by mouth once daily 90 tablet 4 07/08/19 25 Active ondansetron (Zofran) 4 MG tablet Take 1 (one) tablet by mouth every 6 hours as needed for Nausea/Vomiting 30 tablet 07/08/19 25 Active rosuvastatin (Crestor) 5 MG tablet Take 1 (one) tablet by mouth once daily 90 tablet 1 07/08/19 25 Active roflumilast (Daliresp) 500 MCG tablet Take 1 (one) tablet by mouth once daily 90 tablet 07/08/19 25 Active gabapentin (Neurontin) 100 MG capsuleIndicati ons:Numbness and tingling in right hand Take 1 (one) capsule by mouth at bedtime If no relief of the numbness and tingling within 2 weeks contact the office and increase to 2 tablets at night. 90 capsule 1 07/08/19 25 Active ondansetron (Zofran) 4 MG tablet Take 1 (one) tablet by mouth every 6 hours as needed for Nausea/Vomiting 30 tablet 1 06/21/19 24 025 Discontinu ed(List Clean-Up) azelastine (Astelin) 0.1 % nasal sprayIndication s:replaces Dymista [place] 1 (one) spray into each nostril 2 times daily Reasons: replaces Dymista 30 mL 5 07/17/19 24 025 Discontinu ed(List Clean-Up) rosuvastatin (Crestor) 5 MG tablet Take 1 (one) tablet by mouth once daily 90 tablet 1 09/26/19 24 025 Discontinu ed(Reorder ) Symbicort 160-4.5 MCG/ACT inhalerIndicati ons:Chronic bronchitis with wheezing (HCC) Inhale 2 (two) puffs by mouth 2 times daily 30.6 g 1 02/13/19 25 025 Discontinu ed(Clinica l Decision) benzonatate (Tessalon) 100 MG capsule Take 1 (one) capsule by mouth 3 times daily 180 capsule 02/25/19 25 025 Discontinu ed(Reorder ) metFORMIN ER 24hr (Glucophage XR) 500 MG tabletIndicatio ns:Type 2 diabetes mellitus with hyperglycemia, without long-term current use of insulin (HCC) TAKE 2 TABLETS BY MOUTH TWICE DAILY BEFORE BREAKFAST AND SUPPER 360 tablet 03/05/19 25 025 Discontinu ed(Reorder ) omeprazole (PriLOSEC) 40 MG capsule Take 1 (one) capsule by mouth once daily 04/16/19 25 025 Discontinu ed(Reorder ) cetirizine (ZyrTEC) 10 MG tablet Take 1 (one) tablet by mouth once daily 90 tablet 4 05/02/19 25 025 Discontinu ed(Reorder ) montelukast (Singulair) 10 MG tabletIndicatio ns:Seasonal allergic rhinitis due to pollen,Chronic cough,PND (post-nasal drip) Take 1 (one) tablet by mouth once daily 90 tablet 3 05/02/19 25 025 Discontinu ed(Reorder ) Elastic Bandages & Supports (B & B Carpal Tunnel Brace) MISCIndications :Numbness and tingling Use 1 Each at bedtime Apply carpal tunnel brace at bedtime 1 Each 1 05/02/19 25 025 Discontinu ed(List Clean-Up) methylPREDNISol one (Medrol Dosepak) 4 MG tabletIndicatio ns:Neck nodule Take by mouth as directed 21 tablet 05/03/19 25 025 Discontinu ed(List Clean-Up) montelukast (Singulair) 10 MG tabletIndicatio ns:PND (post-nasal drip) Take 1 (one) tablet by mouth once daily 90 tablet 06/17/19 25 025 Discontinu ed(Reorder ) roflumilast (Daliresp) 500 MCG tablet Take 1 (one) tablet by mouth once daily 06/25/19 25 025 Discontinu ed(Reorder ) tiotropium (Spiriva Respimat) 2.5 MCG/ACT inhaler Inhale 2 (two) puffs by mouth once daily 06/25/19 25 025 Discontinu ed(Clinica l Decision) ondansetron (Zofran) 4 MG tablet Take 1 (one) tablet by mouth every 6 hours as needed for Nausea/Vomiting 30 tablet 07/03/19 25 025 Discontinu ed(Reorder ) Blood Glucose Monitoring Suppl (Blood Glucose Monitor System) w/Device KITIndications: Type 2 diabetes mellitus without complication, 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 Raygoza/GARTH 01/2016 Dr. Raygoza/GARTH 01/2016 Duodenal ulcer disease 01/27/2016 05/15/202310/09 Overview [...] organization. Date Type Department Care Team Description 07/10/2024 Patient Outreach [facility] - Care Coordination [address] [place] [id number] Gisela Bustos MSW Heel Slugger Initial 07/09/2024 Results Follow-Up [facility] [address] [place] [phone] Quita Lares MD 07/08/2024 Orders Only [address], [facility] [address] [place] [address] Brenna Boo MD 07/08/[address], [facility] [address] [place] [address] Brenna Boo MD Hives; Cough 07/08/2024 Patient Outreach [facility] - Care Coordination [address] [place] [id number] Gisela Bustos MSW Heel Slugger Initial 07/07/2024 12:40 PM CDT Office Visit [facility] Medicine [address] [place] [phone] Marianne Souza, DISPATCHER RADIOACTIVE WASTE DISPOSAL-CRIME SCENE ANALYST Hospital discharge follow-up (Primary Dx); Pharyngitis, unspecified etiology; Sepsis with acute respiratory failure, due to unspecified organism, unspecified whether hypoxia or hypercapnia present, unspecified whether septic shock present (HCC); Acute cough; Nausea and vomiting, unspecified vomiting type; Weight loss; Hypokalemia; Housing insecurity; Chronic bronchitis with wheezing (HCC); PND (post-nasal drip); Type 2 diabetes mellitus with hyperglycemia, without long-term current use of insulin (HCC); Type 2 diabetes mellitus without complication, unspecified whether fci insulin use (HCC); Numbness and tingling in right hand 07/07/2024 Travel 07/02/2024 Nurse Triage [facility] [address] [address] Quita Lares MD Nausea 06/26/2024 Nurse Triage [address] [address] Quita Lares MD Update 06/20/[address] [address] Quita Lares MD Medication Issue 06/17/2024 Results Follow-Up [facility] [address] [place] [address] Quita Lares MD 06/17/[address] [address] Quita Lares MD Follow-up 06/16/2024 9:00 AM CDT Office Visit 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 [address] [place] [phone] Marianne Souza, DISPATCHER RADIOACTIVE WASTE DISPOSAL-CRIME SCENE ANALYST Appointment 06/12/2024 Nurse Triage [facility] [address] [facility], [facility] [address] [place] [address] Quita Lares MD Hospitalization 05/30/2024 Nurse Triage [facility] [address] [facility], [facility] [address] [place] [address] Quita Lares MD Neuropathy 05/20/2024 Bulk Orders Only [facility] [address] [place] [phone] Quita aLres MD Screening mammogram for breast cancer 05/08/2024 Nurse Triage [facility] [address] [facility], [facility] [address] [place] [address] Quita Lares MD Results 05/02/2024 Orders Only [facility] [address] [facility], [facility] [address] [place] [address] Umair Adame MD Neck nodule 05/02/2024 Nurse Triage [facility] [address] [facility], [facility] [address] [place] [address] Quita Lares MD Order (//) 05/02/2024 Refill [facility] [address] [place] [phone] Marianne Souza, DISPATCHER RADIOACTIVE WASTE DISPOSAL-CRIME SCENE ANALYST Refill Request 05/01/2024 1:00 PM CDT Office Visit [facility] [address] [place] [phone] Marianne Souza, DISPATCHER RADIOACTIVE WASTE DISPOSAL-CRIME SCENE ANALYST Neck nodule (Primary Dx); Seasonal allergic rhinitis due to pollen; Allergy to plant; Chronic cough; PND (post-nasal drip); Numbness and tingling 05/01/2024 Orders Only [facility] [address], [address] [place] [address] Marianne Souza, DISPATCHER RADIOACTIVE WASTE DISPOSAL-CRIME SCENE ANALYST Seasonal allergic rhinitis due to pollen; Allergy to plant 05/01/2024 Travel from Last 3 Months Immunizations Immunization [...] Tobacco: Never Tobacco Cessation:Ready to Q uit: Yes; Counseling Given: No Alcohol Use Standard Drinks/Week Comments Not Currently [...] Sign Reading Time Taken Comments Blood Pressure 112/68 07/07/2024 12:59 PM CDT Pulse 78 07/07/2024 12:59 PM CDT Temperature 35.9 C (96.7 F) 07/07/2024 12:56 PM CDT Respiratory Rate 16 07/07/2024 12:56 PM CDT Oxygen Saturation 98% 07/07/2024 12:56 PM CDT Inhaled Oxygen Concentration - - Weight 61 kg (134 lb 6.4 oz) 07/07/2024 12:56 PM CDT Height 162.6 cm (5' 4) 06/16/2024 9:15 AM CDT Body Mass Index 23.07 06/16/2024 9:15 AM CDT Plan of Treatment Upcoming Encounters Date Type Department Care Team (Late st Contact Info) Description 08/14/2024 1:20 PM CDT Office Visit [facility] - [facility] [address] [place] [address] Marianne Souza, DISPATCHER RADIOACTIVE WASTE DISPOSAL-CRIME SCENE ANALYST [address] [place] [address] Health Maintenance Due Date Last Done Comments COLOGUARD (AGES 45-75) - COLON CA SCREENING 1974 CT COLONOGRAPHY - COLON CA SCREENING 1974 FIT - COLON CA SCREENING 1974 FLEX SIG - COLON CA SCREENING 1974 HEPATITIS B VACCINE (1 of 3 - 19+ 3-dose series) 1993 PNEUMOCOCCAL VACCINE 50+ (2 of 2 - PCV) 11/08/2013 11/08/2012 MAMMOGRAM 04/28/2021 04/28/2020, 02/25/2019 COVID-19 VACCINE ( - season) 2023 PAP with HPV 12/05/2023 12/04/2018, 07/06, 12/09/2012 DIABETES - URINE PROTEIN SCREENING 02/06/2024 10/10/2023, 04/05/2020 DIABETES-FOOT EXAM WITH MONOFILAMENT 02/08/2024 02/07/2023, 04/05/2020 ZOSTER VACCINE (1 of 2) 02/28/2024 INFLUENZA VACCINE (Season Ended) 2024 11/08/2012 COLONOSCOPY - COLON CA SCREENING 12/16/2024 12/16/2021, 12/16/2021, 09/16/2012 Colorectal Cancer Screening 12/16/2024 DIABETES-HGB A1C 12/22/2024 06/21/2024, 10/2024, 03/02/2023, Additional history exists DIABETES RETINOPATHY SCREENING 04/17/2025 04/18/2023 DIABETES-SERUM CREATININE 06/23/20252024, 06/23/2024, 06/22/2024, Additional history exists DTAP/TDAP/TD VACCINES (2 - Td or Tdap) [...] Procedure Name Priority Date/Time Associated Diagnosis Comments LYTES (NA K CL CO2) BLOOD 07/08/2024 1:37 PM CDT Hypokalemia BASIC METABOLIC PANEL (CALCIUM TOTAL) Routine 06/16/2024 11:20 AM CDT Hypokalemia LAB RESULTS ORDER 06/13/2024 LAB RESULTS ORDER 06/13/2024 CARDIAC EKG ORDER 06/12/2024 LAB RESULTS ORDER 06/12/2024 IMAGING/RADIOLOGY/X RAY RESULTS ORDER 06/11/2024 LAB RESULTS ORDER 06/11/2024 LAB RESULTS ORDER 06/11/2024 IMAGING/RADIOLOGY/X RAY RESULTS ORDER 05/07/2024 HEMOGLOBIN A1C Routine 02/14/2024 2:11 PM LABOR STANDARDS DIRECTOR Type 2 diabetes mellitus with hyperglycemia, without long-term current use of insulin MICROALB/CREAT RATIO URINE RANDOM PANEL Routine 10/10/2023 2:05 PM CDT Type 2 diabetes mellitus with hyperglycemia, without long-term current use of insulin EYE EXAM 04/18/2023 HEPATITIS C AB W/RFLX TO HCV RNA QN PCR 03/02/2023 11:53 AM LABOR STANDARDS DIRECTOR HIV-1 HIV-2 ANTIBODY + HIV P24 AG PANEL Routine 03/02/2023 11:53 AM LABOR STANDARDS DIRECTOR Screen for STD (sexually transmitted disease) ENDOSCOPY, COLON, SCREENING Routine 12/16/2021 1:18 PM LABOR STANDARDS DIRECTOR MAMMO BILAT SCREENING Routine 04/28/2020 12:18 PM CDT Encounter for screening mammogram for malignant neoplasm of breast PAP IG LB CT+GC+TV+ HPV HR DNA Routine 12/04/2018 2:32 PM CDT Screening for venereal disease Well woman exam from Last 3 Months or Most Recently Relevant to Health Maintenance Results * LYTES (NA K CL CO2) BLOOD (07/08/2024 1:37 PM CDT) Sodium 138 135 - 146 mmol/L [facility] Potassium 3.6 3.5 - 5.3 mmol/L [facility] Chloride 102 98 - 110 mmol/L [facility] CO2 28 20 - 32 mmol/L [facility] Comment: REPORT COMMENT: FASTING:NO Test Performed at: [facility] [id number] [place] [address] BILL MOURA MD 07/08/2024 1:37 PM CDT 07/08/2024 1:39 PM CDT us Marianne Keyes Harley DISPATCHER RADIOACTIVE WASTE DISPOSAL-CRIME SCENE ANALYST LAB - CHEMISTRY ORDERABL ES Final Result [facility] [place] [address] [place] [address] * (ABNORMAL) BASIC METABOLIC PANEL (CALCIUM TOTAL) (06/16/2024 11:20 AM CDT) [facility] Glucose 171(H) 70 - 99 mg/dL [facility] INSURANCE BILL BUN 5(L) 6 - 24 mg/dL [facility] INSURANCE BILL Creatinine 0.81 0.57 - 1.00 mg/dL [facility] INSURANCE BILL eGFR by CKD-EPI 88 >59 mL/min/1.7 3 [facility] INSURANCE BILL BUN/Creatinine Ratio 6(L) 9 - 23 [facility] INSURANCE BILL Sodium 138 134 - 144 mmol/L [facility] INSURANCE BILL Potassium 4.0 3.5 - 5.2 mmol/L [facility] INSURANCE BILL Chloride 101 96 - 106 mmol/L [facility] INSURANCE BILL CO2 20 20 - 29 mmol/L [facility] INSURANCE BILL Calcium 9.6 8.7 - 10.2 mg/dL [facility] INSURANCE BILL Blood BLOOD SPECIMEN / Unknown 06/16/2024 11:20 AM CDT 06/16/2024 Narrative [facility] INSURANCE BILL - 06/17/2024 1:09 PM CDT Performed at: [address] [id number] General Ledger Accountant: Travis Palmer PhD, Phone: [phone] us Quita Lares MD LAB - CHEMISTRY ORDERAB LES Final Result [facility] INSURANCE BILL [address] [place] [address] * LAB RESULTS ORDER (06/13/2024) Only the most recent of5 resultswithin the time period is included. 06/13/2024 Narrative 06/13/2024 Ordered by an unspecified provider. us Scanned Document LAB - THERAPEUTIC DRUG MONITORI NG ORDERABLES Final Result * CARDIAC EKG ORDER (06/12/2024) 06/12/2024 Narrative 06/12/2024 Ordered by an unspecified provider. us Scanned Document CARDIAC SERVICES ORDERABLES Fin al Result * IMAGING/RADIOLOGY/XRAY RESULTS ORDER (06/11/2024) Only the most recent of2 resultswithin the time period is included. Anatomical Region Laterality Modality Other 06/11/2024 Narrative 06/11/2024 Ordered by an unspecified provider. us Scanned Document IMAGING Final Result * (ABNORMAL) HEMOGLOBIN A1C (HgbA1C) (02/14/2024 2:11 PM LABOR STANDARDS DIRECTOR) Hemoglobin A1c 6.2(H) <5.7 % of total [...] children. REPORT COMMENT: FASTING:YES Test Performed at: [facility] [address] BILL MOURA MD Blood BLOOD SPECIMEN / Unknown 02/14/2024 2:11 PM LABOR STANDARDS DIRECTOR 02/14/2024 2:13 PM LABOR STANDARDS DIRECTOR us Marianne Souza DISPATCHER RADIOACTIVE WASTE DISPOSAL-CRIME SCENE ANALYST LAB - CHEMISTRY ORDERABL ES Final Result [facility] [address] [place] [address] * MICROALB/CREAT RATIO URINE RANDOM PANEL (10/10/2023 [...] within a diagnostic category. Test Performed at: [facility] [address] [place] [address] BILL MOURA MD Urine URINE SPECIMEN OBTAINED BY CLEAN CATCH PROCEDURE / Unknown 10/10/2023 2:05 PM CDT 10/10/2023 2:08 PM CDT us Marianne Souza DISPATCHER RADIOACTIVE WASTE DISPOSAL-CRIME SCENE ANALYST LAB - URINE CHEMISTRY OR DERABLES Final Result Performing Organization Address City/State/[facility] Co de Phone Number [facility] [address] [place] [address] * EYE EXAM (04/18/2023) Anatomical Region Laterality Modality Other 04/18/2023 Narrative 04/18/2023 Ordered by an unspecified provider. us Scanned Document SCANNING ONLY Final Result * HEPATITIS C AB W/RFLX TO HCV RNA QN PCR (03/02/2023 11:53 AM LABOR STANDARDS DIRECTOR) Hepatitis C Antibody NON-REACTI VE NON-REACT ZENAIDA [facility] Comment: HCV antibody was non-reactive. There is no laboratory evidence of HCV infection. In most cases, no further action is required. However, if recent HCV exposure is suspected, a test for HCV RNA (test code 57694) is suggested. For additional information please refer to http://education.LiveStories.BFKW/faq/XKV08g1 (This link is being provided for informational/ educational purposes only.) Test Performed at: [facility] [address] [place] [address] BILL MOURA MD 03/02/2023 11:5 3 AM LABOR STANDARDS DIRECTOR 03/02/2023 11:58 AM LABOR STANDARDS DIRECTOR Result [facility] Marianne Souza APRN-[facility] LAB - CHEMISTRY ORDERABL ES Final Result Performing Organization Address [facility] de Phone Number [employer] [facility] [id number] [place] [address] * HIV-1 HIV-2 ANTIBODY + HIV P24 AG PANEL (03/02/2023 11:53 AM LABOR STANDARDS DIRECTOR) Pathologist [facility] HIV Screen 4th Generation w Reflex NON-REACT [...] purpose. For additional information please refer to http://education.LiveStories.BFKW/faq/NEB824 (This link is being provided for informational/ educational purposes only.) The performance of this assay has not been clinically validated in patients less than 2 years old. Test Performed at: [facility] [address] [place] [address] BILL MOURA MD Blood BLOOD SPECIMEN / Unknown 03/02/2023 11:53 AM LABOR STANDARDS DIRECTOR 03/02/2023 11:58 AM LABOR STANDARDS DIRECTOR Marianne Souza APRN-CRIME SCENE ANALYST LAB - CHEMISTRY ORDERABL ES Final Result Performing Organization Address [facility] Co de Phone Number [employer] [phone] [place] [address] * ENDOSCOPY, COLON, SCREENING (12/16/2021 1:18 PM LABOR STANDARDS DIRECTOR) Report Endoscopy POC _ Patient Name: Tayler [...] bowel preparation was evaluated using the BBPS ([place] Bowel Preparation Scale) with scores of: Right [...] for surveillance. Procedure Code(s): --- Professional --- 59929, Colonoscopy, flexible; with removal of tumor(s), polyp(s), or other lesion(s) by snare technique 71373, 59, Colonoscopy, flexible; with biopsy, single or multiple --- Technical --- 68155, Colonoscopy, flexible; with removal of tumor(s), polyp(s), or other lesion(s) by snare technique 99142, 59, Colonoscopy, flexible; with biopsy, single or multiple Diagnosis Code(s): --- Professional --- Z12.11, Encounter for screening for malignant neoplasm of colon K62.1, Rectal polyp K63.5, Polyp of colon K64.8, Other hemorrhoids --- Technical --- Z12.11, Encounter for screening for malignant neoplasm of colon K62.1, Rectal polyp K63.5, Polyp of colon K64.8, Other hemorrhoids CPT copyright 2019 [employer]. All rights reserved. The codes documented in this report are preliminary and upon instrumental musician review may be revised to meet current compliance requirements. __ Inez Izaguirre MD 12/16/2021 2:44:57 PM Number of Addenda: 0 Note Initiated On: 12/16/2021 1:18 PM [facility] ENDOSCOPY 12/16/2021 1:18 PM LABOR STANDARDS DIRECTOR us Inez Izaguirre MD GI PROCEDURE ORDERABLES Edite d Result - Final [facility] [place] [address] * MAMMO BILAT SCREENING (04/28/2020 12:18 PM [...] microcalcifications, or other abnormality seen. us Aishwarya Ortiz DO MAMMO ORDERABLES Final Result [...] [facility] INSURANCE BILL - 12/10/2018 12:36 PM LABOR STANDARDS DIRECTOR Source.............[facility] / Prev Treat...None No. of containers..01 ThinPrep Vial Resulting Agency Comment Lab Testing performed at: [facility] [place] [id number] Jeanine Rush MD LAB - PATHOLOGY/CYTOLOGY KATHLEEN REA Final Result [facility] INSURANCE BILL [address] [place] [address] from Last 3 Months or Most Recently Relevant to Health Maintenance Insurance [facility] MEDICAID - [place] [address] [id number] * Guarantor: TAYLER WASHINGTON Account Type Relation to Patient Date of Phone Billing Address Personal/Family 1975 [address] [place] [id number] Advance Directives * Full Code (Latest Code [...] 9:34 PM 07/19/2013 2:21 PM Care Teams Telephone Solicitor Relationship Specialty Start Date End Date Quita Lares MD [address] [place] [address] PCP - General Internal Medicine 02/07/23 Marianne Souza, DISPATCHER RADIOACTIVE [employer] DISPOSAL-[employer] SCENE ANALYST [address] [facility]. [address] [place] [id number] PCP - Attributed-Agrawal Medicaid STL 01/05/23 Bharath Martinez DO Orthopedic Surgery 06/07/16 [place] [id number] [facility] [facility] [address] [place] [address] Physical Medicine and Rehabilitation 10/16/19
--- OUTSIDE RECORDS SUMMARY | 2024-07-10 18:56 | XMS_ITS ---
Author Name Auto Generated, Auto Generated Organization [facility] Address [address] [place] [address] Phone [phone] Functional Status No Results Mental Status No Results Allergies and Intolerances No Known Allergies Problems Active Concerns * MDD (major depressive disorder)* Code: 694977502 * Start Date: SunMar 11 07:00:00 EST 2020 * End Date: * Text: * Moderate tetrahydrocannabinol (THC) dependence* Code: [id number] * Start Date: * End Date: * Text: Reason for Referral Past Medical History
--- OUTSIDE RECORDS SUMMARY | 2024-07-10 18:56 | XMS_ITS ---
Author Name Auto Generated, Auto Generated Organization [facility] Address [address] [place] [address] Phone [phone] Functional Status No Results Mental Status No Results Allergies and Intolerances No Known Allergies Problems Active Concerns * MDD (major depressive disorder)* Code: 720485841 * Start Date: SunMar 11 07:00:00 EST 2020 * End Date: * Text: * Moderate tetrahydrocannabinol (THC) dependence* Code: [id number] * Start Date: * End Date: * Text: Reason for Referral Past Medical History
[2024-07-10 19:00] VITALS: BP 126/62; PULSE 100; RESP 16; TEMP 36.5; O2SAT 98
--- NOTE | 2024-07-10 19:13 | ED_ITS ---
HPI - Skin/Abscess/Foreign Bdy General Chief complaint: Skin/Abscess/Foreign Body Stated complaint: Rash on Stomach/Poison Emi Time Seen by Provider: 07/10/24 19:00 Source: patient and RN notes reviewed Mode of arrival: ambulatory Limitations: no limitations History of Present Illness HPI narrative: 49-year-old female presents Express Care complaining of possible poison emi to her abdomen and arms. Patient said she was camping last night was unaware that her stent was placed on top poison emi. Today she woke up with a small rash on her abdomen in her bilateral arms. Patient denies the rash anywhere else. She states the rash is extremely pruritic. Patient has used lint-diz-laugkma poison emi cream without relief. Patient denies any other symptoms or any other rash elsewhere. Patient denies any significant past medical history Related Data Home Medications ?Medication ?Instructions ?Recorded ?Confirmed ?Last Taken ?Type albuterol sulfate 90 mcg/actuation 2 puff inhalation PRN 08/22/23 06/12/24 Unknown History aerosol inhaler metformin 500 mg tablet,extended 1,000 mg PO BID 08/22/23 06/12/24 Unknown History release 24 hr rosuvastatin 5 mg tablet 5 mg PO DAILY 08/22/23 06/12/24 Unknown History sumatriptan succinate 100 mg tablet 100 mg PO DAILY PRN migraine 08/22/23 06/12/24 Unknown History headache budesonide-formoterol HFA 160 1 puff inhalation DAILY 06/04/24 06/12/24 Unknown History mcg-4.5 mcg/actuation aerosol inhaler (Symbicort) calcium 600 mg (as 1 tablet PO DAILY 06/12/24 06/12/24 Unknown History carbonate)-vitamin D3 10 mcg (400 unit) tablet cetirizine 10 mg tablet 10 mg PO DAILY 06/12/24 06/12/24 Unknown History cyclobenzaprine 10 mg tablet 10 mg PO Q8H PRN muscle spasm 06/12/24 06/12/24 Unknown History fluticasone propionate 50 2 spray intranasal DAILY 06/12/24 06/12/24 Unknown History mcg/actuation nasal spray,suspension albuterol sulfate 2.5 mg/3 mL mg 07/10/24 Unknown History (0.083 %) solution for nebulization azithromycin 500 mg tablet mg 07/10/24 Unknown History gabapentin 100 mg capsule mg 07/10/24 Unknown History nicotine 7 mg/24 hr daily 07/10/24 Unknown History transdermal patch ondansetron HCl 4 mg tablet mg 07/10/24 Unknown History tiotropium bromide 2.5 inhalation 07/10/24 Unknown History mcg/actuation mist for inhalation (Spiriva Respimat) Allergies Allergy/AdvReac Type Severity Reaction Status Date / Time azithromycin Allergy Severe Swelling Verified 07/10/24 18:58 adhesive Allergy Unknown Verified 07/10/24 18:58 ibuprofen Allergy Unknown Verified 07/10/24 18:58 latex Allergy Unknown Verified 07/10/24 18:58 silver sulfadiazine (From Allergy Unknown Verified 07/10/24 18:58 Silvadene) Review of Systems Review of Systems: CONSTITUTIONAL: Denies fever, chills, or sweats. EYES: Denies visual changes, redness, or discharge. ENT: Denies rhinorrhea, congestion, sore throat, or otalgia. CARDIOVASCULAR: Denies chest pain, palpitations, or edema. RESPIRATORY: Denies cough or dyspnea. GASTROINTESTINAL: Denies abdominal pain, nausea, vomiting, or diarrhea. GENITOURINARY: Denies dysuria or hematuria. SKIN: Positive for rash and itching. MUSCULOSKELETAL: Denies back pain, joint pain, or myalgia. NEUROLOGIC: Denies headache, numbness, or weakness. PSYCHIATRIC: Denies anxiety or depression. All other systems reviewed are negative, except as documented in HPI. [facility] Past Medical History Medical History Cholecystectomy planned Neuropathic arthritis High cholesterol Diabetes Asthma Surgical History Surgical History H/O tubal ligation History of hip surgery Previous back surgery H/O neck surgery Family History Family History Father Hypertension Mother Asthma Heart disease Thyroid disorder Sibling Depression Thyroid disorder Grandparent Asthma Thyroid disorder Heart disease Other Depression Social History Social History Smoking packs per day: 2 Smoking cigarettes per day: 40.0 Smoking status: Former smoker Tobacco type: cigarettes Second hand tobacco smoke exposure: Yes Smoking end date: 01/06/24 Alcohol intake: never Substance use: current Substance use type: marijuana Do You Feel Safe in your Home?: Yes Lack of Transportation: No Lack of Food: Never True Current Housing: I Have Housing Concerned About Future Housing: No Difficulty Paying Gas/Electric Bills: No Difficulty Paying for Meds: No Currently Unemployed: No Education: High School Diploma/GED Difficulty w/ Childcare or Family Care: No Spiritual care concerns: No Comments At the time of my signature, I reviewed and agree with the nursing past medical, surgical, social, and family history. There is no relevant family history pertinent to the patient complaint. Exam Narrative: GENERAL: This is a well-nourished, well-developed adult, in no apparent distress. They are non ill-appearing, nontoxic appearing. HEAD: normocephalic, atraumatic. EYES: Sclera clear/white. Conjunctiva normal. Vision is grossly intact. Extraocular movements intact EARS: External ears normal, Hearing grossly intact. NOSE: External nose normal THROAT: Mucous membranes moist, NECK: Neck supple, CARDIOVASCULAR: Regular rate and rhythm RESPIRATORY: Respiratory rate normal, respiratory effort nonlabored, no respiratory distress GASTROINTESTINAL: Abdomen soft, non-tender, nondistended. SKIN: Pruritic erythematous papular rash present to the epigastric area and trace amount to the bilateral forearms. Very few vesicular lesions. No surrounding cellulitis, no exudate no area of fluctuance or induration. TBSA of rash is <10%. NEURO: awake, alert, and oriented to person, place and time. There were no obvious focal neurologic abnormalities. EXTREMITIES: No joint tenderness, effusion, or edema noted. Course Course Emergency Course: Portions of this record may have been created with voice recognition software Level of Care: Express Care Visit Vital Signs Vital signs: Vital Signs Temperature 97.7 F 07/10/24 19:00 Pulse Rate 100 07/10/24 19:00 Respiratory Rate 16 07/10/24 19:00 Blood Pressure 126/62 07/10/24 19:00 Pulse Oximetry 98 07/10/24 19:00 Oxygen Delivery Room Air 07/10/24 19:00 Temperature 97.7 F 07/10/24 19:00 Pulse Rate 100 07/10/24 19:00 Respiratory Rate 16 07/10/24 19:00 Blood Pressure 126/62 07/10/24 19:00 Pulse Oximetry 98 07/10/24 19:00 Oxygen Delivery Room Air 07/10/24 19:00 Reviewed MDM - Skin/Abscess/Foreign Bdy MDM Narrative Medical decision making narrative: Patient has mild contact dermatitis from poison emi. Will treat with clobetasol cream supportive therapy for itchiness. Discussed physical exam findings. Advised supportive measures and signs/symptoms to go to the ER. Pt is appropriate for outpt treatment and f/u. Differential Diagnosis Differential diagnosis: Likely cellulitis, eczema and contact dermatitis Critical Care Time Critical Care Time Critical Care Time: No Discharge Plan Discharge Clinical Impression: Poison emi Patient Disposition: Home Condition: Stable Instructions: Antibiotic Form, Poison Emi (ED) Additional Instructions: Use the steroid cream as directed. Apply to the affected area. You may purchase Tecnu soap that is [id number] [facility] that helps remove the coils of poison emi off your skin. Use as directed off the bottle. You may use calamine lotion or camphor for itching relief. He also take Zyrtec or Claritin daily for allergy or itchy symptoms. You may take Benadryl as well at night for itchiness. Avoid scratching at the site as you may spread elsewhere to her body. If that does not get better after 1 week after steroid cream treatment or at any point the rash become significantly worse please follow-up your PCP or urgent care as you may need oral steroids at that point. If he develops any breathing problems, fevers, discharge, severe swelling or redness please go to the ER immediately. Patient Language: Citizen Of [place] Prescriptions: New clobetasol 0.05 % cream 1 applic topical BID 14 Days Qty: 30 0RF Rx Instructions: Apply to affected only, do not apply to face or near the groin. No Action sumatriptan succinate 100 mg tablet 100 mg PO DAILY PRN (Reason: migraine headache) albuterol sulfate 90 mcg/actuation HFA aerosol inhaler 2 puff INHALATION PRN metformin 500 mg tablet extended release 24 hr 1,000 mg PO BID rosuvastatin 5 mg tablet 5 mg PO DAILY budesonide-formoterol [Symbicort] 160-4.5 mcg/actuation HFA aerosol inhaler 1 puff INHALATION DAILY albuterol sulfate 2.5 mg /3 mL (0.083 %) solution for nebulization ondansetron HCl 4 mg tablet gabapentin 100 mg capsule nicotine 7 mg/24 hr patch 24 hour azithromycin 500 mg tablet Spiriva Respimat 2.5 mcg/actuation mist INHALATION omeprazole 40 mg capsule,delayed release(DR/EC) 40 mg PO DAILY Qty: 30 3RF cetirizine 10 mg tablet 10 mg PO DAILY cyclobenzaprine 10 mg tablet 10 mg PO Q8H PRN (Reason: muscle spasm) fluticasone propionate 50 mcg/actuation spray,suspension 2 spray INTRANASAL DAILY calcium carbonate-vitamin D3 600 mg-10 mcg (400 unit) tablet 1 tablet PO DAILY benzonatate 100 mg Capsule 200 mg PO TID Qty: 30 0RF levofloxacin 750 mg tablet 750 mg PO DAILY Qty: 7 0RF Rx Instructions: Please complete the course for 7 days acetaminophen [Tylenol Extra Strength] 500 mg tablet 1,000 mg PO TID PRN (Reason: pain) Qty: 30 0RF Follow-up/Referrals: Harley,Marianne Kearney APRN [Primary Care Provider] - Time of Disposition: 19:13
== END 2024-07-10 19:15 | disposition home or self-care (01) ==
PROVIDERS: PCP Nurse Practitioner Family
DX: L23.7 Allergic contact dermatitis due to plants, except food (principal); E11.9 Type 2 diabetes mellitus without complications; Z87.891 Personal history of nicotine dependence; Z79.899 Other long term (current) drug therapy
CPT/HCPCS: 99213; G0463

== ENCOUNTER 2024-10-27 18:00 | Emergency (ER) | payer OTHER, SELFPAY ==
--- OUTSIDE RECORDS SUMMARY | 2019-05-26 05:30 | XMS_ITS | Continuity of Care Document ---
Author Organization [facility] Address [address] [place] [address] Phone Care Team Providers Care Facilities Technician Name Role Phone Saud Vasquez MD Unavailable Unavailable Allergies, Adverse Reactions, Alerts Substance Reaction Status Criticality No Known Allergies Active No Inform ation No Known Allergies Active No Inform ation Medications Medication Instructions Dosage Effective Dates (start - stop) Status Comments Neurontin 300 mg capsule take 1 capsule (300MG) po qhs for 3 days then BID from 4th day - Active Medrol (Jason) 4 mg tablets in a dose pack take as directed - Active PROAIR RESPICLICK (unknown strength) Not Available - Active Procedures Procedure Date RADEX SPI CRV 2/3 VIEWS OFFICE/OUTPATIENT VISIT NEW RADEX SHAWN COMPL MINIMUM 2 VIEWS 020 OFFICE/OUTPATIENT VISIT NEW Advance Directives Directive Yes / No Effective Date File Name No Information Encounters Encounter Description Practice Location Reason(s) For Visit Diagnoses Date Provider Providers Copied on Encounter OFFICE/OUTPA TIENT VISIT NEW [facility], [address] [facility] [address], [place], [address], [place] tel:[phone] [facility] Right shoulder blade and arm pain/swell ing/numbne ss (chief complaint) Body mass index (BMI) 27.0-27.9, adultRight arm painStatus post cervical spinal fusionDJD (degenerative joint disease), cervical Apr-2 0-202 0 Pedro Villavicencio. [address] [place], [place], [id number] . tel:[phone] Referring Provider: Aishwarya Ortiz, [address], [place], [address]. tel:[phone] OFFICE/OUTPA TIENT VISIT NEW [facility], [address], [place], [address], [place] tel:[phone] [facility] Right shoulder pain, unspecified chronicityBursiti s of right shoulderRadiculop athy of arm Apr- 0 Destini Gaviria. [address], [place], [place], [id number] . tel: [phone] Referring Provider: Aishwarya Ortiz, [address], [place], [address]. tel:[phone] [facility], [address], [place], [address], [place] tel:[phone] [facility] [place] Injury of right shoulder, initial encounterFall in home, initial encounter ^Unspecified place in unspecified non-institutional (private) residence as the place of occurrence of the external causeContusion of right shoulder, initial encounter 9 Surendra Hernandez. [address] [place], [place], [id number] . tel:[phone] Family History Family Member Type Diagnosis Age At Onset Mother Problem Heart disease Problem (finding) Family history of chronic obstructive lung disease Problem (finding) Family history of Liver disease Payers Payer name Insurance type Covered green party ID Livan torres(s) [facility] Medicaid E2 [id number] Social History Type Description Quantity Date Captured Comments Alcohol Use Details Unknown Caffeine Use Details Unknown Tobacco Use Status Occasional cigarette smoker Smoking Status Light tobacco smoker Smoking Tobacco Use Details Cigarette: No Details Available Cigarette: 5 Cigarettes per day Sex Female Vital Signs Date / Time: Height Weight BMI Pulse Rate Blood Pressure Temperature Respiratory Rate Body Surface Area Head Circumference Head Circ. Percentile Wt./Ryan. Percentile BMI percentile Pulse Ox Inhaled Ox 10:30 AM 64.00 in 73.936 kg (163.00 lbs) 27.9 8 kg/m eter (2) Chief Complaint And Reason For Visit From encounter dated '05/26/2019 10:30'. Right shoulder blade and arm pain/swelling/numbness (chief complaint) Reason For Referral Reason For Referral No Information Plan Of Treatment Date Type Action Status Goal Tobacco cessation counseling completed Goal Dietary management education , guidance, and counseling completed Goal Tobacco cessation counseling completed Referral Ordered: RADEX SPI CRV 2/3 VIEWS spine, cervical ordered Referral Ordered: RADEX SHAWN COMPL MINIMUM 2 VIEWS RT ordered History Of Present Illness Encounter Date Complaint History Of Prese nt Illness Right shoulder blade and arm pain/swelling/numbness Functional Status Date Functional Assessmen t No Information Instructions Date Instruction Additional Infor mation Dietary management e ducation, guidance, and counseling Related to Body mass index (BMI) 27.0-27.9, adult Home exercise program. Related t o Right shoulder pain, unspecified chronicity Discussed treatment options Rela jos to Right shoulder pain, unspecified chronicity Assessments Type Assessment Date assessment Body mass index (BMI) 27.0-27.9, adult assessment Right arm pain assessment Status post cervical spinal fusi on assessment DJD (degenerative joint disease) , cervical Patient Care Teams Name Effective Dates (start - stop) Status Members No Information
--- OUTSIDE RECORDS SUMMARY | 2019-05-26 05:30 | XMS_ITS | Continuity of Care Document ---
Author Organization [facility] Address [address] [place] [address] Phone Care Team Providers Care Ic Designer Standard Cells Name Role Phone Saud Vasquez MD Unavailable [...] OFFICE/OUTPA TIENT VISIT NEW [facility], [address] [facility] [address], [place], [address], [place] tel:[phone] [facility] Right shoulder blade and arm pain/swell ing/numbne ss (chief complaint) Body mass index (BMI) 27.0-27.9, adultRight arm painStatus post cervical spinal fusionDJD (degenerative joint disease), cervical Apr-2 0-202 0 Pedro Villavicencio. [address] [place], [place], [id number] . tel:[phone] Referring Provider: Aishwarya Ortiz, [address], [place], [address]. tel:[phone] OFFICE/OUTPA TIENT VISIT NEW [facility], [address], [place], [address], [place] tel:[phone] [facility] Right shoulder pain, unspecified chronicityBursiti s of right shoulderRadiculop athy of arm Apr- 0 Destini Gaviria. [address], [place], [place], [id number] . tel: [phone] Referring Provider: Aishwarya Ortiz, [address], [place], [address]. tel:[phone] [facility], [address], [place], [address], [place] tel:[phone] [facility] [place] Injury of right shoulder, initial encounterFall in home, initial encounter ^Unspecified place in unspecified non-institutional (private) residence as the place of occurrence of the external causeContusion of right shoulder, initial encounter 9 Surendra Hernandez. [address] [place], [place], [id number] . tel:[phone] Family History Family Member Type Diagnosis Age At Onset Mother Problem Heart disease Problem (finding) Family history of chronic obstructive lung disease Problem (finding) Family history of Liver disease Payers Payer name Insurance type Covered alliance party ID Livan torres(s) [facility] Medicaid E2 [id number] Social History Type Description Quantity Date Captured [...]
--- NOTE | ~2024-10-27 | CT_ITS ---
EXAMINATION: CT abdomen pelvis w con DATE: 10/27/2024 23:17 INDICATION: Right abdominal pain. Nausea and vomiting. TECHNIQUE: Computed tomography (CT) of the abdomen and pelvis was performed with 100 mL Omnipaque 350 intravenous contrast. Automated exposure control and iterative reconstruction technique were employed. The dose-length product was 297.24 mGy-cm. COMPARISON: None. FINDINGS: The visualized portions of the lung bases demonstrate mild atelectasis. No pleural effusion. The heart size is normal. No pericardial effusion. The liver demonstrates focal steatosis adjacent to the falciform ligament. There are changes of cholecystectomy. The common duct is dilated to 13 mm, likely not clinically significant given the normal liver function tests. The spleen, pancreas, adrenal glands, and kidneys are normal. There are no dilated loops of bowel. There is wall thickening of the transverse colon, consistent with colitis. The appendix is normal. There are no pathologically enlarged lymph nodes. There is no free intraperitoneal fluid. There are changes of anterior fusion procedure at L4-L5. There is mild lumbar spondylosis. IMPRESSION: 1. Wall thickening of the transverse colon, consistent with colitis. Reviewed, dictated and finalized at location E.
--- OUTSIDE RECORDS SUMMARY | 2024-10-27 18:02 | XMS_ITS | Clinical Summary ---
Author Organization [facility] Address [address] [place] [address] Phone Care Team Providers Care Sewing Demonstrator Name Role Phone Quita Lares MD Primary Care Provide r Dustin Jaramillo MD Unavailable Allergies Active Allergy Reactions Criticality Noted Date Comments Latex Unknown 06/21/2024 Methylprednisolone Anaphylaxis,Other (see Comments) High 02/21/2019 Tongue swelled up Tongue swelled up with high doses. Can have low doses Tongue swelled up Tongue swelled up Tongue swelled up Tongue swelled up Tongue swelled up Tongue swelled up Tongue swelled up with high doses. Can have low doses Naproxen Other (see Comments) High 08/07/2024 ulcers Silver Sulfadiazine Other (see Comments),Rash High 09/20/2015 Silvadene Wound Dressing Adhesive Itching,Rash Medium 07/02/2013 Patient states she cannot use Tegaderm either Patient states she cannot use Tegaderm either Patient states she cannot use Tegaderm either Medications metFORMIN (GLUCOPHAGE-XR) 500 MG TABLET SR 24 HR Take 500 mg by mouth 2 times daily. 1 Active SUMAtriptan (IMITREX) 100 MG Tablet Take 100 mg by mouth daily as needed for Migraine. 0 Active rosuvastatin (CRESTOR) 5 MG Tablet Take 5 mg by mouth daily. 2 Active omeprazole (PriLOSEC) 40 MG CAPSULE DELAYED RELEASE Take 40 mg by mouth daily. 5 Active methIMAzole (TAPAZOLE) 5 MG Tablet Take 5 mg by mouth daily. 4 Active cyclobenzaprine (FLEXERIL) 5 MG Tablet Take 5 mg by mouth 3 times daily as needed for Muscle spasms. 4 Active benzonatate (TESSALON) 100 MG Capsule Take 100 mg by mouth 3 times daily. 5 Active cetirizine (ZyrTEC) 10 MG Tablet Take 10 mg by mouth daily. 5 Active linaclotide (Linzess) 145 MCG Capsule Take 145 mcg by mouth every morning (before breakfast). 3 Active montelukast (SINGULAIR) 10 MG Tablet Take 10 mg by mouth daily. 2 Active amitriptyline (ELAVIL) 25 MG Tablet Take 25 mg by mouth. 1 Active albuterol 108 (90 Base) MCG/ACT Aerosol SolutionIndicati ons:Asthma,Chron ic Obstructive Pulmonary Disease take 1-2 Puffs by inhalation every 4 hours as needed for Wheezing. Indications: Asthma, Chronic Obstructive Lung Disease Active famotidine (Zantac [address]) 20 MG Tablet Take 20 mg by mouth 2 times daily. Active albuterol (PROVENTIL, VENTOLIN) (2.5 MG/3ML) 0.083% Nebulizer SolnIndications: COPD exacerbation 3 mL by Nebulization route every 6 hours as needed for Wheezing or Shortness of Breath. 360 mL 5 Active nicotine (NICODERM CQ) 7 MG/24HR PATCH 24 HR 1 Patch by Transdermal route daily. 30 Patch 5 Active Additional Information Patient not taking.Reported on 08/07/2024 roflumilast (DALIRESP) 500 MCG Tablet Take 1 Tablet by mouth daily. 30 Tablet 3 5 Active Additional Information Patient not taking.Reported on 08/07/2024 budesonide-formo terol fumarate (Symbicort) 160-4.5 MCG/ACT AerosolIndicatio ns:Asthma,Chroni c Obstructive Pulmonary Disease take 2 Puffs by inhalation 2 times daily. Indications: Asthma, Chronic Obstructive Lung Disease 11 g 3 5 Active predniSONE (DELTASONE) 50 MG Tablet Take 1 Tablet by mouth daily. 5 Tablet 5 Active Additional Information Patient not taking.Reported on 08/07/2024 ondansetron (ZOFRAN-ODT) 4 MG TABLET DISPERSIBLE Take 1 Tablet by mouth every 8 hours as needed for Nausea - 1st line. 20 Tablet Active naproxen (NAPROSYN) 500 MG Tablet Take 1 Tablet by mouth 2 times daily as needed for Moderate or more severe pain. 20 Tablet Active Additional Information Patient not taking.Reported on 08/07/2024 acyclovir (ZOVIRAX) 400 MG Tablet Take 1 Tablet by mouth every 4 hours (while awake). 45 Tablet 5 Active famotidine (PEPCID) 20 MG Tablet Take 1 Tablet by mouth 2 times daily. 60 Tablet 5 Active omeprazole (PriLOSEC) 20 MG CAPSULE DELAYED RELEASEIndicatio ns:Peptic Ulcer Take 1 Capsule by mouth daily. Indications: Peptic Ulcer 30 Capsule Active Additional Information Patient not taking.Reported on 08/07/2024 sucralfate (CARAFATE) 1 GM Tablet Take 1 Tablet by mouth every 6 hours. 120 Tablet 5 Active Active Problems Problem Noted Date Diagnosed Date Sepsis 06/21/2024 Hypokalemia 06/21/2024 Type 2 diabetes mellitus 06/21/2024 COPD (chronic obstructive pulmonary disease) Asthma 06/21/2024 GERD (gastroesophageal reflux disease) Anxiety 06/21/2024 Bipolar disorder 06/21/2024 Resolved Problems Problem Noted Date Diagnosed Date Resolved Date COPD exacerbation 06/20/2024 08/07/2024 Encounters Date Type Department Care Team Description 08/07/2024 1:30 PM CDT Office Visit [facility] - Pulmonology & Sleep Medicine [facility] [address] [place] [address] Dustin Jaramillo MD Other emphysema (HCC) (Primary Dx); Bipolar affective disorder, current episode hypomanic (HCC); Mild intermittent asthma without complication Discharge Disposition: Discharged to home or Selfcare 08/07/2024 Travel 07/28/2024 11:15 PM CDT - 07/29/2024 1:54 AM CDT [facility] [address] [facility] [place] [address] Esteban Rivera MD Acute gastritis Discharge Disposition: Discharged to home or Selfcare 07/28/2024 Travel from Last 3 Months Social History Tobacco Use Types Packs/Day Years Used Date Smoking Tobacco: Former Cigarettes Q uit: 12/23/2023 Smokeless Tobacco: Never Tobacco Cessation:Counseling Given: No Alcohol Use Standard Drinks/Week Comments Never 0 (1 standard drink = 0.6 oz pur e alcohol) [facility] Utilities Answer Date Recorded In the past [...] any time in the past 12 [facility], were you homeless or living in a senior living (including now)? No 06/21/2024 Sexually Active Control Partners Comments Not Currently Comments No Sex and Gender Information Value Date Recorded Sex Assigned at Not on file Legal Sex Female 10:34 AM RADIOGRAPHER Gender Identity Not on file Sexual Orientation Not on file Last Filed Vital Signs Vital Sign Reading Time Taken Comments Blood Pressure 120/70 08/07/2024 1:29 PM CDT Pulse 91 08/07/2024 1:29 PM CDT Temperature 36.2 C (97.2 F) 08/07/2024 1:29 PM CDT Respiratory Rate 14 08/07/2024 1:29 PM CDT Oxygen Saturation 96% 08/07/2024 1:29 PM CDT Inhaled Oxygen Concentration - - Weight 62.3 kg (137 lb 6.4 oz) 08/07/2024 1:29 P M CDT Height 162.6 cm (5' 4) 08/07/2024 1:29 PM CDT Body Mass Index 23.58 08/07/2024 1:29 PM CDT Plan of Treatment Upcoming Encounters Date Type Department Care Team (Late st Contact Info) Description 11/06/2024 1:15 PM CDT Office Visit [facility] - Pulmonology & Sleep Medicine [facility] [address] [place] [id number] Dustin Jaramillo MD [address] [place] [address] Health Maintenance Due Date Last Done Comments Diabetes: Eye Exam 1974 Diabetes: Foot Exam 1974 Hepatitis C Virus (HCV) Screening 1974 Hepatitis B Immunization (1 of 3 - 19+ 3-dose series) 1993 Pap Smear 1995 Cervical Cancer Screening (CCS) 02/28/2004 HPV/Cotest 02/28/2004 Pneumococcal Immunization (5 0+ years) (2 of 2 - PCV) 11/08/2013 11/08/2012 Cologuard 2019 Colonoscopy 2019 Mammogram 04/28/2021 04/28/2020, 02/25/2019 Zoster Immunization (1 of 2) 02/28/2024 Influenza Immunization (#1) 2024 11/08/2012 SARS-COV-2 Immunization ( season) 2024 Diabetes: Hemoglobin A1c 12/22/2024 025, 02/14/2024, 03/02/2023 Diabetes: Nephropathy Screening 07/28/2025 07/28/2024, 07/25/2024, 06/20/2024 Colorectal Cancer Screening 07/29/2025 Immunochemical Fecal Occult Blood 07/29/2025 07/29/2024 Respiratory Syncytial Virus (RSV) Immunization (Adult) (1 [...] Procedure Name Priority Date/Time Associated Diagnosis Comments CT ABDOMEN PELVIS W/ CONTRAST Stat with Interpretation 07/29/2024 1:01 AM CDT STOOL, OCCULT BLOOD, DIAGNOSTIC, VIA GUAIAC STAT 07/29/2024 12:08 AM CDT GOLD TOP TUBE STAT 07/28/2024 10:12 PM CDT BLUE TOP TUBE STAT 07/28/2024 10:12 PM CDT CBC WITH AUTO DIFFERENTIAL STAT 07/28/2024 10:12 PM CDT EXTRA TUBES STAT 07/28/2024 10:12 PM CDT CMP (COMPREHENSIVE METABOLIC PANEL) STAT 07/28/2024 10:12 PM CDT COMPLETE BLOOD COUNT (CBC) WITH DIFF STAT 07/28/2024 10:12 PM CDT HEMOGLOBIN A1C W/ ESTIMATED GLUCOSE STAT 06/21/2024 6:48 AM CDT from Last 3 Months or Most Recently Relevant to Health Maintenance Results * CT ABDOMEN PELVIS W/ CONTRAST (07/29/2024 1:01 AM CDT) Anatomical Region Laterality Modality Abdomen N/A Computed Tomogra phy 07/29/2024 1:20 AM CDT Impressions 07/29/2024 1:23 AM CDT IMPRESSION: No acute finding. Narrative 07/29/2024 1:23 AM CDT EXAM DESCRIPTION: CT ABDOMEN PELVIS W/ CONTRAST REASON FOR STUDY: Acute generalized abdominal pain and GI bleed, blood in stool for 3 hours today. TECHNIQUE: CT scan of the abdomen and pelvis performed with intravenous and without oral contrast using helical scanning technique with dynamic intravenous contrast injection. Reconstructed coronal and sagittal MPR images reviewed. All images stored on PACS. Automated exposure control was used as a dose optimization technique for this examination. CONTRAST TYPE/DOSE: 100mL of IOPAMIDOL 76 % IV SOLN injected via Intravenous COMPARISON: 07/25/2024 FINDINGS: LOWER CHEST: No significant pulmonary abnormalities. No effusion. LIVER: Normal size. No identified cystic or solid masses. GALLBLADDER: Surgically absent. BILE DUCTS: No intrahepatic or extrahepatic ductal dilatation. SPLEEN: Normal size. No focal lesions. PANCREAS: No identified cystic or solid masses. No significant calcifications. No adjacent inflammation or peripancreatic fluid collections. Pancreatic duct not dilated. ADRENALS: Normal. KIDNEYS/URINARY TRACT: No identified significant cystic or solid masses. No visualized stones. No hydronephrosis or hydroureter. Symmetric enhancement. Urinary bladder is unremarkable. GI: No dilated bowel loops. No obvious wall thickening. Normal appendix. No significant diverticular disease. PERITONEUM: No ascites or free air. RETROPERITONEUM: No mass or adenopathy. REPRODUCTIVE: No significant abnormality. VASCULATURE: No abdominal aortic aneurysm. MUSCULOSKELETAL: No significant abnormality. OTHER: No other abnormality. THIS IS AN ELECTRONICALLY VERIFIED FINAL REPORT 07/29/2024 1:20 AM - Electronically signed by Donavon Terrell M.D. KT: LINETTE Report ID: [id number] Reading Location: [id number] Procedure Note Donavon Terrell MD - 07/29/2024 EXAM DESCRIPTION: CT ABDOMEN PELVIS W/ CONTRAST REASON FOR STUDY: Acute generalized abdominal pain and GI bleed, blood in stool for 3 hours today. TECHNIQUE: CT scan of the abdomen and pelvis performed with intravenous and without oral contrast using helical scanning technique with dynamic intravenous contrast injection. Reconstructed coronal and sagittal MPR images reviewed. All images stored on PACS. Automated exposure control was used as a dose optimization technique for this examination. CONTRAST TYPE/DOSE: 100mL of IOPAMIDOL 76 % IV SOLN injected via Intravenous COMPARISON: 07/25/2024 FINDINGS: LOWER CHEST: No significant pulmonary abnormalities. No effusion. LIVER: Normal size. No identified cystic or solid masses. GALLBLADDER: Surgically absent. BILE DUCTS: No intrahepatic or extrahepatic ductal dilatation. SPLEEN: Normal size. No focal lesions. PANCREAS: No identified cystic or solid masses. No significant calcifications. No adjacent inflammation or peripancreatic fluid collections. Pancreatic duct not dilated. ADRENALS: Normal. KIDNEYS/URINARY TRACT: No identified significant cystic or solid masses. No visualized stones. No hydronephrosis or hydroureter. Symmetric enhancement. Urinary bladder is unremarkable. GI: No dilated bowel loops. No obvious wall thickening. Normal appendix. No significant diverticular disease. PERITONEUM: No ascites or free air. RETROPERITONEUM: No mass or adenopathy. REPRODUCTIVE: No significant abnormality. VASCULATURE: No abdominal aortic aneurysm. MUSCULOSKELETAL: No significant abnormality. OTHER: No other abnormality. THIS IS AN ELECTRONICALLY VERIFIED FINAL REPORT 07/29/2024 1:20 AM - Electronically signed by Donavon Terrell M.D. KT: LIENTTE Report ID: [id number] Reading Location: [place] [address] IMPRESSION: No acute finding. Esteban Rivera MD IMG CT ORDERABLES Final R esult * Stool Occult Blood - Diagnostic (07/29/2024 12:08 AM CDT) OCCULT BLOOD DIAG Negative Negative 07/29/2024 12:44 AM CDT [facility] Stool Non-Phlebotomy Collection / Unknown 07/29/2024 12:08 AM CDT 07/29/2024 12:42 AM CDT Esteban Rivera MD BODY FLUIDS & STOOLS [facility] Final Result [facility] [address] [place] [address] * Gold Top Tube (07/28/2024 10:12 PM CDT) Blood No Phlebotomy Charged / Unknown 07/28/2024 10:12 PM CDT 07/28/2024 10:31 PM CDT Esteban Rivera MD CHEMISTRY ORDERABLES Jillian l Result Performing Organization Address City/[facility]/ZIP Co de Phone Number [facility] [address] [place] [address] * Blue Top Tube (07/28/2024 10:12 PM CDT) Blood No Phlebotomy Charged / Unknown 07/28/2024 10:12 PM CDT 07/28/2024 10:31 PM CDT Esteban Rivera MD HEMATOLOGY ORDERABLES Fin al Result Performing Organization Address [facility]/[place] Co de Phone Number [facility] [address] [place] [address] * (ABNORMAL) CBC with Auto Differential (07/28/2024 10:12 PM CDT) WBC 11.69 4.00 - 12.00 10(3)/mcL 07/28/2024 10:44 PM CDT [facility] RBC 4.36 3.80 - 5.30 10(6)/mcL 07/28/2024 10:44 PM CDT [facility] HEMOGLOBIN (HGB) 14.1 12.0 - 15.8 g/dL 07/28/2024 10:44 PM CDT [facility] HEMATOCRIT (HCT) 42.3 36.0 - 47.0 % 07/28/2024 10:44 PM CDT [facility] MCV 97.0(H) 82.0 - 96.0 fL 07/28/2024 10:44 PM CDT [facility] MCH 32.3 26.0 - 34.0 pg 07/28/2024 10:44 PM CDT [facility] MCHC 33.3 31.0 - 36.0 g/dL 07/28/2024 10:44 PM CDT [facility] PLATELET COUNT 292 140 - 440 10(3)/mcL 07/28/2024 10:44 PM CDT [facility] RDW 13.8 11.8 - 15.5 % 07/28/2024 10:44 PM CDT [facility] MPV 10.9 9.7 - 12.4 fL 07/28/2024 10:44 PM CDT [facility] NEUTROPHILS 68.6 47.0 - 73.0 % 07/28/2024 10:44 PM CDT [facility] LYMPHOCYTES 24.1 18.0 - 42.0 % 07/28/2024 10:44 PM CDT [facility] MONOCYTES 6.0 4.0 - 12.0 % 07/28/2024 10:44 PM CDT [facility] EOSINOPHILS 0.2 0.0 - 5.0 % 07/28/2024 10:44 PM CDT [facility] BASOPHILS 0.8 0.0 - 1.0 % 07/28/2024 10:44 PM CDT [facility] IMMATURE GRANULOCYTE 0.3 0.0 - 0.4 % 07/28/2024 10:44 PM CDT [facility] Comment:Immature Granulocyte s includes Metamyelocytes, Myelocytes, and Promyelocytes. ABSOLUTE NEUTROPHILS 8.03(H) 1.60 - 7.70 10(3)/[facility] 07/28/2024 10:44 PM CDT [facility] ABSOLUTE LYMPHOCYTES 2.82 1.30 - 3.20 10(3)/mcL 07/28/2024 10:44 PM CDT [facility] ABSOLUTE MONOCYTES 0.70 0.20 - 1.00 10(3)/[facility] 07/28/2024 10:44 PM CDT [facility] ABSOLUTE EOSINOPHIL 0.02 0.00 - 0.40 10(3)/mcL 07/28/2024 10:44 PM CDT [facility] ABSOLUTE BASOPHILS 0.09 0.00 - 0.10 10(3)/[facility] 07/28/2024 10:44 PM CDT [facility] ABSOLUTE IMMATURE GRANULOCYTE 0.03 0.00 - 0.03 10 (3) mcL. 07/28/2024 10:44 PM CDT [facility] NRBC PER 100 WBC 0 07/29/19 10:44 PM CDT [facility] Blood Venipuncture / Unknown 07/28/2024 10:12 PM CDT 07/28/2024 10:37 PM CDT us Esteban Rivera MD HEMATOLOGY ORDERABLES Fin al Result [facility] [address] [place] [address] * (ABNORMAL) Comprehensive Metabolic Panel (Cmp) [id number] (07/28/2024 10:12 PM CDT) SODIUM 138 136 - 145 mmol/L 07/28/2024 11:09 PM CDT [facility] POTASSIUM 3.7 3.5 - 5.1 mmol/L 07/28/2024 11:09 PM CDT [facility] CHLORIDE 106 98 - 107 mmol/L 07/28/2024 11:09 PM CDT [facility] CO2, VENOUS 22 22 - 30 mmol/L 07/28/2024 11:09 PM CDT [facility] ANION GAP 13.7 <18.0 mmol/L 07/28/2024 11:09 PM CDT [facility] GLUCOSE 78 70 - 99 mg/dL 07/28/2024 11:09 PM CDT [facility] BUN 3(L) 10 - 20 mg/dL 07/28/2024 11:09 PM CDT [facility] CREATININE, BLOOD 0.71 0.60 - 1.00 mg/dL 07/28/2024 11:09 PM CDT [facility] BUN/CREATININE RATIO 4(L) 12 - 20 ratio 07/28/2024 11:09 PM CDT [facility] TOTAL PROTEIN 7.8 6.0 - 8.0 g/dL 07/28/2024 11:09 PM CDT [facility] ALBUMIN 4.3 3.5 - 5.0 g/dL 07/28/2024 11:09 PM CDT [facility] A/G RATIO 1.2 1.0 - 2.2 07/28/2024 11:09 PM CDT [facility] CALCIUM 9.6 8.7 - 10.5 mg/dL 07/28/2024 11:09 PM CDT [facility] T BILI 0.3 0.2 - 1.2 mg/dL 07/28/2024 11:09 PM CDT [facility] SGOT (AST) 27 <43 U/L 07/28/2024 11:09 PM CDT [facility] SGPT (ALT) 15 <56 U/L 07/28/2024 11:09 PM CDT [facility] ALKALINE PHOSPHATASE 122 40 - 150 U/L 07/28/2024 11:09 PM CDT [facility] GFR, ESTIMATED >60 >=60 07/28/2024 11:09 PM CDT [facility] Comment: Creatinine Clearance is the preferred criteria for selecting drug dose adjustments in renally impaired patients. The GFR is provided as additional pertinent clinical information. GFR is reported in mL/min/1.73 sq m. Calculation based on the Chronic Kidney Disease Epidemiology Collaboration (CKD- EPI) equation refit without adjustment for race. GFR, EST. >60 >=60 025 11:09 PM CDT [facility] GFR, EST. NONAFRICAN >60 >=60 07/28/2024 11:09 PM CDT [facility] Blood Venipuncture / Unknown 07/28/2024 10:12 PM CDT 07/28/2024 10:37 PM CDT Esteban Rivera MD CHEMISTRY ORDERABLES Jillian shi Result [facility] [address] [place] [address] * (ABNORMAL) Hemoglobin A1C (if indicated) (06/21/2024 6:48 AM CDT) HGB-A1C 6.4(H) 4.0 - 6.0 % 06/21/2024 7:16 AM CDT [facility] Est Average Glucose 137.0 mg/dL 06/21/2024 7:16 AM CDT [facility] Blood Venipuncture / Unknown 06/21/2024 6:48 AM CDT 06/21/2024 6:48 AM CDT Narrative [facility] - 06/21/2024 7:16 AM CDT HEMOGLOBIN A1C: DIABETIC PATIENTS: WELL-CONTROLLED: 6.2 - 7.0 INTERMEDIATE WELL-CONTROLLED: 7.0 - 9.0 POORLY-CONTROLLED: >9.0 Specimens containing greater than 5% of Hemoglobin F may result in lower than expected % HbA1C results. Candice Vazquez APRN, FOOD AND BEVERAGE MANAGER CHEMISTRY ORDERABLES Final Result Performing Organization Address City/[facility]/[place] Co de Phone Number [facility] [address] [place] [address] from Last 3 Months or Most Recently Relevant to Health Maintenance Insurance MED[place] Advance Directives * Full Code (Latest Code Status on File) Date Activated Date Inactivated Comments 06/20/2024 9:43 PM CPR-Full Treat ment: FULL ARREST: Attempt Resuscitation/CPR wit intubation and mechanical ventilation. PRE-ARREST: Use entire range of life support measures to stabilize the patient. Care Teams Sewing Demonstrator Relationship Specialty Start Date End Date Quita Lares MD [address] [place] [address] PCP - General Internal Medicine 06/22/24 Dustin Jaramillo MD [address] [place] [address] Consulting Physician Pulmonary Disease 07/18/24
--- OUTSIDE RECORDS SUMMARY | 2024-10-27 18:02 | XMS_ITS | Encounter Summary ---
Author Organization [facility] Address [address] [place] [address] Care Team Providers Care Automotive Fuel Systems Converter Name Role Phone Bharath Martinez DO Unavailable [phone] Prasanth Perea MD Unavailable [phone] Quita Lares MD Primary Care Provider Marianne Souza COST ACCOUNTING CLERK-[facility] Unavailable [phone] Reason for Visit * Reason Onset Date Comments Pain Abdominal 10/20/2024 Encounter Details Date Type Department Care Team (Late st Contact Info) Description 10/20/2024 Telephone [facility] - Family Medicine [address] [place] [address], [address] [place] [address] Quita Lares MD [address] [place] [address] Pain Abdominal Social History Tobacco Use Types Packs/Day Years [...] of Assessment Author No 04/03/2019 4:08 PM BROADCAST SYSTEMS ENGINEER Waqas Lucas RN * Is person blind or have serious difficulty seeing? Answer Date of Assessment Author No 03/24/2019 7:58 PM BROADCAST SYSTEMS ENGINEER Funmi Thorpe RN * Does person [...] encounter Miscellaneous Notes * Telephone Encounter - Juan C Queen RN - 10/27/2024 10:09 AM CDT Pt called back, states she can't keep any food down. States she has had symptoms for two weeks now.Advised ER for evaluation. * Telephone Encounter - Alyssia Mejia MA - 10/21/2024 4:00 PM CDT Spoke with patient and informed of below. Number updated in chart. * Telephone Encounter - Elvi Sweeney RN - 10/21/2024 10:32 AM CDT Attempted to call patient. Phone number not in service. * Telephone Encounter - Darling Michael MA - 10/21/2024 10:30 AM CDT Attempted to call pt , phone number not in service. * Telephone Encounter - Quita Lares MD - 10/20/2024 4:59 PM CDT To further evaluate patient needs an appointment in the office, urgent care or ER. Meantime patientcan consider [id number] omeprazole 20 mg daily, lactose free, low-fiber diet and increase fluid intake. * Telephone Encounter - Juan C Queen RN - 10/20/2024 1:56 PM CDT Pt called stating she has had increased upper abd pain and diarrhea for the past week. States she cannot come in for an appt because she has no transportation and nobody can give her a ride. Denies blood in her stool or diarrhea. Advised bland diet and increasing fluids. Pt requesting PCP's recommendations and what we can do without an OV. documented in this encounter Plan of Treatment Upcoming Encounters Date Type Department Care Team (Late st Contact Info) Description 12/18/2024 1:00 PM BROADCAST SYSTEMS ENGINEER Office Visit [facility] - Family Medicine [address], [facility] [address] [place] [address] Marianne Souza, COST ACCOUNTING CLERK-HANDBAG PARTS CUTTER [address] [facility] [address] [place] [address] documented as of this encounter Visit Diagnoses Not on filedocumented in this encounter Care Teams Automotive Fuel Systems Converter Relationship Specialty Start Date End Date Quita Lares MD [address] [place], [place] [address] PCP - General Internal Medicine 02/07/23 Marianne Souza, COST ACCOUNTING CLERK-HANDBAG PARTS CUTTER [address] [id number] PCP - Attributed-[employer] Medicaid [place] 01/05/23 Bharath Martinez DO Orthopedic Surgery 06/07/16 [place] [address] [address] Physical Medicine and Rehabilitation 10/16/19 documented as of this encounter
--- OUTSIDE RECORDS SUMMARY | 2024-10-27 18:02 | XMS_ITS | Clinical Summary ---
Author Organization [facility] Address [address] [place] [address] Care Team Providers Care Applied Statistician Name Role Phone Marianne Souza NP Primary Care Provider [phone] Allergies Active Allergy Reactions Criticality Noted Date [...] 2 Bursitis of shoulder 07/13/2021 Cannabis dependence ([facility]) 07/13/2021 Status post cervical spinal fusion 07/13/2021 Hot flashes due to menopause 02/01/2021 Hyperlipidemia 02/01/2021 Type 2 diabetes mellitus wit hout complication ([facility]) 04/05/2020 Migraine without aura and wi thout status migrainosus, not intractable 06/17/2018 Moderate persistent asthma without complication ([facility]) 06/17/2018 Polyp of colon 06/17/2018 Primary osteoarthritis involving multiple joints 06/17/2018 Spinal stenosis of cervical region 12/22/2016 Chronic obstructive lung disease ([facility]) 12/02/2016 H/O migraine 12/01/2016 Allergic rhinitis 06/01/2016 Rupture of left biceps tendon 06/01/2016 Bipolar disorder, current ep isode mixed, moderate ([facility]) 02/14/2016 Smoker 02/14/2016 Tobacco use 02/14/2016 Duodenal ulcer disease 01/27/2016 Overview (04/17/2023): Overview: Dr. Raygoza/GARTH 01/2016 Overview: Overview: Dr. Raygoza/GARTH 01/2016 Dr. Raygoza/GARTH 01/2016 Overview: Dr. Raygoza/GARTH 01/2016 Anxiety state 11/29/2015 Abnormal brain MRI 09/20/2015 Chronic erosive gastritis 09/20/2015 Depression with anxiety 09/20/2015 GERD (gastroesophageal reflux disease) 6 Bipolar 1 disorder, depressed ([facility]) 09/20/2015 Abnormal Pap smear of cervix 07/23/2013 ASCUS with positive high risk HPV cervical 07/23 Arthralgia of hip 08/04/2008 Heart murmur Immunizations Immunization Administration Dates Next Due Influenza [...] PM CDT Legal Sex Female 10:05 AM DURALUMIN METALWORKER Gender Identity Not on file Sexual Orientation Not on file Last Filed Vital Signs Vital Sign Reading Time Taken Comments Blood Pressure 109/81 02/06/2024 9:39 AM DURALUMIN METALWORKER Pulse 90 02/06/2024 9:39 AM DURALUMIN METALWORKER Temperature 36.3 C (97.4 F) 02/06/2024 9:39 AM DURALUMIN METALWORKER Respiratory Rate 18 02/06/2024 9:39 AM DURALUMIN METALWORKER Oxygen Saturation 100% 02/06/2024 9:39 AM DURALUMIN METALWORKER Inhaled Oxygen Concentration - - Weight 64.4 kg (141 lb 15.6 oz) 02/06/2024 9:39 AM DURALUMIN METALWORKER Height 162.6 cm (5' 4) 02/06/2024 9:39 AM DURALUMIN METALWORKER Body Mass Index 24.37 02/06/2024 9:39 AM DURALUMIN METALWORKER Plan of Treatment Upcoming Encounters Date Type Department Care Team (Late st Contact Info) Description 11/04/2024 7:40 AM CDT Office Visit [facility] [address] [place] [id number] Basurto RashaadDO [address] [place] [address] Health Maintenance Due Date Last Done Comments Colorectal Cancer Screening Colonoscopy (10 Years) 1974 Kidney Health Evaluation 1974 Annual Physical 1977 Hepatitis B Vaccines (1 of 3 - 19+ 3-dose series) 1993 Pneumococcal Vaccine: 50+ Years (2 of 2 - PCV) 11/08/2013 11/08/2012 Mammogram Screening 04/28/2022 04/28/2020, Cervical Cancer Screening Pap with HPV Testing (Age 30 to 64) Every 5 Years 12/05/2023 12/04/2018 PHQ-2 (Physician [place]) 02/06/2024 06/07/2023 Zoster Vaccines (1 of 2) 02/28/2024 Lipid Panel 03/02/2024 03/02/2023 Hemoglobin A1C 08/13/2024 02/14/2024, 02/06, 03/02/2023, Additional history exists COVID-19 Vaccine ( season) 2024 Diabetes: Retinopathy Eye Exam 04/17/2025 04/18/2023 DTaP, [...] Procedure Name Priority Date/Time Associated Diagnosis Comments HEMOGLOBIN, GLYCOSYLATED Routine 03/02/2023 from Last 3 Months or Most Recently Relevant to Health Maintenance Results * HEMOGLOBIN, GLYCOSYLATED (03/02/2023) HGB A1C 6.8 % 03/02/2023 us Default History Genericprovider LABORATORY Final Result from Last 3 Months or Most Recently Relevant to Health Maintenance Insurance [employer] Care Teams Applied Statistician Relationship Specialty Start Date End Date Marianne Souza NP PCP - General Nurse Practitioner Family 02/09/23
--- OUTSIDE RECORDS SUMMARY | 2024-10-27 18:02 | XMS_ITS | Encounter Summary ---
Author Organization [facility] Address [address] [place] [address] Care Team Providers Care Dog Pound Attendant Name Role Phone Bharath Martinez DO Unavailable [phone] Aishwarya Ortiz DO Primary Care Provider [phone] Prasanth Perea MD Unavailable [phone] Quita Lares MD Primary Care Provider Marianne Souza MAXILLOFACIAL PROSTHETICS DENTIST-SECURITIES DEALER Unavailable [phone] Encounter Details Date Type Department Care Team (Late st Contact Info) Description 01/31/2016 Transitional Care [facility] [address] [place] [address] Caroline Cagle RN Social History Tobacco Use [...] 01/28/2016 1:16 PM Jenifer John RN * Does person have serious difficulty walking/climbing stairs? Answer Date of Assessment Author No 01/28/2016 1:16 PM MACHINE SLAT BASKET MAKER Jenifer Merchant, DELANEY * Does person have difficulty dressing/bathing? Answer Date of Assessment Author No 01/28/2016 1:16 PM MACHINE SLAT BASKET MAKER Jenifer Merchant, DELANEY * Does person have difficulty doing errands alone? Answer Date of Assessment Author No 01/28/2016 1:16 PM MACHINE SLAT BASKET MAKER Jenifer Merchant, DELANEY documented as of this encounter Mental Status * Does person have difficulty concentrating/remembering/making decisions? Answer Entry Date Author No 01/28/2016 1:16 PM MACHINE SLAT BASKET MAKER Jenifer Merchant RN documented in this encounter Miscellaneous Notes * Telephone Encounter - Caroline Cagle, DELANEY - 02/01/2016 2:16 PM CST Spoke with [...] there was no answer, message left. [facility] will wait for medication reconciliation before signing off. INE SLAT BASKET MAKER documented in this encounter Plan of Treatment Upcoming Encounters Date Type Department Care Team (Late st Contact Info) Description 12/18/2024 1:00 PM MACHINE SLAT BASKET MAKER Office Visit [facility] - Family Medicine [address] [place] [address] Marianne Souza, MAXILLOFACIAL PROSTHETICS DENTIST-SECURITIES DEALER [address] [facility] [address] [place] [phone] documented as of this encounter Visit Diagnoses Not on filedocumented in this encounter Additional Health Concerns Infection Onset Date Last Indicated Resolved Time COVID-19 Under Investigation 03/14/2022 03/14/2022 03/14/2022 3:34 PM MACHINE SLAT BASKET MAKER documented as of this encounter Care Teams Dog Pound Attendant Relationship Specialty Start Date End Date Aishwarya Ortiz DO [address] [place] [address] PCP - General Family Medicine 06/17/18 02/06/23 Quita Lares MD [address] [place] [address] PCP - General Internal Medicine 02/07/23 Marianne Souza, MAXILLOFACIAL PROSTHETICS DENTIST-SECURITIES DEALER [address] [address] [place] [phone] PCP - Attributed-Agrawal Medicaid ST 01/05/23 Bharath Martinez DO Orthopedic Surgery 06/07/16 [place] [id number] [address] [place] [address] Physical Medicine and Rehabilitation 10/16/19 documented as of this encounter
--- OUTSIDE RECORDS SUMMARY | 2024-10-27 18:02 | XMS_ITS | Clinical Summary ---
Author Organization [facility] [address] Address [address] [place] [phone] Care Team Providers Care Back Gray Cloth Washer Name Role Phone Marianne Souza NP Primary Care Provider [phone] Allergies Active Allergy Reactions Criticality Noted Date [...] ulcer disease 01/27/2016 Overview (05/28/2023): Overview: Dr. Pembertno 01/2016 Overview: Overview: Dr. Pemberton 01/2016 Dr. [...] reflux Migraine COPD (chronic obstructive pulmonary disease) Family History Medical History Relation Name Comments [...] on file Legal Sex Female 5:05 PM SPONGE MAKER Gender Identity Not on file Sexual [...] 02/06, 09/06/2021, Additional history exists Influenza Vaccine (#1) 2024 11/08/2012 DTaP/Tdap/Td Vaccine (2 - Td or Tdap) 06/11/2026 06/11/2016 Medical Devices Implanted Type Area Lift Slab Operator Device Identifier Shelf Expiration Date Model / Serial / Lot Rods Lumbar-Sacra l Spine Insurance [facility] Care Teams Back Gray Cloth Washer Relationship Specialty Start Date End Date Marianne Souza NP [address] [phone] PCP - General Family Practice 05/28/23
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
[2024-10-27 18:37] VITALS: BP 115/73; RESP 18; TEMP 36.6; O2SAT 100
--- NOTE | 2024-10-27 19:34 | PC.NURSE ---
Patient up to intake with complaints that abdominal pain is increasing-patient is able to ambulate slowly
[2024-10-27 20:06] LABS: Hematocrit 42.2 % (37.0-47.0); Hemoglobin 14.2 g/dL (12.0-15.0); Immature Granulocyte Percent A 0.3 % (0-0.5); Lymphocytes Absolute Auto 3.28 K/mm3 (0.9-3.2); Mean Corpuscular HGB Conc 33.6 g/dl (32-36); Mean Corpuscular Hemoglobin 32.1 pg (26-34); Mean Corpuscular Volume 95.3 fl (80-100); Nucleated Red Blood Cells Absolute Auto 0.000 K/mm3 (0.0-0.012); Nucleated Red Blood Cells Perc 0.0 % (0.0-0.2); Platelet Count Result 300 k/mm3 (150-375); Red Blood Count 4.43 M/mm3 (4.2-5.4); White Blood Count 9.5 K/mm3 (4.5-10.0)
--- NOTE | 2024-10-27 20:13 | PC.NURSE ---
Pt reports she is unable to provide a urine sample at this time.
[2024-10-27 20:14] VITALS: BP 130/85; PULSE 74; RESP 18; O2SAT 100
[2024-10-27 20:27] LABS: Alanine Aminotransferase 12 U/L (6-35); Albumin Level 4.3 g/dL (3.5-5.1); Alkaline Phosphatase 107 U/L (38-126); Anion Gap 7 mmol/L (4-12); Aspartate Amino Transferase 30 U/L (14-36); Bilirubin,Total 0.5 mg/dL (0.2-1.3); Blood Urea Nitrogen 3 mg/dL (7-17); Calcium 9.5 mg/dL (8.4-10.2); Carbon Dioxide 28 mmol/L (22-30); Chloride 97 mmol/L (98-107); Estimated CRCL calculation 84 ml/min; Estimated Glomerular Filt Rate > 60; Glucose 99 mg/dL (65-110); Lipase 54 U/L (23-300); Potassium 3.2 mmol/L (3.4-5.0); Sodium 132 mmol/L (137-145); Total Protein 7.5 g/dL (6.3-8.2)
[2024-10-27] MEDS: LACTATED RINGERS 1,000 ML 999 ML IV CONT (20:30)
[2024-10-27] MEDS: ONDANSETRON INJ 4 MG/2 ML VIAL IV PUSH (20:30)
--- OUTSIDE RECORDS SUMMARY | 2024-10-27 20:46 | XMS_ITS | Clinical Summary ---
Author Organization [facility] Address [address] [place] [address] Care Team Providers Care Business Center Representative Name Role Phone Marianne Souza NP Primary Care Provider [phone] Allergies Active Allergy Reactions Criticality Noted Date [...] 2 Bursitis of shoulder 07/13/2021 Cannabis dependence ([facility]) 07/13/2021 Status post cervical spinal fusion 07/13/2021 Hot flashes due to menopause 02/01/2021 Hyperlipidemia 02/01/2021 Type 2 diabetes mellitus wit hout complication ([facility]) 04/05/2020 Migraine without aura and wi thout status migrainosus, not intractable 06/17/2018 Moderate persistent asthma without complication ([facility]) 06/17/2018 Polyp of colon 06/17/2018 Primary osteoarthritis involving multiple joints 06/17/2018 Spinal stenosis of cervical region 12/22/2016 Chronic obstructive lung disease ([facility]) 12/02/2016 H/O migraine 12/01/2016 Allergic rhinitis 06/01/2016 Rupture of left biceps tendon 06/01/2016 Bipolar disorder, current ep isode mixed, moderate ([facility]) 02/14/2016 Smoker 02/14/2016 Tobacco use 02/14/2016 Duodenal ulcer disease 01/27/2016 Overview (04/17/2023): Overview: Dr. Raygoza/[place] 01/2016 Overview: Overview: Dr. Raygoza/[facility] 01/2016 Dr. Raygoza/[facility] 01/2016 Overview: Dr. Raygoza/[place] 01/2016 Anxiety state 11/29/2015 Abnormal brain MRI 09/20/2015 Chronic erosive gastritis 09/20/2015 Depression with anxiety 09/20/2015 GERD (gastroesophageal reflux disease) 6 Bipolar 1 disorder, depressed ([facility]) 09/20/2015 Abnormal Pap smear of cervix [...] PM CDT Legal Sex Female 10:05 AM AGRICULTURAL REAL ESTATE AGENT Gender Identity Not on file Sexual Orientation Not on file Last Filed Vital Signs Vital Sign Reading Time Taken Comments Blood Pressure 109/81 02/06/2024 9:39 AM AGRICULTURAL REAL ESTATE AGENT Pulse 90 02/06/2024 9:39 AM AGRICULTURAL REAL ESTATE AGENT Temperature 36.3 C (97.4 F) 02/06/2024 9:39 AM AGRICULTURAL REAL ESTATE AGENT Respiratory Rate 18 02/06/2024 9:39 AM AGRICULTURAL REAL ESTATE AGENT Oxygen Saturation 100% 02/06/2024 9:39 AM AGRICULTURAL REAL ESTATE AGENT Inhaled Oxygen Concentration - - Weight 64.4 kg (141 lb 15.6 oz) 02/06/2024 9:39 AM AGRICULTURAL REAL ESTATE AGENT Height 162.6 cm (5' 4) 02/06/2024 9:39 AM AGRICULTURAL REAL ESTATE AGENT Body Mass Index 24.37 02/06/2024 9:39 AM AGRICULTURAL REAL ESTATE AGENT Plan of Treatment Upcoming Encounters Date Type Department Care Team (Late st Contact Info) Description 11/04/2024 7:40 AM CDT Office Visit [facility] Medical Group Multispecialty Care - [facility]3][facility] [address] [place] [id number] [employer] [address] [facility] [address] [place] [address] Health Maintenance Due Date Last Done Comments [...] Every 5 Years 12/05/2023 12/04/2018 PHQ-2 (Physician [place]) 02/06/2024 06/07/2023 Zoster Vaccines (1 of 2) [...] Most Recently Relevant to Health Maintenance Insurance [place] Care Teams Business Center Representative Relationship Specialty Start Date End Date Marianen Souza NP PCP - General Nurse Practitioner Family 02/09/23
--- OUTSIDE RECORDS SUMMARY | 2024-10-27 20:46 | XMS_ITS | Clinical Summary ---
Author Organization [facility] Address [address] [place] [address] Care Team Providers Care Metal Punch Press Operator Name Role Phone Bharath Martinez DO Unavailable [phone] Prasanth Perea MD Unavailable [phone] Quita Lares MD Primary Care Provider Marianne Souza CULINARY MANAGER-[facility] Unavailable [phone] Source Comments [facility],non-owned Affiliates and Associated Physician Practices is amultiple site organization consisting of ambulatory clinics and hospital sitesin [place], [place], [place] and [place]. This disclosure is being madepursuant to the Care Everywhere program and may not contain all information available regarding this patient. Last updated 17.[facility] Allergies Active Allergy Reactions Criticality Noted Date [...] 2 diabetes mellitus without complication, unspecified whether chcf insulin use (HCC) Use 1 (one) Each [...] polyneuropathy, without long-term current use of insulin ([facility]) TAKE 2 TABLETS BY MOUTH TWICE DAILY BEFORE BREAKFAST AND SUPPER 360 tablet 09/24/19 25 Active Insulin Pen Needle (TRUEplus 5-Bevel Pen [place]) 32G X 4 MM MISCIndications: Type 2 diabetes mellitus with diabetic polyneuropathy, without long-term current use of insulin ([facility]) 1 Each by Intradermal route 3 times daily as needed 120 Each 1 09/24/19 25 Active gabapentin (Neurontin) 300 MG capsuleIndicatio ns:Type 2 diabetes mellitus with diabetic polyneuropathy, without long-term current use of insulin ([facility]) Take 1 (one) capsule by mouth at [...] fluticasone propionate (Flonase) 50 MCG/ACT nasal spray [place] 2 (two) sprays into each nostril once [...] Type Department Care Team Description 10/20/[address], [facility] [address] [place] [address] Quita Lares MD Pain Abdominal 09/23/2024 4:00 PM CDT Office Visit [facility] [address] [facility] [address] [place] [address] Marianne Souza, CULINARY MANAGER-SCRAP SORTER Severe persistent asthma without complication (HCC) (Primary [...] Cannabis dependence (HCC) 09/23/2024 Travel 09/18/[address] [place] [address] Quita Lares MD MEDICATION REFILL 09/12/2024 Telephone [facility] [address] [facility], [address] [place] [address] Quita Lares MD Appointment 09/11/2024 Refill [facility] [address] [facility], [address] [place] [address] Marianne Souza, CULINARY MANAGER-SCRAP SORTER Refill Request 08/18/2024 Refill [facility] [address] [place] [address] Quita Lares MD Refill Request 08/15/2024 Refill [facility] [address] [facility], [facility] [address] [place] [address] Quita Lares MD Refill Request from Last [...] st Contact Info) Description 12/18/2024 1:00 PM MINE SUPERINTENDENT Office Visit [facility] Medical [facility] - Family Medicine [address] [facility], [address] [place] [address] Marianne Souza, CULINARY MANAGER-SCRAP SORTER [address] [facility] [address] [place] [address] Health Maintenance Due Date Last Done [...] HCV RNA QN PCR 03/02/2023 11:53 AM MINE SUPERINTENDENT HIV-1 HIV-2 ANTIBODY + HIV P24 AG PANEL Routine 03/02/2023 11:53 AM MINE SUPERINTENDENT Screen for STD (sexually transmitted disease) ENDOSCOPY, COLON, SCREENING Routine 12/16/2021 1:18 PM MINE SUPERINTENDENT MAMMO BILAT SCREENING Routine 04/28/2020 12:18 PM [...] 6.1 % Expiration Date 2026-05-08 Lot # [id number] QC Verified Yes Yes Blood BLOOD SPECIMEN / Unknown 09/23/2024 4:46 PM CDT us Marianne Souza CULINARY MANAGER-SCRAP SORTER LAB - POINT OF CARE KATHLEEN REA [...] - 06/17/2024 1:09 PM CDT Performed at: [address] [place] [id number] Staff Radiographer: Travis Palmer PhD, Phone: [phone] Quita Lares MD LAB - CHEMISTRY ORDERAB LES Final Result [facility] INSURANCE BILL [address] [place] [address] * MICROALB/CREAT RATIO URINE RANDOM PANEL (10/10/2023 [...] within a diagnostic category. Test Performed at: [facility] [address] [place] [address] BILL MOURA MD Urine URINE SPECIMEN OBTAINED BY CLEAN CATCH PROCEDURE / Unknown 10/10/2023 2:05 PM CDT 10/10/2023 2:08 PM CDT Marianne Souza APRN-SCRAP SORTER LAB - URINE CHEMISTRY OR DERABLES Final Result Performing Organization Address [facility] Co de Phone Number [facility] [address] [place] [address] * EYE EXAM (04/18/2023) Anatomical Region Laterality Modality Other 04/18/2023 Narrative 04/18/2023 Ordered by an unspecified provider. us Scanned Document SCANNING ONLY Final Result * HEPATITIS C AB W/RFLX TO HCV RNA QN PCR (03/02/2023 11:53 AM MINE SUPERINTENDENT) Hepatitis C Antibody NON-REACTI VE NON-REACT ZENADIA QUEST Comment: HCV antibody was non-reactive. There is no laboratory evidence of HCV infection. In most cases, no further action is required. However, if recent HCV exposure is suspected, a test for HCV RNA (test code 84866) is suggested. For additional information please refer to http://education.Shopintoit/faq/SVK54o2 (This link is being provided for informational/ educational purposes only.) Test Performed at: [facility] [employer] [place] [id number] [address] BILL MOURA MD 03/02/2023 11:5 3 AM MINE SUPERINTENDENT 03/02/2023 11:58 AM MINE SUPERINTENDENT us Marianne Souza APRN-SCRAP SORTER LAB - CHEMISTRY ORDERABL ES Final Result Performing Organization Address [facility] Co de Phone Number [facility] [address] [place] [address] * HIV-1 HIV-2 ANTIBODY + HIV P24 AG PANEL (03/02/2023 11:53 AM MINE SUPERINTENDENT) HIV Screen 4th Generation w Reflex NON-REACT [...] purpose. For additional information please refer to http://education.Shopintoit/faq/TMJ335 (This link is being provided for informational/ educational purposes only.) The performance of this assay has not been clinically validated in patients less than 2 years old. Test Performed at: [facility] [address] [place] [address] BILL MOURA MD Blood BLOOD SPECIMEN / Unknown 03/02/2023 11:53 AM MINE SUPERINTENDENT 03/02/2023 11:58 AM MINE SUPERINTENDENT Marianne Souza CULINARY MANAGER-SCRAP SORTER LAB - CHEMISTRY ORDERABL ES Final Result [facility] [address] [place] [address] * ENDOSCOPY, COLON, SCREENING (12/16/2021 1:18 PM MINE SUPERINTENDENT) Pathologist [facility] Report Endoscopy POC _ Patient Name: [...] bowel preparation was evaluated using the BBPS ([place] Bowel Preparation Scale) with scores of: Right [...] for surveillance. Procedure Code(s): --- Professional --- 41393, Colonoscopy, flexible; with removal of tumor(s), polyp(s), or other lesion(s) by snare technique 87986, 59, Colonoscopy, flexible; with biopsy, single or multiple --- Technical --- 14278, Colonoscopy, flexible; with removal of tumor(s), polyp(s), or other lesion(s) by snare technique 00959, 59, Colonoscopy, flexible; with biopsy, single or multiple Diagnosis Code(s): --- Professional --- Z12.11, Encounter for screening for malignant neoplasm of colon K62.1, Rectal polyp K63.5, Polyp of colon K64.8, Other hemorrhoids --- Technical --- Z12.11, Encounter for screening for malignant neoplasm of colon K62.1, Rectal polyp K63.5, Polyp of colon K64.8, Other hemorrhoids CPT copyright 2019 [employer]. All rights reserved. The codes documented in this report are preliminary and upon department secretary review may be revised to meet current compliance requirements. __ Inez Izaguirre MD 12/16/2021 2:44:57 PM Number of Addenda: 0 Note Initiated On: 12/16/2021 1:18 PM DP ENDOSCOPY 12/16/2021 1:18 PM MINE SUPERINTENDENT Inez Izaguirre MD GI PROCEDURE ORDERABLES Edite d Result - Final [facility] ENDOSCOPY BR[place]ON [place]mitt [id number] * MAMMO BILAT SCREENING (04/28/2020 12:18 PM [...] [facility] INSURANCE BILL - 12/10/2018 12:36 PM MINE SUPERINTENDENT Source.............Cervix LMP / Prev Treat...None No. of containers..01 ThinPrep Vial Resulting Agency Comment Lab Testing performed at: [address] [id number] Jeanine Rush MD LAB - PATHOLOGY/CYTOLOGY KATHLEEN REA Final Result [facility] INSURANCE BILL [address] [place] [address] from Last 3 Months or Most Recently Relevant to Health Maintenance Insurance [facility] MEDICAID - [place] Advance Directives * Full [...] 9:34 PM 07/19/2013 2:21 PM Care Teams Metal Punch Press Operator Relationship Specialty Start Date End Date Quita Lares MD [address] [place] [address] PCP - General Internal Medicine 02/07/23 Marianne Souza, CULINARY MANAGER-SCRAP SORTER [address] [facility] [address] [place] [address] PCP - Attributed-Agrawal Medicaid ST[place] 01/05/23 Bharath Martinez DO Orthopedic Surgery 06/07/16 [place] [address] [id number] Physical Medicine and Rehabilitation 10/16/19
--- OUTSIDE RECORDS SUMMARY | 2024-10-27 20:46 | XMS_ITS | Encounter Summary ---
Author Organization [facility] Address [address] [place] [address] Care Team Providers Care Optical Goods Drill Operator Name Role Phone Bharath Martinez DO Unavailable [phone] Aishwarya Ortiz DO Primary Care Provider [phone] Prasanth Perea MD Unavailable [phone] Quita Lares MD Primary Care Provider Marianne Souza PRODUCTION POTTER-SMALL BUSINESS SALES REPRESENTATIVE Unavailable [phone] Encounter Details Date Type Department Care Team (Late st Contact Info) Description 01/31/2016 Transitional Care [facility] DISEASE MANAGEMENT [address] [place] [address] Caroline Cagle RN Social History Tobacco Use [...] of Assessment Author No 01/28/2016 1:16 PM OUTSIDE RESIDENTIAL SALES PROFESSIONAL Jenifer Merchant, DELANEY * Does person have difficulty dressing/bathing? Answer Date of Assessment Author No 01/28/2016 1:16 PM OUTSIDE RESIDENTIAL SALES PROFESSIONAL Jenifer Merchant, DELANEY * Does person have difficulty doing errands alone? Answer Date of Assessment Author No 01/28/2016 1:16 PM OUTSIDE RESIDENTIAL SALES PROFESSIONAL Jenifer Merchant, DELANEY documented as of this encounter Mental Status * Does person have difficulty concentrating/remembering/making decisions? Answer Entry Date Author No 01/28/2016 1:16 PM OUTSIDE RESIDENTIAL SALES PROFESSIONAL Jenifer Merchant RN documented in this encounter [...] but there was no answer, message left. [facility] TCNN will wait for medication reconciliation before signing off. IDE RESIDENTIAL SALES PROFESSIONAL documented in this encounter Plan of Treatment Upcoming Encounters Date Type Department Care Team (Late st Contact Info) Description 12/18/2024 1:00 PM OUTSIDE RESIDENTIAL SALES PROFESSIONAL Office Visit [facility] Medical [facility] - Family Medicine [address] [facility], [address] [place] [address] Marianne Souza, PRODUCTION POTTER-SMALL BUSINESS SALES REPRESENTATIVE [address] [facility] [address] [place] [address] documented as of this encounter Visit Diagnoses Not on filedocumented in this encounter Additional Health Concerns Infection Onset Date Last Indicated Resolved Time COVID-19 Under Investigation 03/14/2022 03/14/2022 03/14/2022 3:34 PM OUTSIDE RESIDENTIAL SALES PROFESSIONAL documented as of this encounter Care Teams Optical Goods Drill Operator Relationship Specialty Start Date End Date Aishwarya Ortiz DO [address] [place] [address] PCP - General Family Medicine 06/17/18 02/06/23 Quita Lares MD [address] [place] [address] PCP - General Internal Medicine 02/07/23 Marianne Souza, PRODUCTION POTTER-SMALL BUSINESS SALES REPRESENTATIVE [address] [address] [place] [address] PCP - Attributed-Agrawal Medicaid ST 01/05/23 Bharath Martinez DO Orthopedic Surgery 06/07/16 [place] [address] [facility] [address] [place] [address] Physical Medicine and Rehabilitation 10/16/19 documented as of this encounter
--- OUTSIDE RECORDS SUMMARY | 2024-10-27 20:46 | XMS_ITS | Clinical Summary ---
Author Organization [facility] Address [address] [place] [address] Phone Care Team Providers Care Casino Controller Name Role Phone Quita Lares MD Primary [...] Description 08/07/2024 1:30 PM CDT Office Visit [facility] Medical [facility] - Pulmonology & Sleep Medicine [facility] [address] [place] [address] Dustin Jaramillo MD Other emphysema (HCC) (Primary Dx); Bipolar affective disorder, current episode hypomanic (HCC); Mild intermittent asthma without complication Discharge Disposition: Discharged to home or Selfcare 08/07/2024 Travel 07/28/2024 11:15 PM CDT - 07/29/2024 1:54 AM CDT [facility] [address] [facility] [address] Esteban Rivera MD Acute gastritis Discharge Disposition: Discharged to home or Selfcare 07/28/2024 Travel from Last 3 Months Social History Tobacco Use Types Packs/Day Years Used Date Smoking Tobacco: Former Cigarettes Q uit: 12/23/2023 Smokeless Tobacco: Never Tobacco Cessation:Counseling Given: No Alcohol Use Standard Drinks/Week Comments Never 0 (1 standard drink = 0.6 oz pur e alcohol) [facility] Utilities Answer Date Recorded In the [...] any time in the past 12 m [facility], were you homeless or living in a fpc (including now)? No 06/21/2024 Sexually Active Control Partners Comments Not Currently Comments No Sex and Gender Information Value Date Recorded Sex Assigned at Not on file Legal Sex Female 10:34 AM INSPECTOR CONVEYOR LINE Gender Identity Not on file Sexual Orientation [...] Medical Group - Pulmonology & Sleep Medicine [facility] [place] [facility] [address] [place] [phone] Dustin Jaramillo MD [address] [place] [address] Health Maintenance Due Date Last Done Comments [...] Donavon Terrell M.D. KT: LINETTE Report ID: [id number] Reading Location: [id number] Procedure Note Donavon Terrell MD - 07/29/2024 [...] Donavon Terrell M.D. KT: LINETTE Report ID: [id number] Reading Location: [place] [address] IMPRESSION: No acute finding. Esteban Rivera MD IMG CT ORDERABLES Final R esult * Stool Occult Blood - Diagnostic (07/29/2024 12:08 AM CDT) OCCULT BLOOD DIAG Negative Negative 07/29/2024 12:44 AM CDT [facility] Stool Non-Phlebotomy Collection / Unknown 07/29/2024 12:08 AM CDT 07/29/2024 12:42 AM CDT Esteban Rivera MD BODY FLUIDS & STOOLS [facility] Final Result [facility] [address] [place] [address] * Gold Top Tube (07/28/2024 10:12 PM CDT) Blood No Phlebotomy Charged / Unknown 07/28/2024 10:12 PM CDT 07/28/2024 10:31 PM CDT Esteban Rivera MD CHEMISTRY ORDERABLES Jillian l Result Performing Organization Address City/[facility]/ZIP Co de Phone Number [facility] [address] [place] [address] * Blue Top Tube (07/28/2024 10:12 PM CDT) Blood No Phlebotomy Charged / Unknown 07/28/2024 10:12 PM CDT 07/28/2024 10:31 PM CDT Esteban Rivera MD HEMATOLOGY ORDERABLES Fin al Result Performing Organization Address [facility] Co de Phone Number [facility] [address] [place] [address] * (ABNORMAL) CBC with Auto Differential (07/28/2024 10:12 PM CDT) WBC 11.69 4.00 - 12.00 10(3)/mcL 07/28/2024 10:44 PM CDT [facility] RBC 4.36 3.80 - 5.30 10(6)/mcL 07/28/2024 10:44 PM CDT [facility] HEMOGLOBIN (HGB) 14.1 12.0 - 15.8 g/dL 07/28/2024 10:44 PM CDT [facility] HEMATOCRIT (HCT) 42.3 36.0 - 47.0 % 07/28/2024 10:44 PM CDT [facility] MCV 97.0(H) 82.0 - 96.0 fL 07/28/2024 10:44 PM CDT [facility] MCH 32.3 26.0 - 34.0 pg 07/28/2024 10:44 PM CDT [facility] MCHC 33.3 31.0 - 36.0 g/dL 07/28/2024 10:44 PM CDT [facility] PLATELET COUNT 292 140 - 440 10(3)/mcL 07/28/2024 10:44 PM CDT [facility] RDW 13.8 11.8 - 15.5 % 07/28/2024 10:44 PM CDT [facility] MPV 10.9 9.7 - 12.4 fL 07/28/2024 10:44 PM CDT [facility] NEUTROPHILS 68.6 47.0 - 73.0 % 07/28/2024 10:44 PM CDT [facility] LYMPHOCYTES 24.1 18.0 - 42.0 % 07/28/2024 10:44 PM CDT [facility] MONOCYTES 6.0 4.0 - 12.0 % 07/28/2024 10:44 PM CDT [facility] EOSINOPHILS 0.2 0.0 - 5.0 % 07/28/2024 10:44 PM CDT [facility] BASOPHILS 0.8 0.0 - 1.0 % 07/28/2024 10:44 PM CDT [facility] IMMATURE GRANULOCYTE 0.3 0.0 - 0.4 % 07/28/2024 10:44 PM CDT [facility] Comment:Immature Granulocyte s includes Metamyelocytes, Myelocytes, and Promyelocytes. ABSOLUTE NEUTROPHILS 8.03(H) 1.60 - 7.70 10(3)/[facility] 07/28/2024 10:44 PM CDT [facility] ABSOLUTE LYMPHOCYTES 2.82 1.30 - 3.20 10(3)/mcL 07/28/2024 10:44 PM CDT [facility] ABSOLUTE MONOCYTES 0.70 0.20 - 1.00 10(3)/[facility] 07/28/2024 10:44 PM CDT [facility] ABSOLUTE EOSINOPHIL 0.02 0.00 - 0.40 10(3)/mcL 07/28/2024 10:44 PM CDT [facility] ABSOLUTE BASOPHILS 0.09 0.00 - 0.10 10(3)/[facility] 07/28/2024 10:44 PM CDT [facility] ABSOLUTE IMMATURE GRANULOCYTE 0.03 0.00 - 0.03 10 (3) mcL. 07/28/2024 10:44 PM CDT [facility] NRBC PER 100 WBC 0 07/29/19 10:44 PM CDT [facility] Blood Venipuncture / Unknown 07/28/2024 10:12 PM CDT 07/28/2024 10:37 PM CDT us Esteban Rivera MD HEMATOLOGY ORDERABLES Fin al Result [facility] [address] [place] [address] * (ABNORMAL) Comprehensive Metabolic Panel (Cmp) [id number] (07/28/2024 10:12 PM CDT) SODIUM 138 136 - 145 mmol/L 07/28/2024 11:09 PM CDT [facility] POTASSIUM 3.7 3.5 - 5.1 mmol/L 07/28/2024 11:09 PM CDT [facility] CHLORIDE 106 98 - 107 mmol/L 07/28/2024 11:09 PM CDT [facility] CO2, VENOUS 22 22 - 30 mmol/L 07/28/2024 11:09 PM CDT [facility] ANION GAP 13.7 <18.0 mmol/L 07/28/2024 11:09 PM CDT [facility] GLUCOSE 78 70 - 99 mg/dL 07/28/2024 11:09 PM CDT [facility] BUN 3(L) 10 - 20 mg/dL 07/28/2024 11:09 PM CDT [facility] CREATININE, BLOOD 0.71 0.60 - 1.00 mg/dL 07/28/2024 11:09 PM CDT [facility] BUN/CREATININE RATIO 4(L) 12 - 20 ratio 07/28/2024 11:09 PM CDT [facility] TOTAL PROTEIN 7.8 6.0 - 8.0 g/dL 07/28/2024 11:09 PM CDT [facility] ALBUMIN 4.3 3.5 - 5.0 g/dL 07/28/2024 11:09 PM CDT [facility] A/G RATIO 1.2 1.0 - 2.2 07/28/2024 11:09 PM CDT [facility] CALCIUM 9.6 8.7 - 10.5 mg/dL 07/28/2024 11:09 PM CDT [facility] T BILI 0.3 0.2 - 1.2 mg/dL 07/28/2024 11:09 PM CDT [facility] SGOT (AST) 27 <43 U/L 07/28/2024 11:09 PM CDT [facility] SGPT (ALT) 15 <56 U/L 07/28/2024 11:09 PM CDT [facility] ALKALINE PHOSPHATASE 122 40 - 150 U/L 07/28/2024 11:09 PM CDT [facility] GFR, ESTIMATED >60 >=60 07/28/2024 11:09 PM CDT [facility] Comment: Creatinine Clearance is the preferred criteria for selecting drug dose adjustments in renally impaired patients. The GFR is provided as additional pertinent clinical information. GFR is reported in mL/min/1.73 sq m. Calculation based on the Chronic Kidney Disease Epidemiology Collaboration (CKD- EPI) equation refit without adjustment for race. GFR, EST. >60 >=60 025 11:09 PM CDT [facility] GFR, EST. NONAFRICAN >60 >=60 07/28/2024 11:09 PM CDT [facility] Blood Venipuncture / Unknown 07/28/2024 10:12 PM CDT 07/28/2024 10:37 PM CDT Esteban Rivera MD CHEMISTRY ORDERABLES Jillian shi Result [facility] [address] [place] [address] * (ABNORMAL) Hemoglobin A1C (if indicated) (06/21/2024 6:48 AM CDT) HGB-A1C 6.4(H) 4.0 - 6.0 % 06/21/2024 7:16 AM CDT [facility] Est Average Glucose 137.0 mg/dL 06/21/2024 7:16 AM CDT [facility] Blood Venipuncture / Unknown 06/21/2024 6:48 AM CDT 06/21/2024 6:48 AM CDT Narrative [facility] - 06/21/2024 7:16 AM CDT HEMOGLOBIN A1C: DIABETIC PATIENTS: WELL-CONTROLLED: 6.2 - 7.0 INTERMEDIATE WELL-CONTROLLED: 7.0 - 9.0 POORLY-CONTROLLED: >9.0 Specimens containing greater than 5% of Hemoglobin F may result in lower than expected % HbA1C results. Candice Vazquez APRN, [employer] ARCHITECT CHEMISTRY ORDERABLES Final Result Performing Organization Address City/[facility] Co de Phone Number [facility] [address] [place] [address] from Last 3 Months or Most Recently Relevant to Health Maintenance Insurance MED[place]ID [place] Advance Directives * Full Code (Latest Code Status on File) Date Activated Date Inactivated Comments 06/20/2024 9:43 PM CPR-Full Treat ment: FULL ARREST: Attempt Resuscitation/CPR wit intubation and mechanical ventilation. PRE-ARREST: Use entire range of life support measures to stabilize the patient. Care Teams Casino Controller Relationship Specialty Start Date End Date Quita Lares MD [address] [place] [address] PCP - General Internal Medicine 06/22/24 Dustin Jaramillo MD [address] [place] [address] Consulting Physician Pulmonary Disease 07/18/24
--- OUTSIDE RECORDS SUMMARY | 2024-10-27 20:46 | XMS_ITS | Encounter Summary ---
Author Organization [facility] Address [address] [place] [address] Care Team Providers Care Canadian Bacon Tier Name Role Phone Bharath Martinez DO Unavailable [phone] Prasanth Perea MD Unavailable [phone] Quita Lares MD Primary Care Provider Marianne Souza [employer] SUPERVISOR-[facility] Unavailable [phone] Reason for Visit * Reason Onset Date Comments Pain Abdominal 10/20/2024 Encounter Details Date Type Department Care Team (Late st Contact Info) Description 10/20/2024 Telephone [facility] - Family Medicine [address] [place] [address], [address] [place] [address] Quita Lares MD [address] [place] [address] Pain Abdominal Social History Tobacco [...] of Assessment Author No 04/03/2019 4:08 PM INFORMATION SECURITY OFFICER Waqas Lucas RN * Is person blind or have serious difficulty seeing? Answer Date of Assessment Author No 03/24/2019 7:58 PM INFORMATION SECURITY OFFICER Funmi Thorpe RN * Does person have [...] urgent care or ER. Meantime patientcan consider [id number] omeprazole 20 mg daily, lactose free, low-fiber [...] st Contact Info) Description 12/18/2024 1:00 PM INFORMATION SECURITY OFFICER Office Visit [facility] - Family Medicine [address] [facility] [address] [place] [address] Marianne Souza, [employer] SUPERVISOR-SERVICE SUPERINTENDENT [address] [facility] [address] [place] [address] documented as of this encounter Visit Diagnoses Not on filedocumented in this encounter Care Teams Canadian Bacon Tier Relationship Specialty Start Date End Date Quita Lares MD [address] [place], [place] [address] PCP - General Internal Medicine 02/07/23 Marianne Souza, [employer] SUPERVISOR-SERVICE SUPERINTENDENT [address] [id number] PCP - Attributed-[employer] [place] 01/05/23 Bharath Martinez DO Orthopedic Surgery 06/07/16 [place] [id number] [address] Physical Medicine and Rehabilitation 10/16/19 documented as of this encounter
[2024-10-27] MEDS: KCL 20 MEQ/SW 100 ML 100 ML 50 MEQ IVPB (21:04)
[2024-10-27] MEDS: PANTOPRAZOLE SODIUM IV 40 MG VIAL IV PUSH (21:10)
--- NOTE | 2024-10-27 22:05 | PC.NURSE ---
Patient in tears stating that the potassium drip is burning too bad, even with fluids going, and stated she wanted to stop it. EDP notified and placed order for oral potassium.
[2024-10-27] MEDS: POTASSIUM CHLORIDE 20 MEQ ER TABLET 40 MEQ PO (22:19)
[2024-10-27] MEDS: MORPHINE SULFATE (*CRX) 4 MG/ML INJ IV PUSH (22:34)
[2024-10-27 23:15] VITALS: BP 123/73; PULSE 72; RESP 21; O2SAT 95
[2024-10-27 23:55] LABS: Add Urine Microscopic? YES; Appearance Urine Clear (Clear); Glucose Urine UA Negative (Negative); Leukocyte Esterase Ur 1+ LEU/UL (Negative); Need Manual Microscopic Reviewed; Nitrate Urine Negative (Negative); Non Pathogenic Casts 0-2; Specific Grav Ur 1.012 (1.001-1.035)
[2024-10-27 23:59] LABS: Cannabinoid Screen Urine Positive (Negative)
[2024-10-28 01:47] VITALS: BP 126/67; PULSE 72; RESP 20; O2SAT 96
[2024-10-28] MEDS: HYDROcodone/acetaminophen (*CRX) 5-325 MG TABLET 1 TAB PO (02:26)
--- NOTE | 2024-10-28 02:36 | ED.NAVMDI ---
HPI - Nausea/Vomiting/Diarrhea General Chief complaint: Nausea/Vomiting/Diarrhea Stated complaint: n/v/d, upper abd pain Time Seen by Provider: 10/27/24 20:12 History of Present Illness HPI Narrative: Patient presents here with nausea, vomiting, diarrhea, ongoing for last few weeks, with abdominal pain. 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 Related Data Home Medications ?Medication ?Instructions ?Recorded ?Confirmed ?Last Taken ?Type albuterol sulfate 90 mcg/actuation 2 puff inhalation PRN 08/22/23 06/12/24 Unknown History aerosol inhaler metformin 500 mg tablet,extended 1,000 mg PO BID 08/22/23 06/12/24 Unknown History release 24 hr rosuvastatin 5 mg tablet 5 mg PO DAILY 08/22/23 06/12/24 Unknown History sumatriptan succinate 100 mg tablet 100 mg PO DAILY PRN migraine 08/22/23 06/12/24 Unknown History headache budesonide-formoterol HFA 160 1 puff inhalation DAILY 06/04/24 06/12/24 Unknown History mcg-4.5 mcg/actuation aerosol inhaler (Symbicort) calcium 600 mg (as 1 tablet PO DAILY 06/12/24 06/12/24 Unknown History carbonate)-vitamin D3 10 mcg (400 unit) tablet cetirizine 10 mg tablet 10 mg PO DAILY 06/12/24 06/12/24 Unknown History cyclobenzaprine 10 mg tablet 10 mg PO Q8H PRN muscle spasm 06/12/24 06/12/24 Unknown History fluticasone propionate 50 2 spray intranasal DAILY 06/12/24 06/12/24 Unknown History mcg/actuation nasal spray,suspension albuterol sulfate 2.5 mg/3 mL mg 07/10/24 Unknown History (0.083 %) solution for nebulization azithromycin 500 mg tablet mg 07/10/24 Unknown History gabapentin 100 mg capsule mg 07/10/24 Unknown History nicotine 7 mg/24 hr daily 07/10/24 Unknown History transdermal patch ondansetron HCl 4 mg tablet mg 07/10/24 Unknown History tiotropium bromide 2.5 inhalation 07/10/24 Unknown History mcg/actuation mist for inhalation (Spiriva Respimat) Allergies Allergy/AdvReac Type Severity Reaction Status Date / Time azithromycin Allergy Severe Swelling Verified 07/10/24 18:58 adhesive Allergy Unknown Verified 07/10/24 18:58 ibuprofen Allergy Unknown Verified 07/10/24 18:58 latex Allergy Unknown Verified 07/10/24 18:58 silver sulfadiazine (From Allergy Unknown Verified 07/10/24 18:58 Silvadene) Review of Systems Review of Systems: All systems reviewed & are unremarkable except as noted in HPI and below PMFSH Past Medical History Medical History Cholecystectomy planned Neuropathic arthritis High cholesterol Diabetes Asthma Surgical History Surgical History H/O tubal ligation History of hip surgery Previous back surgery H/O neck surgery Family History Family History Father Hypertension Mother Asthma Heart disease Thyroid disorder Sibling Depression Thyroid disorder Grandparent Asthma Thyroid disorder Heart disease Other Depression Social History Social History Smoking packs per day: 2 Smoking cigarettes per day: 40.0 Smoking status: Former smoker Tobacco type: cigarettes Second hand tobacco smoke exposure: Yes Smoking end date: 01/06/24 Alcohol intake: never Substance use: current Substance use type: marijuana Do You Feel Safe in your Home?: Yes Lack of Transportation: No Lack of Food: Never True Current Housing: I Have Housing Concerned About Future Housing: No Difficulty Paying Gas/Electric Bills: No Difficulty Paying for Meds: No Currently Unemployed: No Education: High School Diploma/GED Difficulty w/ Childcare or Family Care: No Spiritual care concerns: No Exam Narrative: EXAMINATION OF ORGAN SYSTEMS/BODY AREAS: Constitutional: Vital signs per nursing GENERAL: Curled up and looking miserable HEAD: Normal with no signs of head trauma. EYES: EOMI, conjunctiva normal ENT: Hearing grossly intact LUNGS: Nonlabored breathing. HEART: [Regular rate and rhythm] ABD: [Soft], tender to palpation right-sided abdomen EXT: Normal range of motion SKIN: [No rashes or lesions.] NEURO: [Alert and oriented x 3. No gross focal sensory or strength deficits.] PSYCH: Normal affect Course Vital Signs Vital signs: Vital Signs Temperature 98 F 10/27/24 18:37 Respiratory Rate 18 10/27/24 18:37 Blood Pressure 115/73 10/27/24 18:37 Pulse Oximetry 100 10/27/24 18:37 Temperature 98 F 10/27/24 18:37 Pulse Rate 72 10/28/24 01:47 Respiratory Rate 20 10/28/24 01:47 Blood Pressure 126/67 10/28/24 01:47 Pulse Oximetry 96 10/28/24 01:47 MDM - Nausea/Vomiting/Diarrhea MDM Narrative Medical decision making narrative: Electronic medical record was reviewed. Patient presented to the ED with complaint of [abdominal pain and vomiting and diarrhea]. Vitals [were within acceptable limits]. Physical exam revealed [tenderness to palpation in right abdomen]. Based on the patient's history and physical exam, my differential includes but is not limited to [gastritis, gastroenteritis, cholecystitis, pancreatitis, appendicitis, colitis]. [IV access was established by nursing staff. Patient was given zofran, fluids, Protonix]. CBC, BMP, lipase, LFTs, bilirubin and alk phos were obtained. Labs were pertinent for K of 3.2. She has repleted on re-evaluation she is still having symptoms, since I do not see that she has a history of cannabinoid hyperemesis, I did order dose of droperidol and some morphine. [Decision was made to obtain a CT-abdomen to evaluate for acute abdominal process. CT-abdomen per radiology interpretation shows colitis] On reevaluation, the patient states that they are feeling much better. There were no witnessed episodes of vomiting in the emergency department. They are not complaining of any new abdominal pain. Repeat examination did not show any significant guarding or rebound. No new tenderness. At this time I do not feel there is any further emergent treatment to be provided. The patient was given strict return precautions, if they are to develop any worsening abdominal pain, vomiting, or blood in the vomit they are to return to the emergency department immediately. Patient verbally acknowledges understanding these directions. [The patient was informed of the above diagnostic test findings.] They will be discharged home [with prescriptions]. They were advised to follow-up with gastroenterology in 2 days. The patient feels that this is appropriate medical decision making and verbalizes an understanding of the discharge instructions. Lab Data 10/27/24 20:00 10/27/24 20:00 Labs: Lab Results 10/27/24 10/27/24 Range/Units 20:00 23:31 WBC 9.5 (4.5-10.0) K/mm3 RBC 4.43 (4.2-5.4) M/mm3 Hgb 14.2 D (12.0-15.0) g/dL Hct 42.2 (37.0-47.0) % MCV 95.3 (80-100) fl MCH 32.1 (26-34) pg MCHC 33.6 (32-36) g/dl RDW 12.2 (11.5-14.5) % Plt Count 300 D (150-375) k/mm3 MPV 10.3 (7.4-10.4) fl Immature Gran % (Auto) 0.3 (0-0.5) % Neut % (Auto) 59.0 (45.5-73.1) % Lymph % (Auto) 34.5 (18.3-44.2) % [place] % (Auto) 5.6 (2.6-8.5) % Eos % (Auto) 0.1 (0-4.4) % Baso % (Auto) 0.5 (0.2-1.2) % Lymph # (Auto) 3.28 H (0.9-3.2) K/mm3 [place] # (Auto) 0.5 (0.1-0.6) K/mm3 Eos # (Auto) 0.0 (0-0.3) K/mm3 Baso # (Auto) 0.1 (0.0-0.1) K/mm3 Abs Immat Gran (auto) 0.03 (0.00-0.031) K/mm3 Absolute Neuts (auto) 5.6 (1.3-6.7) K/mm3 Absolute Nucleated RBC 0.000 (0.0-0.012) K/mm3 Nucleated RBC % 0.0 (0.0-0.2) % Sodium 132 L (137-145) mmol/L Potassium 3.2 L (3.4-5.0) mmol/L Chloride 97 L (98-107) mmol/L Carbon Dioxide 28 (22-30) mmol/L Anion Gap 7 (4-12) mmol/L BUN 3 L (7-17) mg/dL Creatinine 0.59 L (0.7-1.0) mg/dL Estim Creat Clear Calc 84 ml/min Estimated GFR > 60 (59 - ) Glucose 99 (65-110) mg/dL Calcium 9.5 (8.4-10.2) mg/dL Total Bilirubin 0.5 (0.2-1.3) mg/dL AST 30 (14-36) U/L ALT 12 (6-35) U/L Alkaline Phosphatase 107 (38-126) U/L Total Protein 7.5 (6.3-8.2) g/dL Albumin 4.3 (3.5-5.1) g/dL Lipase 54 (23-300) U/L Urine Color Yellow (Yellow) Urine Appearance Clear (Clear) Urine pH 6.5 (5.0-9.0) Ur Specific Council 1.012 (1.001-1.035) Urine Protein Negative (Negative) mg/dL Urine Glucose (UA) Negative (Negative) mg/dL Urine Ketones Negative (Negative) mg/dL Ur Blood (Man) Negative (Negative) Urine Nitrate Negative (Negative) Urine Bilirubin Negative (Negative) Urine Urobilinogen 0.2 (<2.0) mg/dL Add Ur Microanalysis Reviewed Leukocyte Esterase Rfl 1+ H (Negative) REID/UL Urine RBC 0-2 (0-2) /hpf Urine WBC 0-5 (0-3) /hpf Ur Squamous Epith Cells None seen (Few) /hpf Urine Bacteria None seen /hpf Urine Casts 0-2 Urine Opiates Screen Positive A (Negative) Urine Methadone Screen Negative (Negative) Ur Barbiturates Screen Negative (Negative) Ur Phencyclidine Scrn Negative (Negative) Ur Amphetamine Screen Negative (Negative) U Benzodiazepines Scrn Negative (Negative) Urine Cocaine Screen Negative (Negative) U Cannabinoids Screen Positive A (Negative) Discharge Plan Discharge Clinical Impression: Colitis Patient Disposition: Home Condition: Stable Instructions: Colitis (ED) Additional Instructions: Please follow-up with a GI specialist. If your symptoms get worse despite the medications, come back to the ER. Patient Language: [place] Prescriptions: New famotidine 20 mg tablet 20 mg PO DAILY Qty: 30 0RF dicyclomine 20 mg tablet 20 mg PO TID PRN (Reason: abdominal pain) Qty: 30 0RF ondansetron 4 mg tablet,disintegrating 4 mg PO Q8H PRN (Reason: nausea and vomiting) Qty: 14 0RF No Action sumatriptan succinate 100 mg tablet 100 mg PO DAILY PRN (Reason: migraine headache) albuterol sulfate 90 mcg/actuation HFA aerosol inhaler 2 puff INHALATION PRN metformin 500 mg tablet extended release 24 hr 1,000 mg PO BID rosuvastatin 5 mg tablet 5 mg PO DAILY budesonide-formoterol [Symbicort] 160-4.5 mcg/actuation HFA aerosol inhaler 1 puff INHALATION DAILY albuterol sulfate 2.5 mg /3 mL (0.083 %) solution for nebulization ondansetron HCl 4 mg tablet gabapentin 100 mg capsule nicotine 7 mg/24 hr patch 24 hour azithromycin 500 mg tablet Spiriva Respimat 2.5 mcg/actuation mist INHALATION clobetasol 0.05 % cream 1 applic topical BID 14 Days Qty: 30 0RF Rx Instructions: Apply to affected only, do not apply to face or near the groin. cetirizine 10 mg tablet 10 mg PO DAILY cyclobenzaprine 10 mg tablet 10 mg PO Q8H PRN (Reason: muscle spasm) fluticasone propionate 50 mcg/actuation spray,suspension 2 spray INTRANASAL DAILY calcium carbonate-vitamin D3 600 mg-10 mcg (400 unit) tablet 1 tablet PO DAILY benzonatate 100 mg Capsule 200 mg PO TID Qty: 30 0RF levofloxacin 750 mg tablet 750 mg PO DAILY Qty: 7 0RF Rx Instructions: Please complete the course for 7 days acetaminophen [Tylenol Extra Strength] 500 mg tablet 1,000 mg PO TID PRN (Reason: pain) Qty: 30 0RF omeprazole 40 mg capsule,delayed release(DR/EC) See Rx Instructions .ROUTE .COMPLEX Qty: 30 3RF Dose Instruction: TAKE 1 CAPSULE BY MOUTH EVERY DAY Rx Instructions: TAKE 1 CAPSULE BY MOUTH EVERY DAY Follow-up/Referrals: Campbell Wood MD [Physician, Gastroenterology] - 2 Days Young,Marianne Kearney APRN [Primary Care Provider, Unknown]
[2024-10-28 02:38] VITALS: BP 119/73; PULSE 67; RESP 18; O2SAT 99
== END 2024-10-28 02:39 | disposition home or self-care (01) ==
PROVIDERS: Emergency Provider Emergency Medicine; PCP Nurse Practitioner Family
DX: K52.9 Noninfective gastroenteritis and colitis, unspecified (principal); E78.00 Pure hypercholesterolemia, unspecified; E11.610 Type 2 diabetes mellitus with diabetic neuropathic arthropathy; J45.909 Unspecified asthma, uncomplicated; Z87.891 Personal history of nicotine dependence; Z79.899 Other long term (current) drug therapy
CPT/HCPCS: 36415; 74177; 80053; 80307; 81001; 83690; 85025; 87086; 96361; 96365; 96375; 99284; A9270; J1790; J2270; J2405; J2470; J3480; J7120; Q9967

== ENCOUNTER 2024-12-27 13:07 | Emergency (ER) | payer OTHER, SELFPAY ==
--- OUTSIDE RECORDS SUMMARY | 2024-12-27 13:10 | XMS_ITS | Clinical Summary ---
Author Organization [facility] Address [address] [place] [address] Care Team Providers Care Audio Installer Name Role Phone Bharath Martinez Unavailable [phone] Prasanth Perea MD Unavailable [phone] Quita Lares MD Primary Care Provider Marianne Souza BUSHER HELPER-[facility] Unavailable [phone] Source Comments [facility],non-owned Affiliates and Associated Physician Practices is amultiple site organization consisting of ambulatory clinics and hospital sitesin [place], [place], [place] and [place]. This disclosure is being madepursuant to the Care Everywhere program and may not contain all information available regarding this patient. Last updated 17.[facility] Allergies Active Allergy Reactions Criticality Noted Date Comments Adhesive Sensitivity Itching,Rash Medium 07/02/2013 Patient states she cannot use Tegaderm either Patient states she cannot use Tegaderm either Azithromycin Swelling High 07/10/2024 Ibuprofen GI Discomfort,Other High 07/19/2014 Ulcers Kdc:Cetyl Alcohol+Methylparaben+Propy latanya Glycol+Silver Sulfadiazine Other,Urticaria High 01/15/2018 Silvadene Latex Itching,Rash,Unkno wn Medium 07/02/2013 Methylprednisolone Anaphylaxis,Other High 02/21/2019 Tongue swelled up Tongue swelled up Tongue swelled up Tongue swelled up with high doses. Can have low doses Tongue swelled up Tongue swelled up Tongue swelled up Tongue swelled up Tongue swelled up Tongue swelled up Tongue swelled up with high doses. Can have low doses Naproxen Other High 08/07/2024 ulcers Silver Sulfadiazine Other,Rash,Unknown High 09/20/19 16 Silvadene Skin Adhesives Itching,Unknown 07/02/2013 Patient states she cannot use Tegaderm either Sulfa Antibiotics Urticaria,Swelling Medium 01/15/2018 Tongue swelling Wound Dressing Adhesive Itching,Rash Medium 07/02/2013 Patient [...] document. Alwaysverify current medications with the patient. dulaglutide (Trulicity) 0.75 MG/0.5ML injectionIndica tions:Hyperglyc emia Inject 0.75 (three-quarters) mg subcutaneously every 7 days 0.5 mL 4 024 Active Additional Information Patient not taking.Reason: Patient adjusted, Reported on 09/23/2024 albuterol HFA (ProAir HFA) 108 (90 Base) MCG/ACT inhalerIndicati ons:Chronic bronchitis with wheezing (HCC) Inhale 2 (two) puffs by mouth every 4 hours as needed 8.5 g 2 025 Active lancetsIndicati ons:Type 2 diabetes mellitus without complication, unspecified whether rodent exterminator insulin use (HCC) Use 1 (one) Each 2 times daily 180 Each 025 Active ondansetron (Zofran) 4 MG tablet Take 1 (one) tablet by mouth every 6 hours as needed for Nausea/Vomiting 30 tablet 025 Active clobetasol (Temovate) 0.05 % cream Apply to affected area 2 times daily 025 Active rosuvastatin (Crestor) 5 MG tablet Take 1 (one) tablet by mouth once daily 90 tablet 2 025 Active tiotropium (Spiriva Respimat) 2.5 MCG/ACT inhalerIndicati ons:Chronic bronchitis with wheezing (HCC) Inhale 2 (two) puffs by mouth once daily 12 g 025 Active Symbicort 160-4.5 MCG/ACT inhalerIndicati ons:Chronic bronchitis with wheezing (HCC) Inhale 2 (two) puffs by mouth 2 times daily 30.6 g 1 025 Active roflumilast (Daliresp) 500 MCG tabletIndicatio ns:Severe persistent asthma without complication (HCC) Take 1 (one) tablet by mouth once daily 90 tablet 025 Active montelukast (Singulair) 10 MG tabletIndicatio ns:PND (post-nasal drip) Take 1 (one) tablet by mouth once daily 90 tablet 025 Active methIMAzole (Tapazole) 5 MG tabletIndicatio ns:Hyperthyroid ism Take 1 (one) tablet by mouth every 2 days 60 tablet 025 Active metFORMIN ER 24hr (Glucophage XR) 500 MG tabletIndicatio ns:Type 2 diabetes mellitus with diabetic polyneuropathy, without long-term current use of insulin (HCC) TAKE 2 TABLETS BY MOUTH TWICE DAILY BEFORE BREAKFAST AND SUPPER 360 tablet 025 Active Insulin Pen Needle (TRUEplus 5-Bevel Pen [place]) 32G X 4 MM MISCIndications :Type 2 diabetes mellitus with diabetic polyneuropathy, without long-term current use of insulin (HCC) 1 Each by Intradermal route 3 times daily as needed 120 Each 1 025 Active gabapentin (Neurontin) 300 MG capsuleIndicati ons:Type 2 diabetes mellitus with diabetic polyneuropathy, without long-term current use of insulin (HCC) Take 1 (one) capsule by mouth at bedtime If no relief of the numbness and tingling within 2 weeks contact the office and increase to 2 tablets at night. 90 capsule 025 Active lidocaine (Lidoderm) 5 % patch Apply 1 (one) patch to skin once daily 30 patch 1 025 Active cetirizine (ZyrTEC) 10 MG tabletIndicatio ns:PND (post-nasal drip) Take 1 (one) tablet by mouth once daily 90 tablet 4 025 Active fluticasone propionate (Flonase) 50 MCG/ACT nasal spray [place] 2 (two) sprays into each nostril once daily as needed 9.9 g 5 025 Active blood glucose test stripIndication s:Type 2 diabetes mellitus with diabetic polyneuropathy, without long-term current use of insulin (HCC) Use 1 (one) strip 2 times daily 180 strip Active albuterol (Proventil;Vent jacob) (2.5 MG/3ML) 0.083% nebulizer solution Inhale 2.5 (two and one-half) mg by mouth every 4 hours as needed for Shortness of Breath 150 mL Active nicotine (Nicoderm CQ) 14 MG/24HR patchIndication s:Tobacco use Apply 1 (one) patch to skin once daily 30 patch 1 Active omeprazole (PriLOSEC) 40 MG capsule Take 1 (one) capsule by mouth once daily 90 capsule 1 Active SUMAtriptan (Imitrex) 100 MG tabletIndicatio ns:Migraine without aura and without status migrainosus, not intractable TAKE 1 (ONE) TABLET BY MOUTH ONCE DAILY NEEDED FOR MIGRAINE 9 tablet Active dicyclomine (Bentyl) 10 MG capsule TAKE 1 (ONE) CAPSULE BY MOUTH EVERY 8 HOURS NEEDED 90 capsule 025 Active SUMAtriptan (Imitrex) 100 MG tabletIndicatio ns:Migraine without aura and without status migrainosus, not intractable Take 1 (one) tablet by mouth once daily as needed FOR MIGRAINE 9 tablet 025 2024 Discontinued dicyclomine (Bentyl) 10 MG capsule Take 1 (one) capsule by mouth every 8 hours as needed 90 capsule 025 2024 Discontinued Active Problems Problem Noted Date Diagnosed Date Breast pain, left 11/24/2024 PNA (pneumonia) 11/24/2024 Poison swapna 11/24/2024 Pancolitis 11/04/2024 Type 2 diabetes mellitus wit h diabetic [...] 04/05/2020 Type 2 diabetes mellitus without complication 04/06/1909/24/2024 Overview (11/05/2024): IMO 11/05/2024 Abdominal pain, right upper quadrant 03/21/2019 01/02/2022 [...] Encounters Date Type Department Care Team Description 12/18/2024 Refill [facility] [address] [address] Marianne Souza, BUSHER HELPER-SURFACE MOUNT TECHNOLOGY OPERATOR Refill Request 12/18/2024 Refill [facility] [address] [address] Quita Lares MD Refill Request 11/19/2024 Refill [facility] [address] [address] Quita Lares MD MEDICATION REFILL 11/18/2024 Telephone [facility] [address] [address] Quita Lares MD Nicotine Dependence 11/10/2024 Nurse Triage [facility] [address] [address] Quita Lares MD Results 11/10/2024 Refill [facility] [address] [address] Quita Lares MD MEDICATION REFILL 10/31/2024 Nurse Triage [facility] [address] [address] Quita Lares MD Nausea (/); Pain Abdominal 10/20/2024 Telephone [facility] [address] [address] Quita Lares MD Pain Abdominal from Last 3 Months Immunizations Immunization Administration [...] 09/23/2024 4:05 PM CDT Plan of Treatment Health Maintenance Due [...] PCV) 11/08/2013 11/08/2012 MAMMOGRAM 04/28/2021 04/28/2020, 02/25/2019 Cervical Cancer Screening 12/05/2023 PAP with HPV 12/05/2023 12/04/2018, 07/06, 12/09/2012 DIABETES - URINE PROTEIN SCREENING 02/06/2024 10/10/2023, 04/05/2020 DIABETES-FOOT EXAM WITH MONOFILAMENT 02/08/2024 02/07/2023, 04/05/2020 ZOSTER VACCINE (1 of 2) 02/28/2024 COVID-19 VACCINE (1 - season) 2024 INFLUENZA VACCINE (#1) 2024 11/08/2012 DIABETES-HGB A1C 03/26/2025 09/23/2024, 10/2024, 03/02/2023, Additional history exists DIABETES RETINOPATHY SCREENING 04/17/2025 04/18/2023 DIABETES-SERUM CREATININE 06/16/20252024, 02/14/2024, 10/10/2023, Additional history exists DTAP/TDAP/TD VACCINES (2 - Td or Tdap) 06/11/2026 06/11/2016 PAP SMEAR 06/20/2026 06/21/2023, 06/05, 12/04/2018, Additional history exists COLON MONITORING 11/04/2034 11/04/2024, , 11/02/2024, Additional history exists COLONOSCOPY - COLON CA SCREENING 11/04/2034 11/04/2024, 11/04/2024, 11/02/2024, Additional history exists Colorectal Cancer Screening 11/04/2034 HEPATITIS C SCREENING Completed 03/02/2023, 015 HIV [...] Procedure Name Priority Date/Time Associated Diagnosis Comments COLONOSCOPY 11/02/2024 ENDOSCOPY ORDER 11/02/2024 IMAGING/RADIOLOGY/XR AY RESULTS ORDER 10/27/2024 HEMOGLOBIN A1C - POINT OF CARE (AMB) [...] HCV RNA QN PCR 03/02/2023 11:53 AM CULINARY ARTS INSTRUCTOR HIV-1 HIV-2 ANTIBODY + HIV P24 AG PANEL Routine 03/02/2023 11:53 AM CULINARY ARTS INSTRUCTOR Screen for STD (sexually transmitted disease) MAMMO BILAT SCREENING Routine 04/28/2020 12:18 PM CDT Encounter for screening mammogram for malignant neoplasm of breast PAP IG LB CT+GC+TV+ HPV HR DNA Routine 12/04/2018 2:32 PM CDT Screening for venereal disease Well woman exam from Last 3 Months or Most Recently Relevant to Health Maintenance Results * COLONOSCOPY (11/02/2024) 11/02/2024 Narrative 11/02/2024 Ordered by an unspecified provider. us Scanned Document SCANNING ONLY Final Result * Endoscopy Order (11/02/2024) 11/02/2024 Narrative 11/02/2024 Ordered by an unspecified provider. us Scanned Document GI PROCEDURE ORDERABLES Final R esult * IMAGING/RADIOLOGY/XRAY RESULTS ORDER (10/27/2024) Anatomical Region Laterality Modality Other 10/27/2024 Narrative 10/27/2024 Ordered by an unspecified provider. us Scanned Document IMAGING Final Result * HEMOGLOBIN A1C - POINT OF CARE (AMB) (09/23/2024 4:46 PM CDT) Hemoglobin A1c POCT 6.1 % Expiration Date 2026-05-08 Lot # [id number] QC Verified Yes Yes Blood BLOOD SPECIMEN / Unknown 09/23/2024 4:46 PM CDT us Marianne Souza APRN-SURFACE MOUNT TECHNOLOGY OPERATOR LAB - POINT OF CARE KATHLEEN REA [...] - 06/17/2024 1:09 PM CDT Performed at: [address] [place] [address] [address] [place], [place] [id number] Greenskeeper Laborer: Travis Palmer PhD, Phone: [phone] us Quita Lares MD LAB - CHEMISTRY ORDERAB LES Final Result Performing Organization Address City/[facility]/ZIP Co de Phone Number [facility] INSURANCE BILL [address] [place] [address] * MICROALB/CREAT RATIO URINE RANDOM PANEL (10/10/2023 2:05 PM CDT) Pathologist [facility] Creatinine Urine 60 20 - 275 mg/dL [...] within a diagnostic category. Test Performed at: [facility] [address] [place] [address] BILL MOURA MD Urine URINE SPECIMEN OBTAINED BY CLEAN CATCH PROCEDURE / Unknown 10/10/2023 2:05 PM CDT 10/10/2023 2:08 PM CDT us Marianne Souza BUSHER HELPER-SURFACE MOUNT TECHNOLOGY OPERATOR LAB - URINE CHEMISTRY OR DERABLES Final Result [facility] [id number] [place] [id number] * EYE EXAM (04/18/2023) Anatomical Region Laterality Modality Other 04/18/2023 Narrative 04/18/2023 Ordered by an unspecified provider. us Scanned Document SCANNING ONLY Final Result * HEPATITIS C AB W/RFLX TO HCV RNA QN PCR (03/02/2023 11:53 AM CULINARY ARTS INSTRUCTOR) Hepatitis C Antibody NON-REACTI VE NON-REACT [facility] Comment: HCV antibody was non-reactive. There is no laboratory evidence of HCV infection. In most cases, no further action is required. However, if recent HCV exposure is suspected, a test for HCV RNA (test code 23015) is suggested. For additional information please refer to http://education.[employer]/faq/WZU57y8 (This link is being provided for informational/ educational purposes only.) Test Performed at: [facility] [address] [place] [address] BILL MOURA MD 03/02/2023 11:5 3 AM CULINARY ARTS INSTRUCTOR 03/02/2023 11:58 AM CULINARY ARTS INSTRUCTOR Marianne Souza BUSHER HELPER-SURFACE MOUNT TECHNOLOGY OPERATOR LAB - CHEMISTRY ORDERABL ES Final Result [facility] [id number] [place] [address] * HIV-1 HIV-2 ANTIBODY + HIV P24 AG PANEL (03/02/2023 11:53 AM CULINARY ARTS INSTRUCTOR) HIV Screen 4th Generation w Reflex NON-REACT [...] purpose. For additional information please refer to http://education.[employer]/faq/YIW868 (This link is being provided for informational/ educational purposes only.) The performance of this assay has not been clinically validated in patients less than 2 years old. Test Performed at: [email or web address] [address] [facility] [place] [place] [address] BILL MOURA MD Blood BLOOD SPECIMEN / Unknown 03/02/2023 11:53 AM CULINARY ARTS INSTRUCTOR 03/02/2023 11:58 AM CULINARY ARTS INSTRUCTOR Marianne Souza APRN-SURFACE MOUNT TECHNOLOGY OPERATOR LAB - CHEMISTRY ORDERABL ES Final Result [facility] [address] [place] [address] * MAMMO BILAT SCREENING (04/28/2020 12:18 PM [...] [facility] INSURANCE BILL - 12/10/2018 12:36 PM CULINARY ARTS INSTRUCTOR Source.............Cervix LMP / Prev Treat...None No. of containers..01 ThinPrep Vial Resulting Agency Comment Lab Testing performed at: [facility] [id number] Jeainne Rush MD LAB - PATHOLOGY/CYTOLOGY KATHLEEN REA Final Result [facility] INSURANCE BILL [address] [place] [address] from Last 3 Months or Most Recently Relevant to Health Maintenance Insurance [facility] MEDICAID - [place] Advance Directives * [...] 9:34 PM 07/19/2013 2:21 PM Care Teams Audio Installer Relationship Specialty Start Date End Date Quita Lares MD [address] [place] [address] PCP - General Internal Medicine 02/07/23 Marianne Souza, BUSHER HELPER-SURFACE MOUNT TECHNOLOGY OPERATOR [address] [id number] PCP - Attributed-[employer]rawal Medicaid [place] 01/05/23 Bharath Martinez DO Orthopedic Surgery 06/07/16 [place] [address] [address] Physical Medicine and Rehabilitation 10/16/19
--- OUTSIDE RECORDS SUMMARY | 2024-12-27 13:10 | XMS_ITS | Clinical Summary ---
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 02/07/19 24 Active albuterol sulfate HFA 108 (90 Base) MCG/ACT inhaler Inhale 2 puffs into the lungs every 4 (four) hours as needed for Shortness of breath or Wheezing. 07/13/19 23 Active famotidine (PEPCID) 20 MG tablet Take 1 tablet (20 mg total) by mouth nightly at bedtime. at bedtime. Active linaCLOtide (LINZESS) 145 MCG capsule Take 1 capsule (145 mcg total) by mouth daily. 08/18/19 23 Active loratadine (CLARITIN) 10 MG tablet Take 1 tablet (10 mg total) by mouth daily. Active metFORMIN (GLUCOPHAGE) 500 MG tablet Take 2 tablets (1,000 mg total) by mouth 2 (two) times daily. 01/13/20 23 Active methIMAzole (TAPAZOLE) 5 MG tablet Take 1 tablet (5 mg total) by mouth every other day. 02/19/19 24 Active montelukast (SINGULAIR) 10 MG tablet Take 1 tablet (10 mg total) by mouth nightly at bedtime. 05/11/19 23 Active rosuvastatin (CRESTOR) 5 MG tablet Take 1 tablet (5 mg total) by mouth daily. 08/16/19 23 Active SUMAtriptan (IMITREX) 100 MG tablet Take 1 tablet (100 mg total) by mouth daily as needed for Migraine. 10/06/19 23 Active budesonide-formote rol (SYMBICORT) 160-4.5 MCG/ACT inhaler Inhale 2 puffs into the lungs 2 (two) times daily. Active lidocaine (LIDODERM) 5 % Place 1 patch onto the skin daily. 12/02/19 23 Active fluticasone propionate (FLONASE) 50 MCG/ACT nasal spray 2 sprays by Each Nostril route daily as needed for Allergies or Rhinitis. Active calcium carb-cholecalcifer ol (CALTRATE+D) 600-10 MG-MCG Tab tablet Take 1 tablet by mouth daily. 06/21/19 24 Active azelastine (ASTELIN) 0.1 % nasal spray 1 spray by Nasal route 2 (two) times daily. 07/17/19 24 Active nicotine (NICODERM CQ) 14 MG/24HR Place 1 patch (14 mg total) onto the skin daily. Active benzonatate (TESSALON) 100 MG capsule Take 1 capsule (100 mg total) by mouth 3 (three) times daily as needed for Cough. 02/25/19 25 Active cetirizine (ZYRTEC) 10 MG tablet Take 1 tablet (10 mg total) by mouth daily. 05/02/19 25 Active dicyclomine (BENTYL) 20 MG tablet Take 1 tablet (20 mg total) by mouth every 8 (eight) hours as needed (Abdominal pain). 10/29/19 25 Active gabapentin (NEURONTIN) 300 MG capsule Take 1 capsule (300 mg total) by mouth nightly at bedtime. 09/24/19 25 Active roflumilast (DALIRESP) 500 MCG Tab Take 1 tablet (0.5 mg total) by mouth daily. 06/25/19 25 Active sucralfate (CARAFATE) 1 G tablet Take 1 tablet (1 g total) by mouth every 6 (six) hours. 07/30/19 25 Active tiotropium (SPIRIVA RESPIMAT) 2.5 MCG/ACT inhaler (SPIRIVA RESPIMAT) Inhale 2 puffs into the lungs daily. 09/24/19 25 Active oxyCODONE-acetamin ophen (PERCOCET) 5-325 MG tabletIndications: Acute Pain < 7 Day Supply Take 1 tablet by mouth every 6 (six) hours as needed. Indications: Acute Pain < 7 Day Supply 20 tablet 11/08/19 25 Active ondansetron (ZOFRAN-ODT) 4 MG disintegrating tablet Take 1 tablet (4 mg total) by mouth every 8 (eight) hours as needed for Nausea. 20 tablet 11/08/19 25 Active psyllium (METAMUCIL 4 IN 1 FIBER) 51.7 % packet Take 1 packet by mouth 3 (three) times daily. 90 packet 11/08/19 25 Active naloxone (NARCAN) 4 MG/0.1ML nasal spray 1 spray by Nasal route as needed for Opioid reversal. may repeat every 2 to 3 minutes in alternating nostrils until medical assistance becomes available 1 each 11/08/19 25 026 Active Active Problems Problem Noted Date Diagnosed Date Pancolitis 11/04/2024 Colitis 11/02/2024 Pain in joint of right shoulder 01/31/2023 Chronic pain syndrome 01/07/2023 Hyperthyroidism 01/07/2023 Irritable bowel syndrome with constipation 01/07 Migraine 01/07/2023 Muscle strain of right scapular region 2 Bursitis of shoulder 07/13/2021 Cannabis dependence 07/13/2021 Status post cervical spinal fusion 07/13/2021 Hot flashes due to menopause 02/01/2021 Hyperlipidemia 02/01/2021 Type 2 diabetes mellitus without complication Migraine without aura and wi thout status migrainosus, not intractable 06/17/2018 Moderate persistent asthma without complication 06/17/2018 Polyp of colon 06/17/2018 Primary osteoarthritis involving multiple joints 06/17/2018 Spinal stenosis of cervical region 12/22/2016 Chronic obstructive lung disease 12/02/2016 H/O migraine 12/01/2016 Allergic rhinitis 06/01/2016 Rupture of left biceps tendon 06/01/2016 Bipolar disorder, current episode mixed, moderat e 02/14/2016 Smoker 02/14/2016 Tobacco use 02/14/2016 Duodenal ulcer disease 01/27/2016 Overview (04/17/2023): Overview: Dr. Raygoza/GARTH 01/2016 Overview: Overview: Dr. Raygoza/GARTH 01/2016 Dr. Raygoza/GARTH 01/2016 Overview: Dr. Raygoza/GARTH 01/2016 Anxiety state 11/29/2015 Abnormal brain MRI 09/20/2015 Chronic erosive gastritis 09/20/2015 Depression with anxiety 09/20/2015 GERD (gastroesophageal reflux disease) 6 Bipolar 1 disorder, depressed 09/20/2015 Abnormal Pap smear of cervix 07/23/2013 ASCUS with positive high risk HPV cervical 07/23 Arthralgia of hip 08/04/2008 Heart murmur Encounters Date Type Department Care Team Description 11/10/2024 [facility] [place] [address] Aishwarya Calderon LPN Follow Up Call ([facility] 11/02-11/07/24) 11/09/2024 Results [facility] [address] Isai Rice MD Pathology 11/07/2024 Telephone [facility] Multispecialty Care - [facility] [address] [place] [phone] Raymond Feliciano MD Appointment Request 11/04/2024 12:59 PM CDT Anesthesia Event [facility] [address] Arvin Kellogg MD 11/04/2024 12:57 PM CDT - 11/04/2024 1:27 PM CDT [facility] [address] Isai Rice MD EGD WITH GASTRIC BIOPSY WITH LARGE COLD FORCEPS 11/02/2024 7:55 PM CDT - 11/07/2024 1:41 PM CDT Hospital Encounter [facility] Med/Surg 5th [place] [address] Waqas Jacobson MD Elayyan, MD Yarely Dhillon Adria, MD Tran, Edin Geronimo MD Bleeding (Rectal) Discharge Disposition: Home or Self Care (Routine Discharge) 11/02/2024 Travel from Last 3 Months Immunizations Immunization [...] drink = 0.6 oz pur e alcohol) [facility] Utilities Answer Date Recorded In the past 12 months has e [employer] [employer], gas, oil, or water [employer] threatened to shut off services in your home? Yes 11/02/2024 Humiliation, Afraid, Rape, and Kick questionnair e Answer Date Recorded Within the last year, have y ou been afraid of your partner or ex-partner? No 11/02/2024 Within the last year, have y ou been humiliated or emotionally abused in other ways by your partner or ex-partner? No Within the last year, have y ou been kicked, hit, slapped, or otherwise physically hurt by your partner or ex-partner? No 11/02/2024 Within the last year, have y ou been raped or forced to have any kind of sexual activity by your partner or ex-partner? No 11/02/2024 Overall Financial Resource Strain (CARDIA) Answe r Date Recorded How hard is it for you to pa y for the very basics like food, housing, medical care, and heating? Not very hard 11/02/2024 PHQ-2 Answer Date Recorded Patient Health Questionnaire-2 Score 0 06/07/2023 Hunger Vital Sign Answer Date Recorded Within the past 12 months, y ou worried that your food would run out before you got the money to buy more. Never true 11/03/19 Within the past 12 months, t he food you bought just didn't last and you didn't have money to get more. Never true 11/02/2024 PRAPARE - Transportation Answer Date Re corded In the past 12 months, has l ack of transportation kept you from medical appointments or from getting medications? Yes 10/07 In the past 12 months, has l ack of transportation kept you from meetings, work, or from getting things needed for daily living? Yes 11/02/2024 Housing Stability Vital Sign Answer Daljit e Recorded In the last 12 months, was t here a time when you were not able to pay the mortgage or rent on time? Yes 11/02/2024 In the past 12 months, how m any times have you moved where you were living? 1 11/02/2024 At any time in the past 12 m [facility], were you homeless or living in a intermediate (including now)? 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 Gender Identity Not on file Sexual Orientation Not on file Last Filed Vital Signs Vital Sign Reading Time Taken Comments Blood Pressure 148/88 11/07/2024 11:01 AM CDT Pulse 64 11/07/2024 11:01 AM CDT Temperature 36.7 C (98.1 F) 11/07/2024 11:01 AM CDT Respiratory Rate 18 11/07/2024 11:01 AM CDT Oxygen Saturation 100% 11/07/2024 11:01 AM CDT Inhaled Oxygen Concentration - - Weight 59.1 kg (130 lb 4.7 oz) 11/07/2024 5:00 A M CDT Height 162.6 cm (5' 4) 11/02/2024 6:57 PM CDT Body Mass Index 22.36 11/02/2024 6:57 PM CDT Plan of Treatment Upcoming Encounters Date Type Department Care Team (Late st Contact Info) Description 01/26/2025 11:20 AM MOTION PICTURE ACTOR Office Visit [facility] Multispecialty Care - [facility] [address] [place] [address] Naomi Covarrubias NP [address] [facility] [address] [place] [address] Health Maintenance Due Date Last Done Comments Kidney Health Evaluation 1974 Annual Physical 1977 Hepatitis C 02/28/1992 Hepatitis B Vaccines (1 of 3 - 19+ 3-dose series) 1993 Pneumococcal Vaccine: 50+ Years (2 of 2 - PCV) 11/08/2013 11/08/2012 Mammogram Screening 04/28/2022 04/28/2020, 0 Cervical Cancer Screening Pap with HPV Testing (Age 30 to 64) Every 5 Years 12/05/2023 12/04/2018 PHQ-2 (Physician [place]) 02/06/2024 06/07/2023 Zoster Vaccines (1 of 2) 02/28/2024 Lipid Panel 03/02/2024 03/02/2023 COVID-19 Vaccine ( - season) 2024 Influenza Adult (#1) 2024 11/08/2012 Diabetes: Retinopathy Eye Exam 04/17/2025 04/18/2023 Hemoglobin A1C 05/03/2025 11/03/2024, 06/05, 02/14/2024, Additional history exists DTaP, Tdap and Td Vaccines (2 - Td or Tdap) 06/11/2026 06/11/2016 Cervical Cancer Screening Pap Smear (Age 30 to 64) Every 3 Years 06/20/2026 06/21/2023, 12/04/2018 Cervical Cancer Screening with HPV 06/20/2026 Colorectal Cancer Screening Colonoscopy (10 Years) 11/04/2034 11/04/2024, 11/04/2024 Hepatitis A Vaccines Aged Out No long er eligible based on patient's age to complete this topic Meningococcal B Vaccine Aged Out No l onger eligible based on patient's age to complete this topic Meningococcal Vaccine Aged Out No felicita aaron eligible based on patient's age to complete this topic RSV Immunizations Under 20 Months Aged Out No longer eligible based on patient's age to complete this topic Interventions Community Resource Recommendations Community Resource Services Recommended Domains Addressed Status Status Reason/Outcome Date/Time LIHEAP Financial Assistance Financial Resource Strain Recommended 11/03/2024 2:08 PM CDT [facility] - [facility] Office Transportation Transportation Needs Recommended 11/03/2024 2:08 PM CDT from Last 12 Months Procedures Procedure Name Priority Date/Time Associated Diagnosis Comments POCT GLUCOSE - DOCKED DEVICE Routine 11/07/2024 11:03 AM CDT HC CBC AUTO W/AUTO DIFF Routine 11/07/2024 9:54 AM CDT XR ABD KUB Today 11/07/2024 9:38 AM CDT HC COMPREHENSIVE METABOLIC PANEL Routine 11/07/2024 7:09 AM CDT HC MAGNESIUM Routine 11/07/2024 7:09 AM CDT POCT GLUCOSE - DOCKED DEVICE Routine 11/07/2024 6:17 AM CDT POCT GLUCOSE - DOCKED DEVICE Routine 11/06/2024 8:51 PM CDT HC CALPROTECTIN STOOL-90 STAT 11/06/2024 6:50 PM CDT GI PANEL PCR - STOOL STAT 11/06/2024 6:50 PM CDT HC COMPREHENSIVE METABOLIC PANEL Routine 11/06/2024 8:30 AM CDT HC CBC AUTO W/AUTO DIFF Routine 11/06/2024 8:30 AM CDT HC MAGNESIUM Routine 11/06/2024 8:30 AM CDT POCT GLUCOSE - DOCKED DEVICE Routine 11/05/2024 4:52 PM CDT POCT GLUCOSE - DOCKED DEVICE Routine 11/05/2024 11:20 AM CDT HC MAGNESIUM Routine 11/05/2024 7:16 AM CDT HC COMPREHENSIVE METABOLIC PANEL Routine 11/05/2024 7:16 AM CDT HC CBC AUTO W/AUTO DIFF Routine 11/05/2024 7:16 AM CDT POCT GLUCOSE - DOCKED DEVICE Routine 11/05/2024 6:02 AM CDT POCT GLUCOSE - DOCKED DEVICE Routine 11/04/2024 8:46 PM CDT POCT GLUCOSE - DOCKED DEVICE Routine 11/04/2024 3:58 PM CDT COLSC FLX W/RMVL OF TUMOR POLYP LESION SNARE TQ 11/04/2024 1:00 PM CDT Colitis UPPER GI ENDOSCOPY,BIOPSY 11/04/2024 1:00 PM CDT Colitis POCT GLUCOSE - DOCKED DEVICE Routine 11/04/2024 11:58 AM CDT EGD Routine 11/04/2024 7:23 AM CDT COLONOSCOPY Routine 11/04/2024 7:23 AM CDT POCT GLUCOSE - DOCKED DEVICE Routine 11/04/2024 5:27 AM CDT HC MAGNESIUM Routine 11/04/2024 4:33 AM CDT TSH W/REFLEX Routine 11/04/2024 4:33 AM CDT HC COMPREHENSIVE METABOLIC PANEL Routine 11/04/2024 4:33 AM CDT HC CBC AUTO W/AUTO DIFF Routine 11/04/2024 4:33 AM CDT PATHOLOGY Routine 11/04/2024 12:00 AM CDT POCT GLUCOSE - DOCKED DEVICE Routine 11/03/2024 7:21 PM CDT POCT GLUCOSE - DOCKED DEVICE Routine 11/03/2024 5:41 PM CDT POCT GLUCOSE - DOCKED DEVICE Routine 11/03/2024 11:39 AM CDT HC SED RATE AUTO STAT 11/03/2024 4:59 AM CDT HC C-REACTIVE PROTEIN STAT 11/03/2024 4:59 AM CDT HC GLYCOSYLATED HGB STAT 11/03/2024 4 :59 AM CDT HC MAGNESIUM STAT 11/03/2024 4:59 AM CDT HC COMPREHENSIVE METABOLIC PANEL STAT 11/03/2024 4:59 AM CDT HC CBC AUTO W/AUTO DIFF STAT 11/03/2024 4:59 AM CDT XR CHEST PORTABLE STAT 11/03/2024 12: 49 AM CDT RESPIRATORY PCR PANEL 2 STAT 11/03/2024 12:28 AM CDT HC LACTATE/LACTIC ACID TIMED 12:[address] ABD+PEL W CON STAT 11/02/2024 9:28 PM CDT HC C-REACTIVE PROTEIN Routine 11/02/2024 8:23 PM CDT HC SED RATE AUTO Routine 11/02/2024 8:23 PM CDT HC PHOSPHORUS Routine 11/02/2024 8:23 PM CDT HC MAGNESIUM Routine 11/02/2024 8:23 PM CDT HC PTT STAT 11/02/2024 8:23 PM CDT HC PROTHROMBIN TIME (PT) STAT 11/02/2024 8:23 PM CDT HC TROPONIN QN STAT 11/02/2024 8:23 PM CDT HC LIPASE STAT 11/02/2024 8:23 PM CDT HC COMPREHENSIVE METABOLIC PANEL STAT 11/02/2024 8:23 PM CDT HC CBC AUTO W/AUTO DIFF STAT 11/02/2024 8:23 PM CDT ECG 12-LEAD Routine 11/02/2024 8:12 PM CDT from Last 3 Months Results * (ABNORMAL) POCT glucose (11/07/2024 11:03 AM CDT) Only the most recent of13 resultswithin the time period is included. GLUCOSE POC 157(H) 70 - 99 mg/dL 11/07/2024 11:16 AM CDT [facility] 11/07/2024 11:0 3 AM CDT us Edin Richardson MD POCT ORDERABLES - DEVICE Final R esult [facility] [address] [place] [address], [place] [phone] * (ABNORMAL) CBC W/DIFF AUTOMATED (11/07/2024 9:54 AM CDT) Only the most recent of6 resultswithin the time period is included. Pathologist [facility] WBC 5.27 4.5 - 11.0 x10'3/uL 11/07/2024 10:[address] [facility] RBC 3.69(L) 4.20 - 5.40 x10'6/uL 11/07/2024 10:[address] [facility] HGB 11.7(L) 12.0 - 16.0 G/DL 11/07/2024 10:[address] [facility] HCT 35.6(L) 38.0 - 48.0 % 11/07/2024 10:[address] [facility] MCV 96.5 81.0 - 99.0 FL 11/07/2024 10:[address] [facility] MCH 31.7(H) 27.0 - 31.0 PG 11/07/2024 10:[address] [facility] MCHC 32.9 32.0 - 36.0 G/DL 11/07/2024 10:[address] [facility] RDW 12.4 11.5 - 14.5 % 11/07/2024 10:[address] [facility] PLT 201 130 - 400 x10'3/uL 11/07/2024 10:[address] [facility] MPV 11.2 9.3 - 12.2 FL 11/07/2024 10:[address] [facility] DIFFERENTIAL TYPE AUTOMATED DIFFERENTIAL 11/07/2024 10:[address] [facility] NEUTROPHILS % 64.1 % 11/07/2024 10:[address] [facility] LYMPHOCYTES % 29.2 % 11/07/2024 10:[address] [facility] MONOCYTES % 6.1 % 11/07/2024 10:[address] [facility] EOSINOPHILS 0.2 % 11/07/2024 10:[address] [facility] BASOPHILS 0.2 % 11/07/2024 10:[address] [facility] IMMATURE GRANS % 0.2 % 11/08/19 10:[address] [facility] ABS. NEUTROPHILS 3.38 1.80 - 7.70 x10'3/uL 11/07/2024 10:[address] [facility] ABS. LYMPHOCYTES 1.54 1.00 - 4.80 x10'3/uL 11/07/2024 10:[address] [facility] ABS. MONOCYTES 0.32 0.24 - 0.86 x10'3/uL 11/07/2024 10:[address] [facility] ABS. EOSINOPHILS 0.01(L) 0.04 - 0.36 x10'3/uL 11/07/2024 10:[address] [facility] ABS. BASOPHILS 0.01 0.01 - 0.08 x10'3/uL 11/07/2024 10:56 AM [facility] ABS. IMMATURE GRANULOCYTES 0.01 0.00 - 0.49 x10'3/uL 11/07/2024 10:56 AM T [facility] 11/07/2024 9:54 AM CDT us Edin Richardson MD LABORATORY Final Result [facility] [address] [place] [address], [place] [phone] * XR ABD KUB (11/07/2024 9:38 AM CDT) Anatomical Region Laterality Modality Abdomen Radiographic Bety ging 11/07/2024 3:15 PM CDT Impressions 11/07/2024 3:19 PM CDT IMPRESSION: 1. No radiographic evidence of small bowel obstruction. 2. Status post cholecystectomy. Referred By: Interpreted By: Ariadna Berry MD, 11/07/2024 3:15 PM Narrative 11/07/2024 3:19 PM [address]T [address] [address] PROCEDURE: XR ABD KUB. 11/07/2024 9:30 AM. HISTORY: recent colitis TECHNIQUE: Supine image(s) of the abdomen and pelvis were obtained on 11/07/2024. at 0 953 hours. COMPARISON: CT abdomen and pelvis with contrast, 11/02/2024. FINDINGS: LINES OR TUBES: None LUNG BASES: Unremarkable. BOWEL GAS PATTERN: There are no abnormally dilated loops of bowel. FREE AIR: No free air is detected on this supine exam. CALCIFICATIONS/OTHER: Cholecystectomy clips are seen in the right upper quadrant. Scattered phleboliths in the lower pelvis. MUSCULOSKELETAL: Degenerative changes are seen in the visualized portions of the spine. Stable L4-L5 disc spacer. Procedure Note Ariadna Berry MD - 11/07/2024 [facility] [address] [place] [address] PROCEDURE: XR ABD KUB. 11/07/2024 9:30 AM. HISTORY: recent colitis TECHNIQUE: Supine image(s) of the abdomen and pelvis were obtained on11/07/2024. at 0 953 hours. COMPARISON: CT abdomen and pelvis with contrast, 11/02/2024. FINDINGS: LINES OR TUBES: None LUNG BASES: Unremarkable. BOWEL GAS PATTERN: There are no abnormally dilated loops of bowel. FREE AIR: No free air is detected on this supine exam. CALCIFICATIONS/OTHER: Cholecystectomy clips are seen in the right upperquadrant. Scattered phleboliths in the lower pelvis. MUSCULOSKELETAL: Degenerative changes are seen in the visualized portionsof the spine. Stable L4-L5 disc spacer. IMPRESSION: 1. No radiographic evidence of small bowel obstruction. 2. Status post cholecystectomy. Referred By: Interpreted By: Ariadna Berry MD, 11/07/2024 3:15 PM Edin Richardson MD GENERAL IMAGING Final Result * (ABNORMAL) COMPREHENSIVE METABOLIC PANEL (11/07/2024 7:09 AM CDT) Only the most recent of6 resultswithin the time period is included. GLUCOSE 128(H) 70 - 99 MG/DL 11/07/2024 8:[address] [facility] BUN 1(L) 7 - 18 MG/DL 11/07/2024 8:[address] [facility] CREATININE S/P/B 0.51(L) 0.55 - 1.02 MG/DL 11/07/2024 8:[address] [facility] SODIUM S/P/B 139 136 - 145 MMOL/L 11/07/2024 8:[address] [facility] POTASSIUM S/P/B 3.7 3.5 - 5.1 MMOL/L 11/07/2024 8:[address] [facility] CHLORIDE S/P/B 109 97 - 115 MMOL/L 11/07/2024 8:[address] [facility] CO2 24.5 21 - 32 MMOL/L 11/07/2024 8:04 AM [facility] CALCIUM S/P/B 8.8 8.5 - 10.1 MG/DL 11/07/2024 8:04 AM [facility] BILIRUBIN TOTAL S/P/B 0.4 0.2 - 1.2 MG/DL 11/07/2024 8:[address] [facility] Comment: THIS ASSAY IS NOT RECOMMENDED FOR PATIENTS UNDERGOING TREATMENT WITH ELTROMBOPAG DUE TO THE POTENTIAL FOR FALSELY ELEVATED RESULTS. TOTAL PROTEIN S/P/B 5.9(L) 6.4 - 8.2 G/DL 11/07/2024 8:[address] [facility] ALBUMIN S/P/B 2.6(L) 3.4 - 5.0 G/DL 11/07/2024 8:[address] [facility] AST 14(L) 15 - 37 U/L 11/07/2024 8:04 AM [facility] ALT 12(L) 14 - 55 U/L 11/07/2024 8:04 AM [facility] ALKALINE PHOSPHATASE S/P/B 104 50 - 136 U/L 11/07/2024 8:04 AM [facility] ANION GAP 5.5 2 - 10 MMOL/L 11/07/2024 8:[address] [facility] BUN CREATININE RATIO 2.0(L) 6 - 26 11/07/2024 8:04 AM [facility] A/G RATIO 0.8(L) 1.0 - 2.0 RATIO 11/07/2024 8:04 AM [facility] GFR ESTIMATE >90 >90 ML/MIN/1.7 3 M2 11/07/2024 8:[address] [facility] Comment: NOTE: eGFR is not calculated for patients <18 years of age or gender unknown. This is an estimated GFR calculation using the new CKD EPI creatinine equation without race and so does not require a correction factor for race. This estimated GFR should not be used for calculating drug doses. 11/07/2024 7:09 AM CDT Nico Pritchett MD LABORATORY Final Result [facility] [address] [place] [id number], * MAGNESIUM (11/07/2024 7:09 AM CDT) Only the most recent of6 resultswithin the time period is included. Pathologist [facility] MAGNESIUM 1.8 1.8 - 2.4 MG/DL 11/07/2024 8:[address] [facility] 11/07/2024 7:09 AM CDT Isai Rice MD LABORATORY Final Result Performing Organization Address City/[facility] Co de Phone Number [facility] [address] [place] [phone], * GI PANEL PCR - STOOL (11/06/2024 6:50 PM CDT) CAMPYLOBACTER PCR (STOOL) NOT DETECTED NOT DETECTED 11/06/2024 8:[address] [facility] PLESIOMONAS SHIGELLOIDES PCR (STOOL) NOT DETECTED NOT DETECTED 11/06/2024 8:[address] [facility] SALMONELLA PCR (STOOL) NOT DETECTED NOT DETECTED 11/06/2024 8:[address] [facility] VIBRIO PCR (STOOL) NOT DETECTED NOT DETECTED 11/06/2024 8:[address] [facility] VIBRIO CHOLERAE PCR (STOOL) NOT DETECTED NOT DETECTED 11/06/2024 8:[address] [facility] YERSINIA ENTEROCOLITICA PCR (STOOL) NOT DETECTED NOT DETECTED 11/06/2024 8:[address] [facility] ENTEROAGGREGATIVE ECOLI PCR (STOOL) NOT DETECTED NOT DETECTED 11/06/2024 8:[address] [facility] ENTEROPATHOGENIC ECOLI PCR (STOOL) NOT DETECTED NOT DETECTED 11/06/2024 8:[address] [facility] ENTEROTOXIGENIC ECOLI PCR (STOOL) NOT DETECTED NOT DETECTED 11/06/2024 8:[address] [facility] SHIGA LIKE TOXIN ECOLI PCR (STOOL) NOT DETECTED NOT DETECTED 11/06/2024 8:[address] [facility] SHIG/ENTEROINVASIVE ECOLI PCR (STOOL) NOT DETECTED NOT DETECTED 11/06/2024 8:[address] [facility] CRYPTOSPORIDIUM PCR (STOOL) NOT DETECTED NOT DETECTED 11/06/2024 8:[address] [facility] CYCLOSPORA CAYETANENSIS PCR (STOOL) NOT DETECTED NOT DETECTED 11/06/2024 8:[address] [facility] ENTAMOEBA HISTOLYTICA PCR (STOOL) NOT DETECTED NOT DETECTED 11/06/2024 8:[address] [facility] GIARDIA LAMBLIA PCR (STOOL) NOT DETECTED NOT DETECTED 11/06/2024 8:[address] [facility] ADENOVIRUS F40/41 PCR (STOOL) NOT DETECTED NOT DETECTED 11/06/2024 8:[address] [facility] ASTROVIRUS PCR (STOOL) NOT DETECTED NOT DETECTED 11/06/2024 8:[address] [facility] NOROVIRUS GI/GII PCR (STOOL) NOT DETECTED NOT DETECTED 11/06/2024 8:[address] [facility] ROTAVIRUS A PCR (STOOL) NOT DETECTED NOT DETECTED 11/06/2024 8:[address] [facility] SAPOVIRUS PCR (STOOL) NOT DETECTED NOT DETECTED 11/06/2024 8:[address] [facility] STOOL SPECIMEN / Unknown 11/06/2024 6:50 PM CDT Waqas Jacobson MD MICROBIOLOGY - GENERAL ORDERABLES Final Result [facility] [address] [place] [address], [place] [phone] * CALPROTECTIN FECAL (11/06/2024 6:50 PM CDT) CALPROTECTIN (STOOL) <5 mcg/g 11/16/2024 4:19 AM CDT [facility]ELINA[facility]NIKOLE DIAZ Comment: Reference Range: <50 Normal 50-120 Borderline >120 Elevated LIQUID STOOL. Calprotectin in Crohn's disease and ulcerative colitis can be five to several thousand times above the reference population (50 mcg/g or less). Levels are usually 50 mcg/g or less in healthy patients and with irritable bowel syndrome. Repeat testing in 4-6 weeks is suggested for borderline values. Test performed by [facility] [address] [place] [address] Head Sugar Reprocess Operator: Tabitha Michelle MD,PHD,MEHRAN Test Reported by Verna Patterson, [facility], [address] [place] [address] Abraham Espinosa M.D., Ph.D., Director of Laboratories , CLIA [id number] STOOL SPECIMEN / Unknown 11/06/2024 6:50 PM CDT us Isai Rice MD BODY FLUIDS AND STOOLS ORDERABLE S Final Result [facility] JERICA WEBB [address] [place], [place] , [place] [phone] * TSH W/REFLEX (11/04/2024 4:33 AM CDT) TSH 3.210 0.358 - 3.74 uIU/ML 11/04/2024 5:[address] [facility] Comment: HIGH DOSES OF BIOTIN MAY INTERFERE WITH THIS TEST RESULT. CORRELATION TO CLINICAL HISTORY AND PRESENTATION RECOMMENDED. FREE T4 NOT INDICATED 11/04/2024 4:33 AM CDT us Nico Pritchett MD LABORATORY Final Result [facility] [address] [place] [address], [place] [phone] * Pathology (11/04/2024 12:00 AM CDT) PATHOLOGY [facility] Department of Laboratory Medicine [address] [place] [address] , extension [phone] Pathology Report Surgical Pathology Report Name: TAYLER JC Specimen #: [id number] Age: 1 1975 (Age: 49) Location: [id number] Sex: F Procedure Date: 11/04/2024 Hospital #: [id number] Date Received: 11/05/2024 Date Reported: 11/06/2024 Provider: ISAI RICE MD Source: A: Gastric biopsies B: Colon, random, biopsies C: Colon, ascending, polyp D: Colon, hepatic flexure, polyp E: Colon, transverse, polyp Clinical History: Nausea, vomiting, diarrhea, and colitis. Postoperative Diagnosis: Rule out H. pylori. FINAL DIAGNOSIS: A. Stomach, biopsies: - Mild chronic gastritis. - No Helicobacter pylori seen on routine stain. B. Colon, random, biopsies: - Multifocal, mild acute colitis with no evidence of chronicity, see comment. C. 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 D. Colon, transverse polyp at hepatic flexure, polypectomy: - Tubular adenoma. E. Colon, transverse polyps, polypectomies: - Fragments of tubular adenoma. Diagnosis Comment: Focal acute colitis is nonspecific and may represent infection, bowel preparation effect, local mechanical injury, or medication effect. Gross Description: A. Received in formalin, labeled with a patient label and as gastric biopsy are 4 pieces of ratliff tissue ranging from 0.2 to 0.3 cm. The specimen is entirely submitted in cassette A1. B. Received in formalin, labeled with a patient label and as random colon biopsies are 7 pieces of ratliff tissue ranging from 0.2 to 0.3 cm. The specimen is entirely submitted in cassette B1. C. Received in formalin, labeled with a patient label and as ascending colon polyps are multiple pieces and fragments of disrupted pink-ratliff polypoid tissue that are 1.5 x 1 x 0.3 cm in aggregate. The specimen is entirely submitted in cassette C1. D. Received in formalin, labeled with a patient label and as transverse polyp at hepatic flexure is a 1.0 x 0.7 cm sheet of brown-ratliff polypoid tissue. The sheet of tissue is bisected and fragments upon sectioning. The specimen is entirely submitted in cassette D1. E. Received in formalin, labeled with a patient label and as transverse colon polyps are 6 pieces of disrupted ratliff polypoid tissue ranging from 0.3 to 0.5 cm. The specimen is entirely submitted in cassette E1. Gross examination (when applicable), interpretation, and sign out were performed at [facility], [address] [place] [address]. Electronically Signed Out CALVIN FRANZ MD [facility] TISSUE GASTRIC BIOPSY SPECIMEN / Unknown 11/04/2024 1:11 PM CDT Tissue specimen (specimen) COLON STRUCTURE / Unknown 11/04/2024 1:22 PM CDT Tissue specimen (specimen) COLON STRUCTURE / Unknown 11/04/2024 1:25 PM CDT Tissue specimen (specimen) COLON STRUCTURE / Unknown 11/04/2024 1:33 PM CDT Tissue specimen (specimen) COLON STRUCTURE / Unknown 11/04/2024 1:42 PM CDT Isai Rice MD PATHOLOGY/CYTOLOGY ORDERABLES Fi nal Result [facility] [address] [place] [address], [place] [phone] [phone] * (ABNORMAL) HEMOGLOBIN, GLYCOSYLATED (11/03/2024 4:59 AM CDT) HGB A1C 6.1(H) <5.7 % 11/03/2024 8:[address] [facility] Comment: ADA GUIDELINES 2009 5.7 TO 6.4% INCREASED RISK OF DIABETES > OR = 6.5% CONSISTENT WITH DIABETES ESTIMATED AVG GLUCOSE 128 mg/dL 11/03/2024 8:[address] [facility] 11/03/2024 4:59 AM CDT Tiffanie Galindo APRN LABORATORY Final Resul t Performing Organization Address [facility] Co de Phone Number [facility] [address] [place] [address], [place] [phone] * SED RATE, ERYTHROCYTE (ESR) (11/03/2024 4:59 AM CDT) Only the most recent of2 resultswithin the time period is included. ESR 7 <20 MM/HR 11/03/2024 5:[address] [facility] Comment:Testing performed on Alcannie iSED. 11/03/2024 4:59 AM CDT Isai Rice MD LABORATORY Final Result Performing Organization Address City/[facility]/ZIP Co de Phone Number [facility] [address] [place] [address], [place] [phone] * (ABNORMAL) C-REACTIVE PROTEIN (11/03/2024 4:59 AM CDT) Only the most recent of2 resultswithin the time period is included. C-REACTIVE PROTEIN 0.66(H) <0.29 mg/dL 11/03/2024 5:[address] [facility] 11/03/2024 4:59 AM CDT Isai Rice MD LABORATORY Final Result [facility] [address] [place] [address], [place] [phone] * XR CHEST PORTABLE (11/03/2024 12:49 AM CDT) Anatomical Region Laterality Modality Chest Radiographic Bety ging 11/03/2024 1:09 AM CDT Impressions 11/03/2024 1:10 AM CDT IMPRESSION: ======== 1. No acute cardiopulmonary findings. Referred By: Interpreted By: Garcia Gong MD, 11/03/2024 1:09 AM Narrative 11/03/2024 1:10 AM CDT [facility] [address] [place], [place] [address] Examination: Chest x-ray 1 view Exam Date/Time: 11/03/2024 12:44 AM Reason For Exam: wheezing ,cough, sob Nausea vomiting and diarrhea for one month. Comparison: None Technique: Single AP view of the chest was obtained. Findings: Postsurgical changes in the lower cervical spine included in [id number]-nz-wepl. Heart size is normal. No large effusion. No pneumothorax. No consolidations. Pulmonary vascularity within normal limits. No focal infiltrates. ======== Procedure Note Garcia Gong MD - 11/03/2024 [facility] [address] [place], [place] [address] Examination: Chest x-ray 1 view Exam Date/Time: 11/03/2024 12:44 AM Reason For Exam: wheezing ,cough, sob Nausea vomiting and diarrhea for one month. Comparison: None Technique: Single AP view of the chest was obtained. Findings: Postsurgical changes in the lower cervical spine included pwuyhhf-pb-ysla. Heart size is normal. No large effusion. Nopneumothorax. No consolidations. Pulmonary vascularity within normallimits. No focal infiltrates. ======== IMPRESSION: ======== 1. No acute cardiopulmonary findings. Referred By: Interpreted By: Garcia Gong MD, 11/03/2024 1:09 AM Tiffanie Wali [facility] FAX MACHINE OPERATOR GENERAL IMAGING Final Resul t * RESPIRATORY PCR PANEL 2 (11/03/2024 12:28 AM CDT) ADENOVIRUS PCR (RESP) NOT DETECTED NOT DETECTED 11/03/2024 2:[address] [facility] CORONAVIRUS 229E PCR (RESP) NOT DETECTED NOT DETECTED 11/03/2024 2:[address] [facility] CORONAVIRUS HKU1 PCR (RESP) NOT DETECTED NOT DETECTED 11/03/2024 2:[address] [facility] CORONAVIRUS NL63 PCR (RESP) NOT DETECTED NOT DETECTED 11/03/2024 2:[address] [facility] CORONAVIRUS OC43 PCR (RESP) NOT DETECTED NOT DETECTED 11/03/2024 2:[address] [facility] METAPNEUMOVIRUS PCR (RESP) NOT DETECTED NOT DETECTED 11/03/2024 2:[address] [facility] RHINOVIRUS/ENTEROV IRUS PCR (RESP) NOT DETECTED NOT DETECTED 11/03/2024 2:[address] [facility] INFLUENZA A PCR (RESP) NOT DETECTED NOT DETECTED 11/03/2024 2:[address] [facility] INFLUENZA B PCR (RESP) NOT DETECTED NOT DETECTED 11/03/2024 2:[address] [facility] PARAINFLUENZA 1 PCR (RESP) NOT DETECTED NOT DETECTED 11/03/2024 2:[address] [facility] PARAINFLUENZA 2 PCR (RESP) NOT DETECTED NOT DETECTED 11/03/2024 2:[address] [facility] PARAINFLUENZA 3 PCR (RESP) NOT DETECTED NOT DETECTED 11/03/2024 2:[address] [facility] PARAINFLUENZA 4 PCR (RESP) NOT DETECTED NOT DETECTED 11/03/2024 2:[address] [facility] RSV PCR (RESP) NOT DETECTED NOT DETECTED 11/03/2024 2:[address] [facility] B PARAPERTUSIS PCR (RESP) NOT DETECTED NOT DETECTED 11/03/2024 2:[address] [facility] BORDETELLA PERTUSSIS PCR (RESP) NOT DETECTED NOT DETECTED 11/03/2024 2:[address] [facility] CHLAMYDOPHILA PNEUMONIAE PCR (RESP) NOT DETECTED NOT DETECTED 11/03/2024 2:[address] [facility] MYCOPLASMA PNEUMONIAE PCR (RESP) NOT DETECTED NOT DETECTED 11/03/2024 2:[address] [facility] CORONAVIRUS SARS COV 2 PCR (RESP) NOT DETECTED NOT DETECTED 11/03/2024 2:[address] [facility] NASOPHARYNGEAL SWAB / Unknown 11/03/2024 12:28 AM CDT us Tiffanie Galindo APRN MICROBIOLOGY - GENERAL ORDE RABLES Final Result Performing Organization Address City/[facility]/ZIP Co de Phone Number [facility] [address] [place] [address], [place] [phone] * LACTIC ACID - SINGLE (11/03/2024 12:28 AM CDT) LACTIC ACID VENOUS 1.2 0.4 - 2.0 MMOL/L 11/03/2024 1:[address] [facility] 11/03/2024 12:2 8 AM CDT Tiffanie Galindo APRN LABORATORY Final Resul t Performing Organization Address City/[facility] Co de Phone Number [facility] [address] [place] [address], * CT ABD+PEL W IV CON ONLY (11/02/2024 9:28 PM CDT) Anatomical Region Laterality Modality Abdomen Computed Tomogra phy 11/02/2024 9:40 PM CDT Impressions 11/02/2024 10:17 PM CDT Impression: 1. Essentially pancolonic mild large bowel submucosal edema and mucosal hyperemia. Probable mild pancolitis. This is most likely infectious/inflammatory in etiology, like C. difficile colitis. Ischemia felt less likely given multiple vascular distribution of findings, although not definitively excluded based on CT findings alone. Recommend correlation with clinical symptoms and history. 2. No evidence of bowel necrosis or bowel obstruction. No perforation or abscess formation. Preliminary: Laquita Driscoll MD11/02/2024 9:51 PM The attending radiologist has reviewed the image(s) and agrees with the content of this report. Ordered By: WAQAS JACOBSON Interpreted By: Laquita Driscoll MD, 11/02/2024 9:40 PM Narrative 11/02/2024 10:17 PM [address] [address] Examination: CT abdomen and pelvis with IV contrast. Clinical Information: Abdominal pain. Diarrhea. Hematochezia. Comparison:None available. Technique: IV contrast: 100 mL of Isovue 370. Oral contrast: None. Technical comments: Standard technique. Dose reduction: This CT exam was performed using one or more of the following dose reduction techniques: Automated exposure control, adjustment of the mA and/or kV according to patient size, and/or use of iterative reconstruction technique. Findings: LOWER CHEST Heart is normal in size. Lung bases are clear. No pleural or pericardial effusions. UPPER ABDOMEN Liver and bile ducts: Hypodense region along the anterior right hepatic lobe immediately adjacent to the falciform ligament and findings seen to a lesser degree the left a little more posteriorly adjacent to the falciform ligament. Findings are favored to represent focal fatty infiltration given the distribution. No concerning focal hepatic lesion. Portal vein and hepatic veins are patent. Gallbladder: Cholecystectomy. Prominence of the intrahepatic and extrahepatic biliary tree, presumed reservoir effect related to prior cholecystectomy. Pancreas: No discrete pancreatic mass or peripancreatic inflammatory stranding. Spleen: Normal in size. No focal splenic lesion. RETROPERITONEUM Adrenals: No adrenal mass. Kidneys: Normal in size. Enhance symmetrically. No hydronephrosis. No urolithiasis. Lymph nodes: No retroperitoneal, iliac, inguinal, or mesenteric adenopathy. BOWEL AND PERITONEUM Bowel: The stomach is not fully distended. Small bowel is normal in caliber and wall thickness. There is mild submucosal edema and mucosal hyperemia extending essentially from the cecum through the rectum with questionable minimal sparing/limited findings seen with findings worse along the transverse colon and sigmoid. Findings likely represent some degree of colitis. Free air or fluid: None. VASCULATURE Visceral arteries and portal venous system are normally patent. Minimal scattered aortoiliac atherosclerotic changes. PELVIS Urinary bladder is distended but otherwise unremarkable. Uterus is anteverted. BONES/SOFT TISSUES No acute fracture or dislocation. L4-L5 disc spacer. Procedure Note Travis Chew MD - 11/02/2024 [facility] [address] [place], [place] [address] Examination: CT abdomen and pelvis with IV contrast. Clinical Information: Abdominal pain. Diarrhea. Hematochezia. Comparison:None available. Technique: IV contrast: 100 mL of Isovue 370. Oral contrast: None. Technical comments: Standard technique. Dose reduction: This CT exam was performed using one or more of thefollowing dose reduction techniques: Automated exposure control,adjustment of the mA and/or kV according to patient size, and/or use ofiterative reconstruction technique. Findings: LOWER CHEST Heart is normal in size. Lung bases are clear. No pleural or pericardialeffusions. UPPER ABDOMEN Liver and bile ducts: Hypodense region along the anterior right hepaticlobe immediately adjacent to the falciform ligament and findings seen to alesser degree the left a little more posteriorly adjacent to the falciformligament. Findings are favored to represent focal fatty infiltration giventhe distribution. No concerning focal hepatic lesion. Portal vein andhepatic veins are patent. Gallbladder: Cholecystectomy. Prominence of the intrahepatic andextrahepatic biliary tree, presumed reservoir effect related to priorcholecystectomy. Pancreas: No discrete pancreatic mass or peripancreatic inflammatorystranding. Spleen: Normal in size. No focal splenic lesion. RETROPERITONEUM Adrenals: No adrenal mass. Kidneys: Normal in size. Enhance symmetrically. No hydronephrosis. Nourolithiasis. Lymph nodes: No retroperitoneal, iliac, inguinal, or mesentericadenopathy. BOWEL AND PERITONEUM Bowel: The stomach is not fully distended. Small bowel is normal incaliber and wall thickness. There is mild submucosal edema and mucosalhyperemia extending essentially from the cecum through the rectum withquestionable minimal sparing/limited findings seen with findings worsealong the transverse colon and sigmoid. Findings likely represent somedegree of colitis. Free air or fluid: None. VASCULATURE Visceral arteries and portal venous system are normally patent. Minimalscattered aortoiliac atherosclerotic changes. PELVIS Urinary bladder is distended but otherwise unremarkable. Uterus isanteverted. BONES/SOFT TISSUES No acute fracture or dislocation. L4-L5 disc spacer. Impression: 1. Essentially pancolonic mild large bowel submucosal edema and mucosalhyperemia. Probable mild pancolitis. This is most likelyinfectious/inflammatory in etiology, like C. difficile colitis. Ischemiafelt less likely given multiple vascular distribution of findings,although not definitively excluded based on CT findings alone. Recommendcorrelation with clinical symptoms and history. 2. No evidence of bowel necrosis or bowel obstruction. No perforation orabscess formation. Preliminary: Laquita Driscoll MD11/02/2024 9:51 PM The attending radiologist has reviewed the image(s) and agrees with thecontent of this report. Ordered By: WAQAS JACOBSON Interpreted By: Laquita Driscoll MD, 11/02/2024 9:40 PM us Waqas Jacobson MD CT Final R esult * (ABNORMAL) PARTIAL THROMBOPLASTIN TIME,PTT (11/02/2024 8:23 PM CDT) PTT 42.3(H) 25.1 - 36.5 SEC 11/02/2024 8:[address] [facility] 11/02/2024 8:23 PM CDT Waqas Jacobson MD LABORATORY Final R esult [facility] [address] [place] [address], [place] [phone] * PROTIME/INR, VENOUS (11/02/2024 8:23 PM CDT) PROTIME 12.9 10.2 - 12.9 SEC 11/02/2024 8:[address] [facility] INR 1.1 11/02/2024 8:[address] [facility] Comment: Recommended INR Therapeutic Goals: 2.0-3.0 Routine Therapy 2.5-3.5 Mechanical Prosthetic Valves (High Risk) 11/02/2024 8:23 PM CDT Waqas Jacobson MD LABORATORY Final R esult Performing Organization Address City/[facility]/ZIP Co de Phone Number [facility] [address] [place] [address], * TROPONIN, QUANT (11/02/2024 8:23 PM CDT) TROPONIN I HIGH SENSITIVITY 5 <54 ng/L 11/02/2024 8:[address] [facility] Comment: HIGH DOSES OF BIOTIN, TROPONIN-SPECIFIC AUTOANTIBODIES, AND ANTIBODY THERAPY CONTAINING HAMA MAY INTERFERE WITH THIS TEST RESULT. CORRELATION TO CLINICAL HISTORY AND PRESENTATION RECOMMENDED. 11/02/2024 8:23 PM CDT Earlene Mcleod PRODUCT MARKETING DIRECTOR LABORATORY Final Resul t Performing Organization Address [facility] Co de Phone Number [facility] [address] [place] [address], * PHOSPHORUS, INORGANIC PHOSPHATE (11/02/2024 8:23 PM CDT) PHOSPHORUS 3.9 2.5 - 4.9 MG/DL 11/02/2024 11:[address] [facility] 11/02/2024 8:23 PM CDT Tiffanie Galindo FAX MACHINE OPERATOR LABORATORY Final Resul t [facility] [address] [place] [address], [place] [phone] * LIPASE (11/02/2024 8:23 PM CDT) [facility] LIPASE 14 13 - 75 UNITS/L 11/02/2024 8:[address] [facility] 11/02/2024 8:23 PM CDT Earlene Mcleod PRODUCT MARKETING DIRECTOR LABORATORY Final Resul t 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 : 1975 Requested By: EARLENE MCLEOD Order Number: [id number] Reading MD: Pierre Pandey Measurements Intervals [place] Rate: 91 P: 72 CO: 150 QRS: 66 QRSD: 90 T: -58 QT: 372 QTc: 460 Interpretive Statements SINUS RHYTHM ST DEVIATION AND MODERATE T-WAVE ABNORMALITY, CONSIDER INFERIOR ISCHEMIA [-0.1+ mV T-WAVE IN II/aVF] No previous ECG available for comparison Procedure Note Pierre Pandey MD - 11/03/[address] Test Date: 2024-11-02 Pat Name: TAYLER JC Department: 41 Room: 4 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: Female 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: [id number] : 1975 Requested By: EARLENE MCLEOD Order Number: [id number] Reading MD: Pierre Pandey Measurements Intervals [place] Rate: 91 P: 72 CO: 150 QRS: 66 QRSD: 90 T: -58 QT: 372 QTc: 460 Interpretive Statements SINUS RHYTHM ST DEVIATION AND MODERATE T-WAVE ABNORMALITY, CONSIDER INFERIOR ISCHEMIA [-0.1+ mV T-WAVE IN II/aVF] No previous ECG available for comparison us Earlene Mcleod PRODUCT MARKETING DIRECTOR ECG ORDERABLES Final Resul t [facility] RAD from Last 3 Months Insurance [place] [employer] Advance Directives * Full Code (Latest Code Status on File) Date Activated Date Inactivated Comments 11/02/2024 11:41 PM 11/07/2024 3:47 PM Care Teams Steam Cleaning Machine Operator Relationship Specialty Start Date End Date Marianne Souza NP PCP - General Nurse Practitioner Family 02/09/23
--- OUTSIDE RECORDS SUMMARY | 2024-12-27 13:10 | XMS_ITS | Clinical Summary ---
Author Organization [facility] Address [address] [place] [address] Phone Care Team Providers Care Lead Php Developer Name Role Phone Quita Lares MD Primary [...] Date Resolved Date COPD exacerbation 06/20/2024 08/07/2024 Social History Tobacco Use Types Packs/Day Years Used Date Smoking Tobacco: Former Cigarettes 0 Q uit: 12/23/2023 Smokeless Tobacco: Never Tobacco Cessation:Counseling Given: No Alcohol Use Standard Drinks/Week Comments Never 0 (1 standard drink = 0.6 oz pur e alcohol) [facility] Utilities Answer Date Recorded In the past 12 months has e [employer], gas, oil, or water [employer] threatened to shut off services in your [...] any time in the past 12 m [facility], were you homeless or living in a jail (including now)? 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 Gender Identity Not on file Sexual [...] 08/07/2024 1:29 PM CDT Plan of Treatment Health Maintenance Due Date Last Done Comments Diabetes: Eye Exam 1974 Diabetes: Foot Exam 1974 Hepatitis C Virus (HCV) Screening 1974 Hepatitis B Immunization (1 of 3 - 19+ 3-dose series) 1993 Pap Smear 1995 Cervical Cancer Screening (CCS) 02/28/2004 HPV/Cotest 02/28/2004 Pneumococcal Immunization (50+ years) (2 of 2 - PCV) 11/08/2013 11/08/2012 Cologuard 2019 Mammogram 04/28/2021 04/28/2020, 02/25/2019 Respiratory Syncytial Virus (RSV) Immunization (Adult) (1 - Risk 50-74 years 1-dose series) 02/28/2024 Zoster Immunization (1 of 2) 02/28/2024 Influenza Immunization (#1) 2024 11/08/2012 SARS-COV-2 Immunization (1 - season) 2024 Diabetes: Hemoglobin A1c 05/03/2025 025, 09/23/2024, 06/21/2024, Additional history exists Diabetes: Nephropathy Screening 07/28/2025 07/28/2024, 07/25/2024, 06/20/2024 Immunochemical Fecal Occult Blood 07/29/2025 07/29/2024 Colonoscopy 11/04/2034 11/04/2024 Colorectal Cancer Screening 11/04/2034 TdaP Immunization Completed 06/11/2016 Human Papillomavirus (HPV) Immunization Aged Out No longer eligible based on patient's age to complete this topic Meningococcal Immunization (ACWY) Aged Out No longer eligible based on patient's age to complete this topic Rotavirus Immunization Aged Out No lo nger eligible based on patient's age to complete this topic Procedures Procedure Name Priority Date/Time Associated Diagnosis Comments STOOL, OCCULT BLOOD, DIAGNOSTIC, VIA GUAIAC STAT 07/29/2024 12:08 AM CDT CMP (COMPREHENSIVE METABOLIC PANEL) STAT 07/28/2024 10:12 PM CDT HEMOGLOBIN A1C W/ ESTIMATED GLUCOSE STAT 06/21/2024 6:48 AM CDT from Last 3 Months or Most Recently Relevant to Health Maintenance Results * Stool Occult Blood - Diagnostic (07/29/2024 12:08 AM CDT) OCCULT BLOOD DIAG Negative Negative 07/29/2024 12:44 AM CDT [facility] Stool Non-Phlebotomy Collection / Unknown 07/29/2024 12:08 AM CDT 07/29/2024 12:42 AM CDT us Esteban Rivera MD BODY FLUIDS & STOOLS KATHLEEN REA Final Result [facility] [address] [place] [address] * (ABNORMAL) Comprehensive Metabolic Panel (Cmp) [id number] (07/28/2024 10:12 PM CDT) SODIUM 138 136 - 145 mmol/L 07/28/2024 11:09 PM CDT [facility] POTASSIUM 3.7 3.5 - 5.1 mmol/L 07/28/2024 11:09 PM CDT [facility] CHLORIDE 106 98 - 107 mmol/L 07/28/2024 11:09 PM CDT [facility] CO2, VENOUS 22 22 - 30 mmol/L 07/28/2024 11:09 PM CDT [facility] ANION GAP 13.7 <18.0 mmol/L 07/28/2024 11:09 PM CDT [facility] GLUCOSE 78 70 - 99 mg/dL 07/28/2024 11:09 PM CDT [facility] BUN 3(L) 10 - 20 mg/dL 07/28/2024 11:09 PM CDT [facility] CREATININE, BLOOD 0.71 0.60 - 1.00 mg/dL 07/28/2024 11:09 PM CDT [facility] BUN/CREATININE RATIO 4(L) 12 - 20 ratio 07/28/2024 11:09 PM CDT [facility] TOTAL PROTEIN 7.8 6.0 - 8.0 g/dL 07/28/2024 11:09 PM CDT [facility] ALBUMIN 4.3 3.5 - 5.0 g/dL 07/28/2024 11:09 PM CDT [facility] A/G RATIO 1.2 1.0 - 2.2 07/28/2024 11:09 PM CDT [facility] CALCIUM 9.6 8.7 - 10.5 mg/dL 07/28/2024 11:09 PM CDT [facility] T BILI 0.3 0.2 - 1.2 mg/dL 07/28/2024 11:09 PM CDT [facility] SGOT (AST) 27 <43 U/L 07/28/2024 11:09 PM CDT [facility] SGPT (ALT) 15 <56 U/L 07/28/2024 11:09 PM CDT [facility] ALKALINE PHOSPHATASE 122 40 - 150 U/L 07/28/2024 11:09 PM CDT [facility] GFR, ESTIMATED >60 >=60 07/28/2024 11:09 PM CDT [facility] Comment: Creatinine Clearance is the preferred criteria for selecting drug dose adjustments in renally impaired patients. The GFR is provided as additional pertinent clinical information. GFR is reported in mL/min/1.73 sq m. Calculation based on the Chronic Kidney Disease Epidemiology Collaboration (CKD- EPI) equation refit without adjustment for race. GFR, EST. >60 >=60 025 11:09 PM CDT [facility] GFR, EST. NONAFRICAN >60 >=60 07/28/2024 11:09 PM CDT [facility] Blood Venipuncture / Unknown 07/28/2024 10:12 PM CDT 07/28/2024 10:37 PM CDT us Esteban Rivera MD CHEMISTRY ORDERABLES Jillian shi Result [facility] [address] [place] [address] * (ABNORMAL) Hemoglobin A1C (if indicated) (06/21/2024 6:48 AM CDT) HGB-A1C 6.4(H) 4.0 - 6.0 % 06/21/2024 7:16 AM CDT [facility] Est Average Glucose 137.0 mg/dL 06/21/2024 7:16 AM CDT [facility] Blood Venipuncture / Unknown 06/21/2024 6:48 AM CDT 06/21/2024 6:48 AM CDT Narrative [facility] - 06/21/2024 7:16 AM CDT HEMOGLOBIN A1C: DIABETIC PATIENTS: WELL-CONTROLLED: 6.2 - 7.0 INTERMEDIATE WELL-CONTROLLED: 7.0 - 9.0 POORLY-CONTROLLED: >9.0 Specimens containing greater than 5% of Hemoglobin F may result in lower than expected % HbA1C results. us Candice Vazquez APRN, ROTARY ENVELOPE MACHINE OPERATOR CHEMISTRY ORDERABLES Final Result [facility] [address] [place] [address] from Last 3 Months or Most Recently Relevant to Health Maintenance Insurance MEDICAID [place] Advance Directives * Full Code (Latest Code Status on File) Date Activated Date Inactivated Comments 06/20/2024 9:43 PM CPR-Full Treat ment: FULL ARREST: Attempt Resuscitation/CPR wit intubation and mechanical ventilation. PRE-ARREST: Use entire range of life support measures to stabilize the patient. Care Teams Lead Php Developer Relationship Specialty Start Date End Date Quita Lares MD [address] [place] [address] PCP - General Internal Medicine 06/22/24 Dustin Jaramillo MD [address] [place] [address] Consulting Physician Pulmonary Disease 07/18/24
--- OUTSIDE RECORDS SUMMARY | 2024-12-27 13:10 | XMS_ITS | Clinical Summary ---
Author Organization 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
--- OUTSIDE RECORDS SUMMARY | 2024-12-27 13:10 | XMS_ITS | Encounter Summary ---
Author Organization [facility] Address [address] [place] [id number] Care Team Providers Care Twist Packer Name Role Phone Marianne Souza NP Primary Care Provider [phone] Encounter Details Date Type Department Care Team (Late st Contact Info) Description 11/09/2024 Results Follow-Up [facility] Endo/GI [place], [place] [id number] Isai Rice MD [address] [facility] [place] [address] [place] [id number] Pathology Social History Tobacco Use Types Packs/Day Years Used Date Smoking Tobacco: Some Days Cigarettes 0.3 15 Passive Smoke Exposure: Current Smokeless Tobacco: Never Comments:Down from 3 ppd to 3-4 cigarettes daily 12/20/23 Alcohol Use Standard Drinks/Week Comments Not Currently 0 (1 standard drink = 0.6 oz pur e alcohol) [facility] Utilities Answer Date Recorded In the past 12 months has [employer], gas, oil, or water [employer] threatened to shut off services in your [...] money to buy more. Never true 11/03/19 25 Within the past 12 months, t [...] any time in the past 12 m [facility], were you homeless or living in a fpc (including now)? 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 Answer Date of Assessment Author Status No 11/02/2024 11:29 PM CDT Kajal Arauz RN Active * Do you have serious difficulty walking or climbing stairs? Answer Date of Assessment Author Status Yes 11/02/2024 11:29 PM CDT Kajal Arauz RN Active * Do you have difficulty dressing or bathing? Answer Date of Assessment Author Status No 11/02/2024 11:29 PM CDT Kajal Arauz RN Active * Because of a physical, mental, or emotional condition, do you have difficulty doing errands alone such as visiting a doctor's office or shopping? Answer Date of Assessment Author Status No 11/02/2024 11:29 PM CDT Kajal Arauz RN Active documented as of this encounter Mental Status * Because of a physical, mental, or emotional condition, do you have serious difficulty concentrating, remembering, or making decisions? Answer Entry Date Author Status No 11/02/2024 11:29 PM CDT Kajal Arauz RN Active documented in this encounter Progress Notes * Isai Rice MD - 11/09/2024 5:52 PM CDT Colon polyps. Repeat EGD in 6 months to 1 year with 2 day prep documented in this encounter Plan of Treatment Upcoming Encounters Date Type Department Care Team (Late st Contact Info) Description 01/26/2025 11:20 AM ENGRAVER HAND HARD METALS Office Visit [facility] Multispecialty [facility] - [facility] [address] [place] [address] Naomi Covarrubias NP [address] [facility] [address] [place] [address] documented as of this encounter Visit Diagnoses Not on filedocumented in this encounter Additional Health Concerns Assessment Noted Time PHQ-9 Depression Total Score: 0 06/07/19 24 2:00 PM CDT documented as of this encounter Care Teams Twist Packer Relationship Specialty Start Date End Date Marianne Souza NP PCP - General Nurse Practitioner Family 02/09/23 documented as of this encounter
--- OUTSIDE RECORDS SUMMARY | 2024-12-27 13:10 | XMS_ITS | Encounter Summary ---
Author Organization [facility] Address [address] [place] [address] Care Team Providers Care Room Manager Name Role Phone Bharath Martinez DO Unavailable [phone] Aishwarya Ortiz DO Primary Care Provider [phone] Prasanth Perea MD Unavailable [phone] Quita Lares MD Primary Care Provider Marianne Souza TURF MANAGER-SIZE PAINTER Unavailable [phone] Encounter Details Date Type Department Care Team (Late st Contact Info) Description 01/31/2016 Transitional Care [facility] DISE[facility] [address] [place] [address] Caroline Cagle RN Social History Tobacco Use [...] of Assessment Author No 01/28/2016 1:16 PM EXERCISE PHYSIOLOGIST CERTIFIED Jenifer Merchant, DELANEY * Does person have difficulty dressing/bathing? Answer Date of Assessment Author No 01/28/2016 1:16 PM EXERCISE PHYSIOLOGIST CERTIFIED Jenifer Merchant RN * Does person have difficulty doing errands alone? Answer Date of Assessment Author No 01/28/2016 1:16 PM EXERCISE PHYSIOLOGIST CERTIFIED Jenifer Merchant RN documented as of this encounter Mental Status * Does person have difficulty concentrating/remembering/making decisions? Answer Entry Date Author No 01/28/2016 1:16 PM EXERCISE PHYSIOLOGIST CERTIFIED Jenifer Merchant RN documented in this encounter [...] but there was no answer, message left. [facility]NN will wait for medication reconciliation before signing off. CISE PHYSIOLOGIST CERTIFIED documented in this encounter Plan of Treatment Not on file documented as of this encounter Visit Diagnoses Not on filedocumented in this encounter Additional Health Concerns Infection Onset Date Last Indicated Resolved Time COVID-19 Under Investigation 03/14/2022 03/14/2022 03/14/2022 3:34 PM EXERCISE PHYSIOLOGIST CERTIFIED documented as of this encounter Care Teams Room Manager Relationship Specialty Start Date End Date Aishwarya Ortiz DO [address] [facility] [address] [place] [phone] PCP - General Family Medicine 06/17/18 02/06/23 Quita Lares MD [address] [place] [id number] PCP - General Internal Medicine 02/07/23 Marianne Souza, TURF MANAGER-SIZE PAINTER [address] [address] [place] [phone] PCP - Attributed-Agrawal Medicaid ST 01/05/23 Bharath Martinez DO Orthopedic Surgery 06/07/16 [place] [address] [address] Physical Medicine and Rehabilitation 10/16/19 documented as of this encounter
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
[2024-12-27 13:11] VITALS: BP 132/73; PULSE 87; RESP 16; TEMP 36.5; O2SAT 98
--- NOTE | 2024-12-27 13:19 | ED.URI ---
HPI - URI/Sore Throat General Chief Complaint: Upper Respiratory Infection Stated Complaint: Cough/Chest Congestion Time Seen by Provider: 12/27/24 13:19 Source: patient, RN notes reviewed and old records reviewed Mode of arrival: ambulatory Limitations: no limitations History of Present Illness HPI Narrative: 49-year-old female presents to [facility] accompanied by son with complaints of cough with congestion, nasal congestion and nasal drainage for the past 1.5 weeks that has not improved with use of Robitussin DM and Claritin. Patient reports history of asthma and takes daily inhalers for that and has Albuterol rescue inhaler.patient reports that she quit smoking 2 months ago. Patient reports that she is diabetic and is on metformin but usually only takes one tab daily if takes 2 her blood sugar drops. Patient reports that she has noted some dyspnea with exertion and has noted some wheezing especially at night when cough is worse. MD elicited complaint: cough, rhinorrhea, nasal congestion and sinus pain Pertinent past history: asthma Onset (ago): week(s) (1.5 weeks) Severity: moderate Able to tolerate fluids by mouth: Yes Treatments prior to arrival: other (Claritin, Robitussin) Related Data Home Medications ?Medication ?Instructions ?Recorded ?Confirmed ?Last Taken ?Type albuterol sulfate 90 mcg/actuation 2 puff inhalation PRN 08/22/23 06/12/24 Unknown History aerosol inhaler metformin 500 mg tablet,extended 1,000 mg PO BID 08/22/23 06/12/24 Unknown History release 24 hr rosuvastatin 5 mg tablet 5 mg PO DAILY 08/22/23 06/12/24 Unknown History sumatriptan succinate 100 mg tablet 100 mg PO DAILY PRN migraine 08/22/23 06/12/24 Unknown History headache budesonide-formoterol HFA 160 1 puff inhalation DAILY 06/04/24 06/12/24 Unknown History mcg-4.5 mcg/actuation aerosol inhaler (Symbicort) calcium 600 mg (as 1 tablet PO DAILY 06/12/24 06/12/24 Unknown History carbonate)-vitamin D3 10 mcg (400 unit) tablet cetirizine 10 mg tablet 10 mg PO DAILY 06/12/24 06/12/24 Unknown History fluticasone propionate 50 2 spray intranasal DAILY 06/12/24 06/12/24 Unknown History mcg/actuation nasal spray,suspension albuterol sulfate 2.5 mg/3 mL mg 07/10/24 Unknown History (0.083 %) solution for nebulization gabapentin 100 mg capsule mg 07/10/24 Unknown History nicotine 7 mg/24 hr daily 07/10/24 Unknown History transdermal patch ondansetron HCl 4 mg tablet mg 07/10/24 Unknown History tiotropium bromide 2.5 inhalation 07/10/24 Unknown History mcg/actuation mist for inhalation (Spiriva Respimat) Allergies Allergy/AdvReac Type Severity Reaction Status Date / Time azithromycin Allergy Severe Swelling Verified 07/10/24 18:58 adhesive Allergy Unknown Verified 07/10/24 18:58 ibuprofen Allergy Unknown Verified 07/10/24 18:58 latex Allergy Unknown Verified 07/10/24 18:58 silver sulfadiazine (From Allergy Unknown Verified 07/10/24 18:58 Silvadene) Review of Systems Review of Systems: CONSTITUTIONAL: Reports malaise,no chills, sweats, or fever. EYES: Denies visual changes, redness, or discharge. ENT: Reports rhinorrhea, congestion, sinus pain, no otalgia and no sore throat. CARDIOVASCULAR: Denies chest pain, palpitations, or edema. RESPIRATORY: Reports cough.? reports some dyspnea with exertion and increased cough at night GASTROINTESTINAL: Denies abdominal pain, nausea, vomiting, diarrhea SKIN: Denies rash or itching. MUSCULOSKELETAL: Denies myalgia. NEUROLOGIC: Denies headache. All systems reviewed & are unremarkable except as noted in HPI and below PMFSH Past Medical History Medical History Cholecystectomy planned Neuropathic arthritis High cholesterol Diabetes Asthma Surgical History Surgical History H/O tubal ligation History of hip surgery Previous back surgery H/O neck surgery Family History Family History Father Hypertension Mother Asthma Heart disease Thyroid disorder Sibling Depression Thyroid disorder Grandparent Asthma Thyroid disorder Heart disease Other Depression Social History Social History Smoking packs per day: 2 Smoking cigarettes per day: 40.0 Smoking status: Former smoker Tobacco type: cigarettes Second hand tobacco smoke exposure: Yes Smoking end date: 01/06/24 Alcohol intake: never Substance use: current Substance use type: marijuana Do You Feel Safe in your Home?: Yes Lack of Transportation: No Lack of Food: Never True Current Housing: I Have Housing Concerned About Future Housing: No Difficulty Paying Gas/Electric Bills: No Difficulty Paying for Meds: No Currently Unemployed: No Education: High School Diploma/GED Difficulty w/ Childcare or Family Care: No Spiritual care concerns: No Comments At time of signature, agree with nursing past medical, surgical, social and family history. There is no relevant family history pertinent to the presenting complaint Exam Narrative: GENERAL:looks older that stated age, well-nourished, and in no acute distress. HEAD: Normocephalic EYES: PERRLA, conjunctivae clear ENT: Nares clear, turbinates edematous and erythematous, clear discharge sinus pressure voiced.. Mucous membranes moist, TM pearly avalos with dull light reflex bilaterally; no tragal tenderness. Oropharynx erythematous without lesions. Tonsils not enlarged and without exudate, no drooling, no hoarseness, no trismus, uvula midline. post nasal drainage noted NECK: Supple. No lymphadenopathy CHEST: Scattered wheezing throughout lung franco, breath sounds equal.+wheezing,no rhonchi, rales, or stridor. No respiratory distress, speaks in full sentences. SAO2 98% on room air HEART: Regular rate and rhythm. No murmur heard. SKIN: Warm, dry, no rash. NEURO: Alert and oriented x3. PSYCH: Normal mood and affect Course Course Emergency Course: Patient is aware of diagnosis, understands and agrees to treatment plan.? Anticipatory guidance given.? Patient agrees to follow-up as directed and is aware of reasons to seek care at the emergency department. Portions of this record may have been created with voice recognition software Level of Care: Express Care Visit Vital Signs Vital signs: Vital Signs Temperature 36.5 C 12/27/24 13:11 Pulse Rate 87 12/27/24 13:11 Respiratory Rate 16 12/27/24 13:11 Blood Pressure 132/73 12/27/24 13:11 Pulse Oximetry 98 12/27/24 13:11 Oxygen Delivery Room Air 12/27/24 13:11 Temperature 36.5 C 12/27/24 13:11 Pulse Rate 87 12/27/24 13:11 Respiratory Rate 16 12/27/24 13:11 Blood Pressure 132/73 12/27/24 13:11 Pulse Oximetry 98 12/27/24 13:11 Oxygen Delivery Room Air 12/27/24 13:11 Reviewed MDM - URI/Sore Throat MDM Narrative Medical decision making narrative: Differential diagnosis considered: Gutierrez virus, strep pharyngitis, allergic rhinitis, upper respiratory tract infection, sinusitis, rhinosinusitis, nasopharyngitis. viral pharyngitis, otitis media, otitis externa, pneumonia, bronchitis, viral cough syndrome, viral syndrome, and influenza.? Exam findings show no acute concerns or changes; patient is non-toxic appearing and is in no distress.? Patient is appropriate for outpatient treatment and follow-up. Differential Diagnosis Differential diagnosis: Likely upper respiratory infection, sinusitis, viral infection, bronchitis and other (exacerbation of asthma) Medical Records Attestation: I reviewed the patient's medical records. Lab Data Attestation: I reviewed the patient's lab results. Critical Care Time Critical Care Time Critical Care Time: No Discharge Plan Discharge Clinical Impression: Sinusitis Qualifiers: Sinusitis location: pansinusitis Chronicity: acute Recurrence: not specified as recurrent Qualified Code(s): J01.40 - Acute pansinusitis, unspecified Asthma exacerbation Qualifiers: Asthma severity: moderate Asthma persistence: persistent Qualified Code(s): J45.41 - Moderate persistent asthma with (acute) exacerbation Patient Disposition: Home Condition: Stable Instructions: Antibiotic Form, Sinusitis (ED), Acute Cough (ED) Additional Instructions: Increase fluids especially juices and water Smwy-jyc-azhthly cough and cold medicine of your choice for your symptoms Zyrtec Claritin or Risa daily include Coricidin brand decongestant Continue your inhaler/nebulizer as directed Steroids as directed--take with food heat to the face 20-30 minutes 4-6 times a day for pain Salt water gargles, throat lozenges or throat sprays as desired Antibiotic as directed--finished the medication If your symptoms persist, change or worsen significantly before you can contact your personal physician then please, without delay, go to the emergency department for further evaluation. Follow-up with PCP in 7-10 days or sooner if needed Follow up with PCP soon in regards to your blood pressure which is elevated above threshold for referral. Blood pressure above 120/80 may indicate pre-hypertension. 132/73 monitor for fever daily Monitor blood sugar while on steroid Patient Language: [place] Prescriptions: New amoxicillin-pot clavulanate 875-125 mg tablet 1 tablet PO Q12H Qty: 20 0RF Rx Instructions: take a probiotic or eat activia yogurt daily while taking this medication always take this medication with food prednisone 20 mg tablet 40 mg PO DAILY Qty: 10 0RF Rx Instructions: take with food and take in the morning No Action sumatriptan succinate 100 mg tablet 100 mg PO DAILY PRN (Reason: migraine headache) albuterol sulfate 90 mcg/actuation HFA aerosol inhaler 2 puff INHALATION PRN metformin 500 mg tablet extended release 24 hr 1,000 mg PO BID rosuvastatin 5 mg tablet 5 mg PO DAILY budesonide-formoterol [Symbicort] 160-4.5 mcg/actuation HFA aerosol inhaler 1 puff INHALATION DAILY albuterol sulfate 2.5 mg /3 mL (0.083 %) solution for nebulization ondansetron HCl 4 mg tablet gabapentin 100 mg capsule nicotine 7 mg/24 hr patch 24 hour Spiriva Respimat 2.5 mcg/actuation mist INHALATION clobetasol 0.05 % cream 1 applic topical BID 14 Days Qty: 30 0RF Rx Instructions: Apply to affected only, do not apply to face or near the groin. cetirizine 10 mg tablet 10 mg PO DAILY fluticasone propionate 50 mcg/actuation spray,suspension 2 spray INTRANASAL DAILY calcium carbonate-vitamin D3 600 mg-10 mcg (400 unit) tablet 1 tablet PO DAILY acetaminophen [Tylenol Extra Strength] 500 mg tablet 1,000 mg PO TID PRN (Reason: pain) Qty: 30 0RF famotidine 20 mg tablet 20 mg PO DAILY Qty: 30 0RF dicyclomine 20 mg tablet 20 mg PO TID PRN (Reason: abdominal pain) Qty: 30 0RF omeprazole 40 mg capsule,delayed release(DR/EC) See Rx Instructions .ROUTE .COMPLEX Qty: 30 3RF Dose Instruction: TAKE 1 CAPSULE BY MOUTH EVERY DAY Rx Instructions: TAKE 1 CAPSULE BY MOUTH EVERY DAY Follow-up/Referrals: Harley,Marianne Kearney APRN [Primary Care Provider, Unknown] Time of Disposition: 13:37 Quality Karen Coma Scale Eyes: Open Verbal: Oriented and Alert Motor: Follows Commands Karen Coma Total Score: 15
== END 2024-12-27 13:43 | disposition home or self-care (01) ==
PROVIDERS: Emergency Provider Registered Nurse; PCP Nurse Practitioner Family
DX: J01.40 Acute pansinusitis, unspecified (principal); J45.41 Moderate persistent asthma with (acute) exacerbation; F12.90 Cannabis use, unspecified, uncomplicated; E11.9 Type 2 diabetes mellitus without complications; Z79.84 Long term (current) use of oral hypoglycemic drugs; J45.909 Unspecified asthma, uncomplicated; E78.00 Pure hypercholesterolemia, unspecified; Z87.891 Personal history of nicotine dependence
CPT/HCPCS: 99213; G0463